=== PATIENT | female | born 1935 | race Caucasian/White ===

== ENCOUNTER 2016-09-25 13:18 | Emergency (ER) | payer MEDICARE, OTHER ==
--- NOTE | 2016-09-25 14:18 | RAD ---
TWO VIEWS OF THE LEFT HIP 09/25/2016 COMPARISON: 06/15/2016 HISTORY: Pain, injury. FINDINGS: Rounded rim-calcified densities overlie the soft tissues of the left buttock region suggesting injec tion granulomata. There is moderate superior joint space narrowing and lateral acetabular osteophyt e formation, evidence of degenerative change, stable. No acute fracture or dislocation seen. IMPRESSION: Stable degenerative joint disease. No displaced fracture or dislocation seen. POS: [facility]
[2016-09-25 14:57] LABS: #Basophils 0.1 thou/uL (0.0-0.2); #Eosinphils 0.3 thou/uL (0.0-0.7); #Monocytes 0.5 thou/uL (0.11-0.59); #Neutrophils 5.2 thou/uL (1.40-6.50); %Basophils 1.1 % (0.0-1.0); %Eosinophils 4.2 % (0.0-10.0); %Lymphocytes 13.7 % (21.0-51.0); %Monocytes 6.6 % (0.0-10.0); %Neutrophils 74.4 % (42.0-75.0); Hemoglobin 12.3 g/dL (12.0-16.0); Mean Corpuscular HGB CONC 32.2 g/dL (32.0-36.0); Mean Corpuscular Hemoglobin 29.4 pg (27.0-31.0); Mean Corpuscular Volume 91.4 fl (81.0-99.0); Mean Platelet Volume 9.2 fL (7.4-10.4); Platelet Count 130 thou/uL (130-400); RBC Distribution Width 14.2 % (11.5-14.5); Red Blood Cell (RBC) Count 4.17 mill/uL (4.20-5.40); White Blood Cell (WBC) Count 6.9 thou/uL (4.8-10.8)
[2016-09-25 15:13] LABS: ALT (SGPT) 9 U/L (0-55); AST (SGOT) 15 U/L (5-34); Albumin 4.1 g/dL (3.4-4.8); Alkaline Phosphatase 76 U/L (40-150); Anion Gap 17 mmol/L (10-20); BUN (Urea Nitrogen) 17 mg/dL (9.8-20.1); Bilirubin, Total 0.8 mg/dL (0.2-1.2); Calc. Creatinine Clearance 0 mL/min (70-130); Calcium 9.5 mg/dL (7.8-10.44); Carbon Dioxide 25 mmol/L (23-31); Chloride 104 mmol/L (98-107); Estimated GFR-MDRD 70; Globulin 2.6 g/dL (2.4-3.5); Glucose 230 mg/dL (83-110); Magnesium 1.7 mg/dL (1.6-2.6); Potassium 4.8 mmol/L (3.5-5.1); Protein, Total 6.7 g/dL (5.8-8.1); Sodium 141 mmol/L (136-145)
[2016-09-25 15:16] LABS: Bilirubin Negative (Negative); Blood, Urine Trace (Negative); Clarity Clear (Clear); Glucose, Urine (Dipstick) 100 mg/dL (Negative); Leukocyte Negative (Negative); Nitrite Negative (Negative); Protein, Urine (Dipstick) 30 mg/dL (Neg-Trace); Urobilinogen 0.2 mg/dL (0.2-1.0)
[2016-09-25 15:23] LABS: Specific Gravity, Urine 1.023 (1.002-1.036)
[2016-09-25 15:24] LABS: Bacteria/HPF Rare-Few HPF (None Seen); RBC/HPF 0-3 HPF (0-3); Squamous Epithelial 0-3 HPF (0-3); WBC/HPF 0-3 HPF (0-3)
--- NOTE | 2016-09-25 17:08 | RAD ---
PA AND LATERAL CHEST: Date: 09-25-16 History: Syncope. Comparison: 05-10-16 FINDINGS: Post-surgical changes related to median sternotomy and cardiac valve replacement are noted. There a re finding likely related to associated CABG. Fractured sternal wires are again seen. Cardiac silh ouette is at the upper limits of normal to mildly enlarged. Pulmonary vasculature is within normal limits. Mild chronic lung changes are seen. There is some slight blunting of the posterior costoph renic angle, some of which is related to overlying soft tissue density, but tiny bilateral pleural e ffusions are a possibility. There is osteopenia. No other interval change. IMPRESSION: 1. Mild cardiomegaly without overt CHF. 2. Questionable tiny bilateral pleural effusions. 3. Mild chronic lung changes. POS: [facility]
--- NOTE | 2016-09-25 20:44 | ERRECORD ---
[facility] EMERGENCY RECORD HPI SYNCOPE (18:50 ALMO) CHIEF COMPLAINT: Patient presents for evaluation of near syncope. HISTORIAN: History provided by patient. LOCATION: No localizing symptoms. QUALITY: Symptom quality described as dizziness. SEVERITY: Maximum severity of symptoms mild, Currently symptoms are moderate. TIME COURSE: Gradual onset of symptoms, 3, days ago. ASSOCIATED WITH: Associated with vomiting, Associated with weakness. EXACERBATED BY: Patient's condition exacerbated by nothing. RELIEVED BY: Patient's condition relieved by nothing. ROS (18:51 ALMO) CONSTITUTIONAL: Historian denies chills, denies fever. EYES: Negative eye review of systems. ENT: Negative ears, nose, throat review of systems. CARDIOVASCULAR: Historian denies chest pain, denies diaphoresis, reports palpitations. no carotid bruits. RESPIRATORY: Historian reports shortness of breath, denies wheezing. chronic but seems worse. NEUROLOGIC: Historian reports dizziness, denies focal weakness, denies gait changes. NOTES: All systems reviewed, negative except as described above. PAST MEDICAL HISTORY (SunSep 25, 2016 13:25 JPER) MEDICAL HISTORY: Notes: C/O LEFT HIP PAIN, Flu vaccine up to date, Pneumococcal vaccine up to date, Notes: VERIFIED 12-17-14, Flu vaccine up to date, Tetanus immunization up to date, Pneumococcal vaccine up to date, Flu vaccine up to date, Tetanus immunization up to date, Pneumococcal vaccine up to date, Past medical history includes cardiac history, Valvular disease, Past medical history includes pulmonary disease, pneumonia Notes: ANEMIA, CHF, Past medical history includes cardiac history, Past medical history includes history of diabetes, Past medical history includes endocrine disease, hypothyroidism, Past medical history includes hematological history, Past medical history includes history of hypertension, Past medical history includes cardiac history, congestive heart failure, myocardial infarction, NEED MITRAL VALVE REPLACEMENT, Past medical history includes history of diabetes, Type II, REVIEWED 01/15/2011. Past medical history includes cardiac history, coronary artery disease, cardiomyopathy, valvular heart disease mitral valve prolapse, Treated with angioplasty. vERIFIED. 08-27-14. FEMALE SURGICAL HISTORY: VERIFIED 09-25-16, VERIFIED 12-17-14, VALVE IMPLANT 29 MM, JANUARY 2002, LENS IMPLANTS BOTH EYES. SEPTUM REPAIR. ADENOIDS OUT, Surgical history of appendectomy, Surgical history of coronary artery bypass graft surgery, four vessels, Notes: X2 HEART SURGERIES, Surgical history of cholecystectomy, Surgical history of hysterectomy, Surgical history &a-1R&a+25V*p+0X*[id number]*c202B*c15G*c2P*p-0X&a-25V&a+1R Name: Vivian Willard : 1935 F81 MedRec: [id number] AcctNum: [id number] Prepared: SunSep 25, 2016 20:31 by Interface Page [address] [facility] EMERGENCY RECORD of oophorectomy, Surgical history of tonsillectomy. VERIFIED. 08-27-14. PSYCHIATRIC HISTORY: Notes: DENIES, Notes: VERIFIED 12-17-14, No previous psychiatric history, no previous inpatient psychiatric admissions, no previous emergency department psychiatric evaluations. REVIEWED 01/15/2011. No previous psychiatric history. VERIFIED. 08-27-14. SOCIAL HISTORY: Social History includes VERIFIED 09-25-16, Patient is a former tobacco user, smoked cigarettes, Patient quit smoking more than 10 years ago, Social History includes VERIFIED 12-17-14, Patient denies alcohol use, Patient denies drug use, Patient has no smoking history, Patient is a former tobacco user, smoked cigarettes, Patient quit smoking more than 10 years ago, Patient denies alcohol use, Patient denies drug use. VERIFIED.08-27-14. FAMILY HISTORY: SISTER OF MULTIPLE SCLEROSIS, Family history includes coronary artery disease, mother, father. (08/01/14). KNOWN ALLERGIES MYCINS (Unconfirmed) nitrofurantoin penicillin V (Unconfirmed): Reaction: Rash Penicillins pentazocine (Unconfirmed) pentazocine lactate (Unconfirmed) predniSONE Talwin CURRENT MEDICATIONS No recorded medications VITAL SIGNS VITAL SIGNS: BP: 136/49, Pulse: 76, Resp: 32, O2 sat: 92 on 2L Oxygen, Time: 09/25/2016 13:19. (13:19 JPER) BP: 159/75, Pulse: 60, Resp: 18, Temp: 98.4, O2 sat: 96 on RA, Time: 09/25/2016 17:57. (17:57 JPER) BP: 125/80, Pulse: 62, Resp: 18, Temp: 98.4 (Tympanic), O2 sat: 94 on Room Air, Time: 09/25/2016 14:00. (14:00 JPER) BP: 123/83, Pulse: 57, Resp: 18, O2 sat: 96 on Room Air, Time: 09/25/2016 14:30. (14:30 JPER) BP: 149/50, Pulse: 66, Resp: 20, Temp: 98.4 (Tympanic), O2 sat: 96 on Room Air, Time: 09/25/2016 15:00. (15:00 JPER) BP: 149/49, Pulse: 67, Resp: 18, O2 sat: 94 on 2L Oxygen, Time: 09/25/2016 15:30. (15:30 JPER) BP: 145/50, Pulse: 57, Resp: 20, O2 sat: 94 on 2L Oxygen, Time: 09/25/2016 16:00. (16:00 JPER) BP: 172/55, Pulse: 56, Resp: 20, O2 sat: 96 on 2L Oxygen, Time: 09/25/2016 16:30. (16:30 JPER) BP: 145/85, Pulse: 66, Resp: 20, O2 sat: 96 on 2L Oxygen, Time: 09/25/2016 &a-1R&a+25V*p+0X*[id number]*c202B*c15G*c2P*p-0X&a-25V&a+1R Name: Vivian Willard : 1935 F81 MedRec: [id number] AcctNum: [id number] Prepared: SunSep 25, 2016 20:31 by Interface Page [address] [facility] EMERGENCY RECORD 17:00. (17:00 JPER) BP: 142/84, Pulse: 64, Resp: 22, Temp: 98.5 (Tympanic), O2 sat: 96 on 2L Oxygen, Time: 09/25/2016 17:30. (17:30 JPER) BP: 159/75, Pulse: 56, Resp: 20, Temp: 98.4 (Tympanic), O2 sat: 96 on 2L Oxygen, Time: 09/25/2016 18:00. (18:00 JPER) PHYSICAL EXAM (18:53 ALMO) CONSTITUTIONAL: Vital Signs Reviewed. HEAD: Head exam included findings of head atraumatic, normocephalic. EYES: Pupils equally round and reactive to light. ENT: Pharynx exam normal. NECK: Neck exam included findings of normal range of motion, Trachea midline, Thyroid normal. RESPIRATORY CHEST: Respiratory exam included findings of, mild respiratory distress, Breath sounds diminished, to bilateral lower lobes. CARDIOVASCULAR: Cardiovascular exam included findings of heart rate regular rate and rhythm, Heart sounds normal, no murmurs. ABDOMEN FEMALE: Abdominal exam included findings of abdomen nontender, Bowel sounds normal, Liver normal, Spleen normal. BACK: Back exam included findings of normal inspection. SKIN: Skin exam normal. PSYCHIATRIC: Psychiatric exam included findings of patient oriented to person place and time, Normal affect, Judgment normal, Insight normal. PROBLEM LIST No recorded problems DIAGNOSIS (20:23 AGAN) FINAL: PRIMARY: Syncope. PRESCRIPTION No recorded prescriptions DISPOSITION PATIENT: Disposition Type: Transfer, Disposition: Transfer to [facility]. (19:15 AGAN) Disposition Transport: Ambulance, Condition: Good, Patient left the department. (20:23 AGAN) Azevedo: JASWINDER=ТАТЬЯНА Sarah, Dg VEGA=MD Babak, Juan ARREGUIN=ТАТЬЯНА Liang, Sapna &a-1R&a+25V*p+0X*[id number]*c202B*c15G*c2P*p-0X&a-25V&a+1R Name: Geraldo Willardmehran Murray : 1935 F81 MedRec: [id number] AcctNum: [id number] Prepared: SunSep 25, 2016 20:31 by Interface Page 3 of 3 pMD MTDD
--- NOTE | 2016-09-25 20:50 | PICIS ---
[facility] EMERGENCY RECORD TRIAGE (SunSep 25, 2016 13:25 JPER) PATIENT: NAME: Vivian Willard, AGE: 81, GENDER: female, : Sun1935, TIME OF GREET: SunSep 25, 2016 13:18, PREFERRED LANGUAGE: Albanian, RACE: WHITE, ETHNICITY: Not or , FALL RISK: YES, ECODE BILLING MAP: [facility], SSN: [id number], Zip Code: [address], PHONE: , , , PERSON ID: [id number], PCP: MD Waddell Grover. (SunSep 25, 2016 13:25 JPER) KG WEIGHT: 83.9 (est.). (19:15 AGAN) COMPLAINT: FALL. (SunSep 25, 2016 13:25 JPER) ADMISSION: URGENCY: 4 Non Urgent, ADMISSION SOURCE: Home, TRANSPORT: Walk-in, BED: ED -04. (SunSep 25, 2016 13:25 JPER) ASSESSMENT: Assessment: LEFT HIP PAIN X 1 HOUR. (SunSep 25, 2016 13:25 JPER) PAIN: Location LEFT HIP. (SunSep 25, 2016 13:25 JPER) IMMUNIZATIONS: Flu vaccine up to date, Tetanus immunization up to date, Pneumococcal vaccine up to date. (SunSep 25, 2016 13:25 JPER) SIRS SCORING: Heart Rate 55-109 (0), Temp range 96.8-101.1 (0), respiratory rate 12-24 (0), Mental Status altered: no (0). (SunSep 25, 2016 13:25 JPER) TRIAGE SCREENING: Patient denies suicidal ideation, Patient denies presence of domestic violence. (SunSep 25, 2016 13:25 JPER) PROVIDERS: TRIAGE NURSE: Sapna Liang RN. (SunSep 25, 2016 13:25 JPER) VITAL SIGNS: BP 136/49, Pulse 76, Resp 32, O2 Sat 92, on 2L Oxygen, Time 09/25/2016 13:19. (13:19 JPER) PREVIOUS VISIT ALLERGIES: nitrofurantoin, Penicillins, predniSONE, Talwin. (SunSep 25, 2016 13:25 JPER) KNOWN ALLERGIES MYCINS (Unconfirmed) nitrofurantoin penicillin V (Unconfirmed): Reaction: Rash Penicillins pentazocine (Unconfirmed) pentazocine lactate (Unconfirmed) predniSONE Talwin CURRENT MEDICATIONS No recorded medications VITAL SIGNS VITAL SIGNS: BP: 136/49, Pulse: 76, Resp: 32, O2 sat: 92 on 2L Oxygen, Time: 09/25/2016 13:19. (13:19 JPER) BP: 159/75, Pulse: 60, Resp: 18, Temp: 98.4, O2 sat: 96 on RA, Time: 09/25/2016 17:57. (17:57 JPER) BP: 125/80, Pulse: 62, Resp: 18, Temp: 98.4 (Tympanic), O2 sat: 94 on Room Air, Time: 09/25/2016 14:00. (14:00 JPER) BP: 123/83, Pulse: 57, Resp: 18, O2 sat: 96 on Room Air, Time: 09/25/2016 &a-1R&a+25V*p+0X*f7387M*c202B*c15G*c2P*p-0X&a-25V&a+1R Name: Vivian Willard : 1935 F81 MedRec: [id number] AcctNum: [id number] Prepared: SunSep 25, 2016 20:39 by Interface Page 1 of 8 pMD [facility] EMERGENCY RECORD 14:30. (14:30 JPER) BP: 149/50, Pulse: 66, Resp: 20, Temp: 98.4 (Tympanic), O2 sat: 96 on Room Air, Time: 09/25/2016 15:00. (15:00 JPER) BP: 149/49, Pulse: 67, Resp: 18, O2 sat: 94 on 2L Oxygen, Time: 09/25/2016 15:30. (15:30 JPER) BP: 145/50, Pulse: 57, Resp: 20, O2 sat: 94 on 2L Oxygen, Time: 09/25/2016 16:00. (16:00 JPER) BP: 172/55, Pulse: 56, Resp: 20, O2 sat: 96 on 2L Oxygen, Time: 09/25/2016 16:30. (16:30 JPER) BP: 145/85, Pulse: 66, Resp: 20, O2 sat: 96 on 2L Oxygen, Time: 09/25/2016 17:00. (17:00 JPER) BP: 142/84, Pulse: 64, Resp: 22, Temp: 98.5 (Tympanic), O2 sat: 96 on 2L Oxygen, Time: 09/25/2016 17:30. (17:30 JPER) BP: 159/75, Pulse: 56, Resp: 20, Temp: 98.4 (Tympanic), O2 sat: 96 on 2L Oxygen, Time: 09/25/2016 18:00. (18:00 JPER) NURSING ASSESSMENT: EXTREMITY LOWER (13:28 JPER) CONSTITUTIONAL: Patient arrives ambulatory, Gait steady, History obtained from patient, Patient appears comfortable, Patient cooperative, Patient alert, Oriented to person, place and time, Skin warm, Skin dry, Skin normal in color, Mucous membranes pink, Mucous membranes moist, Patient is well-groomed, Patient complains of LEFT HIP PAIN S/P FALL. PAIN: aching pain, to the left hip, on a scale 0-10 patient rates pain as 8, Pain exacerbated by nothing, Nothing has been tried to alleviate the pain. LEFT LOWER EXTREMITY: Left lower extremity assessment findings include capillary refill less than 2 seconds, Skin color normal, Skin temperature warm, Distal sensation intact, Muscle tone normal. RIGHT LOWER EXTREMITY: Right lower extremity assessment findings include capillary refill less than 2 seconds, Skin color normal, Skin temperature warm, Distal sensation intact, Muscle tone normal. NURSING PROCEDURE: BEDSIDE TESTING (18:12 AGAN) PATIENT IDENTIFIER: Patient actively involved in identification process, Patient's identity verified by patient stating name, Patient's identity verified by hospital ID [email or web address]. GLUCOSE: Glucose testing indicated for diabetic patient, Capillary blood sample, Result (mg/dl) 147, Machine number [id number]. FOLLOW-UP: Notes: PROVIDED APPLE JUICE, CRACKERS\CHEESE PACK AND ANIMALCRACKERS. SAFETY: Cart/Stretcher in lowest position, Hospital ID band on. NURSING PROCEDURE: COMMUNICATIONS (20:06 AWAT) COMMUNICATIONS: Notes: CARE OF PATIENT ASSUMED BY RUPERTO MOCTEZUMA-P WITH [facility]. NURSING PROCEDURE: IV (17:38 JPER) PATIENT IDENITIFIER: Patient's identity verified by patient &a-1R&a+25V*p+0X*z9595B*c202B*c15G*c2P*p-0X&a-25V&a+1R Name: Vivian Willard : 1935 F81 MedRec: [id number] AcctNum: [id number] Prepared: SunSep 25, 2016 20:39 by Interface Page 2 of 8 pMD [facility] EMERGENCY RECORD stating name, Patient's identity verified by hospital ID bracelet. IV SITE 1: IV therapy indicated for hydration, IV therapy indicated for medication administration, IV established, to the right antecubital, using a 20 gauge catheter, in two attempts, IV site prepped with CHLOROPREP, Saline lock established. FOLLOW-UP SITE 1: After procedure, sterile transparent dressing applied. NURSING PROCEDURE: NURSE NOTES NURSES NOTES: Notes: WAITING TRANSFER; PT IS AWAKE ET ALERT; DENIES CP; PLEASANT ET COOPERATIVE. (17:57 JPER) Notes: PT CONT COOPERATIVE; NAD. (15:00 JPER) Shift change report given, to DELMAR RN, Provided opportunity to answer questions, Line reconciliation completed. (18:04 JPER) VITAL SIGNS: BP: 159, / 75, Pulse: 60, Resp: 18, Temp: 98.4, O2 sat: 96, on: RA. (17:57 JPER) ORDER DETAILS Order Name: B type Natriuretic Peptide, Status: Active, Time: 14:16 09/25/2016, User: SILVIA, - Ordered for: MD Hilliard Alberto, - Entered by: MD Hilliard Alberto - SunSep 25, 2016 14:16, - Quantity: 1, Order Name: CBC with Differential, Status: Active, Time: 14:16 09/25/2016, User: SILVIA, - Ordered for: MD Hilliard Alberto, - Entered by: MD Hilliard Alberto - SunSep 25, 2016 14:16, - Quantity: 1, Order Name: Comprehensive Metabolic Panel, Status: Active, Time: 14:16 09/25/2016, User: SILVIA, - Ordered for: MD Hilliard Alberto, - Entered by: MD Hilliard Alberto - SunSep 25, 2016 14:16, - Quantity: 1, Order Name: D-Dimer (Quantitative), Status: Active, Time: 14:16 09/25/2016, User: SILVIA, - Ordered for: MD Hilliard Alberto, - Entered by: MD Hilliard Alberto - SunSep 25, 2016 14:16, - Quantity: 1, Order Name: EKG 12 Lead in Emergency Room, Status: Active, Time: 16:44 09/25/2016, User: RODRÍGUEZ, - Ordered for: MD Hilliard Alberto, - Entered by: ТАТЬЯНА Liang, Sapna - SunSep 25, 2016 16:44, - Quantity: 1, Order Name: Magnesium, Status: Active, Time: 14:16 09/25/2016, User: SILVIA, - Ordered for: MD Hilliard Alberto, - Entered by: MD Hilliard Alberto - SunSep 25, 2016 14:16, - Quantity: 1, Order Name: Troponin - I, Status: Active, Time: 14:16 09/25/2016, &a-1R&a+25V*p+0X*z7141S*c202B*c15G*c2P*p-0X&a-25V&a+1R Name: Geraldo Willardmehran Murray : 1935 F81 MedRec: [id number] AcctNum: [id number] Prepared: SunSep 25, 2016 20:39 by Interface Page 3 of 8 D [facility] EMERGENCY RECORD User: SILVIA, - Ordered for: MD Hilliard Alberto, - Entered by: MD Hilliard Alberto - SunSep 25, 2016 14:16, - Quantity: 1, Order Name: Urinalysis w/ Rflx Microscopic, Status: Active, Time: 14:16 09/25/2016, User: SILVIA, - Ordered for: MD Hilliard Alberto, - Entered by: MD Hilliard Alberto - SunSep 25, 2016 14:16, - Quantity: 1, Order Name: XR Chest Pa & Lat STANDARD, Status: Active, Time: 14:16 09/25/2016, User: SILVIA, - Ordered for: MD Hilliard Alberto, - Entered by: MD Hilliard Alberto - SunSep 25, 2016 14:16, - Quantity: 1, Order Name: XR Hip Lt 2-3 View STANDARD, Status: Active, Time: 13:30 09/25/2016, User: RODRÍGUEZ, - Ordered for: MD Hilliard Alberto, - Entered by: ТАТЬЯНА Liang Sapna - SunSep 25, 2016 13:30, - Quantity: 1. HPI SYNCOPE (18:50 ALMO) CHIEF COMPLAINT: Patient presents for evaluation of near syncope. HISTORIAN: History provided by patient. LOCATION: No localizing symptoms. QUALITY: Symptom quality described as dizziness. SEVERITY: Maximum severity of symptoms mild, Currently symptoms are moderate. TIME COURSE: Gradual onset of symptoms, 3, days ago. ASSOCIATED WITH: Associated with vomiting, Associated with weakness. EXACERBATED BY: Patient's condition exacerbated by nothing. RELIEVED BY: Patient's condition relieved by nothing. ROS (18:51 ALMO) CONSTITUTIONAL: Historian denies chills, denies fever. EYES: Negative eye review of systems. ENT: Negative ears, nose, throat review of systems. CARDIOVASCULAR: Historian denies chest pain, denies diaphoresis, reports palpitations. no carotid bruits. RESPIRATORY: Historian reports shortness of breath, denies wheezing. chronic but seems worse. NEUROLOGIC: Historian reports dizziness, denies focal weakness, denies gait changes. NOTES: All systems reviewed, negative except as described above. PAST MEDICAL HISTORY (SunSep 25, 2016 13:25 RODRÍGUEZ) MEDICAL HISTORY: Notes: C/O LEFT HIP PAIN, Flu vaccine up to date, Pneumococcal vaccine up to date, Notes: VERIFIED 12-17-14, Flu vaccine up to date, Tetanus immunization up to date, Pneumococcal vaccine up to date, Flu vaccine up to date, Tetanus &a-1R&a+25V*p+0X*c8038O*c202B*c15G*c2P*p-0X&a-25V&a+1R Name: Vivian Willard : 1935 F81 MedRec: [id number] AcctNum: [id number] Prepared: SunSep 25, 2016 20:39 by Interface Page 4 of 8 pMD [facility] EMERGENCY RECORD immunization up to date, Pneumococcal vaccine up to date, Past medical history includes cardiac history, Valvular disease, Past medical history includes pulmonary disease, pneumonia Notes: ANEMIA, CHF, Past medical history includes cardiac history, Past medical history includes history of diabetes, Past medical history includes endocrine disease, hypothyroidism, Past medical history includes hematological history, Past medical history includes history of hypertension, Past medical history includes cardiac history, congestive heart failure, myocardial infarction, NEED MITRAL VALVE REPLACEMENT, Past medical history includes history of diabetes, Type II, REVIEWED 01/15/2011. Past medical history includes cardiac history, coronary artery disease, cardiomyopathy, valvular heart disease mitral valve prolapse, Treated with angioplasty. vERIFIED. 08-27-14. FEMALE SURGICAL HISTORY: VERIFIED 09-25-16, VERIFIED 12-17-14, VALVE IMPLANT 29 MM, JANUARY 2002, LENS IMPLANTS BOTH EYES. SEPTUM REPAIR. ADENOIDS OUT, Surgical history of appendectomy, Surgical history of coronary artery bypass graft surgery, four vessels, Notes: X2 HEART SURGERIES, Surgical history of cholecystectomy, Surgical history of hysterectomy, Surgical history of oophorectomy, Surgical history of tonsillectomy. VERIFIED. 08-27-14. PSYCHIATRIC HISTORY: Notes: DENIES, Notes: VERIFIED 12-17-14, No previous psychiatric history, no previous inpatient psychiatric admissions, no previous emergency department psychiatric evaluations. REVIEWED 01/15/2011. No previous psychiatric history. VERIFIED. 08-27-14. SOCIAL HISTORY: Social History includes VERIFIED 09-25-16, Patient is a former tobacco user, smoked cigarettes, Patient quit smoking more than 10 years ago, Social History includes VERIFIED 12-17-14, Patient denies alcohol use, Patient denies drug use, Patient has no smoking history, Patient is a former tobacco user, smoked cigarettes, Patient quit smoking more than 10 years ago, Patient denies alcohol use, Patient denies drug use. VERIFIED.08-27-14. FAMILY HISTORY: SISTER OF MULTIPLE SCLEROSIS, Family history includes coronary artery disease, mother, father. (08/01/14). PHYSICAL EXAM (18:53 ALMO) CONSTITUTIONAL: Vital Signs Reviewed. HEAD: Head exam included findings of head atraumatic, normocephalic. EYES: Pupils equally round and reactive to light. ENT: Pharynx exam normal. NECK: Neck exam included findings of normal range of motion, Trachea midline, Thyroid normal. RESPIRATORY CHEST: Respiratory exam included findings of, mild respiratory distress, Breath sounds diminished, to bilateral lower lobes. &a-1R&a+25V*p+0X*m1454B*c202B*c15G*c2P*p-0X&a-25V&a+1R Name: Vivian Willard : 1935 F81 MedRec: [id number] AcctNum: [id number] Prepared: SunSep 25, 2016 20:39 by Interface Page 5 of 8 pMD [facility] EMERGENCY RECORD CARDIOVASCULAR: Cardiovascular exam included findings of heart rate regular rate and rhythm, Heart sounds normal, no murmurs. ABDOMEN FEMALE: Abdominal exam included findings of abdomen nontender, Bowel sounds normal, Liver normal, Spleen normal. BACK: Back exam included findings of normal inspection. SKIN: Skin exam normal. PSYCHIATRIC: Psychiatric exam included findings of patient oriented to person place and time, Normal affect, Judgment normal, Insight normal. EVENTS TRANSFER: Triage to Emergency Main ED -04. (SunSep 25, 2016 13:25 JPER) Removed from Emergency Main ED -04. (20:23 AGAN) PROBLEM LIST No recorded problems DIAGNOSIS (20:23 AGAN) FINAL: PRIMARY: Syncope. DISPOSITION PATIENT: Disposition Type: Transfer, Disposition: Transfer to [facility]. (19:15 AGAN) Disposition Transport: Ambulance, Condition: Good, Patient left the department. (20:23 AGAN) PRESCRIPTION No recorded prescriptions IMAGING *EKG: Image captured from scanner. (17:38 AGAN) *MEMORANDUM OF TRANSFER: Image captured from scanner. (18:13 MDEB) CONSENT FOR TRANSFER: Image captured from scanner. (18:14 MDEB) EMS TRANSPORT ORDERS: Image captured from scanner. (18:14 MDEB) SBARU: Image captured from scanner. (20:08 AGAN) RESULTS (19:29 AGAN) LABORATORY: Accuchek Collection DT: SunSep 25, 2016 18:19, *Accuchek 147 - H mg/dL, Range (70-110). Urine Microscopic Collection DT: SunSep 25, 2016 15:11, RBC/HPF 0-3 HPF, Range (0-3), WBC/HPF 0-3 HPF, Range (0-3), Squamous Epithelial 0-3 HPF, Range (0-3), Bacteria/HPF Rare-Few HPF, Range (None Seen). Urinalysis w/ Rflx Microscopic Collection DT: SunSep 25, 2016 15:11, Color Yellow , Range (Yellow), Clarity Clear , Range (Clear), Specific [place], Urine 1.023 , Range (1.002-1.036), &a-1R&a+25V*p+0X*h7646B*c202B*c15G*c2P*p-0X&a-25V&a+1R Name: Vivian Willard : 1935 F81 MedRec: [id number] AcctNum: [id number] Prepared: SunSep 25, 2016 20:39 by Interface Page 6 of 8 pMD [facility] EMERGENCY RECORD pH, Urine 5.0 , Range (5.0-9.0), Leukocyte Negative , Range (Negative), Nitrite Negative , Range (Negative), *Protein, Urine (Dipstick) 30 - H mg/dL, Range (Neg-Trace), *Glucose, Urine (Dipstick) 100 - H mg/dL, Range (Negative), Ketone, Urine Negative mg/dL, Range (Negative), Urobilinogen 0.2 mg/dL, Range (0.2-1.0), Bilirubin Negative , Range (Negative), *Blood, Urine Trace - H , Range (Negative). B type Natriuretic Peptide Collection DT: SunSep 25, 2016 14:48, *B type Natriuretic Peptide 310.1 - H pg/mL, Range (0-100). Troponin - I Collection DT: SunSep 25, 2016 14:48, Troponin I Less than 0.010 ng/mL, Range (< 0.028), Reference Range , 0.00 - 0.028 ng/mL Negative 0.029 - 0.29 ng/mL , Indeterminate Greater or Equal to 0.3 ng/mL Strongly suggests NM , . Magnesium Collection DT: SunSep 25, 2016 14:48, Magnesium 1.7 mg/dL, Range (1.6-2.6), NOTE: Higher values can be expected in females during menses . Comprehensive Metabolic Panel Collection DT: SunSep 25, 2016 14:48, Sodium 141 mmol/L, Range (136-145), Potassium 4.8 mmol/L, Range (3.5-5.1), Chloride 104 mmol/L, Range (98-107), Carbon Dioxide 25 mmol/L, Range (23-31), Anion Gap 17 mmol/L, Range (10-20), BUN (Urea Nitrogen) 17 mg/dL, Range (9.8-20.1), Creatinine 0.79 mg/dL, Range (0.6-1.1), Estimated GFR-MDRD 70 , Reference Range for Estimated GFR: Greater than 90, mL/min/1.73 m2 NOTE: The MDRD equation has not been validated for use, with the elderly (over 70 years of age), women, patients with, serious comorbid condition or persons with extremes of body size, muscle, mass, or nutritional status. , *Glucose 230 - H mg/dL, Range (83-110), Calcium 9.5 mg/dL, Range (7.8-10.44), Bilirubin, Total 0.8 mg/dL, Range (0.2-1.2), Protein, Total 6.7 g/dL, Range (5.8-8.1), NOTE: Plasma values are generally 0.3 to 0.5 g/dL higher than serum values, due to the presence of fibrinogen. , Albumin 4.1 g/dL, Range (3.4-4.8), Globulin 2.6 g/dL, Range (2.4-3.5), Alb/Glob Ratio 1.6 g/dL, Range (1.2-2.2), Alkaline Phosphatase 76 U/L, Range (40-150), AST (SGOT) 15 U/L, Range (5-34), &a-1R&a+25V*p+0X*i1163I*c202B*c15G*c2P*p-0X&a-25V&a+1R Name: Vivian Willard : 1935 F81 MedRec: [id number] AcctNum: [id number] Prepared: SunSep 25, 2016 20:39 by Interface Page 7 of 8 pMD [facility] EMERGENCY RECORD ALT (SGPT) 9 U/L, Range (0-55). D-Dimer (Quantitative) Collection DT: SunSep 25, 2016 14:48, D-Dimer Test 0.31 *mcg/mL, Range (0.27-0.43), * Reference Range Units: mcg/mL of fibrinogen equivalent, units(FEU) Based upon a retrospective study of [facility] patients in December 2005, a result of Less than 0.44 mcg/mL FEU is, predictive of the absence of a DVT or PE. . CBC with Differential Collection DT: SunSep 25, 2016 14:48, White Blood Cell (WBC) Count 6.9 thou/uL, Range (4.8-10.8), *Red Blood Cell (RBC) Count 4.17 - L mill/uL, Range (4.20-5.40), Hemoglobin 12.3 g/dL, Range (12.0-16.0), Hematocrit 38.1 %, Range (36.0-47.0), Mean Corpuscular Volume 91.4 fl, Range (81.0-99.0), Mean Corpuscular Hemoglobin 29.4 pg, Range (27.0-31.0), Mean Corpuscular HGB CONC 32.2 g/dL, Range (32.0-36.0), RBC Distribution Width 14.2 %, Range (11.5-14.5), Platelet Count 130 thou/uL, Range (130-400), Mean Platelet Volume 9.2 fL, Range (7.4-10.4), %Neutrophils 74.4 %, Range (42.0-75.0), *%Lymphocytes 13.7 - L %, Range (21.0-51.0), %Monocytes 6.6 %, Range (0.0-10.0), %Eosinophils 4.2 %, Range (0.0-10.0), *%Basophils 1.1 - H %, Range (0.0-1.0), #Neutrophils 5.2 thou/uL, Range (1.40-6.50), *#Lymphocytes 1.0 - L thou/uL, Range (1.20-3.40), #Monocytes 0.5 thou/uL, Range (0.11-0.59), #Eosinphils 0.3 thou/uL, Range (0.0-0.7), #Basophils 0.1 thou/uL, Range (0.0-0.2). [place]evedo: JASWINDER=ТАТЬЯНА Sarah, Dg VEGA=MD Babak, Juan COTTER=ТАТЬЯНА Gates, Amado ARREGUIN=ТАТЬЯНА Liang, Sapna TRACEY=ТАТЬЯНА Campbell, Yuni &a-1R&a+25V*p+0X*w6826X*c202B*c15G*c2P*p-0X&a-25V&a+1R Name: Geraldo Willardn Terri : 1935 F81 MedRec: [id number] AcctNum: [id number] Prepared: SunSep 25, 2016 20:39 by Interface Page 8 of 8 pMD MTDD
== END 2016-09-25 20:06 | disposition short-term general hospital (02) ==
LOC: MADERS 13:18
DX: R55 Syncope and collapse (principal); I11.0 Hypertensive heart disease with heart failure; I50.9 Heart failure, unspecified; D64.9 Anemia, unspecified; E03.9 Hypothyroidism, unspecified; I25.2 Old myocardial infarction; E11.9 Type 2 diabetes mellitus without complications; I25.10 Atherosclerotic heart disease of native coronary artery without angina pectoris; I42.9 Cardiomyopathy, unspecified; Z87.891 Personal history of nicotine dependence; Z98.62 Peripheral vascular angioplasty status; Z95.2 Presence of prosthetic heart valve; Z87.01 Personal history of pneumonia (recurrent)
CPT/HCPCS: 36415; 36416; 71020; 80053; 81003; 81015; 83735; 83880; 84484; 85025; 85379; 93005

== ENCOUNTER 2016-10-16 09:32 | Outpatient (CLI) | payer MEDICARE, OTHER ==
[2016-10-16 10:06] LABS: #Basophils 0.1 thou/uL (0.0-0.2); #Eosinphils 0.4 thou/uL (0.0-0.7); #Lymphocytes 1.1 thou/uL (1.20-3.40); #Monocytes 0.4 thou/uL (0.11-0.59); #Neutrophils 4.5 thou/uL (1.40-6.50); %Basophils 1.1 % (0.0-1.0); %Eosinophils 6.4 % (0.0-10.0); %Lymphocytes 16.2 % (21.0-51.0); %Monocytes 6.8 % (0.0-10.0); %Neutrophils 69.5 % (42.0-75.0); Mean Corpuscular HGB CONC 34.3 g/dL (32.0-36.0); Mean Corpuscular Volume 90.4 fl (81.0-99.0); Mean Platelet Volume 8.3 fL (7.4-10.4); Platelet Count 155 thou/uL (130-400); RBC Distribution Width 14.5 % (11.5-14.5); Red Blood Cell (RBC) Count 3.54 mill/uL (4.20-5.40); White Blood Cell (WBC) Count 6.4 thou/uL (4.8-10.8)
[2016-10-16 10:12] LABS: Hemoglobin A1c 6.8 % (4.0-6.0)
[2016-10-16 10:33] LABS: ALT (SGPT) 7 U/L (0-55); AST (SGOT) 17 U/L (5-34); Albumin 4.3 g/dL (3.4-4.8); Alkaline Phosphatase 70 U/L (40-150); Anion Gap 16 mmol/L (10-20); BUN (Urea Nitrogen) 16 mg/dL (9.8-20.1); Bilirubin, Direct 0.2 mg/dL (0.1-0.3); Bilirubin, Total 0.5 mg/dL (0.2-1.2); Calc. Creatinine Clearance 0 mL/min (70-130); Calcium 9.5 mg/dL (7.8-10.44); Carbon Dioxide 25 mmol/L (23-31); Cardiac Risk 3.1 (Less than 4.5); Chloride 104 mmol/L (98-107); Cholesterol 156 mg/dL (< 200 Desired); Estimated GFR-MDRD 74; Glucose 182 mg/dL (83-110); HDL Cholesterol 51 mg/dL (>60 Neg Risk); LDL Cholesterol, Calculated 62 mg/dL; Potassium 3.9 mmol/L (3.5-5.1); Protein, Total 6.7 g/dL (5.8-8.1); Sodium 141 mmol/L (136-145); Triglycerides 214 mg/dL (Less than 150)
== END 2016-10-16 09:33 ==
LOC: MADLABBHPM 09:32
PROVIDERS: ATTEND Family Medicine
DX: E11.9 Type 2 diabetes mellitus without complications (principal); D63.8 Anemia in other chronic diseases classified elsewhere; E78.5 Hyperlipidemia, unspecified; E03.9 Hypothyroidism, unspecified
CPT/HCPCS: 36415; 80048; 80061; 80076; 83036; 84443; 85025

== ENCOUNTER 2016-10-30 16:39 | Emergency (ER) | payer MEDICARE, OTHER ==
[2016-10-30 18:20] LABS: #Eosinphils 0.5 thou/uL (0.0-0.7); #Lymphocytes 1.3 thou/uL (1.20-3.40); #Monocytes 0.5 thou/uL (0.11-0.59); #Neutrophils 4.4 thou/uL (1.40-6.50); %Basophils 0.7 % (0.0-1.0); %Eosinophils 6.8 % (0.0-10.0); %Lymphocytes 18.8 % (21.0-51.0); %Monocytes 7.2 % (0.0-10.0); %Neutrophils 66.5 % (42.0-75.0); Hemoglobin 8.8 g/dL (12.0-16.0); Mean Corpuscular HGB CONC 32.3 g/dL (32.0-36.0); Mean Corpuscular Hemoglobin 29.9 pg (27.0-31.0); Mean Corpuscular Volume 92.5 fl (81.0-99.0); Mean Platelet Volume 8.1 fL (7.4-10.4); Platelet Count 159 thou/uL (130-400); RBC Distribution Width 14.4 % (11.5-14.5); Red Blood Cell (RBC) Count 2.94 mill/uL (4.20-5.40); White Blood Cell (WBC) Count 6.7 thou/uL (4.8-10.8)
--- NOTE | 2016-10-30 18:20 | CT ---
NONCONTRAST HEAD CT: Date: 10/30/16 HISTORY: Altered mental status. COMPARISON: 10/19/08. TECHNIQUE: A noncontrast head CT is performed from the skull base to the skull vertex. FINDINGS: No parenchymal hemorrhage or extra-axial hematoma. No midline shift. Basilar cisterns are patent. Ag e-appropriate atrophy. Cortical ramirez-white matter differentiation is preserved. Ventricles and sulci are patent and symmetric. Chronic small vessel ischemic changes of white matter noted. Calvarium is intact. Right sphenoid sinus disease. Minimal mucosal thickening of the ethmoid air cells. Mastoid air cells are adequately aerated. Cavernous carotid atherosclerosis. IMPRESSION: 1. No acute intracranial process. 2. Age-appropriate atrophy. 3. Chronic small vessel ischemic changes of white matter. POS: [facility]
[2016-10-30 18:34] LABS: ALT (SGPT) 9 U/L (0-55); AST (SGOT) 15 U/L (5-34); Albumin 4.1 g/dL (3.4-4.8); Alkaline Phosphatase 70 U/L (40-150); Anion Gap 16 mmol/L (10-20); BUN (Urea Nitrogen) 24 mg/dL (9.8-20.1); Bilirubin, Total 0.4 mg/dL (0.2-1.2); Calc. Creatinine Clearance 0 mL/min (70-130); Calcium 9.2 mg/dL (7.8-10.44); Carbon Dioxide 27 mmol/L (23-31); Chloride 101 mmol/L (98-107); Estimated GFR-MDRD 62; Globulin 2.4 g/dL (2.4-3.5); Glucose 179 mg/dL (83-110); Potassium 4.2 mmol/L (3.5-5.1); Protein, Total 6.5 g/dL (5.8-8.1); Sodium 140 mmol/L (136-145)
== END 2016-10-30 19:22 | disposition short-term general hospital (02) ==
LOC: MADERS 16:39
DX: R41.82 Altered mental status, unspecified (principal); I11.0 Hypertensive heart disease with heart failure; I50.9 Heart failure, unspecified; E11.9 Type 2 diabetes mellitus without complications; E03.9 Hypothyroidism, unspecified; D64.9 Anemia, unspecified; I25.10 Atherosclerotic heart disease of native coronary artery without angina pectoris; I42.9 Cardiomyopathy, unspecified; Z87.891 Personal history of nicotine dependence; Z79.82 Long term (current) use of aspirin; Z79.899 Other long term (current) drug therapy; Z79.84 Long term (current) use of oral hypoglycemic drugs
CPT/HCPCS: 36415; 70450; 80053; 84484; 85025

== ENCOUNTER 2016-11-16 14:36 | Outpatient (CLI) | payer MEDICARE, OTHER ==
[2016-11-16 15:01] LABS: #Basophils 0.1 thou/uL (0.0-0.2); #Eosinphils 0.5 thou/uL (0.0-0.7); #Lymphocytes 1.2 thou/uL (1.20-3.40); #Monocytes 0.5 thou/uL (0.11-0.59); #Neutrophils 4.3 thou/uL (1.40-6.50); %Basophils 0.9 % (0.0-1.0); %Monocytes 7.4 % (0.0-10.0); %Neutrophils 65.7 % (42.0-75.0); Hemoglobin 9.8 g/dL (12.0-16.0); Mean Corpuscular HGB CONC 32.3 g/dL (32.0-36.0); Mean Corpuscular Hemoglobin 28.2 pg (27.0-31.0); Mean Corpuscular Volume 87.4 fl (81.0-99.0); Mean Platelet Volume 7.6 fL (7.4-10.4); Platelet Count 172 thou/uL (130-400); RBC Distribution Width 14.8 % (11.5-14.5); Red Blood Cell (RBC) Count 3.46 mill/uL (4.20-5.40); White Blood Cell (WBC) Count 6.6 thou/uL (4.8-10.8)
[2016-11-16 15:12] LABS: Anion Gap 15 mmol/L (10-20); BUN (Urea Nitrogen) 17 mg/dL (9.8-20.1); Calc. Creatinine Clearance 0 mL/min (70-130); Calcium 9.3 mg/dL (7.8-10.44); Carbon Dioxide 26 mmol/L (23-31); Chloride 104 mmol/L (98-107); Estimated GFR-MDRD 78; Glucose 133 mg/dL (83-110); Sodium 141 mmol/L (136-145)
== END 2016-11-16 14:37 | disposition home or self-care (01) ==
LOC: MADLABBHPM 14:36
PROVIDERS: ATTEND Family Medicine
DX: E11.9 Type 2 diabetes mellitus without complications (principal); I48.92 Unspecified atrial flutter
CPT/HCPCS: 36415; 80048; 85025

== ENCOUNTER 2016-12-19 08:22 | Outpatient (CLI) | payer MEDICARE, OTHER ==
[2016-12-19 08:52] LABS: #Basophils 0.1 thou/uL (0.0-0.2); #Eosinphils 0.5 thou/uL (0.0-0.7); #Lymphocytes 1.1 thou/uL (1.20-3.40); #Monocytes 0.4 thou/uL (0.11-0.59); #Neutrophils 3.3 thou/uL (1.40-6.50); %Basophils 1.5 % (0.0-1.0); %Eosinophils 9.5 % (0.0-10.0); %Lymphocytes 19.9 % (21.0-51.0); %Monocytes 7.8 % (0.0-10.0); %Neutrophils 61.3 % (42.0-75.0); Hemoglobin 9.6 g/dL (12.0-16.0); Mean Corpuscular HGB CONC 30.8 g/dL (32.0-36.0); Mean Corpuscular Hemoglobin 25.7 pg (27.0-31.0); Mean Corpuscular Volume 83.7 fl (81.0-99.0); Mean Platelet Volume 7.7 fL (7.4-10.4); Platelet Count 200 thou/uL (130-400); RBC Distribution Width 16.7 % (11.5-14.5); Red Blood Cell (RBC) Count 3.72 mill/uL (4.20-5.40); White Blood Cell (WBC) Count 5.4 thou/uL (4.8-10.8)
[2016-12-19 08:54] LABS: Anion Gap 15 mmol/L (10-20); BUN (Urea Nitrogen) 12 mg/dL (9.8-20.1); Calc. Creatinine Clearance 0 mL/min (70-130); Calcium 9.4 mg/dL (7.8-10.44); Carbon Dioxide 27 mmol/L (23-31); Chloride 102 mmol/L (98-107); Estimated GFR-MDRD 74; Glucose 167 mg/dL (83-110); Potassium 4.1 mmol/L (3.5-5.1); Sodium 140 mmol/L (136-145)
== END 2016-12-19 08:23 ==
LOC: MADLAB 08:22
PROVIDERS: ATTEND Internal Medicine Cardiovascular Disease
DX: D50.0 Iron deficiency anemia secondary to blood loss (chronic) (principal)
CPT/HCPCS: 36415; 80048; 85025

== ENCOUNTER 2017-03-20 08:46 | Outpatient (CLI) | payer MEDICARE, OTHER ==
[2017-03-20 09:14] LABS: Hemoglobin A1c 7.3 % (4.0-6.0)
[2017-03-20 09:21] LABS: #Basophils 0.1 thou/uL (0.0-0.2); #Eosinphils 0.5 thou/uL (0.0-0.7); #Lymphocytes 1.2 thou/uL (1.20-3.40); #Monocytes 0.5 thou/uL (0.11-0.59); #Neutrophils 4.5 thou/uL (1.40-6.50); %Basophils 0.8 % (0.0-1.0); %Eosinophils 7.4 % (0.0-10.0); %Lymphocytes 17.4 % (21.0-51.0); %Monocytes 7.7 % (0.0-10.0); %Neutrophils 66.7 % (42.0-75.0); Hemoglobin 11.9 g/dL (12.0-16.0); Mean Corpuscular HGB CONC 32.1 g/dL (32.0-36.0); Mean Corpuscular Hemoglobin 27.9 pg (27.0-31.0); Mean Corpuscular Volume 86.9 fl (81.0-99.0); Mean Platelet Volume 8.4 fL (7.4-10.4); Platelet Count 147 thou/uL (130-400); RBC Distribution Width 15.5 % (11.5-14.5); Red Blood Cell (RBC) Count 4.26 mill/uL (4.20-5.40); White Blood Cell (WBC) Count 6.8 thou/uL (4.8-10.8)
[2017-03-20 09:59] LABS: ALT (SGPT) 11 U/L (8-55); AST (SGOT) 17 U/L (5-34); Albumin 3.9 g/dL (3.4-4.8); Alkaline Phosphatase 98 U/L (40-150); Anion Gap 15 mmol/L (10-20); BUN (Urea Nitrogen) 20 mg/dL (9.8-20.1); Bilirubin, Direct 0.2 mg/dL (0.1-0.3); Bilirubin, Total 0.5 mg/dL (0.2-1.2); Calc. Creatinine Clearance 0 mL/min (70-130); Calcium 9.4 mg/dL (7.8-10.44); Carbon Dioxide 27 mmol/L (23-31); Chloride 102 mmol/L (98-107); Cholesterol 225 mg/dl (< 200 Desired); Estimated GFR-MDRD 67; Glucose 175 mg/dL (83-110); HDL Cholesterol 45 mg/dL (>60 Neg Risk); LDL Cholesterol, Calculated 129 mg/dL; Protein, Total 7.1 g/dL (6.0-8.3); Sodium 140 mmol/L (136-145); Triglycerides 253 mg/dL (Less than 150)
== END 2017-03-20 08:47 | disposition home or self-care (01) ==
LOC: MADLABBHPM 08:46
PROVIDERS: ATTEND Family Medicine
DX: E78.5 Hyperlipidemia, unspecified (principal); E11.9 Type 2 diabetes mellitus without complications; D63.8 Anemia in other chronic diseases classified elsewhere; E03.9 Hypothyroidism, unspecified
CPT/HCPCS: 36415; 80048; 80061; 80076; 83036; 84443; 85025

== ENCOUNTER 2017-04-12 22:35 | Emergency (ER) | payer MEDICARE, OTHER | END 2017-04-12 23:59 | disposition home or self-care (01) | LOC: MADERS 22:35 | DX: T46.5X1A Poisoning by other antihypertensive drugs, accidental (unintentional), initial encounter (principal); I11.0 Hypertensive heart disease with heart failure; I50.9 Heart failure, unspecified; I48.91 Unspecified atrial fibrillation; Z79.84 Long term (current) use of oral hypoglycemic drugs; Z79.82 Long term (current) use of aspirin; Z79.899 Other long term (current) drug therapy; Z87.891 Personal history of nicotine dependence | CPT/HCPCS: 36416; 99284 ==

== ENCOUNTER 2017-11-28 15:32 | Outpatient (CLI) | payer MEDICARE, OTHER | END 2017-11-28 15:33 | disposition home or self-care (01) | LOC: MADEKG 15:32 | PROVIDERS: ATTEND Family Medicine | DX: R07.9 Chest pain, unspecified (principal) | CPT/HCPCS: 93005; 93010 ==

== ENCOUNTER 2018-04-02 13:29 | Emergency (ER) | payer MEDICARE, OTHER ==
[2018-04-02 14:28] LABS: #Basophils 0.1 thou/uL (0.0-0.2); #Eosinphils 0.8 thou/uL (0.0-0.7); #Lymphocytes 1.2 thou/uL (1.20-3.40); #Monocytes 0.5 thou/uL (0.11-0.59); #Neutrophils 6.4 thou/uL (1.40-6.50); %Basophils 0.8 % (0.0-1.0); %Lymphocytes 15.5 % (21.0-51.0); %Monocytes 6.3 % (0.0-10.0); %Neutrophils 67.4 % (42.0-75.0); Mean Corpuscular HGB CONC 30.9 g/dL (32.0-36.0); Mean Corpuscular Hemoglobin 25.8 pg (27.0-31.0); Mean Corpuscular Volume 83.6 fL (78.0-98.0); Mean Platelet Volume 7.5 fL (7.4-10.4); Platelet Count 193 thou/uL (130-400); Red Blood Cell (RBC) Count 3.47 mill/uL (4.20-5.40)
[2018-04-02 14:35] LABS: INR-International Normal Ratio 1.6; Prothrombin Time 18.5 SEC (12.0-14.7)
[2018-04-02 14:42] LABS: ALT (SGPT) 7 U/L (8-55); AST (SGOT) 12 U/L (5-34); Albumin 4.2 g/dL (3.4-4.8); Alkaline Phosphatase 83 U/L (40-150); Anion Gap 16 mmol/L (10-20); BUN (Urea Nitrogen) 23 mg/dL (9.8-20.1); Bilirubin, Total 0.6 mg/dL (0.2-1.2); Calc. Creatinine Clearance 0 mL/min (70-130); Calcium 9.6 mg/dL (7.8-10.44); Carbon Dioxide 25 mmol/L (23-31); Chloride 103 mmol/L (98-107); Estimated GFR-MDRD 63; Globulin 2.9 g/dL (2.4-3.5); Potassium 4.3 mmol/L (3.5-5.1); Protein, Total 7.1 g/dL (6.0-8.3); Sodium 140 mmol/L (136-145)
[2018-04-02 14:48] LABS: Glucose 169 mg/dL (83-110)
--- NOTE | 2018-04-02 14:59 | RAD ---
CHEST ONE VIEW: History: Chest pain. Comparison: 11-30-16 FINDINGS: Cardiac silhouette is magnified by projection. Pulmonary vasculature is upper limits of normal. Media stinum is midline. There are post-operative changes and aortic calcification. No lobar consolidation or evidence of pneumothorax. IMPRESSION: 1. Borderline pulmonary vascular congestion. 2. Atherosclerosis. POS: [facility]
== END 2018-04-02 16:27 | disposition short-term general hospital (02) ==
LOC: MADERS 13:29
DX: R07.2 Precordial pain (principal); D64.9 Anemia, unspecified; E03.9 Hypothyroidism, unspecified; E11.9 Type 2 diabetes mellitus without complications; I25.2 Old myocardial infarction; I25.10 Atherosclerotic heart disease of native coronary artery without angina pectoris; I48.91 Unspecified atrial fibrillation; I11.0 Hypertensive heart disease with heart failure; I50.9 Heart failure, unspecified; Z87.891 Personal history of nicotine dependence; Z79.84 Long term (current) use of oral hypoglycemic drugs; Z79.899 Other long term (current) drug therapy; Z79.82 Long term (current) use of aspirin; Z79.01 Long term (current) use of anticoagulants
CPT/HCPCS: 36415; 71045; 80053; 83880; 84484; 85025; 85610; 93005

== ENCOUNTER 2018-05-08 11:44 | Emergency (ER) | payer MEDICARE, OTHER ==
[2018-05-08 12:16] LABS: #Basophils 0.1 thou/uL (0.0-0.2); #Eosinphils 0.8 thou/uL (0.0-0.7); #Monocytes 0.8 thou/uL (0.11-0.59); #Neutrophils 5.9 thou/uL (1.40-6.50); %Basophils 1.3 % (0.0-1.0); %Eosinophils 9.7 % (0.0-10.0); %Lymphocytes 11.5 % (21.0-51.0); %Monocytes 9.1 % (0.0-10.0); %Neutrophils 68.4 % (42.0-75.0); Mean Corpuscular HGB CONC 30.8 g/dL (32.0-36.0); Mean Corpuscular Volume 84.5 fL (78.0-98.0); Mean Platelet Volume 8.1 fL (7.4-10.4); Platelet Count 199 thou/uL (130-400); RBC Distribution Width 15.6 % (11.5-14.5); Red Blood Cell (RBC) Count 3.87 mill/uL (4.20-5.40); White Blood Cell (WBC) Count 8.6 thou/uL (4.8-10.8)
[2018-05-08 12:21] LABS: INR-International Normal Ratio 1.2; PTT 28.9 SEC (22.9-36.1); Prothrombin Time 15.1 SEC (12.0-14.7)
[2018-05-08] MEDS ORDERED: Nitroglycerin 2% Ointment 1 INCH/1 GM Packet ONE (12:21)
[2018-05-08 12:22] LABS: D-Dimer Test 0.3 *mcg/mL (0.27-0.43)
--- NOTE | 2018-05-08 12:26 | RAD ---
PORTABLE AP CHEST RADIOGRAPH: Date: 05-08-18 History: Chest pain Comparison: 04-02-18 FINDINGS: Post-surgical changes related to median sternotomy are again noted. Cardiac silhouette is magnified b y projection but does appear mildly enlarged. Pulmonary vasculature is mildly increased. No pleural e ffusion or pneumothorax is seen. Lungs are otherwise clear. Vascular calcification seen in the thorac ic aorta. There is osteopenia. IMPRESSION: Cardiomegaly with mild pulmonary vascular congestion. Correlation for mild CHF is suggested. POS: [facility]
[2018-05-08 12:29] LABS: ALT (SGPT) 9 U/L (8-55); AST (SGOT) 12 U/L (5-34); Alkaline Phosphatase 112 U/L (40-150); Anion Gap 14 mmol/L (10-20); BUN (Urea Nitrogen) 25 mg/dL (9.8-20.1); Bilirubin, Total 0.6 mg/dL (0.2-1.2); CK (CPK) 19 U/L (29-168); Calc. Creatinine Clearance 0 mL/min (70-130); Calcium 9.5 mg/dL (7.8-10.44); Carbon Dioxide 29 mmol/L (23-31); Chloride 102 mmol/L (98-107); Estimated GFR-MDRD 47; Globulin 2.7 g/dL (2.4-3.5); Glucose 199 mg/dL (83-110); Lipase 23 U/L (8-78); Potassium 4.4 mmol/L (3.5-5.1); Protein, Total 6.7 g/dL (6.0-8.3); Sodium 141 mmol/L (136-145)
[2018-05-08 12:32] LABS: CKMB 0.7 ng/mL (0-6.6); Troponin I Less than 0.010 ng/mL (< 0.028)
== END 2018-05-08 14:30 | disposition short-term general hospital (02) ==
LOC: MADERS 11:44
DX: R07.9 Chest pain, unspecified (principal); D64.9 Anemia, unspecified; E11.9 Type 2 diabetes mellitus without complications; E03.9 Hypothyroidism, unspecified; I11.0 Hypertensive heart disease with heart failure; I50.9 Heart failure, unspecified; I25.10 Atherosclerotic heart disease of native coronary artery without angina pectoris; I25.2 Old myocardial infarction; Z86.711 Personal history of pulmonary embolism; Z87.891 Personal history of nicotine dependence
CPT/HCPCS: 36415; 71045; 80053; 82553; 83690; 83880; 84484; 85025; 85379; 85610; 85730; 93005; 94760

== ENCOUNTER 2018-07-09 11:50 | Emergency (ER) | payer MEDICARE, OTHER ==
--- NOTE | 2018-07-09 13:04 | RAD ---
LEFT KNEE THREE VIEWS: History: Fall. Left knee pain. FINDINGS/IMPRESSION: Bones are osteopenic. No acute fracture or dislocation is identified. POS: [facility]
--- NOTE | 2018-07-09 13:16 | RAD ---
LEFT TIBIA AND FIBULA TWO VIEWS: HISTORY: Fall earlier this morning with left leg pain. COMPARISON: None. FINDINGS: Two views of the left tibia/fibula show no evidence of acute fracture or dislocation. Mild diffuse s oft tissue swelling is seen. Surgical clips are seen medial to the knee. IMPRESSION: No evidence of acute osseous abnormality. POS: [facility]
--- NOTE | 2018-07-09 13:18 | RAD ---
LEFT ANKLE THREE VIEWS: INDICATIONS: Fall with pain. FINDINGS: The mortise is intact. There is soft tissue prominence, greatest laterally. There are heterotopic d ensities adjacent to the medial and lateral malleolus. Vascular calcification is present. IMPRESSION: Soft tissue swelling of the left ankle. There are heterotopic densities adjacent to the medial and l ateral malleolus. The possibility of a recent avulsion injury, in light of soft tissue swelling, is not excluded. Correlate clinically. As necessary, imaging followup may be obtained. If there is hi clinical suspicion, consider CT examination. POS: [facility]
[2018-07-09] MEDS ORDERED: Ketorolac Tromethamine 60 MG/2 ML VIAL ONE (14:00)
== END 2018-07-09 14:26 | disposition home or self-care (01) ==
LOC: MADERS 11:50
DX: S93.402A Sprain of unspecified ligament of left ankle, initial encounter (principal); E11.9 Type 2 diabetes mellitus without complications; D64.9 Anemia, unspecified; E03.9 Hypothyroidism, unspecified; I11.0 Hypertensive heart disease with heart failure; I50.9 Heart failure, unspecified; I25.2 Old myocardial infarction; I25.10 Atherosclerotic heart disease of native coronary artery without angina pectoris; I48.91 Unspecified atrial fibrillation; Z87.891 Personal history of nicotine dependence; Z79.84 Long term (current) use of oral hypoglycemic drugs; Z79.899 Other long term (current) drug therapy; Z79.82 Long term (current) use of aspirin; W19.XXXA Unspecified fall, initial encounter; Y93.02 Activity, running
CPT/HCPCS: 96372; J1885

== ENCOUNTER 2018-08-30 15:50 | Emergency (ER) | payer MEDICARE, OTHER ==
[2018-08-30 16:40] LABS: ALT (SGPT) 12 U/L (8-55); AST (SGOT) 19 U/L (5-34); Albumin 4.2 g/dL (3.4-4.8); Alkaline Phosphatase 123 U/L (40-150); Anion Gap 21 mmol/L (10-20); BUN (Urea Nitrogen) 31 mg/dL (9.8-20.1); Bilirubin, Total 0.5 mg/dL (0.2-1.2); Calc. Creatinine Clearance 0 mL/min (70-130); Calcium 9.3 mg/dL (7.8-10.44); Carbon Dioxide 20 mmol/L (23-31); Chloride 107 mmol/L (98-107); Estimated GFR-MDRD 35; Globulin 3.1 g/dL (2.4-3.5); Glucose 162 mg/dL (83-110); Potassium 4.6 mmol/L (3.5-5.1); Protein, Total 7.3 g/dL (6.0-8.3); Sodium 143 mmol/L (136-145)
[2018-08-30 16:43] LABS: #Basophils 0.1 thou/uL (0.0-0.2); #Eosinphils 0.6 thou/uL (0.0-0.7); #Monocytes 0.6 thou/uL (0.11-0.59); #Neutrophils 6.2 thou/uL (1.40-6.50); %Basophils 1.1 % (0.0-1.0); %Eosinophils 7.4 % (0.0-10.0); %Lymphocytes 11.7 % (21.0-51.0); %Monocytes 6.7 % (0.0-10.0); %Neutrophils 73.1 % (42.0-75.0); Anisocytosis SLIGHT = 6-15 cells (100X) (0-5/hpf); Hemoglobin 9.9 g/dL (12.0-16.0); MDiff Complete? YES; Mean Corpuscular HGB CONC 30.7 g/dL (32.0-36.0); Mean Corpuscular Hemoglobin 24.7 pg (27.0-31.0); Mean Corpuscular Volume 80.2 fL (78.0-98.0); Platelet Count 202 thou/uL (130-400); Polychromasia SLIGHT = 2-3 cells (100X) (0-2/hpf); RBC Distribution Width 16.2 % (11.5-14.5); Red Blood Cell (RBC) Count 4.03 mill/uL (4.20-5.40); White Blood Cell (WBC) Count 8.4 thou/uL (4.8-10.8)
--- NOTE | 2018-08-30 17:00 | RAD ---
CHEST ONE VIEW 08/30/18 HISTORY: Dyspnea. COMPARISON: Radiograph 05/08/18. FINDINGS: Heart size is enlarged. Mild edema. Likely small effusions. No pneumothorax. Multiple midline sternotomy wires. IMPRESSION: Cardiomegaly and mild pulmonary venous congestion. POS: [facility]
== END 2018-08-30 16:02 | disposition short-term general hospital (02) ==
LOC: MADERS 15:50
DX: R09.02 Hypoxemia (principal); N17.9 Acute kidney failure, unspecified; R79.89 Other specified abnormal findings of blood chemistry; D64.9 Anemia, unspecified; E11.9 Type 2 diabetes mellitus without complications; E03.9 Hypothyroidism, unspecified; I25.2 Old myocardial infarction; I25.10 Atherosclerotic heart disease of native coronary artery without angina pectoris; I48.91 Unspecified atrial fibrillation; I11.0 Hypertensive heart disease with heart failure; I50.9 Heart failure, unspecified; Z87.891 Personal history of nicotine dependence; Z86.711 Personal history of pulmonary embolism; Z79.82 Long term (current) use of aspirin; Z79.899 Other long term (current) drug therapy; Z79.84 Long term (current) use of oral hypoglycemic drugs
CPT/HCPCS: 36416; 71045; 80053; 83880; 84484; 85025; 85379; 93005; 94640; J7620

== ENCOUNTER 2018-10-25 17:33 | Emergency (ER) | payer MEDICARE, OTHER ==
[~2018-10-25 17:33] MED LIST: Iopamidol 370 76% 75 ML VIAL FS ONE
[2018-10-25] MEDS ORDERED: Ondansetron ODT 4 MG TAB ONE ×2 (17:40→20:34)
[2018-10-25 18:47] LABS: ALT (SGPT) 12 U/L (8-55); AST (SGOT) 28 U/L (5-34); Albumin 4.3 g/dL (3.4-4.8); Alkaline Phosphatase 117 U/L (40-150); Anion Gap 20 mmol/L (10-20); BUN (Urea Nitrogen) 21 mg/dL (9.8-20.1); Bilirubin, Total 0.6 mg/dL (0.2-1.2); Calc. Creatinine Clearance 0 mL/min (70-130); Calcium 9.7 mg/dL (7.8-10.44); Carbon Dioxide 23 mmol/L (23-31); Chloride 102 mmol/L (98-107); Estimated GFR-MDRD 47; Globulin 3.2 g/dL (2.4-3.5); Glucose 177 mg/dL (83-110); Potassium 4.1 mmol/L (3.5-5.1); Protein, Total 7.5 g/dL (6.0-8.3); Sodium 141 mmol/L (136-145)
[2018-10-25 18:50] LABS: #Basophils 0.1 thou/uL (0.0-0.2); #Lymphocytes 1.3 thou/uL (1.20-3.40); #Monocytes 0.9 thou/uL (0.11-0.59); #Neutrophils 9.4 thou/uL (1.40-6.50); %Basophils 0.9 % (0.0-1.0); %Lymphocytes 10.2 % (21.0-51.0); %Neutrophils 73.9 % (42.0-75.0); Hemoglobin 10.1 g/dL (12.0-16.0); Mean Corpuscular HGB CONC 29.4 g/dL (32.0-36.0); Mean Corpuscular Hemoglobin 23.6 pg (27.0-31.0); Mean Corpuscular Volume 80.2 fL (78.0-98.0); Mean Platelet Volume 7.7 fL (7.4-10.4); Platelet Count 209 thou/uL (130-400); Polychromasia SLIGHT = 2-3 cells (100X) (0-2/hpf); RBC Distribution Width 15.9 % (11.5-14.5); White Blood Cell (WBC) Count 12.7 thou/uL (4.8-10.8)
[2018-10-25] MEDS ORDERED: Sodium Chloride 0.9% 500 ML ONE (19:08)
--- NOTE | 2018-10-25 19:15 | RAD ---
TWO VIEWS ABDOMEN AND ONE VIEW CHEST: 10/25/18 HISTORY: Constipation. AP view chest as well as supine and upright views of the abdomen obtained. Sternotomy wires seen. Int racardiac pacing device is seen. The lungs are well aerated. No evidence of acute intrathoracic abnormality seen. Supine and upright v iews of the abdomen demonstrate air fluid levels seen in the small bowel as well as in the colon. Sma ll bowel loops are not significantly dilated. The colon is also not significantly dilated. Findings m ay represent bowel obstruction or ileus. I do not see a significant large amount of stool in the colo n. No evidence of free intraperitoneal air seen. IMPRESSION: Numerous air fluid levels throughout the small bowel and colon. Findings may represent a bowel obstru ction or ileus. POS: [facility]
--- NOTE | 2018-10-25 20:44 | CT ---
CONTRAST ENHANCED CT IMAGES ABDOMEN AND PELVIS 10/25/18 HISTORY: Patient with air fluid levels seen on abdominal radiographs. Evaluate for bowel obstruction or ileus. Contrast enhanced CT images of the abdomen and pelvis demonstrate the lung bases to be unremarkable. Intracardiac pacing leads seen. No evidence of free intraperitoneal air or fluid seen. The liver and spleen are unremarkable. The gallbladder is not visualized and may have been surgically removed. Correlate with surgical history. The pancreas is unremarkable. Adrenal glands unremarkable. Some focal areas of cortical thinning seen in the kidneys possibly repre senting small areas of cortical infarction. No evidence of definite masses or hydronephrosis seen. In cidentally noted exophytic lower pole cyst density lesion seen in the lower pole of the left kidney. Diameter measuring approximately 2.2 cm. Abdominal aorta is extensively calcified as are portions of the celiac artery and splenic artery. Ath erosclerotic calcifications seen in the origin of the renal arteries. No dilated loops of small bowel seen. Some fluid is seen in the small bowel without evidence of signi ficant distention. The colon contains numerous air fluid levels in the ascending colon, transverse colon, and some in th e sigmoid colon. Fecal debris seen in the rectum. There does appear to be some colonic wall enhanceme nt especially in the transverse colon. This may represent some changes of colitis. Numerous injection granulomas seen bilaterally. IMPRESSION: 1. Fluid seen in the much of the colon compatible with liquid stool. 2. Transverse colonic wall enhancement compatible with colitis. POS: [facility]
== END 2018-10-25 20:56 | disposition home or self-care (01) ==
LOC: MADERS 17:33
DX: K59.00 Constipation, unspecified (principal); D64.9 Anemia, unspecified; E11.9 Type 2 diabetes mellitus without complications; E03.9 Hypothyroidism, unspecified; I11.0 Hypertensive heart disease with heart failure; I50.9 Heart failure, unspecified; I25.2 Old myocardial infarction; I25.10 Atherosclerotic heart disease of native coronary artery without angina pectoris; I48.91 Unspecified atrial fibrillation; Z86.711 Personal history of pulmonary embolism; Z87.891 Personal history of nicotine dependence; Z79.84 Long term (current) use of oral hypoglycemic drugs; Z79.82 Long term (current) use of aspirin; Z79.899 Other long term (current) drug therapy; Z79.51 Long term (current) use of inhaled steroids
CPT/HCPCS: 74022; 74177; 80053; 85025; 96360; J7050; Q0162

== ENCOUNTER 2019-02-03 18:51 | Emergency (ER) | payer MEDICARE, OTHER ==
[~2019-02-03 18:51] MED LIST changes: +Iopamidol 370 76% 100 ML VIAL ONE; -Iopamidol 370 76% 75 ML VIAL FS ONE; +Sodium Chloride 0.9% 100 ML BAG ONE
[2019-02-03] MEDS ORDERED: Nitroglycerin 2% Ointment 1 INCH/1 GM Packet ONE (19:31)
[2019-02-03] MEDS ORDERED: Aspirin Chewable 81 MG TAB ONE (19:31)
[2019-02-03 19:41] LABS: #Basophils 0.1 thou/uL (0.0-0.2); #Eosinphils 0.5 thou/uL (0.0-0.7); #Lymphocytes 0.6 thou/uL (1.20-3.40); #Monocytes 0.4 thou/uL (0.11-0.59); #Neutrophils 3.5 thou/uL (1.40-6.50); %Basophils 1.3 % (0.0-1.0); %Eosinophils 9.9 % (0.0-10.0); %Lymphocytes 11.9 % (21.0-51.0); %Monocytes 7.9 % (0.0-10.0); %Neutrophils 69.1 % (42.0-75.0); Elliptocytes SLIGHT = 2-5 cells (100X) (0-1/hpf); Hemoglobin 8.2 g/dL (12.0-16.0); Hypochromia MODERATE=16-30 cells (100X) (0-5/hpf); MDiff Complete? YES; Mean Corpuscular Hemoglobin 22.9 pg (27.0-31.0); Mean Corpuscular Volume 79.1 fL (78.0-98.0); Mean Platelet Volume 8.7 fL (7.4-10.4); Microcytosis MODERATE=15-30 cells (100X) (0-5/hpf); Platelet Count 124 thou/uL (130-400); Platelet Morphology Comment Appears Adequate; RBC Distribution Width 17.4 % (11.5-14.5); RBC Morphology Abnormal; Red Blood Cell (RBC) Count 3.58 mill/uL (4.20-5.40); White Blood Cell (WBC) Count 5.1 thou/uL (4.8-10.8)
--- NOTE | 2019-02-03 19:48 | RAD ---
EXAM: Single view of the chest HISTORY: Dyspnea COMPARISON: 09/09/2018 FINDINGS: Single view of the chest shows an enlarged but stable cardiomediastinal silhouette. The pa tient is status post sternotomy. The pacemaker is unchanged in position. There is no evidence of consolidation, mass, or pleural effusion. The bones are unremarkable. IMPRESSION: Cardiomegaly without evidence of acute cardiopulmonary disease
[2019-02-03 19:51] LABS: ALT (SGPT) 11 U/L (8-55); AST (SGOT) 17 U/L (5-34); Albumin 3.9 g/dL (3.4-4.8); Alkaline Phosphatase 102 U/L (40-150); Anion Gap 16 mmol/L (10-20); BUN (Urea Nitrogen) 29 mg/dL (9.8-20.1); Bilirubin, Total 0.6 mg/dL (0.2-1.2); CK (CPK) 29 U/L (29-168); Calc. Creatinine Clearance 0 mL/min (70-130); Calcium 8.8 mg/dL (7.8-10.44); Carbon Dioxide 30 mmol/L (23-31); Chloride 101 mmol/L (98-107); Estimated GFR-MDRD 33; Globulin 2.9 g/dL (2.4-3.5); Glucose 187 mg/dL (83-110); Potassium 4.1 mmol/L (3.5-5.1); Protein, Total 6.8 g/dL (6.0-8.3); Sodium 143 mmol/L (136-145)
[2019-02-03] MEDS ORDERED: Furosemide 40 MG/4 ML VIAL ONE (20:45)
--- NOTE | 2019-02-03 20:49 | CT ---
EXAM: CTA of the chest HISTORY: Dyspnea COMPARISON: 08/30/2018 TECHNIQUE: Multiple contiguous axial images were obtained a CTA of the chest with contrast per pulmon ronald embolism protocol. 3-D oblique MIP reformats and direct coronal reformats were performed. FINDINGS: HEART: Enlarged. A pacemaker is seen with its leads in the right atrium and ventricle. Calcifications are seen in the coronary arteries and aorta. PULMONARY ARTERIES: Normal in caliber without filling defects to suggest pulmonary emboli. MEDIASTINUM: No hilar or mediastinal lymphadenopathy. LUNGS: No focal infiltrates or masses. PLEURAL SPACE: Trace right pleural effusion with adjacent atelectasis CHEST WALL SOFT TISSUES: Unremarkable VISUALIZED OSSEOUS STRUCTURES: Status post sternotomy. Degenerative changes in the spine. VISUALIZED SUBDIAPHRAGMATIC STRUCTURES: Unremarkable IMPRESSION: 1. No evidence of pulmonary thromboembolism 2. Small right pleural effusion with adjacent atelectasis
[2019-02-03 22:02] LABS: Bilirubin Negative (Negative); Blood, Urine Negative (Negative); Clarity Hazy (Clear); Glucose, Urine (Dipstick) Negative (Negative); Leukocyte Trace (Negative); Nitrite Positive (Negative); Protein, Urine (Dipstick) Trace mg/dL (Neg-Trace); Specific Gravity, Urine 1.015 (1.005-1.030); Urobilinogen 0.2 mg/dL (0.2-1.0)
[2019-02-03 22:07] LABS: Bacteria/HPF 4+ HPF (None Seen); RBC/HPF 0-3 HPF (0-3); Squamous Epithelial 0-3 HPF (0-3); WBC/HPF 21-50 HPF (0-3)
[2019-02-03] MEDS ORDERED: cefTRIAXone\\ROCEPHIN 1 GM VIAL ONE (22:14)
[2019-02-04] MEDS ORDERED: Acetaminophen 325 MG TAB PO PRN (00:56)
[2019-02-04] MEDS ORDERED: Ondansetron ODT 4 MG TAB SL PRN (00:56)
[2019-02-04] MEDS ORDERED: Ondansetron PF 4 MG/2 ML Vial IVP PRN (00:56)
[2019-02-04] MEDS ORDERED: Nitroglycerin 2% Ointment 1 INCH/1 GM Packet TOP SCH (04:00)
[2019-02-04] MEDS ORDERED: Furosemide 40 MG/4 ML VIAL SLOW IVP SCH (06:00)
[2019-02-04] MEDS ORDERED: Aspirin 325 MG TAB PO SCH (08:00)
== END 2019-02-03 23:37 | disposition short-term general hospital (02) ==
LOC: MADERS 18:51
DX: I11.0 Hypertensive heart disease with heart failure (principal); I50.9 Heart failure, unspecified; N39.0 Urinary tract infection, site not specified; D64.9 Anemia, unspecified; E03.9 Hypothyroidism, unspecified; I25.2 Old myocardial infarction; I25.10 Atherosclerotic heart disease of native coronary artery without angina pectoris; I48.91 Unspecified atrial fibrillation; Z79.82 Long term (current) use of aspirin; Z79.899 Other long term (current) drug therapy; Z79.84 Long term (current) use of oral hypoglycemic drugs; Z87.891 Personal history of nicotine dependence
CPT/HCPCS: 71045; 71275; 80053; 81003; 81015; 82550; 83605; 84484; 85025; 87077; 87086; 87186; 93005; 96365; 96375; J0696; J1940; J3490; Q9967

== ENCOUNTER 2019-02-21 12:46 | Outpatient (CLI) | payer MEDICARE, OTHER ==
[2019-02-21 13:09] LABS: Anion Gap 16 mmol/L (10-20); BUN (Urea Nitrogen) 26 mg/dL (9.8-20.1); Calc. Creatinine Clearance 0 mL/min (70-130); Calcium 9.1 mg/dL (7.8-10.44); Carbon Dioxide 28 mmol/L (23-31); Chloride 102 mmol/L (98-107); Estimated GFR-MDRD 35; Glucose 115 mg/dL (83-110); Sodium 142 mmol/L (136-145)
== END 2019-02-21 12:47 | disposition home or self-care (01) ==
LOC: MADLAB 12:46
PROVIDERS: ATTEND Internal Medicine Cardiovascular Disease
DX: I25.10 Atherosclerotic heart disease of native coronary artery without angina pectoris (principal)
CPT/HCPCS: 80048

== ENCOUNTER 2019-08-10 12:01 | Emergency (ER) | payer MEDICARE, OTHER ==
[2019-08-10] MEDS ORDERED: HYDROcodone/Acetaminophen 5/325 mg Tablet ONE (12:17)
--- NOTE | 2019-08-10 13:47 | RAD ---
RIGHT FOOT 3 VIEWS: Date: 08/10/19 COMPARISON: None. HISTORY: Injury. FINDINGS: There is dorsal soft tissue swelling involving the midfoot and forefoot. There appears to be a nondis placed, obliquely oriented fracture involving the mid shaft of the first proximal phalanx. No disloca tion. No additional fracture is evident. There is degenerative change of the first metatarsophalangea l joint. IMPRESSION: Findings suggesting a nondisplaced, obliquely oriented acute fracture of the mid shaft first proximal phalanx. Prominent dorsal soft tissue swelling. POS: [facility]
== END 2019-08-10 13:00 | disposition home or self-care (01) ==
LOC: MADERS 12:01
DX: S92.314A Nondisplaced fracture of first metatarsal bone, right foot, initial encounter for closed fracture (principal); E03.9 Hypothyroidism, unspecified; I25.10 Atherosclerotic heart disease of native coronary artery without angina pectoris; I25.2 Old myocardial infarction; I48.91 Unspecified atrial fibrillation; D64.9 Anemia, unspecified; I11.0 Hypertensive heart disease with heart failure; I50.9 Heart failure, unspecified; Z87.891 Personal history of nicotine dependence; Z86.711 Personal history of pulmonary embolism; Z79.899 Other long term (current) drug therapy; Z79.82 Long term (current) use of aspirin; W18.30XA Fall on same level, unspecified, initial encounter
CPT/HCPCS: 28470

== ENCOUNTER 2019-08-13 11:38 | Emergency (ER) | payer MEDICARE, OTHER ==
[2019-08-13] MEDS ORDERED: Acetaminophen/Codeine 30-300mg Tablet ONE (12:08)
--- NOTE | 2019-08-13 14:09 | RAD ---
RIGHT KNEE 4 VIEWS: HISTORY: Fall, right knee pain. FINDINGS/IMPRESSION: Bones are osteopenic. Chondrocalcinosis is present. No acute fracture or dislocation is identified. Degenerative changes are present. POS: [facility]
== END 2019-08-13 13:10 | disposition home or self-care (01) ==
LOC: MADERS 11:38
DX: S80.01XA Contusion of right knee, initial encounter (principal); S92.311D Displaced fracture of first metatarsal bone, right foot, subsequent encounter for fracture with routine healing; D64.9 Anemia, unspecified; I11.0 Hypertensive heart disease with heart failure; I50.9 Heart failure, unspecified; E11.9 Type 2 diabetes mellitus without complications; E03.9 Hypothyroidism, unspecified; I25.2 Old myocardial infarction; I25.10 Atherosclerotic heart disease of native coronary artery without angina pectoris; I48.91 Unspecified atrial fibrillation; Z87.891 Personal history of nicotine dependence; Z79.899 Other long term (current) drug therapy; Z79.82 Long term (current) use of aspirin; W18.30XA Fall on same level, unspecified, initial encounter

== ENCOUNTER 2019-09-16 12:31 | Emergency (ER) | payer MEDICARE, OTHER | END 2019-09-16 13:07 | disposition home or self-care (01) | LOC: MADERS 12:31 | DX: K52.1 Toxic gastroenteritis and colitis (principal); T50.4X5A Adverse effect of drugs affecting uric acid metabolism, initial encounter; E86.0 Dehydration; I11.0 Hypertensive heart disease with heart failure; I50.9 Heart failure, unspecified; D64.9 Anemia, unspecified; E11.9 Type 2 diabetes mellitus without complications; E03.9 Hypothyroidism, unspecified; I25.2 Old myocardial infarction; I25.10 Atherosclerotic heart disease of native coronary artery without angina pectoris; I42.9 Cardiomyopathy, unspecified; I48.91 Unspecified atrial fibrillation; Z86.711 Personal history of pulmonary embolism; Z87.891 Personal history of nicotine dependence; Z79.82 Long term (current) use of aspirin; Z79.899 Other long term (current) drug therapy | CPT/HCPCS: 99283 ==

== ENCOUNTER 2019-10-21 12:51 | Emergency (ER) | payer MEDICARE, OTHER ==
[2019-10-21] MEDS ORDERED: Indomethacin 25 mg Capsule ONE (13:31)
== END 2019-10-21 13:50 | disposition home or self-care (01) ==
LOC: MADERS 12:51
DX: M10.9 Gout, unspecified (principal); I11.0 Hypertensive heart disease with heart failure; I50.9 Heart failure, unspecified; D64.9 Anemia, unspecified; E11.9 Type 2 diabetes mellitus without complications; E03.9 Hypothyroidism, unspecified; I25.2 Old myocardial infarction; I25.10 Atherosclerotic heart disease of native coronary artery without angina pectoris; I42.9 Cardiomyopathy, unspecified; I48.91 Unspecified atrial fibrillation; Z86.711 Personal history of pulmonary embolism; Z87.891 Personal history of nicotine dependence; Z79.899 Other long term (current) drug therapy; Z79.82 Long term (current) use of aspirin
CPT/HCPCS: 99283

== ENCOUNTER 2019-10-24 13:17 | Emergency (ER) | payer MEDICARE, OTHER ==
[2019-10-24 13:35] LABS: #Basophils 0.1 thou/uL (0.0-0.2); #Eosinphils 0.5 thou/uL (0.0-0.7); #Lymphocytes 0.7 thou/uL (1.20-3.40); #Monocytes 0.4 thou/uL (0.11-0.59); #Neutrophils 4.2 thou/uL (1.40-6.50); %Basophils 1.3 % (0.0-1.0); %Eosinophils 8.6 % (0.0-10.0); %Lymphocytes 11.9 % (21.0-51.0); %Neutrophils 71.2 % (42.0-75.0); Hemoglobin 11.5 g/dL (12.0-16.0); Mean Corpuscular Hemoglobin 29.3 pg (27.0-31.0); Mean Corpuscular Volume 94.6 fL (78.0-98.0); Mean Platelet Volume 9.8 fL (7.4-10.4); Platelet Count 110 thou/uL (130-400); RBC Distribution Width 12.4 % (11.5-14.5); Red Blood Cell (RBC) Count 3.92 mill/uL (4.20-5.40); White Blood Cell (WBC) Count 5.9 thou/uL (4.8-10.8)
[2019-10-24 13:48] LABS: Anisocytosis SLIGHT = 6-15 cells (100X) (0-5/hpf); Platelet Morphology Comment Appears Adequate
[2019-10-24 14:01] LABS: ALT (SGPT) 10 U/L (8-55); AST (SGOT) 14 U/L (5-34); Alkaline Phosphatase 133 U/L (40-110); Anion Gap 15 mmol/L (10-20); BUN (Urea Nitrogen) 51 mg/dL (9.8-20.1); Bilirubin, Total 0.9 mg/dL (0.2-1.2); Calc. Creatinine Clearance 0 mL/min (70-130); Calcium 8.8 mg/dL (7.8-10.44); Carbon Dioxide 25 mmol/L (23-31); Chloride 103 mmol/L (98-107); Estimated GFR-MDRD 21; Globulin 2.7 g/dL (2.4-3.5); Glucose 195 mg/dL (83-110); Potassium 4.2 mmol/L (3.5-5.1); Protein, Total 6.7 g/dL (6.0-8.3); Sodium 139 mmol/L (136-145)
[2019-10-24] MEDS ORDERED: methylPREDNISolone Sod Succ/PF 125 MG/2 ML VIAL ONE (14:07)
--- NOTE | 2019-10-24 14:18 | RAD ---
PORTABLE CHEST: HISTORY: Dyspnea. COMPARISON: 02/03/2019 study. FINDINGS: Heart size is enlarged. Pulmonary vessels are engorged. Postop sternotomy change and pacemaker are noted. IMPRESSION: Cardiomegaly with mild vascular engorgement. POS: [facility]
[2019-10-24] MEDS ORDERED: Furosemide 40 MG/4 ML VIAL ONE (14:40)
== END 2019-10-24 17:14 | disposition short-term general hospital (02) ==
LOC: MADERS 13:17
DX: J44.1 Chronic obstructive pulmonary disease with (acute) exacerbation (principal); I13.0 Hypertensive heart and chronic kidney disease with heart failure and stage 1 through stage 4 chronic kidney disease, or unspecified chronic kidney disease; E11.22 Type 2 diabetes mellitus with diabetic chronic kidney disease; N18.9 Chronic kidney disease, unspecified; I50.9 Heart failure, unspecified; D64.9 Anemia, unspecified; E03.9 Hypothyroidism, unspecified; I25.2 Old myocardial infarction; I25.10 Atherosclerotic heart disease of native coronary artery without angina pectoris; I48.91 Unspecified atrial fibrillation; I42.9 Cardiomyopathy, unspecified; Z86.711 Personal history of pulmonary embolism; Z87.891 Personal history of nicotine dependence; Z79.82 Long term (current) use of aspirin; Z79.899 Other long term (current) drug therapy
CPT/HCPCS: 71045; 80053; 83880; 84484; 85025; 85379; 93005; 94760; 96374; 96375; J1940; J2930; J7620

== ENCOUNTER 2019-10-30 13:26 | Inpatient (IN) | payer MEDICARE, OTHER ==
[2019-10-30] MEDS ORDERED: Dronedarone HCl 400 MG TAB PO SCH (17:30)
[2019-10-30] MEDS: Acetaminophen 325 MG TAB PO PRN ×2 (17:37→21:41)
[2019-10-30] MEDS: Allopurinol 100 MG TAB PO SCH (20:20)
[2019-10-30] MEDS: Metoprolol Tartrate 25 MG TAB PO SCH (20:21)
[2019-10-30] MEDS: Furosemide 40 MG TAB PO SCH (20:21)
[2019-10-30] MEDS: Polyethylene Glycol 3350 17 GM Packet PO SCH (20:22)
[2019-10-30] MEDS: traMADol HCl 50 MG TAB PO PRN (21:42)
[2019-10-30] MEDS: ALPRAZolam 0.5 MG TAB PO PRN (23:42)
[2019-10-31] MEDS: Levothyroxine Sodium 75 MCG TAB PO SCH (05:58)
[2019-10-31] MEDS: Metoprolol Tartrate 25 MG TAB PO SCH ×2 (08:23→21:01)
[2019-10-31] MEDS: Ubidecarenone 50 MG CAP PO SCH (08:23)
[2019-10-31] MEDS: Allopurinol 100 MG TAB PO SCH ×2 (08:24→21:01)
[2019-10-31] MEDS: Losartan 25 MG TAB PO SCH (08:24)
[2019-10-31] MEDS: Multivit, Therapeutic 1 TAB PO SCH (08:24)
[2019-10-31] MEDS: Aspirin Chewable 81 MG TAB PO SCH (08:24)
[2019-10-31] MEDS: Acetaminophen 325 MG TAB PO PRN (08:24)
[2019-10-31] MEDS: Cyanocobalamin (Vitamin B-12) 1,000 MCG TAB PO SCH (08:25)
[2019-10-31] MEDS: Furosemide 40 MG TAB PO SCH ×2 (08:25→21:01)
[2019-10-31] MEDS: Dronedarone HCl 400 MG TAB PO SCH ×3 (08:25→17:16)
[2019-10-31 16:33] LABS: ALT (SGPT) 14 U/L (8-55); AST (SGOT) 16 U/L (5-34); Albumin 3.7 g/dL (3.4-4.8); Alkaline Phosphatase 125 U/L (40-110); Anion Gap 15 mmol/L (10-20); BUN (Urea Nitrogen) 48 mg/dL (9.8-20.1); Bilirubin, Total 0.3 mg/dL (0.2-1.2); Calc. Creatinine Clearance 30 mL/min (70-130); Calcium 8.7 mg/dL (7.8-10.44); Carbon Dioxide 31 mmol/L (23-31); Chloride 99 mmol/L (98-107); Estimated GFR-MDRD 31; Globulin 2.7 g/dL (2.4-3.5); Glucose 195 mg/dL (83-110); Potassium 3.7 mmol/L (3.5-5.1); Protein, Total 6.4 g/dL (6.0-8.3); Sodium 141 mmol/L (136-145)
[2019-10-31] MEDS: traMADol HCl 50 MG TAB PO PRN (19:15)
[2019-10-31] MEDS: Polyethylene Glycol 3350 17 GM Packet PO SCH (21:02)
[2019-10-31] MEDS: ALPRAZolam 0.5 MG TAB PO PRN (22:47)
[2019-11-01] MEDS: Levothyroxine Sodium 75 MCG TAB PO SCH (06:17)
[2019-11-01 06:49] LABS: #Lymphocytes 1.2 thou/uL (1.20-3.40); #Monocytes 0.5 thou/uL (0.11-0.59); #Neutrophils 3.4 thou/uL (1.40-6.50); %Basophils 0.7 % (0.0-1.0); %Eosinophils 16.4 % (0.0-10.0); %Lymphocytes 19.6 % (21.0-51.0); %Monocytes 7.7 % (0.0-10.0); %Neutrophils 55.6 % (42.0-75.0); Hemoglobin 10.4 g/dL (12.0-16.0); Hypochromia SLIGHT = 6-15 cells (100X) (0-5/hpf); MDiff Complete? YES; Mean Corpuscular HGB CONC 31.8 g/dL (32.0-36.0); Mean Corpuscular Hemoglobin 29.4 pg (27.0-31.0); Mean Corpuscular Volume 92.5 fL (78.0-98.0); Platelet Count 100 thou/uL (130-400); Platelet Morphology Comment Appears Decreased; RBC Distribution Width 12.4 % (11.5-14.5); Red Blood Cell (RBC) Count 3.54 mill/uL (4.20-5.40); Stomatocytes SLIGHT = 2-5 cells (100X) (0-1/hpf); White Blood Cell (WBC) Count 6.1 thou/uL (4.8-10.8)
--- NOTE | 2019-11-01 07:58 | HP ---
CHIEF COMPLAINT: Weakness. HISTORY OF PRESENT ILLNESS: The patient is an 84-year-old white female, who had been hospitalized at [facility] from 10/25/2019 until 10/30/2019, for acute on chronic congestive heart failure, acute on chronic hypoxic respiratory failure, severe restrictive lung disease. During her hospitalization, she underwent a diuresis, losing 12 pounds with marked improvement in her presenting symptoms of shortness of breath. The patient was left extremely weak and still required her continuous supplemental O2. She had been transferred to [facility] for purpose of physical therapy and occupational therapy in an effort to try to increase her functional capability. The patient was seen early on the morning of 10/31/2019, and her daughter in-law , Yandy was with her. She was able to review with me her recent hospitalization. While there, she had the opportunity to see her renewable energy broker, Dr. Clinton. The patient's Multaq was increased from 400 mg twice a day to three times a day and she was given Zaroxolyn in addition to her Lasix. She uses this at home on a p.r.n. basis. The patient says she is feeling better. She is breathing a lot better. Her weight is 12 pounds down, but she is just weak. PAST HISTORY: The patient has chronic hypoxic respiratory failure from severe restrictive lung disease, probably from her kyphoscoliosis. She requires continuous supplemental O2. She has coronary artery disease, had a coronary artery bypass in 2000 that was complicated by pulmonary embolism. She had a stent placed in the right coronary artery in october 2001. She required a redo coronary artery bypass x1 to the right coronary artery in October of 2001 and placement of a bioprosthetic mitral valve in December of 2010. She underwent a redo mitral valve replacement for severe mitral bioprosthetic valve stenosis. She has had problems with atrial arrhythmias and in August 2018, underwent electric cardioversion and loading with amiodarone. She also then had a pacemaker placed. She has had the paroxysmal atrial tachycardias. She was not considered a candidate for anticoagulation due to a history of iron-deficiency anemia requiring multiple iron transfusions in the past due to her p.o. intolerance. The patient has a history of GERD. GI workup has been negative. She has hypothyroidism, chronic kidney disease, anxiety disorder. She has had pacemaker placement, bilateral cataract surgery, abdominal hysterectomy, cholecystectomy, tonsillectomy, bladder suspension, nasal septal repair, gout, and closed nondisplaced fracture of the proximal phalanx of the right great toe that has healed, fracture occurred on 08/10/2019. PRESENT MEDICINES: The patient was discharged to [facility] on, 1. Acetaminophen 650 mg every 4 hours as needed. 2. Allopurinol 100 mg twice a day. 3. Alprazolam 0.5 mg at bedtime as needed. 4. Aspirin 81 mg daily. 5. Coenzyme Q10 of 200 mg daily. 6. B12 of 1000 mcg p.o. daily. 7. Multaq 200 mg t.i.d. 8. Furosemide 40 mg b.i.d. 9. Levothyroxine 75 mcg daily. 10. Loratadine 10 mg daily as needed. 11. Losartan 50 mg daily. 12. Metolazone 2.5 mg daily as needed for swelling. 13. Metoprolol tartrate 25 mg b.i.d. 14. Theragran vitamins 1 daily. 15. Pantoprazole 40 mg daily. 16. MiraLAX 17 g in a glass of water daily. 17. Tramadol 50 mg every 6 hours as needed. ALLERGIES: LISINOPRIL CAUSES COUGH; PENICILLIN G; MACRODANTIN CAUSES NAUSEA; Enablex, TALWIN; VICODIN; DARVOCET; NEURONTIN; PREDNISONE CAUSES MARKED SWELLING ; LEVAQUIN, NAUSEA; CRESTOR, MYALGIAS. REVIEW OF SYSTEMS: Overall, the patient is feeling better. She has had no fever. Her weight is down 12 pounds since her admission at [facility] on 10/25/2019. HABITS: Years ago, the patient smoked, but none since. Alcohol, none. SOCIAL HISTORY: The patient lives at home. Her [id number] assists with her care. She has a lady that comes in and assist her some ADLs. The patient is ambulatory with the use of a walker for very short distance. She is able to dress herself and bathe herself. She is usually continent of urine and stools. The patient does not drive. PHYSICAL EXAMINATION: GENERAL: Shows a very pleasant 84-year-old white female, who is sitting on the side of her bed, visiting with her [id number]. She is wearing her O2 and appears comfortable and in no distress. VITAL SIGNS: Show a temperature of 97.1, pulse 78, respirations 18, O2 saturation 97% on 2 L, blood pressure 135/63, and her weight is 159. HEENT: Head, normocephalic and atraumatic. Eyes, pupils are equal, round, and reactive. Ears, left TM clear. Right TM blocked by cerumen. Nose, normal. Mouth and throat, normal. NECK: Carotids are equal and strong. LUNGS: Clear. HEART: Regular rate. No murmurs. ABDOMEN: Soft with no organomegaly. No areas of tenderness. CHEST: The patient has pacemaker in the left upper anterior chest. BACK: The patient has no tenderness along the spine. She has kyphosis. EXTREMITIES: No edema. NEUROLOGIC: The patient is alert and oriented x3. She has generalized weakness that is nonfocal. IMPRESSION: 1. Generalized weakness and deconditioning. a. Secondary to recent hospitalization for acute on chronic congestive heart failure. 2. Hospitalized at [facility] from to 10/30/2019, for acute on chronic hypoxic respiratory failure, acute on chronic diastolic heart failure, restricted lung disease with chronic hypoxemia. 3. Restricted lung disease. a. Complicated by chronic hypoxic respiratory failure. 4. Chronic right heart failure. a. Echocardiogram on 02/06/2019, showed EF 55% to 60%, moderate enlargement of the right ventricle, normal functioning of bowel, prosthetic mitral valve, severe tricuspid regurgitation, and moderate pyloric regurgitation. The etiology probably from her severe restrictive lung disease and history of obstructive sleep apnea. 5. Chronic diastolic heart failure. 6. Coronary artery disease. a. Status post CAB x3 in 2000, stent placed in right coronary artery that later required redo CAB x1 in October 2001. 7. Valvular heart disease. a. Status post bioprosthetic mitral valve replacement in January 2002. b. Status post redo mitral valve replacement for severe mitral bioprosthetic valve stenosis in December 2010. 8. Gout. a. Presently asymptomatic. 9. Diabetes type 2. a. Recent hemoglobin A1c 6.2. b. Diet controlled. 10. History of atrial fibrillation. 11. Status post pacemaker placement. 12. Gastroesophageal reflux disease. 13. Hypothyroidism. 14. Anxiety disorder. PLAN: The patient has been admitted to the hospital for physical therapy and occupational therapy. We will continue her routine medications. We will weigh daily, continue her supplemental O2. CODE STATUS: Full code. Job ID: [id number] [facility]
[2019-11-01] MEDS: Dronedarone HCl 400 MG TAB PO SCH ×3 (08:26→17:27)
[2019-11-01] MEDS: Allopurinol 100 MG TAB PO SCH ×2 (08:27→21:17)
[2019-11-01] MEDS: Aspirin Chewable 81 MG TAB PO SCH (08:28)
[2019-11-01] MEDS: Cyanocobalamin (Vitamin B-12) 1,000 MCG TAB PO SCH (08:28)
[2019-11-01] MEDS: Metoprolol Tartrate 25 MG TAB PO SCH ×2 (08:28→21:17)
[2019-11-01] MEDS: Losartan 25 MG TAB PO SCH (08:28)
[2019-11-01] MEDS: Multivit, Therapeutic 1 TAB PO SCH (08:28)
[2019-11-01] MEDS: Ubidecarenone 50 MG CAP PO SCH (08:28)
[2019-11-01] MEDS: Furosemide 40 MG TAB PO SCH ×2 (08:28→21:17)
[2019-11-01] MEDS: Acetaminophen 325 MG TAB PO PRN (14:16)
--- NOTE | 2019-11-01 18:00 | PRG ---
DATE OF SERVICE: 11/01/2019 SUBJECTIVE: The patient says she rested pretty well last night. She thinks she is doing better. Her breathing is doing better. She does get a little winded with activity, but not like she had been. OBJECTIVE: GENERAL: The patient is sitting up in bed, visiting with the family. She is alert, talkative, and appears in no distress. VITAL SIGNS: Her temperature is 96.1, pulse 63, respirations 18, O2 saturation 96% on 2 L, blood pressure 102/54. Weight down from admission weight of 159 to 154. Urinary output 850. LUNGS: Clear. HEART: Regular rate. EXTREMITIES: Trace edema in the right foot. LABORATORY DATA: CBC shows hemoglobin and hematocrit of 10.4 and 32.8, white cell count 6100, with 56% segs, 20% lymphocytes, and platelet count of 100, potassium 3.7, BUN 48, creatinine 1.6. ASSESSMENT: 1. Generalized weakness and deconditioning: a. Secondary to recent hospitalization for acute on chronic congestive heart failure and acute on chronic hypoxic respiratory failure. b. Improved as of 10/31. 2. Hospitalized at [facility] from 10/25/2019 to 10/30/2019, for acute on chronic hypoxic respiratory failure, acute on chronic diastolic heart failure, and restricted lung disease with chronic hypoxemia. 3. Restrictive lung disease: a. Complicated by chronic hypoxic respiratory failure. b. Requires continuous supplemental O2. 4. Chronic right heart failure: a. Echocardiogram on 02/06/2019 showed EF of 55 to 60, moderate enlargement of the right ventricle, normal functioning bioprosthetic mitral valve, severe tricuspid regurgitation, and moderate pulmonic regurgitation. Etiology probably from her severe restrictive lung disease and obstructive sleep apnea. 5. Chronic diastolic heart failure. 6. Coronary heart disease: a. Status post coronary artery bypass x3 in 2000, stent placed in the right coronary artery, that soon after required a redo coronary artery bypass x1 in October 2001. 7. Valvular heart disease: a. Status post bioprosthetic mitral valve replacement in January 2002. b. 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 8. Gout: a. Presently asymptomatic. 9. Diabetes mellitus, type 2: a. Recent hemoglobin A1c 6.2. b. Diet controlled. 10. History of atrial fibrillation. 11. Status post pacemaker placement. 12. Gastroesophageal reflux disease. 13. Hypothyroidism. 14. Anxiety disorder, controlled. PLAN: Continue present care. Continue supplemental O2. Continue PT. Job ID: [id number] [facility]
[2019-11-01] MEDS: Polyethylene Glycol 3350 17 GM Packet PO SCH (21:18)
[2019-11-01] MEDS: traMADol HCl 50 MG TAB PO PRN (21:18)
[2019-11-01] MEDS: ALPRAZolam 0.5 MG TAB PO PRN (21:19)
[2019-11-02] MEDS: Levothyroxine Sodium 75 MCG TAB PO SCH (05:21)
[2019-11-02] MEDS: Dronedarone HCl 400 MG TAB PO SCH ×3 (08:24→17:19)
[2019-11-02] MEDS: Ubidecarenone 50 MG CAP PO SCH (08:24)
[2019-11-02] MEDS: Metoprolol Tartrate 25 MG TAB PO SCH ×2 (08:25→20:16)
[2019-11-02] MEDS: Losartan 25 MG TAB PO SCH (08:25)
[2019-11-02] MEDS: Allopurinol 100 MG TAB PO SCH ×2 (08:25→20:16)
[2019-11-02] MEDS: Cyanocobalamin (Vitamin B-12) 1,000 MCG TAB PO SCH (08:25)
[2019-11-02] MEDS: Multivit, Therapeutic 1 TAB PO SCH (08:25)
[2019-11-02] MEDS: Metolazone 5 MG TAB PO PRN (08:25)
[2019-11-02] MEDS: Furosemide 40 MG TAB PO SCH ×2 (08:25→20:16)
[2019-11-02] MEDS: Aspirin Chewable 81 MG TAB PO SCH (08:25)
[2019-11-02] MEDS: Acetaminophen 325 MG TAB PO PRN (08:28)
[2019-11-02] MEDS: Polyethylene Glycol 3350 17 GM Packet PO SCH (20:16)
[2019-11-03] MEDS: Levothyroxine Sodium 75 MCG TAB PO SCH (05:32)
[2019-11-03] MEDS: Metoprolol Tartrate 25 MG TAB PO SCH ×2 (07:44→20:13)
[2019-11-03] MEDS: Allopurinol 100 MG TAB PO SCH ×2 (07:45→20:12)
[2019-11-03] MEDS: Losartan 25 MG TAB PO SCH (07:45)
[2019-11-03] MEDS: Furosemide 40 MG TAB PO SCH ×2 (07:45→20:15)
[2019-11-03] MEDS: Aspirin Chewable 81 MG TAB PO SCH (07:46)
[2019-11-03] MEDS: Multivit, Therapeutic 1 TAB PO SCH (07:46)
[2019-11-03] MEDS: Cyanocobalamin (Vitamin B-12) 1,000 MCG TAB PO SCH (07:46)
[2019-11-03] MEDS: Ubidecarenone 50 MG CAP PO SCH (07:47)
[2019-11-03] MEDS: Metolazone 5 MG TAB PO PRN (07:47)
[2019-11-03] MEDS: Dronedarone HCl 400 MG TAB PO SCH ×3 (07:49→17:08)
[2019-11-03] MEDS: Acetaminophen 325 MG TAB PO PRN ×2 (11:10→19:20)
--- NOTE | 2019-11-03 12:16 | PRG ---
DATE OF SERVICE: 11/03/2019 SUBJECTIVE: The patient says she is doing well. Yesterday, her weight had gone up to 163. She was given the Zaroxolyn, this will be continued until her weight is back down to her baseline. The patient said her breathing has been good, but she gets a little winded when she lays supine. OBJECTIVE: GENERAL: The patient is alert, talkative, appears in no distress. She has asked for bathroom privileges. VITAL SIGNS: Her temperature is 97.8, pulse 64, respirations 18, O2 saturation 94% on 2 L, blood pressure 104/51. LUNGS: Clear. HEART: Regular rate. EXTREMITIES: There is trace edema in the right ankle and foot. ASSESSMENT: 1. Generalized weakness and deconditioning. a. Secondary to recent hospitalization for acute on chronic congestive heart failure and acute on chronic hypoxic respiratory failure. b. Improved as of 11/02. 2. Hospitalized at [facility] from 10/25/2019 to 10/30/2019 for acute on chronic hypoxic respiratory failure, acute on chronic diastolic heart failure, and restrictive lung disease with chronic hypoxemia. 3. Restrictive lung disease. a. Complicated by chronic hypoxic respiratory failure. b. Requires continuous supplemental O2. 4. Chronic right heart failure. a. Echocardiogram on 02/06/2019 showed ejection fraction 55% to 60%, moderate enlargement of the right ventricle, normal functioning bioprosthetic mitral valve, severe tricuspid regurgitation, and moderate pulmonic regurgitation. b. Recent increase in weight, for which she is receiving Zaroxolyn as of . 5. Chronic diastolic heart failure. 6. Coronary heart disease. a. Status post coronary artery bypass x3 in 2000, stents placed in the right coronary artery and soon after, required a redo coronary artery bypass x1 in October 2001. 7. Valvular heart disease. a. Status post bioprosthetic mitral valve replacement, January 2002. b. Status post redo mitral valve replacement for severe bioprosthetic mitral valve stenosis, December 2010. 8. Gout. a. Presently asymptomatic. 9. Diabetes mellitus, type 2. a. Recent hemoglobin A1c 6.2. b. Diet controlled. 10. History of atrial fibrillation. 11. Status post pacemaker placement. 12. Gastroesophageal reflux disease. 13. Hypothyroidism. 14. Anxiety disorder. PLAN: Continue the Zaroxolyn until weight back down to her baseline, bathroom privileges, recheck electrolytes in the morning. Job ID: [id number] [facility]
[2019-11-03] MEDS: traMADol HCl 50 MG TAB PO PRN ×2 (13:49→20:16)
[2019-11-03] MEDS: Polyethylene Glycol 3350 17 GM Packet PO SCH (20:27)
[2019-11-04 05:48] LABS: Anion Gap 15 mmol/L (10-20); BUN (Urea Nitrogen) 60 mg/dL (9.8-20.1); Calc. Creatinine Clearance 23 mL/min (70-130); Calcium 9.3 mg/dL (7.8-10.44); Carbon Dioxide 30 mmol/L (23-31); Chloride 98 mmol/L (98-107); Estimated GFR-MDRD 22; Glucose 155 mg/dL (83-110); Potassium 3.9 mmol/L (3.5-5.1); Sodium 139 mmol/L (136-145)
[2019-11-04] MEDS: Levothyroxine Sodium 75 MCG TAB PO SCH (05:52)
[2019-11-04] MEDS: Dronedarone HCl 400 MG TAB PO SCH ×3 (08:12→17:05)
[2019-11-04] MEDS: Allopurinol 100 MG TAB PO SCH ×2 (08:13→20:30)
[2019-11-04] MEDS: Furosemide 40 MG TAB PO SCH ×2 (08:14→20:31)
[2019-11-04] MEDS: Losartan 25 MG TAB PO SCH (08:14)
[2019-11-04] MEDS: Aspirin Chewable 81 MG TAB PO SCH (08:14)
[2019-11-04] MEDS: Ubidecarenone 50 MG CAP PO SCH (08:14)
[2019-11-04] MEDS: Metoprolol Tartrate 25 MG TAB PO SCH ×2 (08:14→20:30)
[2019-11-04] MEDS: Cyanocobalamin (Vitamin B-12) 1,000 MCG TAB PO SCH (08:14)
[2019-11-04] MEDS: Multivit, Therapeutic 1 TAB PO SCH (08:14)
[2019-11-04] MEDS ORDERED: Metolazone 5 MG TAB PO SCH (08:30)
--- NOTE | 2019-11-04 09:40 | PRG ---
DATE OF SERVICE: 11/04/2019 SUBJECTIVE: Patient says she is doing pretty good today. She still has a little trouble trying to lie flat, but does fine on her side and sitting up. She has been given bathroom privileges and this has worked out fine for her. She thinks the swelling in the right foot is a little better today. OBJECTIVE: GENERAL: The patient is sitting up on the side of the bed. She is talkative and said she is enjoying her physical therapy. She appears in no distress. VITAL SIGNS: Temp 97.8, pulse 62, respirations 16, O2 saturation 95% on 2 L, blood pressure 114/56. LUNGS: Clear. HEART: Regular rate. EXTREMITIES: Have trace edema of the right foot, a little less than yesterday. LABORATORY DATA: Her sodium 139, potassium 3.9, BUN up to 60, creatinine 2.1, glucose 159. ASSESSMENT: 1. Generalized weakness and deconditioning. a. Secondary to recent hospitalization for acute on chronic congestive heart failure and acute on chronic hypoxic respiratory failure. b. Improved as of 11/03. 2. Hospitalized at [facility] from to 10/30/19 for acute on chronic hypoxic respiratory failure, acute on chronic diastolic heart failure, and restrictive lung disease with chronic hypoxemia. 3. Restrictive lung disease. a. Complicated by chronic hypoxic respiratory failure. b. Requires continuous supplemental O2. 4. Chronic right heart failure. a. Echocardiogram on 02/06/2019 showed EF of 55% to 60%, moderate enlargement of the right ventricle, normal functioning bioprosthetic mitral valve, severe tricuspid regurgitation and moderate pulmonic regurgitation. b. Weight is stable as of 11/03. 5. Chronic diastolic heart failure. a. No signs of acute congestive heart failure. 6. Coronary heart disease. a. Status post coronary artery bypass x3 in 2000, stents placed in the right coronary artery ensued after required a redo coronary artery bypass x1 in october 2001. 7. Valvular heart disease. a. Status post bioprosthetic mitral valve replacement in January 2002. b. 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 8. Gout, presently asymptomatic. 9. Diabetes type 2. a. Recent hemoglobin A1c 6.2. b. Diet controlled. 10. History of atrial fibrillation. 11. Status post pacemaker placement. 12. Gastroesophageal reflux disease, controlled. 13. Hypothyroidism. 14. Anxiety disorder, controlled. 15. Chronic kidney disease. a. Decline in GFR to 22 secondary to recent increased diuresis. PLAN: We will stop the Zaroxolyn. Continue PT and OT. Job ID: [id number] [facility]
[2019-11-04] MEDS: Polyethylene Glycol 3350 17 GM Packet PO SCH (20:31)
[2019-11-05] MEDS: Levothyroxine Sodium 75 MCG TAB PO SCH (05:36)
[2019-11-05 06:06] LABS: Anion Gap 15 mmol/L (10-20); BUN (Urea Nitrogen) 62 mg/dL (9.8-20.1); Calc. Creatinine Clearance 24 mL/min (70-130); Calcium 9.1 mg/dL (7.8-10.44); Carbon Dioxide 30 mmol/L (23-31); Chloride 98 mmol/L (98-107); Estimated GFR-MDRD 23; Glucose 152 mg/dL (83-110); Sodium 139 mmol/L (136-145)
[2019-11-05] MEDS: Dronedarone HCl 400 MG TAB PO SCH ×3 (08:27→17:00)
[2019-11-05] MEDS: Ubidecarenone 50 MG CAP PO SCH (08:28)
[2019-11-05] MEDS: Losartan 25 MG TAB PO SCH (08:28)
[2019-11-05] MEDS: Furosemide 40 MG TAB PO SCH ×2 (08:28→20:31)
[2019-11-05] MEDS: Multivit, Therapeutic 1 TAB PO SCH (08:29)
[2019-11-05] MEDS: Metoprolol Tartrate 25 MG TAB PO SCH ×2 (08:29→20:31)
[2019-11-05] MEDS: Cyanocobalamin (Vitamin B-12) 1,000 MCG TAB PO SCH (08:29)
[2019-11-05] MEDS: Aspirin Chewable 81 MG TAB PO SCH (08:29)
[2019-11-05] MEDS: Allopurinol 100 MG TAB PO SCH ×2 (08:29→20:31)
--- NOTE | 2019-11-05 09:44 | PRG ---
DATE OF SERVICE: 11/05/2019 SUBJECTIVE: The patient said she feels better. She had trouble sleeping. She said she did lose 2 pounds today. The Zaroxolyn was stopped due to decline in her renal function. OBJECTIVE: GENERAL: The patient looks in no distress. She is alert and talkative. VITAL SIGNS: Show a temperature 97.7, pulse 61, respirations 16, O2 saturation 94% on 2 L, blood pressure 127/58. Her weight is down to 160. LUNGS: Clear. HEART: Regular rate. EXTREMITIES: No edema. ASSESSMENT: 1. Generalized weakness and deconditioning. a. Secondary to recent hospitalization for acute on chronic congestive heart failure and acute on chronic hypoxic respiratory failure. b. Improved as of 11/04. 2. Hospitalized at [facility] from 10/25/2019 to 10/30/2019 for acute on chronic hypoxic respiratory failure, acute on chronic diastolic heart failure, and restrictive lung disease with chronic hypoxemia. 3. Restrictive lung disease. a. Complicated by chronic hypoxic respiratory failure. b. Requires continuous supplemental O2. 4. Chronic right heart failure. a. A. Weight is dropped from 162 to 160 as of 11/04. 5. Chronic diastolic heart failure. a. No signs of acute CHF. 6. Coronary heart disease. 7. Valvular heart disease. 8. Diabetes type 2, diet controlled. 9. Chronic kidney disease. a. GFR declined to 22 secondary to recent diuresis. PLAN: Continue present care. Continue PT/OT. The patient has alprazolam that she can use at nighttime, if needed to assist with her sleep. Job ID: [id number] [facility] [place] [facility]
[2019-11-05] MEDS: guaiFENesin ER 600 MG TAB PO PRN (15:07)
[2019-11-05] MEDS ORDERED: ALIROCUMAB 150 MG/ML SC SCH ×2 (17:45→18:00)
[2019-11-05] MEDS: Polyethylene Glycol 3350 17 GM Packet PO SCH (20:30)
[2019-11-06 05:47] LABS: Anion Gap 16 mmol/L (10-20); BUN (Urea Nitrogen) 68 mg/dL (9.8-20.1); Calc. Creatinine Clearance 23 mL/min (70-130); Calcium 9.3 mg/dL (7.8-10.44); Carbon Dioxide 31 mmol/L (23-31); Chloride 96 mmol/L (98-107); Estimated GFR-MDRD 23; Glucose 151 mg/dL (83-110); Potassium 4.1 mmol/L (3.5-5.1); Sodium 139 mmol/L (136-145)
[2019-11-06 05:52] LABS: #Basophils 0.1 thou/uL (0.0-0.2); #Eosinphils 1.6 thou/uL (0.0-0.7); #Lymphocytes 1.6 thou/uL (1.20-3.40); #Monocytes 0.6 thou/uL (0.11-0.59); #Neutrophils 5.1 thou/uL (1.40-6.50); %Basophils 0.9 % (0.0-1.0); %Eosinophils 17.8 % (0.0-10.0); %Lymphocytes 17.4 % (21.0-51.0); %Neutrophils 56.8 % (42.0-75.0); Elliptocytes SLIGHT = 2-5 cells (100X) (0-1/hpf); Hemoglobin 10.8 g/dL (12.0-16.0); MDiff Complete? YES; Mean Corpuscular HGB CONC 33.6 g/dL (32.0-36.0); Mean Corpuscular Hemoglobin 30.2 pg (27.0-31.0); Mean Corpuscular Volume 89.8 fL (78.0-98.0); Mean Platelet Volume 9.2 fL (7.4-10.4); Platelet Count 117 thou/uL (130-400); Platelet Morphology Comment Appears Decreased; Red Blood Cell (RBC) Count 3.58 mill/uL (4.20-5.40); Stomatocytes SLIGHT = 2-5 cells (100X) (0-1/hpf)
[2019-11-06] MEDS: Levothyroxine Sodium 75 MCG TAB PO SCH (06:11)
[2019-11-06] MEDS: Dronedarone HCl 400 MG TAB PO SCH ×3 (08:13→17:00)
[2019-11-06] MEDS: Aspirin Chewable 81 MG TAB PO SCH (08:14)
[2019-11-06] MEDS: Ubidecarenone 50 MG CAP PO SCH (08:14)
[2019-11-06] MEDS: Losartan 25 MG TAB PO SCH (08:14)
[2019-11-06] MEDS: Multivit, Therapeutic 1 TAB PO SCH (08:15)
[2019-11-06] MEDS: Allopurinol 100 MG TAB PO SCH ×2 (08:15→20:37)
[2019-11-06] MEDS: Metoprolol Tartrate 25 MG TAB PO SCH ×2 (08:15→20:36)
[2019-11-06] MEDS: Furosemide 40 MG TAB PO SCH ×2 (08:15→20:36)
[2019-11-06] MEDS: guaiFENesin ER 600 MG TAB PO PRN (08:15)
[2019-11-06] MEDS: Cyanocobalamin (Vitamin B-12) 1,000 MCG TAB PO SCH (08:15)
[2019-11-06] MEDS: Polyethylene Glycol 3350 17 GM Packet PO SCH (20:34)
[2019-11-07] MEDS: Levothyroxine Sodium 75 MCG TAB PO SCH (05:34)
[2019-11-07] MEDS: Dronedarone HCl 400 MG TAB PO SCH ×3 (08:09→17:11)
[2019-11-07] MEDS: Multivit, Therapeutic 1 TAB PO SCH (08:10)
[2019-11-07] MEDS: Metoprolol Tartrate 25 MG TAB PO SCH ×2 (08:10→20:58)
[2019-11-07] MEDS: Ubidecarenone 50 MG CAP PO SCH (08:10)
[2019-11-07] MEDS: Allopurinol 100 MG TAB PO SCH ×2 (08:10→20:58)
[2019-11-07] MEDS: Losartan 25 MG TAB PO SCH (08:10)
[2019-11-07] MEDS: Aspirin Chewable 81 MG TAB PO SCH (08:10)
[2019-11-07] MEDS: Cyanocobalamin (Vitamin B-12) 1,000 MCG TAB PO SCH (08:10)
[2019-11-07] MEDS: Furosemide 40 MG TAB PO SCH ×2 (08:10→20:58)
[2019-11-07] MEDS: Acetaminophen 325 MG TAB PO PRN (12:12)
--- NOTE | 2019-11-07 13:23 | PRG ---
DATE OF SERVICE: 11/07/2019 SUBJECTIVE: The patient says she is doing all right. She slept a few hours last night, but always has trouble at night. She does have the Xanax that she can use if needed. She did not take it last night. The patient said that her breathing is doing okay, sometimes she gets a little winded. She said she did lose another pound. OBJECTIVE: GENERAL: The patient is sitting up in her wheelchair with her O2 on. She is talkative, appears comfortable, in no distress. VITAL SIGNS: Her temp is 97.3, pulse 63, respirations 16, her O2 sat is 100% on 2 L, and blood pressure 108/53. Her weight is 158, down from a high of 162. She had a 2650 mL of urinary output over the last 24 hours. LUNGS: Clear. HEART: Regular rate. EXTREMITIES: Trace edema in the right foot. LABORATORY DATA: Her lab from 11/05 showed a sodium of 139, potassium of 4.1, BUN of 68, creatinine of 2.09, GFR of 23, FBS of 151, H and H of 10.8 and 32.1, white cell count of 9000, and platelet count of 117. ASSESSMENT: 1. Generalized weakness and deconditioning. a. Secondary to recent hospitalization for acute on chronic congestive heart failure and acute on chronic hypoxic respiratory failure. b. Improved as of 11/06. 2. Hospitalized at [facility] from 10/25/2019 to 10/30/2019 for acute on chronic hypoxic respiratory failure, acute on chronic diastolic heart failure, and restrictive lung disease with chronic hypoxemia. 3. Restrictive lung disease. a. Complicated by chronic hypoxic respiratory failure. b. Requires continuous supplemental O2. 4. Chronic right heart failure. a. Improved. Weight has dropped from a high of 162 to 158 as of 11/06. 5. Chronic diastolic heart failure. a. No signs of acute congestive heart failure. 6. Coronary heart disease. 7. Valvular heart disease. a. Status post bowel prosthetic mitral valve replacement on January 26. b. Status post redo mitral valve replacement for severe bowel prosthetic mitral valve stenosis in December 2010. 8. Gout. a. Presently asymptomatic. 9. Diabetes, type 2. a. Recent hemoglobin A1c 6.2. b. Diet controlled. 10. History of atrial fibrillation. 11. Status post pacemaker placement. 12. Hypothyroidism. 13. Anxiety disorder. 14. Chronic kidney disease. a. GFR stable at 23. PLAN: Continue present care. Continue PT. Job [facility]: [id number] [facility]
[2019-11-07] MEDS: Polyethylene Glycol 3350 17 GM Packet PO SCH (20:58)
[2019-11-07] MEDS: guaiFENesin ER 600 MG TAB PO PRN (23:10)
[2019-11-08] MEDS: Levothyroxine Sodium 75 MCG TAB PO SCH (06:12)
[2019-11-08] MEDS: Ubidecarenone 50 MG CAP PO SCH (08:27)
[2019-11-08] MEDS: Multivit, Therapeutic 1 TAB PO SCH (08:28)
[2019-11-08] MEDS: Aspirin Chewable 81 MG TAB PO SCH (08:28)
[2019-11-08] MEDS: Cyanocobalamin (Vitamin B-12) 1,000 MCG TAB PO SCH (08:28)
[2019-11-08] MEDS: Furosemide 40 MG TAB PO SCH ×2 (08:28→21:10)
[2019-11-08] MEDS: Losartan 25 MG TAB PO SCH (08:28)
[2019-11-08] MEDS: Metoprolol Tartrate 25 MG TAB PO SCH ×2 (08:28→21:10)
[2019-11-08] MEDS: Allopurinol 100 MG TAB PO SCH ×2 (08:28→21:10)
[2019-11-08] MEDS: Dronedarone HCl 400 MG TAB PO SCH ×3 (08:28→17:08)
[2019-11-08] MEDS: guaiFENesin ER 600 MG TAB PO PRN ×2 (08:33→21:10)
--- NOTE | 2019-11-08 17:21 | PRG ---
DATE OF SERVICE: 11/08/2019 SUBJECTIVE: The patient said she is doing good today. She has had no shortness breath or chest pain. OBJECTIVE: GENERAL: The patient is sitting on the edge of her bed. She is alert, talkative, and appears in no distress. VITAL SIGNS: Show a temperature of 97.9, pulse 69, respirations 16, O2 saturations 97% on 2 L, blood pressure 106/61. Weight 160. LUNGS: Clear. HEART: Regular rate. EXTREMITIES: No edema. ASSESSMENT: 1. Generalized weakness and deconditioning. a. Secondary to recent hospitalization. b. Improved as of 11/07. 2. Hospitalized at [facility] from 10/25/2019 to 10/30/2019 for acute on chronic hypoxic respiratory failure, acute on chronic diastolic heart failure, and restrictive lung disease with chronic hypoxemia. 3. Restrictive lung disease. a. Complicated by chronic hypoxic respiratory failure. b. Requires continuous supplemental O2. 4. Chronic right heart failure. a. Stable with weight up from 158 to 160 as of 11/07. 5. Chronic diastolic heart failure. a. No evidence of acute congestive heart failure. 6. Coronary heart disease. 7. Valvular heart disease. a. Status post bioprosthetic mitral valve replacement in January 2002. b. 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 8. Diabetes type 2. a. Recent hemoglobin A1c 6.2. b. Diet controlled. 9. History of atrial fibrillation. 10. Coronary artery disease. a. Status post coronary artery bypass x3 in 2000, stents placed in the right coronary followed soon by redo coronary artery bypass in October 2001. 11. Status post pacemaker replacement. 12. Hypothyroidism. 13. Chronic kidney disease. 14. Anxiety disorder. PLAN: The patient is making a little progress with therapy. We will continue present care. Continue PT and OT. Job ID: [id number] [facility]
[2019-11-08] MEDS: Polyethylene Glycol 3350 17 GM Packet PO SCH (21:08)
[2019-11-09] MEDS: Levothyroxine Sodium 75 MCG TAB PO SCH (05:25)
[2019-11-09] MEDS: Loratadine 10 MG TAB PO PRN (05:25)
[2019-11-09] MEDS: Dronedarone HCl 400 MG TAB PO SCH ×3 (08:05→17:00)
[2019-11-09] MEDS: Aspirin Chewable 81 MG TAB PO SCH (08:06)
[2019-11-09] MEDS: Ubidecarenone 50 MG CAP PO SCH (08:06)
[2019-11-09] MEDS: Multivit, Therapeutic 1 TAB PO SCH (08:06)
[2019-11-09] MEDS: Metoprolol Tartrate 25 MG TAB PO SCH ×2 (08:06→21:32)
[2019-11-09] MEDS: Losartan 25 MG TAB PO SCH (08:06)
[2019-11-09] MEDS: Furosemide 40 MG TAB PO SCH ×2 (08:06→21:32)
[2019-11-09] MEDS: Allopurinol 100 MG TAB PO SCH ×2 (08:06→21:32)
[2019-11-09] MEDS: Cyanocobalamin (Vitamin B-12) 1,000 MCG TAB PO SCH (08:06)
[2019-11-09] MEDS: Polyethylene Glycol 3350 17 GM Packet PO SCH (21:29)
[2019-11-09] MEDS: guaiFENesin ER 600 MG TAB PO PRN (21:29)
[2019-11-10] MEDS: Levothyroxine Sodium 75 MCG TAB PO SCH (04:42)
[2019-11-10] MEDS: Guaifenesin DM 100-10/5 ML UDCUP PO PRN (04:42)
[2019-11-10 05:47] LABS: Anion Gap 17 mmol/L (10-20); BUN (Urea Nitrogen) 71 mg/dL (9.8-20.1); Calc. Creatinine Clearance 21 mL/min (70-130); Calcium 9.4 mg/dL (7.8-10.44); Carbon Dioxide 30 mmol/L (23-31); Chloride 96 mmol/L (98-107); Estimated GFR-MDRD 21; Glucose 164 mg/dL (83-110); Potassium 4.1 mmol/L (3.5-5.1); Sodium 139 mmol/L (136-145)
[2019-11-10] MEDS: Ubidecarenone 50 MG CAP PO SCH (08:34)
[2019-11-10] MEDS: Dronedarone HCl 400 MG TAB PO SCH ×3 (08:34→16:59)
[2019-11-10] MEDS: Metoprolol Tartrate 25 MG TAB PO SCH ×2 (08:35→21:22)
[2019-11-10] MEDS: Losartan 25 MG TAB PO SCH (08:35)
[2019-11-10] MEDS: Multivit, Therapeutic 1 TAB PO SCH (08:35)
[2019-11-10] MEDS: Furosemide 40 MG TAB PO SCH ×2 (08:35→14:16)
[2019-11-10] MEDS: Aspirin Chewable 81 MG TAB PO SCH (08:35)
[2019-11-10] MEDS: Allopurinol 100 MG TAB PO SCH ×2 (08:35→21:22)
[2019-11-10] MEDS: Cyanocobalamin (Vitamin B-12) 1,000 MCG TAB PO SCH (08:35)
--- NOTE | 2019-11-10 12:42 | PRG ---
DATE OF SERVICE: 11/10/2019 SUBJECTIVE: The patient said she is feeling good today. She had no complaint. She had a good night. OBJECTIVE: GENERAL: The patient is sitting on the side of her bed. She is alert, appears in no distress. VITAL SIGNS: Her weight is 158. LUNGS: Clear. HEART: Regular rate. EXTREMITIES: No edema. LABORATORY DATA: Her lab shows sodium 139, potassium 4.1, BUN 71, creatinine 2.24. GFR 21. FBS 164. ASSESSMENT: 1. Generalized weakness. a. Secondary to recent hospitalization. b. Improved as of 11/09. 2. Hospitalized at [facility] from 10/25/2019 to 10/30/2019 for acute on chronic hypoxic respiratory failure, acute on chronic diastolic heart failure and restrictive lung disease with chronic hypoxemia. 3. Restrictive lung disease. a. Complicated by chronic hypoxic respiratory failure. b. Requires continuous supplemental oxygen. 4. Chronic right heart failure. a. Stable with weight of 158 as of 11/09. 5. Chronic diastolic heart failure. a. No evidence of acute CHF. 6. Coronary artery disease. 7. Valvular heart disease. a. Status post bioprosthetic mitral valve replacement in January 2002. b. Status post redo mitral valve replacement for severe bowel prostatic mitral valve stenosis, December 2010. 8. Diabetes type 2. a. Recent hemoglobin A1c 6.2. b. Diet control. 9. History of atrial fibrillation. 10. Coronary artery disease. a. Status post coronary artery bypass x3, 2000, stents placed in the right coronary, followed soon after by redo coronary artery bypass, October 2001. 11. Status post pacemaker replacement. 12. Hypothyroidism. 13. Chronic kidney disease. a. GFR is 21 as of 11/09. 14. Anxiety disorder, controlled. PLAN: Continue present care. We will recheck renal function in the morning. If GFR continues to drop, we will drop back on the furosemide. [facility] [id number] [facility]
[2019-11-10] MEDS: Polyethylene Glycol 3350 17 GM Packet PO SCH (21:22)
[2019-11-10] MEDS: Acetaminophen 325 MG TAB PO PRN (21:25)
[2019-11-11] MEDS: Levothyroxine Sodium 75 MCG TAB PO SCH (05:22)
[2019-11-11 05:41] LABS: Anion Gap 17 mmol/L (10-20); BUN (Urea Nitrogen) 76 mg/dL (9.8-20.1); Calc. Creatinine Clearance 21 mL/min (70-130); Calcium 9.2 mg/dL (7.8-10.44); Carbon Dioxide 29 mmol/L (23-31); Chloride 96 mmol/L (98-107); Estimated GFR-MDRD 20; Glucose 145 mg/dL (83-110); Potassium 4.3 mmol/L (3.5-5.1); Sodium 138 mmol/L (136-145)
[2019-11-11] MEDS: Dronedarone HCl 400 MG TAB PO SCH ×3 (08:23→17:03)
[2019-11-11] MEDS: Ubidecarenone 50 MG CAP PO SCH (08:23)
[2019-11-11] MEDS: Allopurinol 100 MG TAB PO SCH ×2 (08:25→20:59)
[2019-11-11] MEDS: Cyanocobalamin (Vitamin B-12) 1,000 MCG TAB PO SCH (08:25)
[2019-11-11] MEDS: Furosemide 40 MG TAB PO SCH ×2 (08:25→17:02)
[2019-11-11] MEDS: Losartan 25 MG TAB PO SCH (08:26)
[2019-11-11] MEDS: Multivit, Therapeutic 1 TAB PO SCH (08:27)
[2019-11-11] MEDS: Metoprolol Tartrate 25 MG TAB PO SCH ×2 (08:27→20:59)
[2019-11-11] MEDS: Aspirin Chewable 81 MG TAB PO SCH (08:27)
--- NOTE | 2019-11-11 09:47 | PRG ---
DATE OF SERVICE: 11/11/2019 SUBJECTIVE: The patient says she is doing all right. She said she did not rest very well last night, which is frequent for her. She is not short of breath. She is working with Physical Therapy, wears her oxygen all the time including physical therapy sessions. She is walking up to 100 feet yesterday with a rolling walker and standby assistance. She is transferring with just standby assistance. OBJECTIVE: GENERAL: The patient is alert, appears comfortable, in no distress. She is wearing her O2. VITAL SIGNS: Her temp is 97.6, pulse 61, respirations 20, O2 saturation 99% on 2 L, blood pressure 109/58. Her weight is stable at 158. Urinary output 1275. LUNGS: Clear. HEART: Regular rate. EXTREMITIES: Trace edema in the right foot. ASSESSMENT: 1. Generalized weakness. a. Secondary to recent hospitalization. b. Improved. Walking up to 100 feet with standby assistance and the use of a walker. Transferring with standby assistance as of 11/10. 2. Hospitalized at [facility] from 10/25/19 to 10/30/19 for acute on chronic hypoxic respiratory failure, acute on chronic diastolic heart failure, and restrictive lung disease with chronic hypoxemia. 3. Restrictive lung disease. a. Complicated by chronic hypoxic respiratory failure. b. Requires continuous supplemental O2. 4. Chronic right heart failure. a. Weight stable at 158 as of 11/10. 5. Chronic diastolic heart failure. a. No evidence of acute congestive heart failure. 6. Coronary artery disease. a. Status post coronary artery bypass x3 in 2000. b. Stents placed in right coronary followed soon after by redo coronary artery bypass x1 in october 2001. 7. Valvular heart disease. a. Status post bioprosthetic mitral valve replacement in January 2002. b. 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 8. Diabetes type 2. a. Recent hemoglobin A1c 6.2. b. Diet control. 9. History of atrial fibrillation. 10. Status post pacemaker placement. 11. Hypothyroidism. 12. Chronic kidney disease, GFR of 21 on 11/09. 13. Anxiety disorder, controlled. PLAN: Continue present care. Continue PT and OT. Job ID: [id number] [facility]
[2019-11-11] MEDS: Polyethylene Glycol 3350 17 GM Packet PO SCH (21:05)
[2019-11-12] MEDS: Guaifenesin DM 100-10/5 ML UDCUP PO PRN (03:42)
[2019-11-12] MEDS: Levothyroxine Sodium 75 MCG TAB PO SCH (04:54)
[2019-11-12] MEDS: Ubidecarenone 50 MG CAP PO SCH (08:05)
[2019-11-12] MEDS: Dronedarone HCl 400 MG TAB PO SCH ×3 (08:06→17:08)
[2019-11-12] MEDS: Allopurinol 100 MG TAB PO SCH ×2 (08:06→20:43)
[2019-11-12] MEDS: Furosemide 40 MG TAB PO SCH ×2 (08:06→13:40)
[2019-11-12] MEDS: Multivit, Therapeutic 1 TAB PO SCH (08:06)
[2019-11-12] MEDS: Cyanocobalamin (Vitamin B-12) 1,000 MCG TAB PO SCH (08:06)
[2019-11-12] MEDS: Aspirin Chewable 81 MG TAB PO SCH (08:06)
[2019-11-12] MEDS: Metoprolol Tartrate 25 MG TAB PO SCH ×2 (08:06→20:43)
[2019-11-12] MEDS: Losartan 25 MG TAB PO SCH (08:06)
--- NOTE | 2019-11-12 10:24 | PRG ---
DATE OF SERVICE: 11/12/2019 SUBJECTIVE: The patient says she is doing good. She has had no chest pain. No shortness of breath. She wears her O2 continuous. She is having some trouble with some condensation in the tubing and the tubing has to be blown out at least a couple of times a day. Some of this may be increased condensation from the warm room temperature. OBJECTIVE: GENERAL: The patient is alert, appears in no distress. She is wearing her O2. VITAL SIGNS: Her temp is 97.8, pulse 64, respirations 16, O2 saturation 94% on 2 L, blood pressure 101/48. Her weight is 159. LUNGS: Clear. HEART: Regular rate. EXTREMITIES: No edema. LABORATORY DATA: Her FBS this morning 165. ASSESSMENT: 1. Generalized weakness. a. Secondary to recent hospitalization. b. Improved. Walking up to 100 feet with standby assistance with the use of a walker. Transferring was standby assistance as of 11/11. 2. Hospitalized at [facility] from to 10/30/2019 for acute on chronic hypoxic respiratory failure, acute on chronic diastolic heart failure, and restrictive lung disease with chronic hypoxemia. 3. Restrictive lung disease. 4. Chronic right heart failure. a. Weight 159, 1 pound up as of 11/11. 5. Chronic diastolic heart failure. a. No evidence of acute congestive heart failure. 6. Coronary artery disease. 7. Valvular heart disease. a. Status post bioprosthetic mitral valve replacement, January 2002. b. Status post redo mitral valve replacement for severe bioprosthetic mitral valve stenosis, December 2010. 8. Diabetes type 2. a. Recent hemoglobin A1c 6.2. b. Diet controlled. 9. History of atrial fibrillation. 10. Status post pacemaker placement. 11. Hypothyroidism. 12. Chronic kidney disease, GFR 21. 13. Anxiety disorder, controlled. PLAN: Continue present care. Continue PT and OT. [facility] [id number] [facility]
[2019-11-12] MEDS: Polyethylene Glycol 3350 17 GM Packet PO SCH (20:42)
[2019-11-13] MEDS: Levothyroxine Sodium 75 MCG TAB PO SCH (05:37)
[2019-11-13 06:04] LABS: Anion Gap 17 mmol/L (10-20); BUN (Urea Nitrogen) 76 mg/dL (9.8-20.1); Calc. Creatinine Clearance 22 mL/min (70-130); Carbon Dioxide 27 mmol/L (23-31); Chloride 100 mmol/L (98-107); Estimated GFR-MDRD 21; Glucose 152 mg/dL (83-110); Potassium 4.6 mmol/L (3.5-5.1); Sodium 139 mmol/L (136-145)
[2019-11-13 06:20] LABS: #Basophils 0.1 thou/uL (0.0-0.2); #Eosinphils 1.8 thou/uL (0.0-0.7); #Monocytes 0.6 thou/uL (0.11-0.59); #Neutrophils 4.3 thou/uL (1.40-6.50); %Basophils 1.2 % (0.0-1.0); %Eosinophils 21.9 % (0.0-10.0); %Lymphocytes 18.9 % (21.0-51.0); %Monocytes 7.2 % (0.0-10.0); %Neutrophils 50.9 % (42.0-75.0); Large Platelets SLIGHT; MDiff Complete? YES; Mean Corpuscular HGB CONC 32.2 g/dL (32.0-36.0); Mean Corpuscular Hemoglobin 30.9 pg (27.0-31.0); Mean Corpuscular Volume 96.1 fL (78.0-98.0); Mean Platelet Volume 9.6 fL (7.4-10.4); Platelet Count 101 thou/uL (130-400); Platelet Morphology Comment PLATELETS DECREASED ON SLIDE; RBC Distribution Width 14.1 % (11.5-14.5); Red Blood Cell (RBC) Count 3.24 mill/uL (4.20-5.40); White Blood Cell (WBC) Count 8.4 thou/uL (4.8-10.8)
[2019-11-13] MEDS: Metoprolol Tartrate 25 MG TAB PO SCH ×2 (08:16→21:17)
[2019-11-13] MEDS: Multivit, Therapeutic 1 TAB PO SCH (08:16)
[2019-11-13] MEDS: Ubidecarenone 50 MG CAP PO SCH (08:16)
[2019-11-13] MEDS: Aspirin Chewable 81 MG TAB PO SCH (08:17)
[2019-11-13] MEDS: Dronedarone HCl 400 MG TAB PO SCH ×3 (08:17→17:00)
[2019-11-13] MEDS: Allopurinol 100 MG TAB PO SCH ×2 (08:17→20:10)
[2019-11-13] MEDS: Cyanocobalamin (Vitamin B-12) 1,000 MCG TAB PO SCH (08:17)
[2019-11-13] MEDS: Losartan 25 MG TAB PO SCH (08:17)
[2019-11-13] MEDS: Furosemide 40 MG TAB PO SCH ×2 (08:17→14:25)
--- NOTE | 2019-11-13 09:42 | PRG ---
DATE OF SERVICE: 11/13/2019 SUBJECTIVE: The patient says she is doing good this morning. She said she is making progress with her physical therapy, but her strength and capability still are not such she could manage at home. Her breathing is doing good. OBJECTIVE: GENERAL: The patient is sitting up on the edge of the bed. She is alert and talkative. Appears in no distress. VITAL SIGNS: Her temperature 97.5, pulse 62, respirations 16, O2 saturation 100 % on 2 L, and blood pressure 109/49. Her weight 159, stable. LUNGS: Clear. HEART: Regular rate. EXTREMITIES: Trace edema in the right foot. LABORATORY DATA: Her lab shows H and H of 10 and 31, white cell count 8400 with 51% segs, 19% lymphocytes, and platelet count of a 101,000. Sodium 139, potassium 4.6, BUN 76, creatinine 2.19. GFR 21, stable. Glucose 152. ASSESSMENT: 1. Generalized weakness. a. Secondary to recent hospitalization. b. Improved. Walking up to 100 feet with standby assistance with use of a walker. Transferring with standby assistance as of 11/12. 2. Hospitalized at [facility] from to 10/29 for acute on chronic hypoxic respiratory failure, acute on chronic diastolic heart failure, and restrictive lung disease with chronic hypoxemia. 3. Restrictive lung disease. 4. Chronic right heart failure. a. Weight is stable at 159 as of 11/12. 5. Chronic diastolic heart failure. a. No evidence of acute congestive heart failure. 6. Coronary heart disease. 7. Valvular heart disease. a. Status post bioprosthetic mitral valve replacement, January 2002. b. Status post redo mitral valve replacement for severe bioprosthetic mitral valve stenosis, December 2010. 8. Diabetes type 2. a. Recent hemoglobin A1c 6.2. b. Diet controlled. 9. History of atrial fibrillation. 10. Status post pacemaker placement. 11. Hypothyroidism. 12. Chronic kidney disease. GFR stable at 21. 13. Anxiety disorder. Controlled. PLAN: Continue present care. Continue PT and OT. Job ID: [id number] [facility]
[2019-11-13] MEDS: Polyethylene Glycol 3350 17 GM Packet PO SCH (20:11)
[2019-11-14] MEDS: Levothyroxine Sodium 75 MCG TAB PO SCH (05:43)
[2019-11-14] MEDS: Dronedarone HCl 400 MG TAB PO SCH ×3 (09:15→17:00)
[2019-11-14] MEDS: Losartan 25 MG TAB PO SCH (09:16)
[2019-11-14] MEDS: Ubidecarenone 50 MG CAP PO SCH (09:16)
[2019-11-14] MEDS: Aspirin Chewable 81 MG TAB PO SCH (09:16)
[2019-11-14] MEDS: Multivit, Therapeutic 1 TAB PO SCH (09:16)
[2019-11-14] MEDS: Allopurinol 100 MG TAB PO SCH ×2 (09:16→21:48)
[2019-11-14] MEDS: Cyanocobalamin (Vitamin B-12) 1,000 MCG TAB PO SCH (09:16)
[2019-11-14] MEDS: Metoprolol Tartrate 25 MG TAB PO SCH ×2 (09:17→21:49)
[2019-11-14] MEDS: Furosemide 40 MG TAB PO SCH ×3 (09:17→17:00)
[2019-11-14] MEDS: Loratadine 10 MG TAB PO PRN (12:02)
--- NOTE | 2019-11-14 14:38 | PRG ---
DATE OF SERVICE: 11/14/2019 SUBJECTIVE: The patient said she did not sleep last night. She just feels bad today. Yesterday, she had a very good day of therapy, but today her legs just seem tired and a little jumpy. OBJECTIVE: GENERAL: The patient looks tired this morning, but not in any acute distress. VITAL SIGNS: Her temp 96.3, pulse 79, respirations 19, O2 saturation 95% on 2 L , blood pressure 129/58. Her weight is 161. LUNGS: Clear. HEART: Regular rate. FPS 148. ASSESSMENT: 1. Generalized weakness. a. Secondary to recent hospitalization. b. Gradually improving. Walking a little further with standby assistance or the use of a walker. Transferring with standby assistance as of 11/13. Today, she thinks her legs are a little bit more tired from the therapy. 2. Hospitalized at [facility] from to 10/29 for acute on chronic hypoxic respiratory failure, acute on chronic diastolic heart failure, and restrictive lung disease with chronic hypoxemia. 3. Restrictive lung disease. 4. Chronic right heart failure. a. Weight 161 as of 11/13. 5. Chronic diastolic heart failure. a. No evidence of acute congestive heart failure. 6. Coronary artery disease. 7. Valvular heart disease. a. Status post valve prosthetic mitral valve replacement in January 2002. b. 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 8. Diabetes, type 2. a. Controlled. Recent hemoglobin A1c 6.2. 9. History of atrial fibrillation. 10. Status post pacemaker placement. 11. Hypothyroidism. 12. Chronic kidney disease. 13. Anxiety disorder, controlled. 14. Insomnia. PLAN: Continue present care. The patient is more tired from the lack of sleep and she thinks she may have pushed a little bit too far with therapy yesterday. She will try taking her Xanax at bedtime and see if this will help her rest better. Job ID: [id number] [facility]
[2019-11-14] MEDS: ALPRAZolam 0.5 MG TAB PO PRN (21:48)
[2019-11-14] MEDS: Polyethylene Glycol 3350 17 GM Packet PO SCH (21:49)
[2019-11-15] MEDS: Levothyroxine Sodium 75 MCG TAB PO SCH (06:03)
[2019-11-15] MEDS: Dronedarone HCl 400 MG TAB PO SCH ×3 (08:07→17:08)
[2019-11-15] MEDS: Multivit, Therapeutic 1 TAB PO SCH (08:08)
[2019-11-15] MEDS: Metoprolol Tartrate 25 MG TAB PO SCH ×2 (08:08→20:35)
[2019-11-15] MEDS: Aspirin Chewable 81 MG TAB PO SCH (08:08)
[2019-11-15] MEDS: Loratadine 10 MG TAB PO PRN (08:08)
[2019-11-15] MEDS: Furosemide 40 MG TAB PO SCH ×3 (08:08→17:08)
[2019-11-15] MEDS: Allopurinol 100 MG TAB PO SCH ×2 (08:08→20:34)
[2019-11-15] MEDS: Cyanocobalamin (Vitamin B-12) 1,000 MCG TAB PO SCH (08:09)
[2019-11-15] MEDS: Losartan 25 MG TAB PO SCH (08:09)
[2019-11-15] MEDS: Ubidecarenone 50 MG CAP PO SCH (08:09)
[2019-11-15] MEDS: Polyethylene Glycol 3350 17 GM Packet PO SCH (20:35)
[2019-11-16] MEDS: Levothyroxine Sodium 75 MCG TAB PO SCH (06:21)
[2019-11-16] MEDS: Losartan 25 MG TAB PO SCH (08:20)
[2019-11-16] MEDS: Allopurinol 100 MG TAB PO SCH ×2 (08:20→21:49)
[2019-11-16] MEDS: Furosemide 40 MG TAB PO SCH ×2 (08:21→14:30)
[2019-11-16] MEDS: Dronedarone HCl 400 MG TAB PO SCH ×3 (08:21→17:05)
[2019-11-16] MEDS: Aspirin Chewable 81 MG TAB PO SCH (08:21)
[2019-11-16] MEDS: Loratadine 10 MG TAB PO PRN (08:22)
[2019-11-16] MEDS: Multivit, Therapeutic 1 TAB PO SCH (08:22)
[2019-11-16] MEDS: Metoprolol Tartrate 25 MG TAB PO SCH ×2 (08:22→21:50)
[2019-11-16] MEDS: Cyanocobalamin (Vitamin B-12) 1,000 MCG TAB PO SCH (08:22)
[2019-11-16] MEDS: Ubidecarenone 50 MG CAP PO SCH (08:22)
[2019-11-16] MEDS: Polyethylene Glycol 3350 17 GM Packet PO SCH (21:50)
[2019-11-17] MEDS: Levothyroxine Sodium 75 MCG TAB PO SCH (05:15)
[2019-11-17 05:40] LABS: Anion Gap 16 mmol/L (10-20); BUN (Urea Nitrogen) 85 mg/dL (9.8-20.1); Calc. Creatinine Clearance 21 mL/min (70-130); Calcium 9.1 mg/dL (7.8-10.44); Carbon Dioxide 26 mmol/L (23-31); Chloride 104 mmol/L (98-107); Estimated GFR-MDRD 20; Glucose 159 mg/dL (83-110); Potassium 4.6 mmol/L (3.5-5.1); Sodium 141 mmol/L (136-145)
[2019-11-17] MEDS ORDERED: Artificial Tear Sol 15 ML BOT EA EYE PRN (07:55)
[2019-11-17] MEDS: Losartan 25 MG TAB PO SCH (08:10)
[2019-11-17] MEDS: Multivit, Therapeutic 1 TAB PO SCH (08:10)
[2019-11-17] MEDS: Aspirin Chewable 81 MG TAB PO SCH (08:10)
[2019-11-17] MEDS: Metoprolol Tartrate 25 MG TAB PO SCH ×2 (08:10→20:37)
[2019-11-17] MEDS: Cyanocobalamin (Vitamin B-12) 1,000 MCG TAB PO SCH (08:10)
[2019-11-17] MEDS: Dronedarone HCl 400 MG TAB PO SCH ×3 (08:10→17:04)
[2019-11-17] MEDS: Furosemide 40 MG TAB PO SCH ×2 (08:10→14:05)
[2019-11-17] MEDS: Ubidecarenone 50 MG CAP PO SCH (08:10)
[2019-11-17] MEDS: Allopurinol 100 MG TAB PO SCH ×2 (10:23→20:36)
--- NOTE | 2019-11-17 13:03 | PRG ---
DATE OF SERVICE: 11/17/2019 SUBJECTIVE: The patient says she is doing good today. Last night, she slept, woke up for a little while, then was able to go back to sleep. She did not use any of the Xanax. She is feeling good this morning. She had no complaint other than her eyes are a little dry. She keeps her room very warm with hardly any humidity in the room creating a dryness of her eyes. OBJECTIVE: GENERAL: The patient is sitting on the side of the bed, looks rested and very comfortable, in no distress. VITAL SIGNS: Her temperature 97.6, pulse 65, respirations 18, O2 saturation 95% on 2 L, blood pressure 102/50. LUNGS: Clear. HEART: Regular rate. EXTREMITIES: Trace edema. LABORATORY DATA: Her sodium 141, potassium 4.6, BUN 85, creatinine 2.3, GFR 20, glucose 157, weight is stable at 163. ASSESSMENT: 1. Generalized weakness. a. Secondary to recent hospitalization. b. Gradually improving. Walking further with standby assistance using her walker, transferring with just standby assistance as of 11/16. 2. Hospitalized at [facility] from to 10/29 for [id number] hypoxic respiratory failure, [id number] diastolic heart failure and restrictive lung disease with chronic hypoxemia. 3. Restrictive lung disease. 4. Chronic right heart failure. a. Weight 163 as of 11/16. 5. Chronic diastolic heart failure. a. No evidence of acute congestive heart failure. 6. Coronary artery disease. 7. Valvular heart disease. a. Status post bioprosthetic mitral valve replacement in January 2002. 8. Status post redo mitral valve replacement for severe bioprosthetic mitral valve stenosis December 2010. 9. Diabetes type 2. a. Controlled. Recent hemoglobin A1c 6.2. 10. History of atrial fibrillation. 11. Status post pacemaker placement. 12. Hypothyroidism. 13. Chronic kidney disease. 14. Anxiety disorder, controlled. 15. Insomnia improved. PLAN: Continue present care. Continue PT and OT. [facility] [id number] [facility]
[2019-11-17] MEDS: Polyethylene Glycol 3350 17 GM Packet PO SCH (20:36)
[2019-11-17] MEDS: ALPRAZolam 0.5 MG TAB PO PRN (23:55)
[2019-11-18] MEDS: Guaifenesin DM 100-10/5 ML UDCUP PO PRN (00:02)
[2019-11-18] MEDS: Levothyroxine Sodium 75 MCG TAB PO SCH (06:06)
[2019-11-18] MEDS: Multivit, Therapeutic 1 TAB PO SCH (07:52)
[2019-11-18] MEDS: Cyanocobalamin (Vitamin B-12) 1,000 MCG TAB PO SCH (07:52)
[2019-11-18] MEDS: Furosemide 40 MG TAB PO SCH ×2 (07:52→13:44)
[2019-11-18] MEDS: Allopurinol 100 MG TAB PO SCH ×2 (07:53→21:18)
[2019-11-18] MEDS: Dronedarone HCl 400 MG TAB PO SCH ×3 (07:53→17:12)
[2019-11-18] MEDS: Ubidecarenone 50 MG CAP PO SCH (07:53)
[2019-11-18] MEDS: Aspirin Chewable 81 MG TAB PO SCH (07:53)
[2019-11-18] MEDS: Losartan 25 MG TAB PO SCH (07:53)
[2019-11-18] MEDS: Metoprolol Tartrate 25 MG TAB PO SCH ×2 (07:53→21:18)
[2019-11-18] MEDS ORDERED: Metolazone 5 MG TAB PO SCH (08:30)
--- NOTE | 2019-11-18 10:04 | PRG ---
DATE OF SERVICE: 11/18/2019 SUBJECTIVE: The patient said she slept good last night. About midnight, she took a Xanax and slept the rest of the night. She says she feels a little bit woozy this morning from the medicine. Suggested that she take this earlier in the evening to avoid this carry-over. She says her breathing is good. Her nose has been dry and stuffed up. She is using the nasal saline. OBJECTIVE: GENERAL: The patient is sitting up on the side of her bed, alert, talkative, appears in no distress. VITAL SIGNS: Her temperature is 97.4, pulse 61, respirations 16, O2 saturation 95% on 2 L, and blood pressure 105/55. Her weight is 164. LUNGS: Clear. HEART: Regular rate. EXTREMITIES: There is trace edema in the feet. ASSESSMENT: 1. Generalized weakness. a. Secondary to recent hospitalization. b. Gradually improving. Walking further with her walker and standby assistance and transferring independently as of 11/17. 2. Hospitalized at [facility] from to 10/29 for acute on chronic hypoxic respiratory failure, acute on chronic diastolic heart failure, and restrictive lung disease with chronic hypoxemia. 3. Restrictive lung disease. 4. Chronic right heart failure. a. Weight up to 165 as of 11/16. Admission weight 161. 5. Chronic diastolic heart failure. a. No evidence of acute congestive heart failure, but the patient's weight has been easing up to 165 and she is developing some peripheral edema as of . 6. Coronary artery disease. 7. Valvular heart disease. a. Status post bioprosthetic mitral valve replacement in January of 2002. b. Status post redo mitral valve replacement for severe bioprosthetic mitral valve stenosis, December 2010. 8. Diabetes, type 2. a. Controlled. Recent hemoglobin A1c 6.2. 9. History of atrial fibrillation. 10. Status post pacemaker placement. 11. Hypothyroidism. 12. Chronic kidney disease. 13. Anxiety disorder, controlled. 14. Insomnia, improved. PLAN: Continue PT/OT. We will give the patient metolazone 2.5 mg a day. Recheck renal function tomorrow. Job ID: [id number] [facility]
[2019-11-18] MEDS: ALPRAZolam 0.5 MG TAB PO PRN (21:15)
[2019-11-18] MEDS: Polyethylene Glycol 3350 17 GM Packet PO SCH (21:17)
[2019-11-19] MEDS: Levothyroxine Sodium 75 MCG TAB PO SCH (05:31)
[2019-11-19 05:53] LABS: Anion Gap 14 mmol/L (10-20); BUN (Urea Nitrogen) 89 mg/dL (9.8-20.1); Calc. Creatinine Clearance 21 mL/min (70-130); Calcium 8.8 mg/dL (7.8-10.44); Carbon Dioxide 27 mmol/L (23-31); Chloride 102 mmol/L (98-107); Estimated GFR-MDRD 20; Glucose 152 mg/dL (83-110); Potassium 4.3 mmol/L (3.5-5.1); Sodium 139 mmol/L (136-145)
[2019-11-19] MEDS ORDERED: ALPRAZolam 0.5 MG TAB PO PRN (08:15)
[2019-11-19] MEDS: Losartan 25 MG TAB PO SCH (08:22)
[2019-11-19] MEDS: Dronedarone HCl 400 MG TAB PO SCH ×3 (08:22→17:12)
[2019-11-19] MEDS: Ubidecarenone 50 MG CAP PO SCH (08:22)
[2019-11-19] MEDS: Multivit, Therapeutic 1 TAB PO SCH (08:23)
[2019-11-19] MEDS: Metoprolol Tartrate 25 MG TAB PO SCH ×2 (08:23→20:27)
[2019-11-19] MEDS: Cyanocobalamin (Vitamin B-12) 1,000 MCG TAB PO SCH (08:23)
[2019-11-19] MEDS: Aspirin Chewable 81 MG TAB PO SCH (08:23)
[2019-11-19] MEDS: Allopurinol 100 MG TAB PO SCH ×2 (08:23→20:27)
[2019-11-19] MEDS: Furosemide 40 MG TAB PO SCH ×2 (08:23→14:14)
--- NOTE | 2019-11-19 09:45 | PRG ---
DATE OF SERVICE: 11/19/2019 SUBJECTIVE: The patient says she is feeling good this morning. She is not having any trouble with her breathing. The patient said she slept very good last night. She did take Xanax last evening around 8:30 and slept all night. She said this morning she feels just a little groggy. Visited with her about reducing the dose and she would like to try cutting it back to 0.25, which we will do. She said she urinated a lot after the Zaroxolyn yesterday. OBJECTIVE: GENERAL: The patient is just walking from the bathroom to her bed. She is alert, appears comfortable, in no distress. VITAL SIGNS: Her temp is 97, pulse 60, respirations 18, O2 saturation 98% on 2 L, blood pressure 108/55. Her weight is 164 yesterday and today 165. LUNGS: Clear. HEART: Regular rate. EXTREMITIES: Both feet are little puffy with mild edema. LABORATORY DATA: Her lab shows a BUN of 89, creatinine of 2.3, glucose 152, GFR stable at 20, bicarb 27. ASSESSMENT: 1. Generalized weakness. a. Secondary to recent hospitalization with deconditioning. b. Continued improvement. Walking further with her walker. Transferring independently as of 11/18. 2. Hospitalized at [facility] from to 10/29 for acute on chronic hypoxic respiratory failure, acute on chronic diastolic heart failure and restrictive lung disease with chronic hypoxemia. 3. Restrictive lung disease. 4. Chronic right heart failure. a. Weight 165 as of 11/18. Admission weight 161. 5. Chronic diastolic heart failure. a. No evidence of acute CHF. 6. Coronary artery disease. 7. Valvular heart disease. a. Status post bioprosthetic mitral valve replacement, January 2002. b. Status post redo mitral valve replacement for severe bioprosthetic mitral valve stenosis, December 2010. 8. Diabetes type 2. a. Controlled. b. Recent hemoglobin A1c 6.2. 9. History of atrial fibrillation. 10. Status post pacemaker placement. 11. Hypertension. 12. Chronic kidney disease. a. BUN and creatinine elevated. GFR stable at 20 as of 11/18. 13. Anxiety disorder, controlled. 14. Insomnia, controlled. PLAN: Did not see much change after the dose of the Zaroxolyn. Weight is only a pound elevated and her lungs remained clear. Her renal function, though has seen a gradual increase in BUN and creatinine, probably as a result of the diuresis. We will encourage the patient to elevate her feet more to see if this will help with the swelling. Continue the fluid restrictions. We will not give more Zaroxolyn. BUN and creatinine continue to climb. We will reduce her furosemide. Continue PT and OT. We will reduce her Zaroxolyn to 0.25 mg at bedtime as needed. Job ID: [id number] [facility]
--- NOTE | 2019-11-19 16:28 | RAD ---
TWO VIEWS CHEST: 11/19/19 HISTORY: Shortness of breath. COMPARISON: 10/24/2019. FINDINGS: A dual lead left subclavian cardiac pacemaking device remains in place. Postsurgical changes related to CABG are again noted with sternal wires again present. The cardiac silhouette is magnified by proj ection but stable in size. Pulmonary vasculature is mildly increased. Blunting of the right lateral c ostophrenic angle is present suggesting small right pleural effusion. No consolidation is seen. Osteo penia is noted. IMPRESSION: 1. Findings suggesting mild CHF. 2. Small right pleural effusion. POS: WINTER
[2019-11-19] MEDS ORDERED: Metolazone 5 MG TAB PO SCH (17:00)
[2019-11-19] MEDS: Polyethylene Glycol 3350 17 GM Packet PO SCH (20:27)
[2019-11-20] MEDS: Guaifenesin DM 100-10/5 ML UDCUP PO PRN ×2 (04:01→15:34)
[2019-11-20] MEDS: Levothyroxine Sodium 75 MCG TAB PO SCH (05:16)
[2019-11-20 06:13] LABS: Anion Gap 16 mmol/L (10-20); BUN (Urea Nitrogen) 92 mg/dL (9.8-20.1); Calc. Creatinine Clearance 19 mL/min (70-130); Calcium 8.9 mg/dL (7.8-10.44); Carbon Dioxide 27 mmol/L (23-31); Chloride 100 mmol/L (98-107); Estimated GFR-MDRD 18; Glucose 174 mg/dL (83-110); Potassium 4.4 mmol/L (3.5-5.1); Sodium 139 mmol/L (136-145)
[2019-11-20] MEDS: Ubidecarenone 50 MG CAP PO SCH (07:56)
[2019-11-20] MEDS: Metolazone 5 MG TAB PO SCH (07:56)
[2019-11-20] MEDS: Dronedarone HCl 400 MG TAB PO SCH ×3 (07:57→17:01)
[2019-11-20] MEDS: Metoprolol Tartrate 25 MG TAB PO SCH ×2 (07:57→21:44)
[2019-11-20] MEDS: Furosemide 40 MG TAB PO SCH ×2 (07:57→13:07)
[2019-11-20] MEDS: Allopurinol 100 MG TAB PO SCH ×2 (07:58→21:44)
[2019-11-20] MEDS: Aspirin Chewable 81 MG TAB PO SCH (07:58)
[2019-11-20] MEDS: Multivit, Therapeutic 1 TAB PO SCH (07:58)
[2019-11-20] MEDS: Cyanocobalamin (Vitamin B-12) 1,000 MCG TAB PO SCH (07:58)
[2019-11-20] MEDS: Losartan 25 MG TAB PO SCH (07:58)
--- NOTE | 2019-11-20 10:53 | PRG ---
DATE OF SERVICE: 11/20/2019 SUBJECTIVE: The patient says she feels a little better. She did just nap on and off through the night, was up frequently urinating. She is breathing better. She feels better today. Yesterday, she had increased shortness of breath and increased swelling. Her weight had been up to 165. A chest x-ray showed finding suggestive of mild CHF with increase in size of the right pleural effusion and mild increase in the pulmonary vasculature. Her Zaroxolyn was restarted yesterday afternoon and she says she is feeling better today. OBJECTIVE: GENERAL: The patient looks better. VITAL SIGNS: Temperature of 97.0, pulse 61, respirations 16, O2 saturation 96% on 2 L, blood pressure last evening was 93/46, this morning blood pressure 107/52. Her weight is down from 165 and 4 ounces to 164 and 9 ounces. Her urine output was 1750. LUNGS: Decreased breath sounds, particularly at the right posterior base. Otherwise, chest clear. EXTREMITIES: There is trace edema in the feet. The feet look a little better. LABORATORY DATA: Shows that the continual diuresis had been necessary for the CHF, has gradually increased, today was 92, creatinine 2.56, GFR 18, glucose 174. ASSESSMENT: 1. Generalized weakness. a. Secondary to recent hospitalization leaving her deconditioned. b. Has improved. Able to walk a little further with her walker and able to transfer independently as of 11/19. Her ability to extend much past this is very limited due to her underlying pulmonary fibrosis and cardiovascular disease. 2. Hospitalized at [facility] from to 10/29 for acute on chronic hypoxic respiratory failure, acute on chronic diastolic heart failure, and restrictive lung disease with chronic hypoxemia. 3. Restrictive lung disease. 4. Chronic right heart failure. a. Weight down to 164 as of 11/19, admission weight 161. 5. Chronic diastolic heart failure. a. Acute on chronic congestive heart failure as of the afternoon of 11/18. Improved as of 11/20/19. 6. Coronary artery disease. 7. Valvular heart disease. a. Status post bioprosthetic mitral valve replacement in January 2002. b. 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 8. Diabetes type 2. a. Controlled. b. Recent hemoglobin A1c 6.2. 9. History of atrial fibrillation. 10. Status post pacemaker placement. 11. Hypertension. 12. Chronic kidney disease. a. With the added diuresis, her GFR has dropped to 18, and the BUN and creatinine are elevated as of 11/19. 13. Anxiety disorder. Controlled. 14. Insomnia, stable. PLAN: The patient's failure seems to be a little better with Zaroxolyn. As a result of managing the CHF, she is having decline in her renal function. We will recheck the renal function tomorrow and re-evaluate the patient. Anticipate probably be able to reduce her diuretics and hopefully allow some recovery of the renal function. Job ID: [id number] [facility]
[2019-11-20] MEDS: Polyethylene Glycol 3350 17 GM Packet PO SCH (21:43)
[2019-11-20] MEDS: Melatonin 3 MG TAB PO PRN (21:44)
[2019-11-20] MEDS: guaiFENesin ER 600 MG TAB PO PRN (21:54)
[2019-11-21 05:47] LABS: Anion Gap 16 mmol/L (10-20); BUN (Urea Nitrogen) 97 mg/dL (9.8-20.1); Calc. Creatinine Clearance 20 mL/min (70-130); Carbon Dioxide 27 mmol/L (23-31); Chloride 100 mmol/L (98-107); Estimated GFR-MDRD 19; Glucose 146 mg/dL (83-110); Potassium 4.1 mmol/L (3.5-5.1); Sodium 139 mmol/L (136-145); Uric Acid 7.4 mg/dL (2.6-6.0)
[2019-11-21] MEDS: Levothyroxine Sodium 75 MCG TAB PO SCH (06:31)
[2019-11-21] MEDS: Dronedarone HCl 400 MG TAB PO SCH ×3 (08:25→17:10)
[2019-11-21] MEDS: Multivit, Therapeutic 1 TAB PO SCH (08:26)
[2019-11-21] MEDS: Cyanocobalamin (Vitamin B-12) 1,000 MCG TAB PO SCH (08:26)
[2019-11-21] MEDS: Metoprolol Tartrate 25 MG TAB PO SCH ×2 (08:26→20:01)
[2019-11-21] MEDS: Ubidecarenone 50 MG CAP PO SCH (08:26)
[2019-11-21] MEDS: Allopurinol 100 MG TAB PO SCH ×2 (08:26→20:01)
[2019-11-21] MEDS: Loratadine 10 MG TAB PO PRN (08:26)
[2019-11-21] MEDS: Metolazone 5 MG TAB PO SCH (08:26)
[2019-11-21] MEDS: Losartan 25 MG TAB PO SCH (08:26)
[2019-11-21] MEDS: Furosemide 40 MG TAB PO SCH ×2 (08:27→14:23)
[2019-11-21] MEDS: Aspirin Chewable 81 MG TAB PO SCH (08:27)
--- NOTE | 2019-11-21 10:54 | PRG ---
DATE OF SERVICE: 11/21/2019 SUBJECTIVE: The patient said she is breathing better today. She feels a little better, just weak. Her capabilities with physical therapy are limited. The patient said her swelling is better. She rested, just lying around in bed a lot more yesterday. OBJECTIVE: GENERAL: The patient looks tired, but is talkative and appears in no distress. She does not appear short of breath. VITAL SIGNS: Show a temperature of 97, pulse 60, respirations 18, O2 saturation 98% on 2 L, blood pressure 118/72. LUNGS: Breath sounds at the posterior bases are much better. She does have some early rales at the bases that diminish on deeper inspiration. The upper lung garber are clear. HEART: Regular rate. EXTREMITIES: Trace edema. Her weight is down to 163. She has had 2200 mL fluid loss over the last 24 hours. LABORATORY DATA: Her lab shows a sodium 139, potassium 4.1, BUN 97, creatinine 2.4, glucose 146, uric acid 7.4. B-type natriuretic peptide 504. ASSESSMENT: 1. Generalized weakness. a. Secondary to recent hospitalization leaving her very deconditioned. b. Stable. Able to walk short distances with her walker. Able to transfer independently as of 11/20. Her ability to do much beyond this is limited due to her underlying cardiovascular disease and pulmonary fibrosis. 2. Hospitalized at [facility] from to 10/29, for [id number] hypoxic respiratory failure, yikgz-[id number] diastolic heart failure, and restrictive lung disease with chronic hypoxemia. 3. Restrictive lung disease. 4. Chronic right heart failure. a. Weight down to 163 as of 11/19. Admission weight 161. 5. Chronic diastolic heart failure. a. [id number] congestive heart failure as of the afternoon of 2019. Continues to improve with weight down to 163 as of 11/20. 6. Coronary artery disease. 7. Valvular heart disease. a. Status post mitral valve replacement with bioprosthetic valve, January 2002. b. Status post redo mitral valve replacement for severe bioprosthetic mitral valve stenosis, December 2010. 8. Diabetes, type 2. a. Controlled. b. Recent hemoglobin A1c 6.2. 9. History of atrial fibrillation. 10. Status post pacemaker placement. 11. Hypertension. 12. Chronic kidney disease. a. With the added diuresis, GFR dropped to 18 as of 11/19. b. GFR 19 as of 11/20. 13. Anxiety disorder. Controlled. 14. Insomnia. Controlled. PLAN: The patient looks better. Breath sounds are much better, and weight is down. The patient is doing a little better, but is putting quite a stress on her kidneys. We will repeat the Zaroxolyn today. Repeat her lab studies in the morning. The patient may require IV infusion of fluids at a very low rate and continuation of diuresis to control the congestive heart failure and help with the rising BUN and creatinine. We will increase her fluid allowance from 1500 per 24 hours to 2000 mL per 24 hours. Job ID: [id number] MTDD
[2019-11-21] MEDS ORDERED: PRALUENT SC SCH (15:15)
[2019-11-21] MEDS: Polyethylene Glycol 3350 17 GM Packet PO SCH (20:01)
[2019-11-21] MEDS: Guaifenesin DM 100-10/5 ML UDCUP PO PRN (22:55)
[2019-11-21] MEDS: guaiFENesin ER 600 MG TAB PO PRN (22:55)
[2019-11-22] MEDS: Levothyroxine Sodium 75 MCG TAB PO SCH (05:16)
[2019-11-22 05:32] LABS: #Basophils 0.1 thou/uL (0.0-0.2); #Eosinphils 1.4 thou/uL (0.0-0.7); #Lymphocytes 1.1 thou/uL (1.20-3.40); #Monocytes 0.5 thou/uL (0.11-0.59); #Neutrophils 3.6 thou/uL (1.40-6.50); %Eosinophils 21.3 % (0.0-10.0); %Lymphocytes 15.8 % (21.0-51.0); %Monocytes 7.6 % (0.0-10.0); %Neutrophils 54.3 % (42.0-75.0); Hemoglobin 9.9 g/dL (12.0-16.0); Mean Corpuscular HGB CONC 32.2 g/dL (32.0-36.0); Mean Corpuscular Volume 96.2 fL (78.0-98.0); Mean Platelet Volume 9.8 fL (7.4-10.4); Platelet Count 105 thou/uL (130-400); RBC Distribution Width 14.9 % (11.5-14.5); White Blood Cell (WBC) Count 6.7 thou/uL (4.8-10.8)
[2019-11-22 05:54] LABS: Carbon Dioxide 26 mmol/L (23-31); Chloride 98 mmol/L (98-107); Potassium 4.1 mmol/L (3.5-5.1); Sodium 137 mmol/L (136-145)
[2019-11-22 05:55] LABS: Calc. Creatinine Clearance 22 mL/min (70-130); Calcium 9.1 mg/dL (7.8-10.44); Estimated GFR-MDRD 21; Glucose 142 mg/dL (83-110)
[2019-11-22 05:57] LABS: Anion Gap 17 mmol/L (10-20)
[2019-11-22 05:58] LABS: BUN (Urea Nitrogen) 96 mg/dL (9.8-20.1)
[2019-11-22 06:01] LABS: Anisocytosis SLIGHT = 6-15 cells (100X) (0-5/hpf); Platelet Morphology Comment Appears Decreased
[2019-11-22] MEDS: Metolazone 5 MG TAB PO SCH (08:09)
[2019-11-22] MEDS: Losartan 25 MG TAB PO SCH (08:09)
[2019-11-22] MEDS: Allopurinol 100 MG TAB PO SCH ×2 (08:10→20:41)
[2019-11-22] MEDS: Cyanocobalamin (Vitamin B-12) 1,000 MCG TAB PO SCH (08:10)
[2019-11-22] MEDS: Multivit, Therapeutic 1 TAB PO SCH (08:10)
[2019-11-22] MEDS: Furosemide 40 MG TAB PO SCH ×2 (08:10→14:26)
[2019-11-22] MEDS: Dronedarone HCl 400 MG TAB PO SCH ×3 (08:10→17:01)
[2019-11-22] MEDS: Metoprolol Tartrate 25 MG TAB PO SCH ×2 (08:10→20:41)
[2019-11-22] MEDS: Ubidecarenone 50 MG CAP PO SCH (08:10)
[2019-11-22] MEDS: Aspirin Chewable 81 MG TAB PO SCH (08:10)
[2019-11-22] MEDS: Polyethylene Glycol 3350 17 GM Packet PO SCH (20:40)
[2019-11-23] MEDS: Levothyroxine Sodium 75 MCG TAB PO SCH (05:42)
[2019-11-23 05:52] LABS: Anion Gap 17 mmol/L (10-20); BUN (Urea Nitrogen) 95 mg/dL (9.8-20.1); Calc. Creatinine Clearance 20 mL/min (70-130); Calcium 9.1 mg/dL (7.8-10.44); Carbon Dioxide 29 mmol/L (23-31); Chloride 97 mmol/L (98-107); Estimated GFR-MDRD 19; Glucose 156 mg/dL (83-110); Sodium 139 mmol/L (136-145)
--- NOTE | 2019-11-23 07:09 | PRG ---
DATE OF SERVICE: 11/22/2019 SUBJECTIVE: The patient said she is feeling better today. She slept pretty good last night. She said she just always stays a little cold, has to keep her room warm. She has been walking around a little in the room today. Her breathing is doing better. OBJECTIVE: GENERAL: The patient is lying in bed, but looks very comfortable. She sat up and was very talkative and appears in no distress. VITAL SIGNS: Her vital signs show a temperature of 97.4, pulse 65, respirations 18, O2 saturation 97% on 2 L, and blood pressure 118/58. Her weight is 163 and 1 ounce. Her output over the last 24 hours has been up to 2710. LUNGS: Clear with good breath sounds. There are no rales at the posterior bases. HEART: Regular rate. EXTREMITIES: Just trace edema in the right foot. LABORATORY DATA: Shows BUN 96, yesterday 97; creatinine is down to 2.24 down from 2.56 two days ago; GFR up from 18 to 21; and glucose 142. ASSESSMENT: 1. Generalized weakness. a. Secondary to recent hospitalization leaving her very deconditioned. b. Stable. Able to walk just a little more today with her breathing doing better as of 11/21. 2. Hospitalized at [facility] from to 10/29 for acute on chronic hypoxic respiratory failure, acute on chronic diastolic heart failure, and restrictive lung disease with chronic hypoxemia. 3. Restrictive lung disease. 4. Chronic right heart failure. a. Weight down a few more ounces at 163 as of 11/21. Admission weight 161. Urinary output last 24 hours 2700. 5. Chronic diastolic heart failure. a. Acute on chronic congestive heart failure as of 11/19/2019. Continues to improve. The weight is stable at 163, but down a few ounces as of . 6. Coronary artery disease. 7. Valvular heart disease. a. Status post mitral valve replacement with bioprosthetic valve in January 2002. b. Status post redo mitral valve replacement for severe bioprosthetic mitral valve stenosis, December 2010. 8. Diabetes, type 2. a. Controlled. b. Recent hemoglobin A1c 6.2. 9. History of atrial fibrillation. 10. Status post pacemaker placement. 11. Hypertension. 12. Chronic kidney disease. a. With the added diuresis, GFR dropped to 18 as of 11/19. b. GFR up to 21 and creatinine a little improved as of 11/21. 13. Anxiety disorder. Controlled. 14. Insomnia, controlled. PLAN: To continue present care. I feel like the patient has just been fluid overloaded causing the diastolic acute on chronic congestive heart failure. With the diuresis, now improving a little bit and renal function has improved a little too. We will continue present care. Recheck electrolytes in the morning. Job ID: [id number] [facility]
[2019-11-23] MEDS: Allopurinol 100 MG TAB PO SCH ×2 (08:12→20:43)
[2019-11-23] MEDS: Metolazone 5 MG TAB PO SCH (08:12)
[2019-11-23] MEDS: Cyanocobalamin (Vitamin B-12) 1,000 MCG TAB PO SCH (08:12)
[2019-11-23] MEDS: Furosemide 40 MG TAB PO SCH ×2 (08:12→14:56)
[2019-11-23] MEDS: Ubidecarenone 50 MG CAP PO SCH (08:12)
[2019-11-23] MEDS: Losartan 25 MG TAB PO SCH (08:12)
[2019-11-23] MEDS: Aspirin Chewable 81 MG TAB PO SCH (08:12)
[2019-11-23] MEDS: Metoprolol Tartrate 25 MG TAB PO SCH ×2 (08:13→20:43)
[2019-11-23] MEDS: Multivit, Therapeutic 1 TAB PO SCH (08:13)
[2019-11-23] MEDS: Dronedarone HCl 400 MG TAB PO SCH ×3 (08:13→16:56)
--- NOTE | 2019-11-23 17:20 | PRG ---
DATE OF SERVICE: 11/23/2019 SUBJECTIVE: The patient said she is breathing good this morning. Said she did not sleep much last night, just catnap. She naps a lot during the day. She did urinate a lot during the night. She said she cannot do a whole lot physically. She just fatigues and gets a little winded, but this is pretty stable, it is no worse. OBJECTIVE: GENERAL: The patient is alert, talkative, appears comfortable, and in no distress. VITAL SIGNS: Her temperature is 98.1, pulse 67, respirations 16, O2 saturation 95% on 3 L, and blood pressure 104/57. Her weight is 160. LUNGS: Clear. HEART: Regular rate. EXTREMITIES: Just trace edema in the right foot. LABORATORY DATA: Sodium of 139, potassium of 4, BUN 95, creatinine 2.4, GFR 19 , FBS 156. ASSESSMENT: 1. Generalized weakness. a. Secondary to recent hospitalization, leaving her very deconditioned. b. Stable. Activities are limited some by her chronic congestive failure, but stable as of 11/22. 2. Hospitalized at [facility] from to 10/29 for acute on chronic hypoxic respiratory failure, acute on chronic diastolic heart failure, and restrictive lung disease with chronic hypoxemia. 3. Restrictive lung disease. 4. Chronic right heart failure. a. Weight down to 160 as of 11/22, admission weight 161. 5. Chronic diastolic heart failure. a. Acute on chronic congestive heart failure as of 11/19/2019. Continues to improve. Weight down to 160 and lungs are clear as of 11/22. 6. Coronary artery disease. 7. Valvular heart disease. a. Status post mitral valve replacement with bioprosthetic valve in January of 2002. b. Status post redo mitral valve replacement for severe bioprosthetic mitral valve stenosis, December 2010. 8. Diabetes type 2. a. Controlled. b. Recent hemoglobin A1c 6.2. 9. History of atrial fibrillation. 10. Status post pacemaker placement. 11. Hypertension. 12. Chronic kidney disease. a. With added diuresis, GFR dropped to 19 as of 11/19. b. GFR 19 as of 11/22. 13. Anxiety disorder, controlled. 14. Insomnia. PLAN: The patient is doing better. Encouraged her to continue resting. Continue PT within her capability. The patient received the Zaroxolyn this morning, but we will stop this and continue the 2 L per 24-hour fluid restriction. We will see if the discontinuation of this will allow some improvement in her renal function. We will recheck renal function in a couple of days. Job ID: [id number] [facility]TDD
[2019-11-23] MEDS: ALPRAZolam 0.25 MG TAB PO PRN (20:44)
[2019-11-23] MEDS: Polyethylene Glycol 3350 17 GM Packet PO SCH (20:45)
[2019-11-24] MEDS: Levothyroxine Sodium 75 MCG TAB PO SCH (05:41)
[2019-11-24] MEDS: Dronedarone HCl 400 MG TAB PO SCH ×3 (08:11→17:00)
[2019-11-24] MEDS: Ubidecarenone 50 MG CAP PO SCH (08:11)
[2019-11-24] MEDS: Cyanocobalamin (Vitamin B-12) 1,000 MCG TAB PO SCH (08:12)
[2019-11-24] MEDS: Loratadine 10 MG TAB PO PRN (08:12)
[2019-11-24] MEDS: Multivit, Therapeutic 1 TAB PO SCH (08:12)
[2019-11-24] MEDS: Aspirin Chewable 81 MG TAB PO SCH (08:12)
[2019-11-24] MEDS: Metoprolol Tartrate 25 MG TAB PO SCH ×2 (08:12→22:03)
[2019-11-24] MEDS: Furosemide 40 MG TAB PO SCH ×2 (08:12→14:04)
[2019-11-24] MEDS: Losartan 25 MG TAB PO SCH (08:12)
[2019-11-24] MEDS: Allopurinol 100 MG TAB PO SCH ×2 (08:12→22:02)
--- NOTE | 2019-11-24 09:00 | PRG ---
DATE OF SERVICE: 11/24/2019 SUBJECTIVE: The patient says she is doing good this morning. She slept better last night. She took half of alprazolam 0.25 mg at bedtime and slept well. Her breathing is better. OBJECTIVE: GENERAL: The patient is alert, talkative, appears comfortable, and in no distress. VITAL SIGNS: Her temp is 97.1, pulse 65, respirations 18, O2 saturation 97% on 2 L, blood pressure 100/52. Her weight is down to 159. Her output over the last 24 hours has been approximately 2200. LUNGS: Clear. HEART: Regular rate. EXTREMITIES: Trace edema in the right foot. ASSESSMENT: 1. Generalized weakness. a. Secondary to recent hospitalization, leaving her very deconditioned. b. Stable. Activities are limited some by her chronic congestive heart failure and chronic hypoxemia, but stable as of 11/23. 2. Hospitalized at [facility] from to 10/29 for acute on chronic hypoxic respiratory failure, acute on chronic diastolic heart failure and restrictive lung disease with chronic hypoxemia. 3. Restrictive lung disease. 4. Chronic right heart failure. a. Weight down to 159 as of 11/23. Admission weight 161. 5. Chronic diastolic heart failure. a. Acute on chronic congestive heart failure as of 11/19/19. Continues improvement with weight down to 159 and lungs clear as of 11/23. 6. Coronary artery disease. 7. Valvular heart disease. a. Status post mitral valve replacement with bioprosthetic valve in January 2002. b. Status post redo mitral valve replacement for severe bioprosthetic mitral valve stenosis, December 2010. 8. Diabetes type 2. a. Controlled. b. Recent hemoglobin A1c 6.2. 9. History of atrial fibrillation. 10. Status post pacemaker placement. 11. Hypertension, controlled. 12. Chronic kidney disease. a. With added diuresis, GFR dropped to 19 as of 11/19. b. GFR 19 as of 11/22. 13. Anxiety disorder, controlled. 14. Insomnia, controlled. PLAN: The patient appears better. We will continue present care. Continue PT and OT within her capabilities. Recheck basic metabolic panel in the morning. Job ID: [id number] MTDD
[2019-11-24] MEDS: ALPRAZolam 0.25 MG TAB PO PRN (22:02)
[2019-11-24] MEDS: Polyethylene Glycol 3350 17 GM Packet PO SCH (22:03)
[2019-11-25] MEDS: Levothyroxine Sodium 75 MCG TAB PO SCH (05:32)
[2019-11-25 05:58] LABS: Anion Gap 16 mmol/L (10-20); BUN (Urea Nitrogen) 99 mg/dL (9.8-20.1); Calc. Creatinine Clearance 20 mL/min (70-130); Carbon Dioxide 31 mmol/L (23-31); Chloride 96 mmol/L (98-107); Estimated GFR-MDRD 19; Potassium 3.8 mmol/L (3.5-5.1); Sodium 139 mmol/L (136-145)
[2019-11-25 05:59] LABS: Calcium 9.3 mg/dL (7.8-10.44); Glucose 161 mg/dL (83-110)
[2019-11-25] MEDS: Ubidecarenone 50 MG CAP PO SCH (08:29)
[2019-11-25] MEDS: Multivit, Therapeutic 1 TAB PO SCH (08:30)
[2019-11-25] MEDS: Allopurinol 100 MG TAB PO SCH ×2 (08:30→21:33)
[2019-11-25] MEDS: Aspirin Chewable 81 MG TAB PO SCH (08:30)
[2019-11-25] MEDS: Dronedarone HCl 400 MG TAB PO SCH ×3 (08:30→17:08)
[2019-11-25] MEDS: Cyanocobalamin (Vitamin B-12) 1,000 MCG TAB PO SCH (08:30)
[2019-11-25] MEDS: Metoprolol Tartrate 25 MG TAB PO SCH ×2 (08:30→21:33)
[2019-11-25] MEDS: Furosemide 40 MG TAB PO SCH ×2 (08:31→14:22)
[2019-11-25] MEDS: Losartan 25 MG TAB PO SCH (08:31)
--- NOTE | 2019-11-25 12:02 | PRG ---
DATE OF SERVICE: 11/25/2019 SUBJECTIVE: The patient says she slept very good last night. She had taken a half of the Xanax and it really helped her sleep. She is not short of breath at rest. She does get a little winded with her physical therapy and cannot go as far as they would like for her to. OBJECTIVE: GENERAL: The patient is sitting up on the edge of bed, is alert, talkative, looks in good spirits, and in no distress. VITAL SIGNS: Her temperature is 98, pulse 60, respirations 15, O2 saturation 96 % on 2 L, and blood pressure 133/58. Her weight is 160. Output was 2300. LUNGS: Clear. HEART: Regular rate. EXTREMITIES: Just very trace edema on the right foot, stable. LABORATORY DATA: Sodium 139, potassium 3.8, BUN 99, creatinine 2.47, GFR 19 and stable, and glucose 161. ASSESSMENT: 1. Generalized weakness. a. Secondary to recent hospitalization, leaving her very deconditioned. b. Stable. Activities limited by her chronic congestive heart failure and chronic hypoxemia. Still able to work with PT. Condition is stable as of . 2. Hospitalized at [facility] from until 10/29 for acute on chronic hypoxic respiratory failure, acute on chronic diastolic heart failure, and restrictive lung disease with chronic hypoxemia. 3. Restrictive lung disease. 4. Chronic right heart failure. a. Weight stable at 160 as of 11/24. 5. Chronic diastolic heart failure. a. Acute on chronic congestive heart failure as of 11/19/2019. Improved with weight stable at 160 as of 11/24. 6. Coronary artery disease. 7. Valvular heart disease. a. Status post mitral valve replacement with bioprosthetic valve, January 2002. b. Status post redo mitral valve replacement for severe bioprosthetic mitral valve stenosis, December 2010. 8. Diabetes type 2. a. Controlled. b. Recent hemoglobin A1c 6.2. 9. History of atrial fibrillation. 10. Status post pacemaker placement. 11. Hypertension, controlled. 12. Chronic kidney disease. a. The patient had a rise in her BUN and creatinine from the added diuresis. b. GFR stable at 19 as of 11/24. 13. Anxiety disorder, controlled. 14. Insomnia, controlled. PLAN: The patient is off the Zaroxolyn. We will leave her on just the Lasix and only a 2l/per 24 hour fluid restriction. We will recheck her BUN and creatinine in a couple of days. Continue the PT and OT within her tolerance. Job ID: [id number] MTDD
[2019-11-25] MEDS: ALPRAZolam 0.25 MG TAB PO PRN (21:33)
[2019-11-25] MEDS: Polyethylene Glycol 3350 17 GM Packet PO SCH (21:33)
[2019-11-26] MEDS: Levothyroxine Sodium 75 MCG TAB PO SCH (05:51)
[2019-11-26] MEDS: Dronedarone HCl 400 MG TAB PO SCH ×3 (08:27→17:01)
[2019-11-26] MEDS: Metoprolol Tartrate 25 MG TAB PO SCH ×2 (08:28→21:14)
[2019-11-26] MEDS: Ubidecarenone 50 MG CAP PO SCH (08:28)
[2019-11-26] MEDS: Furosemide 40 MG TAB PO SCH ×2 (08:28→14:11)
[2019-11-26] MEDS: Allopurinol 100 MG TAB PO SCH ×2 (08:28→21:14)
[2019-11-26] MEDS: Multivit, Therapeutic 1 TAB PO SCH (08:28)
[2019-11-26] MEDS: Aspirin Chewable 81 MG TAB PO SCH (08:28)
[2019-11-26] MEDS: Losartan 25 MG TAB PO SCH (08:28)
[2019-11-26] MEDS: Cyanocobalamin (Vitamin B-12) 1,000 MCG TAB PO SCH (08:29)
[2019-11-26] MEDS ORDERED: PRALUENT SC SCH (09:00)
--- NOTE | 2019-11-26 10:54 | PRG ---
DATE OF SERVICE: 11/26/2019 SUBJECTIVE: The patient said she slept very good last night. She had taken an alprazolam and this always helps her. She said she is breathing good this morning. She has had no chest pain. OBJECTIVE: GENERAL: The patient is sitting up on the side of the bed, alert, talkative, appears comfortable, in no distress. VITAL SIGNS: Her temp is 97.2, her pulse is 66, respirations 16, O2 saturation 96% on 2 L, and blood pressure 109/62. Her weight is 162. Output 1325. LUNGS: Clear. HEART: Regular rate. EXTREMITIES: Just trace edema on the right foot. ASSESSMENT: 1. Generalized weakness and deconditioning. a. Following recent hospitalization, leaving her very deconditioned. b. Stable. Activities limited by her chronic congestive heart failure and chronic hypoxemia. Still working with PT. Condition stable as of 11/26/2019. 2. Hospitalized at [facility] from until 10/29 for acute on chronic hypoxic respiratory failure, acute on chronic diastolic heart failure, and restrictive lung disease with chronic hypoxemia. 3. Restrictive lung disease. 4. Chronic right heart failure. a. Weight up to 163 as of 11/25. 5. Chronic diastolic heart failure. a. Acute on chronic congestive heart failure as of 11/19/2019. Improved. Weight up to 163 as of 11/26/2019. 6. Coronary artery disease. 7. Valvular heart disease. 8. Diabetes, type 2, controlled. a. Recent hemoglobin A1c 6.2. 9. History of atrial fibrillation. 10. Status post pacemaker placement. 11. Hypertension, controlled. 12. Chronic kidney disease. a. GFR 19 on 11/24. 13. Anxiety disorder, controlled. 14. Insomnia, controlled. PLAN: Continue present care. Continue PT and OT. We will recheck renal function in the morning. Job ID: [id number] [facility]
[2019-11-26] MEDS: Guaifenesin DM 100-10/5 ML UDCUP PO PRN (14:11)
[2019-11-26] MEDS: ALPRAZolam 0.25 MG TAB PO PRN (21:13)
[2019-11-26] MEDS: Polyethylene Glycol 3350 17 GM Packet PO SCH (21:13)
[2019-11-27] MEDS: Levothyroxine Sodium 75 MCG TAB PO SCH (05:43)
[2019-11-27 05:53] LABS: Anion Gap 17 mmol/L (10-20); BUN (Urea Nitrogen) 111 mg/dL (9.8-20.1); Calc. Creatinine Clearance 17 mL/min (70-130); Calcium 9.2 mg/dL (7.8-10.44); Carbon Dioxide 30 mmol/L (23-31); Chloride 97 mmol/L (98-107); Estimated GFR-MDRD 16; Glucose 158 mg/dL (83-110); Potassium 4.6 mmol/L (3.5-5.1); Sodium 139 mmol/L (136-145)
[2019-11-27] MEDS: Ubidecarenone 50 MG CAP PO SCH (08:07)
[2019-11-27] MEDS: Cyanocobalamin (Vitamin B-12) 1,000 MCG TAB PO SCH (08:07)
[2019-11-27] MEDS: Metoprolol Tartrate 25 MG TAB PO SCH ×2 (08:08→20:53)
[2019-11-27] MEDS: Dronedarone HCl 400 MG TAB PO SCH ×3 (08:08→17:05)
[2019-11-27] MEDS: Allopurinol 100 MG TAB PO SCH ×2 (08:08→20:53)
[2019-11-27] MEDS: Losartan 25 MG TAB PO SCH (08:08)
[2019-11-27] MEDS: Furosemide 40 MG TAB PO SCH ×2 (08:08→10:52)
[2019-11-27] MEDS: Aspirin Chewable 81 MG TAB PO SCH (08:08)
[2019-11-27] MEDS: Multivit, Therapeutic 1 TAB PO SCH (08:09)
[2019-11-27] MEDS: Sodium Chloride 0.9% 1,000 ML IV SCH (08:30)
--- NOTE | 2019-11-27 09:29 | PRG ---
DATE OF SERVICE: 11/27/2019 SUBJECTIVE: The patient had a good night, she slept well after taking the alprazolam. She says her breathing is fine at rest. She did participate with physical therapy, but when she gets too winded, stops. She has just a little puffiness in the right foot, but no more than usual. OBJECTIVE: GENERAL: The patient is sitting on the edge of her bed, is alert, appears comfortable, and in no distress. VITAL SIGNS: Her temperature is 97.1, pulse 63, respirations 16, O2 saturation 98% on 2 L by nasal cannula, blood pressure 110/56. Her weight is 163, output 1500. LUNGS: Clear, except for some early rales at the right posterior base and clear with deeper inspiration. HEART: Regular rate. EXTREMITIES: Trace edema in the right ankle. No more than usual. LABORATORY DATA: Her lab shows that the sodium is 139, potassium 4.6, CO2 of 30 , anion gap 17. Her BUN is up to 111. Her creatinine is 2.84. GFR has dropped to 16. FBS 158. ASSESSMENT: 1. Generalized weakness and deconditioning. a. Following recent hospitalization, leaving her very deconditioned. b. Stable. Activities limited by her chronic congestive heart failure and chronic hypoxemia. Still working with PT. Condition is stable as of 11/26. 2. Hospitalized at [facility] from until 10/29 for acute on chronic hypoxic respiratory failure, acute on chronic diastolic heart failure and restrictive lung disease with chronic hypoxemia. 3. Restrictive lung disease. 4. Chronic right heart failure. a. Weight stable at 163, as of 11/26. 5. Chronic diastolic heart failure. a. Acute on chronic congestive heart failure as of 11/19/2019. Improved and stable with weight at 163 as of 11/26/2019. 6. Coronary artery disease. 7. Valvular heart disease. 8. Diabetes type 2. a. Recent hemoglobin A1c 6.2. b. FBS elevated this morning to 240 as of 11/26. 9. History of atrial fibrillation. 10. Status post pacemaker placement. 11. Hypertension, controlled. 12. Chronic kidney disease. a. GFR has dropped to 16 and BUN up to 116 secondary to recent diuresis for the CHF as of 11/26. 13. Anxiety disorder, controlled. 14. Insomnia, controlled. PLAN: The patient's renal function has really declined as result of the diuresis from the acute on chronic congestive heart failure treatment. I have stopped the Zaroxolyn, but we still see a decline in the renal function. The patient is not short of breath at rest, and I think her acute failure has improved. We will try some fluids IV at a low rate to see if she can tolerate this, and reduce her furosemide to one a day. We will repeat x-ray in the morning. The patient is in a very precarious situation, where she has to have the diuresis to control the increased fluids and the CHF, but in so doing it creates further decline in her renal function. Job ID: [id number] MTDD
[2019-11-27] MEDS: Polyethylene Glycol 3350 17 GM Packet PO SCH (20:53)
[2019-11-27] MEDS: ALPRAZolam 0.25 MG TAB PO PRN (20:54)
[2019-11-28] MEDS: Levothyroxine Sodium 75 MCG TAB PO SCH (05:23)
[2019-11-28] MEDS: Sodium Chloride 0.9% 1,000 ML IV SCH (05:23)
[2019-11-28 05:54] LABS: Anion Gap 14 mmol/L (10-20); BUN (Urea Nitrogen) 102 mg/dL (9.8-20.1); Calc. Creatinine Clearance 21 mL/min (70-130); Calcium 9.1 mg/dL (7.8-10.44); Carbon Dioxide 30 mmol/L (23-31); Chloride 101 mmol/L (98-107); Estimated GFR-MDRD 20; Glucose 160 mg/dL (83-110); Potassium 4.2 mmol/L (3.5-5.1); Sodium 141 mmol/L (136-145); Uric Acid 7.2 mg/dL (2.6-6.0)
--- NOTE | 2019-11-28 07:39 | RAD ---
EXAM: XR Chest 1 View Portable PROVIDED CLINICAL HISTORY: Congestive heart failure COMPARISON: 11/19/2019 FINDINGS: Cardiac silhouette remains enlarged. Left subclavian cardiac pacing device is again seen in similar p osition. Median sternotomy changes and CABG changes are again seen. Prominence of the pulmonary vasculature and pulmonary interstitium redemonstrated. Blunting of right costophrenic angle is simila r to prior. No focal consolidation or pneumothorax apparent. IMPRESSION: Radiographically stable findings of congestive failure.
[2019-11-28] MEDS: Dronedarone HCl 400 MG TAB PO SCH ×3 (08:05→16:58)
[2019-11-28] MEDS: Ubidecarenone 50 MG CAP PO SCH (08:06)
[2019-11-28] MEDS: Cyanocobalamin (Vitamin B-12) 1,000 MCG TAB PO SCH (08:07)
[2019-11-28] MEDS: Loratadine 10 MG TAB PO PRN (08:07)
[2019-11-28] MEDS: Allopurinol 100 MG TAB PO SCH ×2 (08:07→20:55)
[2019-11-28] MEDS: Losartan 25 MG TAB PO SCH (08:07)
[2019-11-28] MEDS: Aspirin Chewable 81 MG TAB PO SCH (08:07)
[2019-11-28] MEDS: Furosemide 40 MG TAB PO SCH (08:08)
[2019-11-28] MEDS: Metoprolol Tartrate 25 MG TAB PO SCH ×2 (08:08→20:55)
[2019-11-28] MEDS: Multivit, Therapeutic 1 TAB PO SCH (08:08)
--- NOTE | 2019-11-28 11:44 | PRG ---
DATE OF SERVICE: 11/28/2019 SUBJECTIVE: The patient says she had a good night, she slept well. This morning, she feels good. She does feel just a little bit winded with activities, maybe a little bit more than usual. OBJECTIVE: GENERAL: The patient is alert, talkative, appears in no acute distress. VITAL SIGNS: Show a temperature of 97.3, pulse 62, respirations 20, O2 saturation 98% on 2 L, blood pressure 132/61. Her weight is stable at 163. Her output was 1400 mL in the last 24 hours. LUNGS: There are some rales at the right posterior base that are unchanged from yesterday. The remainder of the chest is clear. HEART: Regular rate. EXTREMITIES: Trace edema of the right foot. LABORATORY DATA: Shows that the B type natriuretic peptide went up from 504 on 11/20 to 729 today. Her BUN dropped from 111 to 102. The creatinine dropped from 2.84 to 2.37. The GFR increased from 16 to 20. On her admission to [facility] during the recent hospitalization, her BUN was 57, creatinine 2.3, and GFR was 20. On 10/29 when she entered here, the BUN was 45, creatinine 1.56, and GFR 32. These have all showed decline in renal function secondary to the diuresis that has been necessary for the chronic congestive heart failure. Her chest x-ray today was stable, still shows cardiomegaly with a small right pleural effusion and pulmonary vascular congestion. ASSESSMENT: 1. Generalized weakness and deconditioning. a. Following recent hospitalization, leaving her very deconditioned. b. Stable. Activities limited by her chronic congestive heart failure and chronic hypoxemia. Still working with Physical Therapy but tires and gets winded easily as of 11/27. 2. Hospitalized at [facility] from until 10/29 for acute on chronic hypoxic respiratory failure, acute on chronic diastolic heart failure, and restrictive lung disease with chronic hypoxemia. 3. Restrictive lung disease. 4. Chronic right heart failure. a. Weight is stable at 163 as of 11/27. 5. Chronic diastolic heart failure. a. Acute on chronic congestive heart failure on 11/19/2019. b. The acute episode has resolved but she remains with a chronic congestive failure as of 11/28/2019 with mild increase in her BNP from 500 to 700. 6. Coronary artery disease. 7. Valvular heart disease. 8. Diabetes type 2. a. Recent hemoglobin A1c 6.2. b. Recent elevation FBS, for which she has been placed on a sliding scale. 9. History of atrial fibrillation. 10. Status post pacemaker placement. 11. Hypertension, controlled. 12. Chronic kidney disease. a. GFR has increased from 16 to 20 with 1 L of IV fluids as of 11/28/2019. 13. Anxiety disorder. 14. Insomnia, controlled. PLAN: The patient's renal function is a little better and her GFR is really not too far off her baseline. The BUN is quite elevated, but sure this is from the prerenal azotemia from the diuresis. The patient tolerated the 1 L fluid, but she has chronic congestive failure and is having just a little slight increased dyspnea on exertion. I do not think she will tolerate more IV fluids. This has been stopped. We will continue though just one Lasix a day and at some point, this will have to be increased. This may give her an opportunity to improve her renal function a bit more. The patient is in a very precarious position with chronic congestive heart failure and the severe chronic renal disease. Job ID: [id number] [facility]
[2019-11-28] MEDS: Polyethylene Glycol 3350 17 GM Packet PO SCH (20:55)
[2019-11-28] MEDS: ALPRAZolam 0.25 MG TAB PO PRN (20:59)
[2019-11-29 05:47] LABS: Anion Gap 15 mmol/L (10-20); BUN (Urea Nitrogen) 102 mg/dL (9.8-20.1); Calc. Creatinine Clearance 20 mL/min (70-130); Calcium 9.1 mg/dL (7.8-10.44); Carbon Dioxide 29 mmol/L (23-31); Chloride 101 mmol/L (98-107); Estimated GFR-MDRD 18; Glucose 198 mg/dL (83-110); Potassium 4.2 mmol/L (3.5-5.1); Sodium 141 mmol/L (136-145)
[2019-11-29] MEDS: Levothyroxine Sodium 75 MCG TAB PO SCH (05:54)
[2019-11-29] MEDS: Dronedarone HCl 400 MG TAB PO SCH ×3 (08:04→17:03)
[2019-11-29] MEDS: Aspirin Chewable 81 MG TAB PO SCH (08:05)
[2019-11-29] MEDS: Allopurinol 100 MG TAB PO SCH ×2 (08:05→20:36)
[2019-11-29] MEDS: Cyanocobalamin (Vitamin B-12) 1,000 MCG TAB PO SCH (08:06)
[2019-11-29] MEDS: Metoprolol Tartrate 25 MG TAB PO SCH ×2 (08:08→20:36)
[2019-11-29] MEDS: Furosemide 40 MG TAB PO SCH ×2 (08:08→14:37)
[2019-11-29] MEDS: Ubidecarenone 50 MG CAP PO SCH (08:08)
[2019-11-29] MEDS: Multivit, Therapeutic 1 TAB PO SCH (08:08)
[2019-11-29] MEDS: Losartan 25 MG TAB PO SCH (08:08)
[2019-11-29] MEDS: ALPRAZolam 0.25 MG TAB PO PRN (20:36)
[2019-11-29] MEDS: Polyethylene Glycol 3350 17 GM Packet PO SCH (20:36)
[2019-11-29] MEDS: Guaifenesin DM 100-10/5 ML UDCUP PO PRN (20:37)
[2019-11-30] MEDS: Levothyroxine Sodium 75 MCG TAB PO SCH (05:57)
--- NOTE | 2019-11-30 07:05 | PRG ---
DATE OF SERVICE: 11/29/2019 SUBJECTIVE: The patient says she slept good last night, but does not feel good this morning. Said she does have a little cough; occasionally, will spit up a little dry phlegm. She said she is having problems with her breathing. She seems a little more short-winded today, and she is having orthopnea more than what she has. She thinks her legs are a little more puffy, and she has gained 3 pounds. OBJECTIVE: GENERAL: The patient is sitting on the side of the bed, is alert and talkative, but seems a little down. She appears in no acute distress. VITAL SIGNS: Her weight is up to 166, 3-pound gain. Her temperature is 96.9 pulse 76, respirations 18, O2 saturation 95% on 2 L, and blood pressure 109/51. LUNGS: Clear except for some coarse rales at the right posterior base. HEART: Regular rate. EXTREMITIES: There is just some mild puffiness in the ankles, a little more on the right than the left. LABORATORY DATA: Lab shows a sodium 141, BUN 4.2, CO2 of 29, BUN stable at 102, creatinine 2.51, glucose 198. B-type natriuretic peptide 642. ASSESSMENT: 1. Generalized weakness and deconditioning: a. Following recent hospitalization, leaving her very deconditioned. b. Stable. Activities limited by her chronic congestive heart failure and chronic hypoxemia. Still working with Physical Therapy, but the chronic congestive heart failure limits her capabilities as of 11/28. 2. Hospitalized at [facility] from until 10/29 for acute on chronic hypoxic respiratory failure, acute on chronic diastolic heart failure, and restrictive lung disease with chronic hypoxemia. 3. Restrictive lung disease. 4. Chronic right heart failure: a. Weight is up 3 pounds to 166 as of 11/28. 5. Chronic diastolic heart failure: a. Acute on chronic congestive heart failure on 11/19/2019. b. Acute episode had improved, but now since the furosemide has been reduced and the metolazone stopped, she is having increased symptoms of the congestive heart failure as of 11/29/2019. Weight up to 166, 3-pound gain. 6. Coronary artery disease. 7. Valvular heart disease. 8. Diabetes, type 2: a. Recent hemoglobin A1c 6.2. b. Recent elevations of FBS for which she is on sliding scale. 9. History of atrial fibrillation, status post pacemaker. 10. Hypertension, controlled. 11. Chronic kidney disease;. a. GFR had increased from 16 to 20 and now has dropped to 18 as 11/28. 12. Anxiety disorder, controlled. 13. Insomnia. PLAN: We will increase the patient's furosemide to 40 mg b.i.d., restrict her fluids to 1500. We will recheck renal function in a couple of days. Job ID: [id number] [facility]
[2019-11-30] MEDS: Dronedarone HCl 400 MG TAB PO SCH ×3 (08:17→17:14)
[2019-11-30] MEDS: Aspirin Chewable 81 MG TAB PO SCH (08:42)
[2019-11-30] MEDS: Allopurinol 100 MG TAB PO SCH ×2 (08:42→21:57)
[2019-11-30] MEDS: Losartan 25 MG TAB PO SCH (08:43)
[2019-11-30] MEDS: Metoprolol Tartrate 25 MG TAB PO SCH ×2 (08:43→21:57)
[2019-11-30] MEDS: Multivit, Therapeutic 1 TAB PO SCH (08:43)
[2019-11-30] MEDS: Ubidecarenone 50 MG CAP PO SCH (08:43)
[2019-11-30] MEDS: Furosemide 40 MG TAB PO SCH ×2 (08:43→14:29)
[2019-11-30] MEDS: Cyanocobalamin (Vitamin B-12) 1,000 MCG TAB PO SCH (08:43)
[2019-11-30] MEDS: Polyethylene Glycol 3350 17 GM Packet PO SCH (21:57)
[2019-11-30] MEDS: ALPRAZolam 0.25 MG TAB PO PRN (21:57)
[2019-12-01] MEDS: Levothyroxine Sodium 75 MCG TAB PO SCH (05:26)
[2019-12-01 05:50] LABS: Anion Gap 15 mmol/L (10-20); BUN (Urea Nitrogen) 101 mg/dL (9.8-20.1); Calc. Creatinine Clearance 21 mL/min (70-130); Calcium 9.2 mg/dL (7.8-10.44); Carbon Dioxide 30 mmol/L (23-31); Chloride 100 mmol/L (98-107); Estimated GFR-MDRD 20; Glucose 169 mg/dL (83-110); Potassium 4.3 mmol/L (3.5-5.1); Sodium 141 mmol/L (136-145)
--- NOTE | 2019-12-01 05:53 | PRG ---
DATE OF SERVICE: 11/30/2019 SUBJECTIVE: The patient says she feels better today. She is breathing better. Her weight though she said stayed the same. OBJECTIVE: GENERAL: The patient is lying in bed, but is awake and she immediately sat up. She looks better today and in no acute distress. VITAL SIGNS: Show a temperature of 96.8, pulse 71, respirations 16, O2 saturation 96% on 2 L, blood pressure 116/56. Her weight is stable at 166. There is a 7- ounce difference, output was 1525. Glucose this morning 163. ASSESSMENT: 1. Generalized weakness and deconditioning. a. Following recent hospitalization, leaving her very deconditioned. b. Stable, activities limited by her chronic congestive heart failure, chronic hypoxemia. Continues to work with PT as of 11/30/2019. 2. Hospitalized at [facility] from to 10/29 for [id number] hypoxic respiratory failure, [id number] diastolic heart failure, and restrictive lung disease with chronic hypoxemia. 3. Restrictive lung disease. 4. Chronic right heart failure. a. Weight stable at 166 as of 11/29. 5. Chronic diastolic heart failure. a. [id number] congestive heart failure on 11/19/2019. b. Acute episode has improved with a stable weight of 166. Breathing is better as of 11/29. 6. Coronary artery disease. 7. Valvular heart disease. 8. Diabetes type 2. 9. History of atrial fib, status post pacemaker. 10. Hypertension. 11. Chronic kidney disease. a. Severe with GFR of 18 on 11/28. 12. Anxiety disorder, controlled. 13. Insomnia, controlled. PLAN: Continue present care. Job ID: [id number] MTDD
[2019-12-01] MEDS: Dronedarone HCl 400 MG TAB PO SCH ×3 (08:15→17:00)
[2019-12-01] MEDS: Losartan 25 MG TAB PO SCH (08:16)
[2019-12-01] MEDS: Aspirin Chewable 81 MG TAB PO SCH (08:16)
[2019-12-01] MEDS: Allopurinol 100 MG TAB PO SCH ×2 (08:16→20:36)
[2019-12-01] MEDS: Ubidecarenone 50 MG CAP PO SCH (08:16)
[2019-12-01] MEDS: Multivit, Therapeutic 1 TAB PO SCH (08:16)
[2019-12-01] MEDS: Furosemide 40 MG TAB PO SCH ×2 (08:17→14:03)
[2019-12-01] MEDS: Guaifenesin DM 100-10/5 ML UDCUP PO PRN (08:17)
[2019-12-01] MEDS: Cyanocobalamin (Vitamin B-12) 1,000 MCG TAB PO SCH (08:17)
[2019-12-01] MEDS: Metoprolol Tartrate 25 MG TAB PO SCH ×2 (08:17→20:36)
--- NOTE | 2019-12-01 09:26 | PRG ---
DATE OF SERVICE: 12/01/2019 SUBJECTIVE: The patient said she had a good night. She feels better today. Her breathing is better. OBJECTIVE: GENERAL: The patient is alert, talkative, appears comfortable, in no distress. VITAL SIGNS: Her temperature is 97.4, pulse 86, respirations 16, O2 saturation 95% on 2 L, and blood pressure 84/74. Her weight is 166, stable. LUNGS: Clear except for rales at the right posterior base. HEART: Regular rate. EXTREMITIES: Trace edema. LABORATORY DATA: Shows a sodium 141, potassium 4.3, BUN 101, creatinine 2.3, GFR 20, and glucose 169. ASSESSMENT: 1. Generalized weakness and deconditioning. a. Following recent hospitalization, leaving her very deconditioned. b. Stable. Activities limited by her chronic congestive heart failure and chronic hypoxemia. Continues to work with PT within her limits as of 11/30. 2. Hospitalized at [facility] from to 10/29 for acute on chronic hypoxic respiratory failure, acute on chronic diastolic heart failure, and restrictive lung disease with chronic hypoxemia. 3. Restrictive lung disease. 4. Chronic heart failure. a. Weight is stable at 166 as of 11/30. 5. Chronic diastolic heart failure. a. Acute on chronic congestive heart failure on 11/19/2019. b. Acute episode has improved. Weight is stable at 166. Breathing better as of 11/30. 6. Coronary artery disease. 7. Valvular heart disease. 8. Diabetes type 2. 9. History of atrial fibrillation, status post pacemaker placement. 10. Hypertension. 11. Chronic kidney disease. a. Severe with GFR of 18 on 11/28. b. GFR up to 20. Creatinine down to 2.35. 12. Anxiety disorder, controlled. 13. Insomnia, controlled. PLAN: We will continue present care. We will recheck electrolytes in a few days. [facility] ID[facility] [id number] [facility]
[2019-12-01] MEDS: Polyethylene Glycol 3350 17 GM Packet PO SCH (20:36)
[2019-12-01] MEDS: ALPRAZolam 0.25 MG TAB PO PRN (20:41)
[2019-12-01] MEDS ORDERED: HumaLOG 300 UNITS/3 ML VIAL SC PRN (20:51)
[2019-12-02] MEDS: Levothyroxine Sodium 75 MCG TAB PO SCH (06:18)
[2019-12-02] MEDS: Ubidecarenone 50 MG CAP PO SCH (08:02)
[2019-12-02] MEDS: Metoprolol Tartrate 25 MG TAB PO SCH ×2 (08:03→21:04)
[2019-12-02] MEDS: Allopurinol 100 MG TAB PO SCH ×2 (08:03→21:04)
[2019-12-02] MEDS: Aspirin Chewable 81 MG TAB PO SCH (08:03)
[2019-12-02] MEDS: Dronedarone HCl 400 MG TAB PO SCH ×3 (08:03→17:05)
[2019-12-02] MEDS: Losartan Potassium 50 MG TAB PO SCH (08:03)
[2019-12-02] MEDS: Multivit, Therapeutic 1 TAB PO SCH (08:03)
[2019-12-02] MEDS: Furosemide 40 MG TAB PO SCH ×2 (08:03→14:37)
[2019-12-02] MEDS: Cyanocobalamin (Vitamin B-12) 1,000 MCG TAB PO SCH (08:03)
[2019-12-02] MEDS: HumaLOG 300 UNITS/3 ML VIAL SC PRN ×2 (08:04→12:06)
--- NOTE | 2019-12-02 11:35 | PRG ---
DATE OF SERVICE: 12/02/2019 SUBJECTIVE: The patient says she feels better today. Her breathing is doing better. She thinks she slept well. Her blood sugar was high last evening up to 303. She was started on a sliding scale at bedtime at a reduced amount, receiving 2 units of glucose over 250 and 3 units of it over 300. The patient said that she feels a lot better. Her blood sugar this morning was 170. We will continue the sliding scale, but suspect we will need to start her on a long-acting basal insulin. OBJECTIVE: GENERAL: The patient looks better. She is very talkative, appears comfortable, in no distress. VITAL SIGNS: Her temperature 97.6, pulse 68, respirations 16, O2 saturation 94 % on 2 L, blood pressure 113/53. LUNGS: Clear except for some rales at the right posterior base that are chronic and unchanged. HEART: Regular rate. EXTREMITIES: Trace edema in the right foot that looks a little better than yesterday. ASSESSMENT: 1. Generalized weakness and deconditioning. a. Following recent hospitalization, leaving her very deconditioned. b. Stable. Activities limited by her chronic congestive heart failure and chronic hypoxemia. Today, she looks a little better and continues to work with PT and OT within her limits as of 12/01. 2. Hospitalized at [facility] from to 10/29 for acute on chronic hypoxic respiratory failure, acute on chronic diastolic heart failure, and restrictive lung disease. 3. Restrictive lung disease. 4. Chronic right heart failure. a. Stable. Weight stable at 166. 5. Chronic diastolic heart failure. a. Acute on chronic congestive heart failure on 11/19/2019. b. Acute episode has improved and stable with weight at 166, breathing is better as of 12/01. 6. Coronary artery disease. 7. Valvular heart disease. 8. Diabetes type 2. a. Recent increase in blood sugars. 9. History of atrial fibrillation. 10. Status post pacemaker placement. 11. Hypertension. 12. Chronic kidney disease. a. Severe with GFR of 18 on 11/28. b. GFR up to 20 and creatinine down to 2.35 as of 11/30. PLAN: We will continue present care. Continue PT and OT. We will continue the present sliding scale and bedtime sliding scale. We will watch this little longer, suspect that she will need to be placed on a basal insulin. Job ID: [id number] MTDD
[2019-12-02] MEDS: ALPRAZolam 0.25 MG TAB PO PRN (21:03)
[2019-12-02] MEDS: Polyethylene Glycol 3350 17 GM Packet PO SCH (21:04)
[2019-12-02] MEDS: Melatonin 3 MG TAB PO PRN (21:04)
[2019-12-03] MEDS: Levothyroxine Sodium 75 MCG TAB PO SCH (05:17)
[2019-12-03] MEDS: Dronedarone HCl 400 MG TAB PO SCH ×3 (07:57→17:05)
[2019-12-03] MEDS: Ubidecarenone 50 MG CAP PO SCH (07:58)
[2019-12-03] MEDS: Allopurinol 100 MG TAB PO SCH ×2 (07:58→20:08)
[2019-12-03] MEDS: Multivit, Therapeutic 1 TAB PO SCH (07:58)
[2019-12-03] MEDS: Furosemide 40 MG TAB PO SCH ×2 (07:58→14:12)
[2019-12-03] MEDS: Aspirin Chewable 81 MG TAB PO SCH (07:58)
[2019-12-03] MEDS: Cyanocobalamin (Vitamin B-12) 1,000 MCG TAB PO SCH (07:58)
[2019-12-03] MEDS: Losartan Potassium 50 MG TAB PO SCH (07:58)
[2019-12-03] MEDS: Metoprolol Tartrate 25 MG TAB PO SCH ×2 (07:58→20:08)
[2019-12-03] MEDS: HumaLOG 300 UNITS/3 ML VIAL SC PRN ×2 (07:59→17:05)
--- NOTE | 2019-12-03 08:55 | PRG ---
DATE OF SERVICE: 12/03/2019 SUBJECTIVE: The patient said she had a good night. She is feeling good this morning. She is not having any trouble breathing at rest. OBJECTIVE: GENERAL: The patient is alert, appears very comfortable, in no distress. VITAL SIGNS: Her temperature is 97.9, pulse 64, respirations 16, O2 saturation 94% on 2 L, blood pressure 103/45. Her weight is 166. LUNGS: Clear except for the chronic rales at the right posterior base. HEART: Regular rate. EXTREMITIES: Trace edema of the right ankle and foot. LABORATORY DATA: FBS yesterday morning 177, this morning pending, last night 241. ASSESSMENT: 1. Generalized weakness and deconditioning. a. Following hospitalization, leaving her very deconditioned. b. Stable. Activities limited by her chronic congestive heart failure and chronic hypoxemia. Improved. 2. Hospitalized at [facility] from to 10/29 for acute on chronic hypoxic respiratory failure, acute on chronic diastolic heart failure, and restrictive lung disease. 3. Restrictive lung disease. 4. Chronic right heart failure. a. Stable. Weight 166. 5. Chronic diastolic heart failure. a. Acute on chronic congestive heart failure on 11/19/2019, acute episode resolved. Presently in chronic state with weight stable at 166 as of 12/02. 6. Coronary artery disease. 7. Valvular heart disease. 8. Diabetes type 2. a. Recent increase in blood sugars and requiring a sliding scale as of . 9. History of atrial fibrillation. 10. Status post pacemaker placement. 11. Hypertension. 12. Chronic kidney disease. a. Severe with GFR of 18 on 11/28. b. GFR 20 on 11/30. PLAN: Continue PT. Continue present care. We will start on Lantus 10 units subcu daily. Job ID: [id number] MTDD
[2019-12-03] MEDS: Lantus 1000 UNITS/10 ML VIAL SC SCH (20:08)
[2019-12-03] MEDS: Polyethylene Glycol 3350 17 GM Packet PO SCH (20:09)
[2019-12-03] MEDS: ALPRAZolam 0.25 MG TAB PO PRN (20:14)
[2019-12-03] MEDS ORDERED: Insulin Glargine 10 UNITS in Pre-Filled Syringe 1 EACH SC SCH (21:00)
[2019-12-04] MEDS: Levothyroxine Sodium 75 MCG TAB PO SCH (05:05)
[2019-12-04 05:46] LABS: Anion Gap 17 mmol/L (10-20); BUN (Urea Nitrogen) 90 mg/dL (9.8-20.1); Calc. Creatinine Clearance 22 mL/min (70-130); Calcium 9.4 mg/dL (7.8-10.44); Carbon Dioxide 29 mmol/L (23-31); Chloride 101 mmol/L (98-107); Estimated GFR-MDRD 21; Glucose 176 mg/dL (83-110); Potassium 4.4 mmol/L (3.5-5.1); Sodium 143 mmol/L (136-145)
[2019-12-04] MEDS: Dronedarone HCl 400 MG TAB PO SCH ×3 (08:34→17:03)
[2019-12-04] MEDS: Ubidecarenone 50 MG CAP PO SCH (08:35)
[2019-12-04] MEDS: Metoprolol Tartrate 25 MG TAB PO SCH ×2 (08:36→22:09)
[2019-12-04] MEDS: Aspirin Chewable 81 MG TAB PO SCH (08:36)
[2019-12-04] MEDS: Multivit, Therapeutic 1 TAB PO SCH (08:36)
[2019-12-04] MEDS: Cyanocobalamin (Vitamin B-12) 1,000 MCG TAB PO SCH (08:36)
[2019-12-04] MEDS: Furosemide 40 MG TAB PO SCH ×2 (08:36→14:31)
[2019-12-04] MEDS: Losartan Potassium 50 MG TAB PO SCH (08:36)
[2019-12-04] MEDS: Allopurinol 100 MG TAB PO SCH ×2 (08:36→22:08)
[2019-12-04] MEDS: HumaLOG 300 UNITS/3 ML VIAL SC PRN ×3 (08:37→17:03)
--- NOTE | 2019-12-04 12:28 | PRG ---
DATE OF SERVICE: 12/04/2019 SUBJECTIVE: The patient says she feels good, yesterday was very good day for her. She was able to walk the hallways with physical therapy without the shortness of breath. She had trouble sleeping last night, but this morning feels good with no shortness of breath. OBJECTIVE: GENERAL: The patient is sitting up on the side of her bed, alert, talkative, appears in no distress. VITAL SIGNS: Her temp is 96.9, pulse 68, respirations 20, O2 saturation 98% on 2 L, blood pressure 120/58. Weight 167. LUNGS: Clear except for some very minimal rales at the right posterior base. This base sounds better. HEART: regular rate. EXTREMITIES: Just trace edema in the right foot. LABORATORY DATA: Shows sodium of 143, potassium 4.4, her BUN is down to 90, creatinine down to 2.23, GFR up to 21. FBS 176. ASSESSMENT: 1. Generalized weakness and deconditioning. a. Following hospitalization leaving her very decondition. b. Improved. The patient was able to walk the hallways without the shortness of breath as of 12/03. 2. Hospitalized at [facility] from to 10/29 for acute on chronic hypoxic respiratory failure, acute on chronic diastolic heart failure, and restrictive lung disease. 3. Restrictive lung disease. 4. Chronic right heart failure. a. Stable. No evidence of acute failure. Weight stable at 167. 5. Chronic diastolic heart failure. a. Acute on chronic congestive heart failure on 11/18. b. Acute process has resolved. Weight stable at 167 as of 12/03. 6. Coronary artery disease. 7. Valvular heart disease. 8. Diabetes type 2. 9. History of atrial fib. 10. Status post pacemaker placement. 11. Hypertension. 12. Chronic kidney disease. a. Severe with GFR of 18 on 11/28. b. GFR has improved to 21 and creatinine down to 2.23 and BUN down to 90 as of 12/03. PLAN: Continue present care. Continue PT and OT. Job ID: [id number] MTDD
[2019-12-04] MEDS: Guaifenesin DM 100-10/5 ML UDCUP PO PRN (14:38)
[2019-12-04] MEDS ORDERED: Emollient 15 oz bottle 450 ML, Triamcinolone Acetonide 200 MG TOP PRN (16:36)
[2019-12-04] MEDS ORDERED: Emollient 15 oz bottle 450 ML, Triamcinolone Acetonide 200 MG TOP SCH (16:45)
[2019-12-04] MEDS: Polyethylene Glycol 3350 17 GM Packet PO SCH (22:07)
[2019-12-04] MEDS: Lantus 1000 UNITS/10 ML VIAL SC SCH (22:08)
[2019-12-04] MEDS: Emollient 15 oz bottle 450 ML, Triamcinolone Acetonide 200 MG TOP SCH (22:10)
[2019-12-04] MEDS: ALPRAZolam 0.25 MG TAB PO PRN (22:15)
[2019-12-05] MEDS: Levothyroxine Sodium 75 MCG TAB PO SCH (05:53)
[2019-12-05] MEDS: Ubidecarenone 50 MG CAP PO SCH (08:03)
[2019-12-05] MEDS: Losartan Potassium 50 MG TAB PO SCH (08:03)
[2019-12-05] MEDS: Metoprolol Tartrate 25 MG TAB PO SCH ×2 (08:04→21:32)
[2019-12-05] MEDS: Cyanocobalamin (Vitamin B-12) 1,000 MCG TAB PO SCH (08:04)
[2019-12-05] MEDS: Aspirin Chewable 81 MG TAB PO SCH (08:04)
[2019-12-05] MEDS: Multivit, Therapeutic 1 TAB PO SCH (08:04)
[2019-12-05] MEDS: Furosemide 40 MG TAB PO SCH ×2 (08:04→14:35)
[2019-12-05] MEDS: Dronedarone HCl 400 MG TAB PO SCH ×3 (08:04→16:55)
[2019-12-05] MEDS: Allopurinol 100 MG TAB PO SCH ×2 (08:04→21:32)
[2019-12-05] MEDS: Emollient 15 oz bottle 450 ML, Triamcinolone Acetonide 200 MG TOP SCH ×3 (08:05→21:33)
[2019-12-05] MEDS: HumaLOG 300 UNITS/3 ML VIAL SC PRN ×2 (11:51→16:56)
--- NOTE | 2019-12-05 12:59 | PRG ---
DATE OF SERVICE: 12/05/2019 SUBJECTIVE: The patient says she is doing pretty good this morning. She had developed a little rash that was itching on her low back and on her lower legs. She was started on Kiara/Kenalog and this seems to be helping. The patient said her breathing is doing good. OBJECTIVE: GENERAL: The patient is alert, appears in no distress. VITAL SIGNS: Her temperature is 96.4, pulse 65, respirations 18, O2 saturation 95% on 2 L, blood pressure 135/60, her weight is stable at 167, FBS this morning 136. LUNGS: Clear except for some mild rales at the right posterior base that are stable. EXTREMITIES: Trace edema in the right ankle and foot. LABORATORY DATA: Hemoglobin A1c done on 12/03 was 7. ASSESSMENT: 1. Generalized weakness and deconditioning. a. Following hospitalization leaving her very deconditioned. b. Improved. The patient is walking in the hallways without the shortness of breath as of 12/04. 2. Hospitalized at [facility] from 10/25/2019 to 10/30/2019 for acute on chronic hypoxic respiratory failure, acute on chronic diastolic heart failure, and restrictive lung disease. 3. Restrictive lung disease. 4. Chronic right heart failure. a. Stable. No evidence of acute failure. Weight is stable at 167. 5. Chronic diastolic heart failure. a. Acute on chronic congestive heart failure on 11/18. b. Acute process has resolved. Weight is stable at 167 as of 12/04. 6. Coronary artery disease. 7. Valvular heart disease. 8. Diabetes type 2. a. Hemoglobin A1c 7.0 on 12/03. 9. History of atrial fibrillation. 10. Status post pacemaker placement. 11. Hypertension, controlled. 12. Chronic kidney disease. a. Severe with GFR of 18 on 11/28. b. GFR improved to 21 and creatinine down to 2.23, and BUN down to 90 as of 12/03. PLAN: The patient developed a little dry skin dermatitis with just a little mild redness and excoriation across the low back and some of the lower leg. Skin is dry. We do not apply any alcohol to this area, use the Kiara lotion with Kenalog 15 ounces/200 mg three times a day as needed. Continue PT and OT. Job ID: [id number] [facility]
[2019-12-05] MEDS: Polyethylene Glycol 3350 17 GM Packet PO SCH (21:31)
[2019-12-05] MEDS: Lantus 1000 UNITS/10 ML VIAL SC SCH (21:32)
[2019-12-05] MEDS: ALPRAZolam 0.25 MG TAB PO PRN (21:33)
[2019-12-06] MEDS: Guaifenesin DM 100-10/5 ML UDCUP PO PRN (06:16)
[2019-12-06] MEDS: Levothyroxine Sodium 75 MCG TAB PO SCH (06:16)
[2019-12-06] MEDS: Furosemide 40 MG TAB PO SCH ×2 (08:07→14:12)
[2019-12-06] MEDS: Multivit, Therapeutic 1 TAB PO SCH (08:07)
[2019-12-06] MEDS: Metoprolol Tartrate 25 MG TAB PO SCH ×2 (08:07→21:26)
[2019-12-06] MEDS: Cyanocobalamin (Vitamin B-12) 1,000 MCG TAB PO SCH (08:07)
[2019-12-06] MEDS: Losartan Potassium 50 MG TAB PO SCH (08:07)
[2019-12-06] MEDS: Allopurinol 100 MG TAB PO SCH ×2 (08:07→21:26)
[2019-12-06] MEDS: Ubidecarenone 50 MG CAP PO SCH (08:07)
[2019-12-06] MEDS: Aspirin Chewable 81 MG TAB PO SCH (08:07)
[2019-12-06] MEDS: Dronedarone HCl 400 MG TAB PO SCH ×3 (08:07→16:58)
[2019-12-06] MEDS: Emollient 15 oz bottle 450 ML, Triamcinolone Acetonide 200 MG TOP SCH ×3 (08:13→22:05)
--- NOTE | 2019-12-06 10:55 | RAD ---
FRONTAL RADIOGRAPH CHEST: 12/06/2019 HISTORY: Congestive heart failure. COMPARISON: 11/28/2019 FINDINGS: There is prominence of the cardiac silhouette, midline sternotomy wires and a dual-lead transvenous p acing device, all stable findings. There is stable pulmonary vascular congestion and perihilar inters titial prominence with stable elevation of the right hemidiaphragm and small right pleural effusion. IMPRESSION: Stable appearance of the chest, as described above. POS: [facility]
[2019-12-06 11:10] LABS: Anion Gap 16 mmol/L (10-20); BUN (Urea Nitrogen) 79 mg/dL (9.8-20.1); Calc. Creatinine Clearance 24 mL/min (70-130); Calcium 9.3 mg/dL (7.8-10.44); Carbon Dioxide 29 mmol/L (23-31); Chloride 102 mmol/L (98-107); Estimated GFR-MDRD 22; Glucose 193 mg/dL (83-110); Potassium 4.9 mmol/L (3.5-5.1); Sodium 142 mmol/L (136-145)
[2019-12-06] MEDS: HumaLOG 300 UNITS/3 ML VIAL SC PRN (11:59)
[2019-12-06] MEDS ORDERED: Sodium Chloride 0.9% 1,000 ML BAG ONE (12:54)
[2019-12-06] MEDS: Triamcinolone 0.1% Cream 15 GM TUBE TOP SCH (21:25)
[2019-12-06] MEDS: Polyethylene Glycol 3350 17 GM Packet PO SCH (21:25)
[2019-12-06] MEDS: Lantus 1000 UNITS/10 ML VIAL SC SCH (21:26)
[2019-12-06] MEDS: ALPRAZolam 0.25 MG TAB PO PRN (21:28)
[2019-12-07] MEDS: Guaifenesin DM 100-10/5 ML UDCUP PO PRN (00:25)
[2019-12-07] MEDS: Levothyroxine Sodium 75 MCG TAB PO SCH (05:16)
--- NOTE | 2019-12-07 05:16 | PRG ---
DATE OF SERVICE: 12/06/2019 SUBJECTIVE: The patient said that she is still itching in her low back and in calves of her legs. The patient is complaining about the food. She said she just is getting too many carbohydrates. She is on a consistent carbohydrate diet for her diabetes. The patient said the swelling is about the same in her right leg. OBJECTIVE: GENERAL: The patient is alert, appears in no acute distress. VITAL SIGNS: Show a temperature of 97.3, pulse 69, respirations 18, O2 saturation 98% on 2 L, blood pressure 115/58. Her weight is 169. LUNGS: Have bibasilar rales posteriorly. There is some over the upper left anterior chest. HEART: Regular rate. EXTREMITIES: The patient has chronic edema of the right foot and ankle that looks unchanged. She has a little mild papular rash that is excoriated across her low back and on the calves of her legs. LABORATORY DATA: Her lab this morning showed a fasting blood sugar of 145. ASSESSMENT: 1. Generalized weakness and deconditioning. a. Following hospitalization leaving her very deconditioned. b. Improved. The patient is walking the hallways, better as of 12/04. 2. Hospitalized at [facility] from 10/25/2019 to 10/30/2019 for acute on chronic hypoxic respiratory failure, acute on chronic diastolic heart failure, and restrictive lung disease. 3. Restrictive lung disease. 4. Chronic right heart failure. a. Stable but weight up to 169. 5. Chronic diastolic heart failure. a. Acute on chronic congestive heart failure on 11/18. b. The acute process has resolved, but her weight is increasing and she has bibasilar rales and weight of 169 but CXR unchanged as of 12/05. 6. Coronary artery disease. 7. Valvular heart disease. 8. Diabetes type 2. a. Hemoglobin A1c 7 on 12/03. b. FBS this morning 145. 9. History of atrial fibrillation. 10. Status post pacemaker placement. 11. Hypertension. 12. Chronic kidney disease. a. Severe with GFR of 18 on 11/28. The GFR improved to 21 and creatinine down to 2.23 as of 12/03. PLAN: The patient does not appear any more short of breath but her weight is increasing and she has the bibasilar rales. We will check a BMP, BNP, and chest x-ray. We will use triamcinolone cream regularly to the back and calves twice a day and then use Christiana Craig p.r.n. Continue the fluid restriction. Job ID: [id number] [facility]
[2019-12-07] MEDS: Allopurinol 100 MG TAB PO SCH ×2 (08:04→20:58)
[2019-12-07] MEDS: Cyanocobalamin (Vitamin B-12) 1,000 MCG TAB PO SCH (08:04)
[2019-12-07] MEDS: Aspirin Chewable 81 MG TAB PO SCH (08:04)
[2019-12-07] MEDS: Furosemide 40 MG TAB PO SCH ×2 (08:04→13:55)
[2019-12-07] MEDS: Ubidecarenone 50 MG CAP PO SCH (08:04)
[2019-12-07] MEDS: Metoprolol Tartrate 25 MG TAB PO SCH ×2 (08:05→20:58)
[2019-12-07] MEDS: Losartan Potassium 50 MG TAB PO SCH (08:05)
[2019-12-07] MEDS: Dronedarone HCl 400 MG TAB PO SCH ×3 (08:05→17:02)
[2019-12-07] MEDS: Multivit, Therapeutic 1 TAB PO SCH (08:05)
[2019-12-07] MEDS: Triamcinolone 0.1% Cream 15 GM TUBE TOP SCH ×2 (08:06→20:55)
[2019-12-07] MEDS: Emollient 15 oz bottle 450 ML, Triamcinolone Acetonide 200 MG TOP SCH ×3 (08:07→20:59)
[2019-12-07] MEDS: HumaLOG 300 UNITS/3 ML VIAL SC PRN (12:01)
[2019-12-07] MEDS: ALPRAZolam 0.25 MG TAB PO PRN (20:55)
[2019-12-07] MEDS: Lantus 1000 UNITS/10 ML VIAL SC SCH (20:55)
[2019-12-07] MEDS: Polyethylene Glycol 3350 17 GM Packet PO SCH (20:56)
[2019-12-08] MEDS: Guaifenesin DM 100-10/5 ML UDCUP PO PRN (01:44)
[2019-12-08] MEDS: Levothyroxine Sodium 75 MCG TAB PO SCH (05:44)
--- NOTE | 2019-12-08 06:37 | PRG ---
DATE OF SERVICE: 12/07/2019 SUBJECTIVE: The patient is feeling a lot better than yesterday. I reviewed her chest x-ray yesterday, which was stable and showed the chronic cardiomegaly, stable pulmonary vascular congestion, and stable elevation of the right hemidiaphragm, and very small right pleural effusion. Her lab work showed that her BNP was 577 down from 642 and high of 729 during this admission. Her sodium was 142 and potassium 4.9. Her BUN had come down to 79 and her creatinine to 2.11 and GFR 22. FBS was 146. No change in medications was made. The patient is rested. She says she is breathing, feeling better today. Her itching is better. Her weight is down a pound. OBJECTIVE: GENERAL: The patient is alert, looks very comfortable, in no distress. VITAL SIGNS: Her vital signs shows a temperature 98.2, pulse 60, respirations are 16, O2 saturation 96% on 2 L, and blood pressure 104/51. Weight down to 168 pounds. LUNGS: Clear except for some chronic rales at the right posterior base. HEART: Regular rate. EXTREMITIES: Left leg has no edema. The right has the chronic unchanged edema in the right ankle and foot. The rash is better. ASSESSMENT: 1. Generalized weakness and deconditioning. a. Following hospitalization from 10/25/2019 through 10/30/2019, leaving her very deconditioned. b. Improving as of 12/07/2019. 2. Hospitalized at [facility] from 10/25/2019 through 10/30/2019 for acute on chronic hypoxic respiratory failure, acute on chronic diastolic heart failure, and restrictive lung disease. 3. Restrictive lung disease. 4. Chronic right heart failure. a. Stable. No signs of acute failure. Weight down to 168 pounds. 5. Chronic diastolic heart failure. a. Acute on chronic congestive heart failure on 11/18. b. The acute process has resolved and she is back to her stable chronic congestive heart failure with a weight down to 168 and chest x-ray unchanged as of 12/06. 6. Coronary artery disease. 7. Valvular heart disease. 8. Diabetes type 2. Hemoglobin A1c on 12/03 was 7. 9. History of atrial fibrillation. 10. Status post biventricular pacemaker. 11. Hypertension. 12. Chronic kidney disease. a. Severe with GFR of 18 on 11/28. b. GFR has improved to 22, BUN down to 79, creatinine down to 2.11 as of . PLAN: Continue present care. Continue PT and OT. Job ID: [id number] MTDD
[2019-12-08] MEDS: Dronedarone HCl 400 MG TAB PO SCH ×3 (08:15→17:03)
[2019-12-08] MEDS: Cyanocobalamin (Vitamin B-12) 1,000 MCG TAB PO SCH (08:16)
[2019-12-08] MEDS: Furosemide 40 MG TAB PO SCH ×2 (08:16→13:50)
[2019-12-08] MEDS: Losartan Potassium 50 MG TAB PO SCH (08:16)
[2019-12-08] MEDS: Aspirin Chewable 81 MG TAB PO SCH (08:16)
[2019-12-08] MEDS: Metoprolol Tartrate 25 MG TAB PO SCH ×2 (08:16→21:16)
[2019-12-08] MEDS: Ubidecarenone 50 MG CAP PO SCH (08:16)
[2019-12-08] MEDS: Allopurinol 100 MG TAB PO SCH ×2 (08:17→21:16)
[2019-12-08] MEDS: Triamcinolone 0.1% Cream 15 GM TUBE TOP SCH ×2 (08:17→21:22)
[2019-12-08] MEDS: Multivit, Therapeutic 1 TAB PO SCH (08:17)
--- NOTE | 2019-12-08 10:54 | PRG ---
DATE OF SERVICE: 12/08/2019 SUBJECTIVE: The patient says she is doing better. Her breathing is good. The patient said her itching is much improved. OBJECTIVE: GENERAL: The patient is sitting up on the side of the bed eating her breakfast. She is alert, talkative, appears very comfortable and in no distress. VITAL SIGNS: Temperature 97.5, pulse 63, respirations 20, O2 saturation 92% on 2 L, blood pressure 120/56. LUNGS: Clear except for some chronic rales at the right posterior base. HEART: Regular rate. EXTREMITIES: Trace edema of the right foot. LABORATORY DATA: FBS this morning 135. ASSESSMENT: 1. Generalized weakness and deconditioning. a. Following hospitalization from through 10/30/2019 leaving her very deconditioned. b. Improving as of 12/07. 2. Hospitalized at [facility] from 10/25/2019 to 10/30/2019 for acute on chronic hypoxic respiratory failure, acute on chronic diastolic heart failure and restrictive lung disease. 3. Restrictive lung disease. 4. Chronic right heart failure. a. Stable. No signs of acute failure. Weight is stable at 169. 5. Chronic diastolic heart failure. a. Acute on chronic congestive heart failure on 11/18. b. The acute process has resolved and she has remained under stable chronic congestive heart failure state. Weight is stable at 169 as of 12/07. 6. Coronary artery disease. 7. Valvular heart disease. 8. Diabetes, type 2. 9. History of atrial fibrillation. 10. Status post biventricular pacemaker. 11. Hypertension. 12. Chronic kidney disease. a. Severe chronic kidney disease with GFR of 18 on 11/28. b. GFR has improved to 22, BUN down to 79, creatinine down to 2.11 as of . PLAN: Continue present care. Continue PT and OT. Job ID: [id number] MTDD
[2019-12-08] MEDS: HumaLOG 300 UNITS/3 ML VIAL SC PRN (12:01)
[2019-12-08] MEDS: Polyethylene Glycol 3350 17 GM Packet PO SCH (21:14)
[2019-12-08] MEDS: Lantus 1000 UNITS/10 ML VIAL SC SCH (21:16)
[2019-12-08] MEDS: ALPRAZolam 0.25 MG TAB PO PRN (21:18)
[2019-12-08] MEDS: Emollient 15 oz bottle 450 ML, Triamcinolone Acetonide 200 MG TOP PRN (21:19)
[2019-12-09] MEDS: Guaifenesin DM 100-10/5 ML UDCUP PO PRN (00:49)
[2019-12-09] MEDS: Levothyroxine Sodium 75 MCG TAB PO SCH (05:17)
[2019-12-09] MEDS: Dronedarone HCl 400 MG TAB PO SCH ×3 (08:03→16:58)
[2019-12-09] MEDS: Furosemide 40 MG TAB PO SCH ×2 (08:23→14:10)
[2019-12-09] MEDS: Allopurinol 100 MG TAB PO SCH ×2 (08:23→21:22)
[2019-12-09] MEDS: Ubidecarenone 50 MG CAP PO SCH (08:23)
[2019-12-09] MEDS: Cyanocobalamin (Vitamin B-12) 1,000 MCG TAB PO SCH (08:23)
[2019-12-09] MEDS: Multivit, Therapeutic 1 TAB PO SCH (08:23)
[2019-12-09] MEDS: Metoprolol Tartrate 25 MG TAB PO SCH ×2 (08:23→21:22)
[2019-12-09] MEDS: Losartan Potassium 50 MG TAB PO SCH (08:24)
[2019-12-09] MEDS: Aspirin Chewable 81 MG TAB PO SCH (08:25)
[2019-12-09] MEDS: Triamcinolone 0.1% Cream 15 GM TUBE TOP SCH ×2 (08:25→21:23)
[2019-12-09] MEDS: Emollient 15 oz bottle 450 ML, Triamcinolone Acetonide 200 MG TOP PRN ×2 (08:25→21:25)
--- NOTE | 2019-12-09 10:47 | PRG ---
DATE OF SERVICE: 12/09/2019 SUBJECTIVE: The patient says she is doing all right today. Her breathing is doing okay. She has a little bit more swelling in her feet. OBJECTIVE: GENERAL: The patient is sitting on the side of the bed, is alert, appears comfortable, in no distress. VITAL SIGNS: Her temperature is 97.7, pulse 67, respirations 20, O2 saturation 98% on 2 L, blood pressure 120/55. Weight is 170. LUNGS: Clear, except for the chronic rales at the right posterior base. HEART: Regular rate. EXTREMITIES: The patient has 1+ edema in the right ankle and foot. LABORATORY DATA: FBS this morning 125. ASSESSMENT: 1. Generalized weakness and deconditioning. a. Following hospitalization from through 10/29, leaving her very deconditioned. b. Improved as of 12/08. 2. Hospitalized at [facility] from to 10/30/2019 for acute on chronic hypoxic respiratory failure, acute on chronic diastolic heart failure, and restrictive lung disease. 3. Restrictive lung disease. 4. Chronic right heart failure. a. Stable. No signs of acute failure. Weight up to 170. 5. Chronic diastolic heart failure. a. Acute on chronic congestive heart failure on 11/18. b. The acute process has resolved, but she remains with a stable chronic congestive failure. Her weight is gradually increasing to 170 as of 12/08. 6. Coronary artery disease. 7. Valvular heart disease. 8. Diabetes type 2, controlled. 9. History of atrial fibrillation. 10. Status post biventricular pacemaker. 11. Hypertension. 12. Chronic kidney disease. a. Severe chronic kidney disease with GFR of 18 on 11/28. b. GFR improved to 22, BUN down to 79, and creatinine down to 2.1 as of . PLAN: Continue present care. If the patient's weight continues to increase, we will probably have to give an additional dose of furosemide, but for now since she is having no more symptoms, we will just continue her present management. Job ID: [id number] MTDD
[2019-12-09] MEDS: HumaLOG 300 UNITS/3 ML VIAL SC PRN ×2 (12:08→17:01)
[2019-12-09] MEDS: Loratadine 10 MG TAB PO PRN (14:15)
[2019-12-09] MEDS: guaiFENesin ER 600 MG TAB PO PRN (14:15)
[2019-12-09] MEDS: Polyethylene Glycol 3350 17 GM Packet PO SCH (21:20)
[2019-12-09] MEDS: Lantus 1000 UNITS/10 ML VIAL SC SCH (21:22)
[2019-12-09] MEDS: ALPRAZolam 0.25 MG TAB PO PRN (21:25)
[2019-12-10] MEDS: Levothyroxine Sodium 75 MCG TAB PO SCH (05:35)
[2019-12-10] MEDS: Ubidecarenone 50 MG CAP PO SCH (08:04)
[2019-12-10] MEDS: Dronedarone HCl 400 MG TAB PO SCH ×3 (08:04→16:58)
[2019-12-10] MEDS: Multivit, Therapeutic 1 TAB PO SCH (08:05)
[2019-12-10] MEDS: Cyanocobalamin (Vitamin B-12) 1,000 MCG TAB PO SCH (08:05)
[2019-12-10] MEDS: Losartan Potassium 50 MG TAB PO SCH (08:05)
[2019-12-10] MEDS: Furosemide 40 MG TAB PO SCH ×2 (08:05→14:22)
[2019-12-10] MEDS: Allopurinol 100 MG TAB PO SCH ×2 (08:05→20:26)
[2019-12-10] MEDS: Aspirin Chewable 81 MG TAB PO SCH (08:05)
[2019-12-10] MEDS: Triamcinolone 0.1% Cream 15 GM TUBE TOP SCH ×2 (08:06→20:29)
[2019-12-10] MEDS: Metoprolol Tartrate 25 MG TAB PO SCH ×2 (08:06→20:26)
[2019-12-10] MEDS ORDERED: Furosemide 40 MG TAB PO SCH (08:15)
[2019-12-10] MEDS ORDERED: PRALUENT SC SCH (09:00)
--- NOTE | 2019-12-10 11:36 | PRG ---
DATE OF SERVICE: 12/10/2019 SUBJECTIVE: Patient says she slept pretty well last night. Overall, she thinks she is doing better. She is not having the itching like she was. The patient said she notices that she is a little bit more short of breath with exertion and feels like she is more full through the abdomen. OBJECTIVE: GENERAL: The patient is sitting up in her bed. She appears comfortable, in no acute distress. VITAL SIGNS: Her weight is 170. Her blood pressure is 124/56, temp 97.1, pulse 67, respirations 18, O2 saturation 99% on 2 L. LUNGS: The patient has rales over the right posterior base. HEART: Regular rate. EXTREMITIES: 1+ edema in the right ankle and foot. LABORATORY DATA: FBS this morning 144. ASSESSMENT: 1. Generalized weakness and deconditioning. a. Following hospitalization from through 10/29, leaving her very deconditioned. b. Improved as of 12/09. 2. Hospitalized at [facility] from 10/25/19 through 10/30/19 for acute on chronic hypoxic respiratory failure, acute on chronic diastolic heart failure, and restrictive lung disease. 3. Restrictive lung disease. 4. Chronic right heart failure. a. The patient is developing some fluid overload with increasing edema in her feet and mid abdomen. Weight though stable at 170 as of 12/09. 5. Chronic diastolic heart failure. a. Acute on chronic acute congestive failure on 11/18. b. The acute process had resolved but she is starting to have some more fluid retention and overload as of 12/09. 6. Coronary artery disease. 7. Valvular heart disease. 8. Diabetes type 2, controlled. 9. History of atrial fibrillation. 10. Status post biventricular pacemaker. 11. Hypertension. 12. Chronic kidney disease. a. Severe chronic kidney disease with GFR of 18 on 11/28. b. GFR improved to 22, BUN down to 79, creatinine down to 2.1 as of 12/05. PLAN: We will give patient an additional Lasix 40 mg for a total of 80 mg this morning and continue the 40 after lunch. Continue the fluid restriction. Continue PT and OT. We will repeat a basic metabolic panel in the morning. Job ID: [id number] [facility]
[2019-12-10] MEDS: HumaLOG 300 UNITS/3 ML VIAL SC PRN ×2 (12:03→16:58)
[2019-12-10] MEDS: Polyethylene Glycol 3350 17 GM Packet PO SCH (20:27)
[2019-12-10] MEDS: Lantus 1000 UNITS/10 ML VIAL SC SCH (20:39)
[2019-12-10] MEDS: ALPRAZolam 0.25 MG TAB PO PRN (21:30)
[2019-12-11] MEDS: Levothyroxine Sodium 75 MCG TAB PO SCH (05:22)
[2019-12-11 05:47] LABS: Anion Gap 13 mmol/L (10-20); BUN (Urea Nitrogen) 75 mg/dL (9.8-20.1); Calc. Creatinine Clearance 25 mL/min (70-130); Calcium 8.7 mg/dL (7.8-10.44); Carbon Dioxide 29 mmol/L (23-31); Chloride 105 mmol/L (98-107); Estimated GFR-MDRD 23; Glucose 121 mg/dL (83-110); Sodium 143 mmol/L (136-145)
[2019-12-11] MEDS: Allopurinol 100 MG TAB PO SCH ×2 (08:13→20:01)
[2019-12-11] MEDS: Furosemide 40 MG TAB PO SCH ×2 (08:13→14:32)
[2019-12-11] MEDS: Ubidecarenone 50 MG CAP PO SCH (08:13)
[2019-12-11] MEDS: Losartan Potassium 50 MG TAB PO SCH (08:14)
[2019-12-11] MEDS: Cyanocobalamin (Vitamin B-12) 1,000 MCG TAB PO SCH (08:14)
[2019-12-11] MEDS: Aspirin Chewable 81 MG TAB PO SCH (08:14)
[2019-12-11] MEDS: Multivit, Therapeutic 1 TAB PO SCH (08:14)
[2019-12-11] MEDS: Metoprolol Tartrate 25 MG TAB PO SCH ×2 (08:14→20:01)
[2019-12-11] MEDS: Dronedarone HCl 400 MG TAB PO SCH ×3 (08:14→16:58)
[2019-12-11] MEDS: Triamcinolone 0.1% Cream 15 GM TUBE TOP SCH ×2 (08:18→20:02)
[2019-12-11] MEDS ORDERED: Furosemide 20 MG TAB PO SCH (09:00)
--- NOTE | 2019-12-11 10:53 | PRG ---
DATE OF SERVICE: 12/11/2019 SUBJECTIVE: The patient said she is discouraged this morning because her weight was up a little bit. Her breathing is no worse. She still has a little swelling in her feet. She is not acutely short of breath, but does get a little out of breath with exertion. OBJECTIVE: GENERAL: The patient is sitting up on the side of the bed, is alert and talkative, and appears comfortable, and in no distress. VITAL SIGNS: Her weight is 171. Her temperature is 96.8, pulse 66, respirations 18, O2 saturation 98% on 2 L, blood pressure 133/63. LUNGS: Sound better. The breath sounds are better. There are just minimal rales at the right posterior base. HEART: Regular rate. EXTREMITIES: 1+ edema of the right foot and ankle. LABORATORY DATA: Sodium 143, potassium 4, BUN down to 75, creatinine is down to 2.02. Her GFR is up to 23. FBS 121. ASSESSMENT: 1. Generalized weakness and deconditioning. a. Following hospitalization from through 10/29 leaving her very deconditioned. b. Mild improvement as of 12/10. 2. Hospitalized at [facility] from through 10/30/2019 for acute on chronic hypoxic respiratory failure, acute on chronic diastolic heart failure, and restrictive lung disease. 3. Restrictive lung disease. 4. Chronic right heart failure. a. The patient still has some evidence of some fluid overload with weight up and some peripheral edema, and weight of 171 as of 12/10. 5. Chronic diastolic heart failure. a. Acute on chronic congestive heart failure on 11/18. b. The acute process has resolved, but she had developed some fluid overload as of 12/09, that is still present as of 12/10. 6. Coronary artery disease. 7. Valvular heart disease. 8. Diabetes type 2. 9. History of atrial fibrillation. 10. Status post biventricular pacemaker. 11. Hypertension. 12. Chronic kidney disease. a. Severe chronic kidney disease with a GFR of 18 on 11/28. b. GFR improved to 22, BUN down to 79 and creatinine down to 2.1 as of . c. GFR up to 23, BUN down to 75 and creatinine down to 2.02 as of 12/10. PLAN: We will give an additional 40 mg for total of 80 mg this morning. Continue the fluid restriction and continue PT and OT. Job ID: [id number] MTDD
[2019-12-11] MEDS: HumaLOG 300 UNITS/3 ML VIAL SC PRN (12:00)
[2019-12-11] MEDS: Polyethylene Glycol 3350 17 GM Packet PO SCH (20:01)
[2019-12-11] MEDS: Lantus 1000 UNITS/10 ML VIAL SC SCH (20:52)
[2019-12-11] MEDS: ALPRAZolam 0.25 MG TAB PO PRN (23:47)
[2019-12-12] MEDS: Levothyroxine Sodium 75 MCG TAB PO SCH (05:22)
[2019-12-12] MEDS: Ubidecarenone 50 MG CAP PO SCH (08:14)
[2019-12-12] MEDS: Multivit, Therapeutic 1 TAB PO SCH (08:14)
[2019-12-12] MEDS: Furosemide 40 MG TAB PO SCH ×3 (08:14→17:04)
[2019-12-12] MEDS: Aspirin Chewable 81 MG TAB PO SCH (08:14)
[2019-12-12] MEDS: Dronedarone HCl 400 MG TAB PO SCH ×3 (08:14→17:04)
[2019-12-12] MEDS: Metoprolol Tartrate 25 MG TAB PO SCH ×2 (08:14→20:24)
[2019-12-12] MEDS: Losartan Potassium 50 MG TAB PO SCH (08:14)
[2019-12-12] MEDS: Cyanocobalamin (Vitamin B-12) 1,000 MCG TAB PO SCH (08:14)
[2019-12-12] MEDS: Triamcinolone 0.1% Cream 15 GM TUBE TOP SCH ×2 (08:15→21:35)
[2019-12-12] MEDS: Allopurinol 100 MG TAB PO SCH ×2 (08:25→20:25)
[2019-12-12] MEDS ORDERED: Furosemide 40 MG TAB PO SCH (10:00)
--- NOTE | 2019-12-12 11:46 | PRG ---
DATE OF SERVICE: 12/12/2019 SUBJECTIVE: The patient says she is feeling all right this morning, but gained another pound. Her breathing is about the same, it is no worse. OBJECTIVE: GENERAL: The patient is sitting in a wheelchair, alert, appears in no acute distress. VITAL SIGNS: Weight 172, temp 96.8, pulse 62, respirations 20, O2 sat 97% on 2 L, and blood pressure 142/63. LUNGS: Clear except for some rales at the right posterior base. HEART: Regular rate. EXTREMITIES: 1+ edema in the right foot. ASSESSMENT: 1. Generalized weakness and deconditioning. a. Following hospitalization from to 10/29 leaving her very weak. b. Continued gradual improvement as of 12/11. 2. Hospitalized at [facility] from to 10/29 for acute on chronic hypoxic respiratory failure, acute on chronic diastolic heart failure, and restrictive lung disease. 3. Restrictive lung disease. 4. Chronic right heart failure. a. The patient still has some evidence of some fluid overload, weight up to 172 as of 12/11. 5. Chronic diastolic heart failure. a. Acute on chronic congestive heart failure on 11/18. b. The acute process resolved, but she has developed some gradual fluid retention with her weight up to 172 as of 12/11. 6. Coronary artery disease. 7. Valvular heart disease. 8. Diabetes, type 2. 9. History of atrial fibrillation. 10. Status post biventricular pacemaker placement. 11. Hypertension. 12. Chronic kidney disease. a. Severe chronic kidney disease with GFR of 18 on 11/28. b. GFR improved to 22, BUN down to 79, creatinine down to 2.1 as of 12/05. c. GFR up to 23, BUN down to 75, creatinine down to 2.02 as of 12/10. PLAN: Continue present care. We will give the patient an additional Lasix this morning. Job ID: [id number] MTDD
[2019-12-12] MEDS: HumaLOG 300 UNITS/3 ML VIAL SC PRN (12:12)
[2019-12-12] MEDS: Polyethylene Glycol 3350 17 GM Packet PO SCH (20:24)
[2019-12-12] MEDS: Lantus 1000 UNITS/10 ML VIAL SC SCH (20:25)
[2019-12-12] MEDS: ALPRAZolam 0.25 MG TAB PO PRN (21:34)
[2019-12-12] MEDS: Emollient 15 oz bottle 450 ML, Triamcinolone Acetonide 200 MG TOP PRN (21:36)
[2019-12-13] MEDS: Levothyroxine Sodium 75 MCG TAB PO SCH (05:27)
[2019-12-13] MEDS: Dronedarone HCl 400 MG TAB PO SCH ×3 (08:06→17:02)
[2019-12-13] MEDS: Losartan Potassium 50 MG TAB PO SCH (08:08)
[2019-12-13] MEDS: Allopurinol 100 MG TAB PO SCH ×2 (08:08→21:22)
[2019-12-13] MEDS: Ubidecarenone 50 MG CAP PO SCH (08:08)
[2019-12-13] MEDS: Aspirin Chewable 81 MG TAB PO SCH (08:08)
[2019-12-13] MEDS: Triamcinolone 0.1% Cream 15 GM TUBE TOP SCH ×2 (08:08→21:24)
[2019-12-13] MEDS: Furosemide 40 MG TAB PO SCH ×2 (08:08→14:50)
[2019-12-13] MEDS: Multivit, Therapeutic 1 TAB PO SCH (08:08)
[2019-12-13] MEDS: Cyanocobalamin (Vitamin B-12) 1,000 MCG TAB PO SCH (08:08)
[2019-12-13] MEDS: Metoprolol Tartrate 25 MG TAB PO SCH ×2 (08:08→21:22)
[2019-12-13] MEDS: Lantus 1000 UNITS/10 ML VIAL SC SCH (21:22)
[2019-12-13] MEDS: ALPRAZolam 0.25 MG TAB PO PRN (21:23)
[2019-12-13] MEDS: Polyethylene Glycol 3350 17 GM Packet PO SCH (21:23)
[2019-12-14] MEDS: Levothyroxine Sodium 75 MCG TAB PO SCH (05:19)
[2019-12-14] MEDS: Dronedarone HCl 400 MG TAB PO SCH ×3 (08:05→17:03)
[2019-12-14] MEDS: Multivit, Therapeutic 1 TAB PO SCH (08:06)
[2019-12-14] MEDS: Cyanocobalamin (Vitamin B-12) 1,000 MCG TAB PO SCH (08:06)
[2019-12-14] MEDS: Allopurinol 100 MG TAB PO SCH ×2 (08:06→21:11)
[2019-12-14] MEDS: Furosemide 40 MG TAB PO SCH ×2 (08:06→14:02)
[2019-12-14] MEDS: Metoprolol Tartrate 25 MG TAB PO SCH ×2 (08:06→21:11)
[2019-12-14] MEDS: Aspirin Chewable 81 MG TAB PO SCH (08:06)
[2019-12-14] MEDS: Losartan Potassium 50 MG TAB PO SCH (08:06)
[2019-12-14] MEDS: Ubidecarenone 50 MG CAP PO SCH (08:07)
[2019-12-14] MEDS: Triamcinolone 0.1% Cream 15 GM TUBE TOP SCH ×2 (08:07→21:22)
[2019-12-14] MEDS: HumaLOG 300 UNITS/3 ML VIAL SC PRN (17:09)
[2019-12-14] MEDS: Polyethylene Glycol 3350 17 GM Packet PO SCH (21:11)
[2019-12-14] MEDS: Lantus 1000 UNITS/10 ML VIAL SC SCH (21:11)
[2019-12-14] MEDS: Emollient 15 oz bottle 450 ML, Triamcinolone Acetonide 200 MG TOP PRN (21:12)
[2019-12-14] MEDS: ALPRAZolam 0.25 MG TAB PO PRN (21:13)
[2019-12-15] MEDS: Levothyroxine Sodium 75 MCG TAB PO SCH (05:30)
[2019-12-15] MEDS: Ubidecarenone 50 MG CAP PO SCH (08:01)
[2019-12-15] MEDS: Dronedarone HCl 400 MG TAB PO SCH ×3 (08:01→16:59)
[2019-12-15] MEDS: Furosemide 40 MG TAB PO SCH ×2 (08:02→14:41)
[2019-12-15] MEDS: Cyanocobalamin (Vitamin B-12) 1,000 MCG TAB PO SCH (08:02)
[2019-12-15] MEDS: Aspirin Chewable 81 MG TAB PO SCH (08:02)
[2019-12-15] MEDS: Losartan Potassium 50 MG TAB PO SCH (08:02)
[2019-12-15] MEDS: Allopurinol 100 MG TAB PO SCH ×2 (08:03→20:54)
[2019-12-15] MEDS: Triamcinolone 0.1% Cream 15 GM TUBE TOP SCH ×2 (08:03→20:55)
[2019-12-15] MEDS: Multivit, Therapeutic 1 TAB PO SCH (08:03)
[2019-12-15] MEDS: Metoprolol Tartrate 25 MG TAB PO SCH ×2 (08:03→20:54)
[2019-12-15] MEDS ORDERED: Furosemide 40 MG TAB PO SCH (08:45)
--- NOTE | 2019-12-15 10:39 | PRG ---
DATE OF SERVICE: 12/15/2019 SUBJECTIVE: The patient says she is doing all right. She said her weight has gone up a pound. She had lost one yesterday, but has regained it. Her breathing is about the same. She still has swelling in her legs, mainly on the right. The patient says that when she takes the Humalog that was given by sliding scale, her legs just feel . She also feels just heavy through the chest and she would like to stop this. She says the Lantus does not bother her. At home, she was not on any medications for her diabetes. OBJECTIVE: GENERAL: The patient is alert, appears in no distress. VITAL SIGNS: Her temperature 97.6, pulse 64, respirations 16, O2 saturation 96 % on 2 L, blood pressure 107/49. Her weight is 171. LUNGS: Clear except for rales at the right posterior base and some rales that were early over the left upper anterior chest. HEART: Regular rate. EXTREMITIES: 1+ edema in the right ankle and foot and trace on the left. LABORATORY DATA: Her FBS this morning was 128. ASSESSMENT: 1. Generalized weakness and deconditioning. a. Following hospitalization from through 10/29 leaving her very weak. b. Continued improvement as of 12/14. 2. Hospitalized at [facility] from through 10/29 for acute-on- chronic hypoxic respiratory failure, [id number] diastolic heart failure and restrictive lung disease. 3. Restrictive lung disease. 4. Chronic right heart failure. The patient still has some evidence of fluid overload. Weight is 171 as of 12/14. 5. Chronic diastolic heart failure. a. Fnvhu-cp-eswthsd congestive heart failure on 11/18. b. Acute process resolved, but she has intermittent episodes of increased fluid retention with her weight of 171 as of 12/14. 6. Coronary artery disease. 7. Valvular heart disease. 8. Diabetes type 2. 9. History of atrial fibrillation. 10. Status post biventricular pacemaker. 11. Hypertension. 12. Chronic kidney disease. a. Severe chronic kidney disease with GFR of 18 on 11/28. b. GFR improved to 22, BUN down to 79, creatinine down to 2.1 as of 12/05. c. GFR up to 23, BUN down to 75, creatinine down to 2.02 as of 12/10. PLAN: Continue present care. We will give the patient additional Lasix this morning. Recheck her renal function in the morning. Visited with patient, she is looking to make arrangements, possibly go home at the end of this week. She stays by herself. Does have a caregiver that comes in and assists in the mornings 3 days a week, has a daughter in-law that assists and also has home health. Job ID: [id number] MTDD
[2019-12-15] MEDS ORDERED: REPATHA 140 MG/ML SC SCH (13:15)
[2019-12-15] MEDS: Lantus 1000 UNITS/10 ML VIAL SC SCH (20:54)
[2019-12-15] MEDS: Polyethylene Glycol 3350 17 GM Packet PO SCH (20:54)
[2019-12-15] MEDS: ALPRAZolam 0.25 MG TAB PO PRN (20:55)
[2019-12-15] MEDS: Emollient 15 oz bottle 450 ML, Triamcinolone Acetonide 200 MG TOP PRN (20:55)
[2019-12-16] MEDS: Levothyroxine Sodium 75 MCG TAB PO SCH (05:26)
[2019-12-16 05:36] LABS: Calcium 8.8 mg/dL (7.8-10.44); Chloride 104 mmol/L (98-107); Potassium 4.2 mmol/L (3.5-5.1); Sodium 143 mmol/L (136-145)
[2019-12-16 05:43] LABS: #Basophils 0.1 thou/uL (0.0-0.2); #Eosinphils 1.2 thou/uL (0.0-0.7); #Lymphocytes 0.9 thou/uL (1.20-3.40); #Monocytes 0.5 thou/uL (0.11-0.59); #Neutrophils 2.9 thou/uL (1.40-6.50); %Basophils 1.5 % (0.0-1.0); %Eosinophils 21.7 % (0.0-10.0); %Lymphocytes 15.6 % (21.0-51.0); %Monocytes 8.5 % (0.0-10.0); %Neutrophils 52.6 % (42.0-75.0); Hemoglobin 9.7 g/dL (12.0-16.0); Hypochromia SLIGHT = 6-15 cells (100X) (0-5/hpf); MDiff Complete? YES; Mean Corpuscular Hemoglobin 31.4 pg (27.0-31.0); Mean Corpuscular Volume 101.3 fL (78.0-98.0); Mean Platelet Volume 8.3 fL (7.4-10.4); Platelet Count 95 thou/uL (130-400); Platelet Morphology Comment Appears Decreased; RBC Distribution Width 16.1 % (11.5-14.5); Red Blood Cell (RBC) Count 3.08 mill/uL (4.20-5.40); Schistocytes SLIGHT = 2-5 cells (100X) (0-1/hpf); Tear Drops SLIGHT = 2-5 cells (100X) (0-1/hpf); White Blood Cell (WBC) Count 5.5 thou/uL (4.8-10.8)
[2019-12-16 05:49] LABS: Carbon Dioxide 29 mmol/L (23-31); Glucose 132 mg/dL (83-110)
[2019-12-16 06:26] LABS: BUN (Urea Nitrogen) 78 mg/dL (9.8-20.1); Calc. Creatinine Clearance 25 mL/min (70-130); Estimated GFR-MDRD 23
[2019-12-16 06:48] LABS: Anion Gap 14 mmol/L (10-20)
[2019-12-16] MEDS: Multivit, Therapeutic 1 TAB PO SCH (07:57)
[2019-12-16] MEDS: Metoprolol Tartrate 25 MG TAB PO SCH ×2 (07:57→20:51)
[2019-12-16] MEDS: Furosemide 40 MG TAB PO SCH ×2 (07:57→13:36)
[2019-12-16] MEDS: Aspirin Chewable 81 MG TAB PO SCH (07:57)
[2019-12-16] MEDS: Allopurinol 100 MG TAB PO SCH ×2 (07:57→20:51)
[2019-12-16] MEDS: Losartan Potassium 50 MG TAB PO SCH (07:58)
[2019-12-16] MEDS: Ubidecarenone 50 MG CAP PO SCH (07:59)
[2019-12-16] MEDS: Dronedarone HCl 400 MG TAB PO SCH ×3 (07:59→16:58)
[2019-12-16] MEDS: Cyanocobalamin (Vitamin B-12) 1,000 MCG TAB PO SCH (07:59)
[2019-12-16] MEDS: Triamcinolone 0.1% Cream 15 GM TUBE TOP SCH ×2 (08:03→20:54)
--- NOTE | 2019-12-16 10:33 | PRG ---
DATE OF SERVICE: 12/16/2019 SUBJECTIVE: The patient said that she is doing better. She had a good night. Her breathing is doing good. Her legs feel a lot better since the Humalog was stopped. She said she walked with no trouble yesterday. OBJECTIVE: GENERAL: The patient is sitting up on the side of the bed. She is alert, appears very comfortable, in no distress. VITAL SIGNS: Her temperature is 96.9, pulse 63, respirations 18, O2 saturation 100% on 2 L, blood pressure 134/60. Her weight is 172, output 1900. LUNGS: Clear except for some chronic rales at right posterior base. HEART: Regular rate. EXTREMITIES: Edema on the right foot looks better. LABORATORY DATA: H and H 9.7 and 31.2, white cell count 5500 with 53% segs, 16% lymphocytes, and a platelet count of 95,000. Her sodium 143, potassium 4.2, BUN 78, creatinine 2.06, GFR 23. FBS 132. ASSESSMENT: 1. Generalized weakness and deconditioning. a. Secondary to hospitalization from to 10/29 leaving her very weak. b. Continued improvement as of 12/15. 2. Hospitalized at [facility] from through 10/30/2019, for acute on chronic hypoxic respiratory failure, acute on chronic diastolic heart failure, and restrictive lung disease. 3. Restrictive lung disease. 4. Chronic right heart failure. a. Stable with weight of 172 as of 12/15. 5. Chronic diastolic heart failure. a. Acute on chronic congestive heart failure on 11/18. b. Acute process is resolved. Fluid overload is improved. Weight is stable at 172 as of 12/15. 6. Coronary artery disease. 7. Valvular heart disease. 8. Diabetes type 2, controlled. 9. History of atrial fibrillation. 10. Status post biventricular pacemaker. 11. Hypertension. 12. Chronic kidney disease. a. Severe chronic kidney disease with a GFR of 18 on 11/28. b. GFR stable at 23 as of 12/15. PLAN: Continue present care. Continue PT and OT. The patient is considering going home this Sunday on 12/18. She is making sure she has adequate help and we will see how the rest of this week goes. We will continue PT and OT. Job ID: [id number] [facility]
[2019-12-16] MEDS: Lantus 1000 UNITS/10 ML VIAL SC SCH (20:51)
[2019-12-16] MEDS: Polyethylene Glycol 3350 17 GM Packet PO SCH (20:51)
[2019-12-16] MEDS: ALPRAZolam 0.25 MG TAB PO PRN (20:53)
[2019-12-16] MEDS: Guaifenesin DM 100-10/5 ML UDCUP PO PRN (23:38)
[2019-12-17] MEDS: Levothyroxine Sodium 75 MCG TAB PO SCH (06:03)
[2019-12-17] MEDS: Ubidecarenone 50 MG CAP PO SCH (07:45)
[2019-12-17] MEDS: Cyanocobalamin (Vitamin B-12) 1,000 MCG TAB PO SCH (07:45)
[2019-12-17] MEDS: Furosemide 40 MG TAB PO SCH ×2 (07:45→14:12)
[2019-12-17] MEDS: Losartan Potassium 50 MG TAB PO SCH (07:45)
[2019-12-17] MEDS: Allopurinol 100 MG TAB PO SCH ×2 (07:45→20:26)
[2019-12-17] MEDS: Triamcinolone 0.1% Cream 15 GM TUBE TOP SCH ×2 (07:45→20:27)
[2019-12-17] MEDS: Aspirin Chewable 81 MG TAB PO SCH (07:45)
[2019-12-17] MEDS: Multivit, Therapeutic 1 TAB PO SCH (07:45)
[2019-12-17] MEDS: Metoprolol Tartrate 25 MG TAB PO SCH ×2 (07:45→20:26)
[2019-12-17] MEDS: Dronedarone HCl 400 MG TAB PO SCH ×3 (07:46→16:57)
[2019-12-17] MEDS ORDERED: Furosemide 40 MG TAB PO SCH (08:45)
--- NOTE | 2019-12-17 09:54 | PRG ---
DATE OF SERVICE: 12/17/2019 SUBJECTIVE: The patient says she is having a little more retention of fluid in her legs. There is some pitting where her legs laid against each other along the calves. Her feet are puffy. She says her breathing is about the same. OBJECTIVE: GENERAL: The patient is sitting up on side of the bed. She is talkative, appears comfortable, in no distress. VITAL SIGNS: Her weight is 172. Her blood pressure is 134/56, temp 96.6, pulse 63, respirations 18, O2 saturation 97% on 2 L. LUNGS: Have chronic rales of the right posterior base, otherwise clear. HEART: Regular rate. EXTREMITIES: 1+ edema that extends up into the right calf, trace on the left. LABORATORY DATA: Her FBS this morning 129, yesterday was 116. ASSESSMENT: 1. Generalized weakness and deconditioning. a. Secondary to recent hospitalization from through 10/29 leaving her very weak. b. Continued improvement as of 12/16. 2. Hospitalized at [facility] from through 10/30/19 for acute on chronic hypoxic respiratory failure, acute on chronic diastolic heart failure and restrictive lung disease. 3. Restrictive lung disease. 4. Chronic right heart failure. a. Weight stable at 172 as of 12/16. 5. Chronic diastolic heart failure. a. Acute on chronic congestive heart failure on 11/18. b. Acute process is resolved, but she is developing increasing fluid in her periphery with the weight though stable at 172 as of 12/16. 6. Coronary artery disease. 7. Valvular heart disease. 8. Diabetes type 2, controlled. 9. History of atrial fibrillation. 10. Status post biventricular pacemaker. 11. Hypertension. 12. Chronic kidney disease. a. Severe with GFR of 18 on 11/28. b. GFR has gradually improved to 23 as of 12/15. PLAN: We will give patient an additional 40 mg of Lasix this morning for a total of 80 mg. Continue PT and OT. Continue other medications. The patient tentatively planning on going home on Sunday, 12/18. Job ID: [id number] MTDD
[2019-12-17] MEDS: Lantus 1000 UNITS/10 ML VIAL SC SCH (20:25)
[2019-12-17] MEDS: Polyethylene Glycol 3350 17 GM Packet PO SCH (20:26)
[2019-12-17] MEDS: ALPRAZolam 0.25 MG TAB PO PRN (20:26)
[2019-12-17] MEDS: Guaifenesin DM 100-10/5 ML UDCUP PO PRN (23:47)
[2019-12-18] MEDS: Levothyroxine Sodium 75 MCG TAB PO SCH (05:18)
[2019-12-18] MEDS: Dronedarone HCl 400 MG TAB PO SCH ×3 (08:08→17:03)
[2019-12-18] MEDS: Aspirin Chewable 81 MG TAB PO SCH (08:09)
[2019-12-18] MEDS: Allopurinol 100 MG TAB PO SCH ×2 (08:09→21:13)
[2019-12-18] MEDS: Multivit, Therapeutic 1 TAB PO SCH (08:10)
[2019-12-18] MEDS: Furosemide 40 MG TAB PO SCH ×2 (08:10→15:07)
[2019-12-18] MEDS: Cyanocobalamin (Vitamin B-12) 1,000 MCG TAB PO SCH (08:10)
[2019-12-18] MEDS: Losartan Potassium 50 MG TAB PO SCH (08:10)
[2019-12-18] MEDS: Ubidecarenone 50 MG CAP PO SCH (08:10)
[2019-12-18] MEDS: Metoprolol Tartrate 25 MG TAB PO SCH ×2 (08:10→21:13)
[2019-12-18] MEDS: Triamcinolone 0.1% Cream 15 GM TUBE TOP SCH ×2 (08:11→21:15)
[2019-12-18] MEDS ORDERED: Furosemide 40 MG TAB PO SCH (08:15)
--- NOTE | 2019-12-18 12:21 | PRG ---
DATE OF SERVICE: 12/18/2019 SUBJECTIVE: The patient says she is feeling better. She said she lost 2 pounds. Still has quite a bit of swelling in her legs though. The patient said she is making arrangements to go home in the morning. The patient is doing very well with her therapy. OBJECTIVE: GENERAL: The patient is sitting up on the edge of the bed. She is alert and talkative, appears in no distress. VITAL SIGNS: Her weight is 170, temperature 97.9, pulse 64, respirations 18, O2 saturation 99% on 2 L, blood pressure 120/59. LUNGS: Clear except for some minimal rales at the right posterior base that are chronic. HEART: Regular rate. EXTREMITIES: The edema in the right lower leg is better, but there is still significant amount present, left leg just has trace. LABORATORY DATA: Her FBS this morning was 135. ASSESSMENT: 1. Generalized weakness and deconditioning: a. Secondary to recent hospitalization from through 10/29, leaving her very weak. b. Continued improvement as of 12/17. 2. Hospitalized at [facility] from 10/25/2019 through 10/30/2019 for acute on chronic hypoxic respiratory failure, acute on chronic diastolic heart failure, and restrictive lung disease. 3. Restrictive lung disease. 4. Chronic right heart failure: a. Stable with weight down to 170 as of 12/17. 5. Chronic diastolic heart failure: a. Acute on chronic congestive heart failure on 11/18. b. The acute process has resolved. The fluid overload is resolving with weight down to 170 as of 12/17. 6. Coronary artery disease. 7. Valvular heart disease. 8. Diabetes type 2, controlled. 9. History of atrial fibrillation. 10. Status post biventricular pacemaker. 11. Hypertension. 12. Chronic kidney disease. a. Severe with GFR of 18 on 11/28. b. GFR has improved to 23 as of 12/15. PLAN: We will give the patient additional Lasix this morning for total of 80 mg this a.m., continue the afternoon dose of 40 mg. Continue PT and OT. Anticipate her discharge in the morning. Job ID: [id number] MTDD
[2019-12-18 14:16] VITALS: BMI 28.3
[2019-12-18] MEDS: Polyethylene Glycol 3350 17 GM Packet PO SCH (21:12)
[2019-12-18] MEDS: Lantus 1000 UNITS/10 ML VIAL SC SCH (21:15)
[2019-12-18] MEDS: ALPRAZolam 0.25 MG TAB PO PRN (21:16)
[2019-12-19] MEDS: Levothyroxine Sodium 75 MCG TAB PO SCH (05:50)
[2019-12-19] MEDS: Dronedarone HCl 400 MG TAB PO SCH ×2 (08:10→11:57)
[2019-12-19] MEDS: Ubidecarenone 50 MG CAP PO SCH (08:11)
[2019-12-19] MEDS: Allopurinol 100 MG TAB PO SCH (08:12)
[2019-12-19] MEDS: Losartan Potassium 50 MG TAB PO SCH (08:12)
[2019-12-19] MEDS: Cyanocobalamin (Vitamin B-12) 1,000 MCG TAB PO SCH (08:12)
[2019-12-19] MEDS: Metoprolol Tartrate 25 MG TAB PO SCH (08:12)
[2019-12-19] MEDS: Multivit, Therapeutic 1 TAB PO SCH (08:12)
[2019-12-19] MEDS: Aspirin Chewable 81 MG TAB PO SCH (08:12)
[2019-12-19] MEDS: Furosemide 40 MG TAB PO SCH (08:12)
[2019-12-19] MEDS: Triamcinolone 0.1% Cream 15 GM TUBE TOP SCH (08:13)
[2019-12-19 08:30] VITALS: BP 138/63; TEMP 97
--- NOTE | 2019-12-20 07:28 | DIS ---
DATE OF ADMISSION: 10/30/2019 DATE OF DISCHARGE: 12/19/2019 FINAL DIAGNOSES: 1. Generalized weakness and deconditioning. a. Secondary to recent hospitalization from through 10/29 leaving her very weak. b. Continued improvement as of 12/18. 2. Hospitalized at [facility] from 10/25/2019 through 10/30/2019 for acute on chronic hypoxic respiratory failure, acute on chronic diastolic heart failure and restrictive lung disease. 3. Restrictive lung disease. a. Complicated by chronic hypoxemia, requiring continuous supplemental O2. 4. Chronic right heart failure. a. Stable with a weight 172 as of 12/18. 5. Chronic diastolic heart failure. a. Acute on chronic congestive heart failure on 11/19/2019. b. The acute process is resolved. She still has peripheral edema and weight up to 172 as of 12/18. 6. Coronary artery disease. 7. Valvular heart disease. a. Status post mitral valve replacement with bioprosthetic valve, January 2002. b. Status post redo mitral valve replacement for severe bioprosthetic mitral valve stenosis, December 2010. 8. Diabetes type 2, controlled. 9. History of atrial fibrillation. 10. Status post biventricular pacemaker. 11. Hypertension. 12. Chronic kidney disease. a. Severe with GFR of 18 on 11/28. b. GFR has improved to 23 as of 12/15. SUMMARY: The patient is an 84-year-old white female, who has a history of restrictive lung disease with chronic hypoxic failure requiring continuous supplemental O2. She also has coronary artery disease, chronic diastolic heart failure, right heart failure. She has had valvular heart disease with a mitral valve replacement in 2001 with a bioprosthetic valve and then she required a redo of this mitral valve for severe stenosis in 2010. She has a history of atrial fibrillation and diabetes and has a pacemaker. She has had problems with chronic diastolic heart failure. The patient also has a history of chronic kidney disease. The patient was hospitalized at [facility] from 10/25/2019 to 2019 for acute on chronic hypoxic respiratory failure and acute on chronic diastolic heart failure and her restrictive lung disease. Her last echocardiogram was done in January 2019, showed an ejection fraction of 55% to 60%, moderately enlarged right ventricle, severe tricuspid regurgitation, and moderate pulmonary regurgitation. The patient was treated with diuresis, receiving Lasix 4 mg/hour, slow IV infusion for which she was able to diurese without further damage to her kidneys. She did improve and lost about 10 pounds of excess fluid weight and felt much better. She was left extremely deconditioned and as a result, was transferred on 10/30/2019 to [facility] for continued rehabilitation. At the hospital, she was continued on her same medication. She did begin gaining weight from increasing peripheral edema, from her chronic right heart failure. She was continued on her furosemide 40 mg b.i.d. and Zaroxolyn 5 mg was added. Her weight dropped, but her renal function gradually got worse necessitating stopping of the Zaroxolyn. She did well and Physical Therapy continued to work with her and then again, she developed increasing weight, increasing shortness of breath. Her repeat chest x-ray showed chronic right pleural effusions, pulmonary vascular congestion. Her BNP was elevated to around 500. She had developed acute on chronic diastolic congestive heart failure on 11/18. She was treated with additional furosemide and weight gradually dropped and she improved. As a result of this diuretic therapy, she had further decline in her GFR to a level of 18. She was dropped back on her furosemide to 40 mg twice a day. She was allowed a little more for fluids, but still restricting her to 2000 mL a day. She seemed to do well from a respiratory standpoint, this remained stable. She did have a gradual increase in her weight. Her admission weight had been 159. She had dropped to a low of 157 and then after the Zaroxolyn was stopped, and she was receiving only the furosemide 40 b.i.d., her weight gradually christianne to 172 with peripheral edema. She seemed though very tolerant of this, but felt like this is primarily the result of her severe right heart failure manifested with the peripheral fluid retention. Her renal function had improved. Her BUN on admission was 48 and christianne to a high of 111. With the discontinuation of the Zaroxolyn, this gradually dropped down to 78 as of 12/15. Her creatinine christianne from an admission of 1.6 to 2.8 and then with the cessation of the Zaroxolyn and allowing a little more oral fluids, it dropped to 2.06. Her GFR also improved from a low of 18 to 23 on 12/15, on admission on 11/03, this was 22. She has severe chronic renal disease and it has been very difficult managing her chronic diastolic heart failure and right heart failure without adversely affecting the renal function. In order to preserve some of the renal function, allowed her weight to rise some as long as she was not having any respiratory symptoms. Eventually, this was settled on furosemide 40 mg b.i.d. and when her weight went up, we gave her 80 mg in the morning. At the time of her discharge, her weight was 172, and she had evidence of 1+ edema of the lower extremities. She is ready to go home and she has done very well with physical therapy, walking up to 75 feet with no assistive devices and transferring independently. She does require her supplemental O2. On 2 L, her O2 saturation usually stays in the mid 90s. The patient's blood sugars were controlled, and had to add Lantus 10 units and this seemed to do a good job with her control. Her recent hemoglobin A1c was 7. The patient's condition was stable except for the peripheral edema. On the day of her discharge, she was not having any respiratory difficulty. Her weight was 172. At home, the patient will have a caregiver who will be assisting several days a week. Her [id number] will also be assisting in her care and Home Health will check on her. DISPOSITION: Diet: No added salt diet. Fluid restriction of 2 L per day. Activities: Within her tolerance, within her home. The patient should stay home particularly with this coronavirus pandemic. Home Health will see her and arrange in-home PT. In two weeks Home Health will draw CBC, basic metabolic panel, and serum ferritin level. The patient will check her glucometer readings, fasting each morning. Medications: 1. Lantus 10 units subcu daily at bedtime. 2. Acetaminophen 325 mg two every 4 hours as needed. 3. Allopurinol 100 mg b.i.d. 4. Alprazolam 0.25 mg b.i.d. as needed. 5. Artificial Tears as needed. 6. Aspirin 81 mg daily. 7. Coenzyme 200 mg daily. 8. B12 a 1000 mcg daily. 9. Multaq 200 mg t.i.d. 10. Furosemide 40 mg b.i.d. The patient should weigh daily and if her weight is up more than 1 or 2 pounds from her baseline, will take 80 mg in the morning and 40 in the afternoon. With her present little increased peripheral edema, will take the 80 mg in the morning and 40 mg in the afternoon for the next three days. 11. Robitussin DM 15 mL every 4 hours as needed. 12. Levothyroxine 75 mcg daily. 13. Claritin 10 mg daily as needed. 14. Losartan 50 mg daily. 15. Metoprolol 25 mg b.i.d. 16. Kiara lotion with Kenalog 15 ounces/200 mg apply to the skin as needed for itch three times a day. 17. Multivitamin daily. 18. Pantoprazole 40 mg b.i.d. 19. MiraLAX 17 g, 8 ounces water daily. 20. Repatha 140 mg/mL one mL twice a month. Followup: Home Health will see the patient and do in-home therapy. The patient should follow up with her ingredient handler, Dr. Clinton, probably by telemedicine visit. We will arrange also for nephrology consultation due to her severe chronic kidney disease, will probably done by telemedicine. Recheck the patient by telemedicine by myself in 2 weeks. CODE STATUS: Full code. Job ID: [id number] MTDD
[2019-12-26] MEDS ORDERED: REPATHA 140 MG/ML SC SCH ×2 (09:00)
[2020-01-09] MEDS ORDERED: REPATHA 140 MG/ML SC SCH (09:00)
== END 2019-12-19 12:30 | disposition home or self-care (01) | DRG 947 ==
LOC: MADMS 14:51
PROVIDERS: ADMIT Family Medicine; ATTEND Family Medicine
DX: R53.81 Other malaise (principal); I50.33 Acute on chronic diastolic (congestive) heart failure; J96.11 Chronic respiratory failure with hypoxia; I13.0 Hypertensive heart and chronic kidney disease with heart failure and stage 1 through stage 4 chronic kidney disease, or unspecified chronic kidney disease; R53.1 Weakness; J98.4 Other disorders of lung; I50.812 Chronic right heart failure; I25.10 Atherosclerotic heart disease of native coronary artery without angina pectoris; M10.9 Gout, unspecified; K21.9 Gastro-esophageal reflux disease without esophagitis; E03.9 Hypothyroidism, unspecified; F41.9 Anxiety disorder, unspecified; E11.22 Type 2 diabetes mellitus with diabetic chronic kidney disease; N18.9 Chronic kidney disease, unspecified; G47.00 Insomnia, unspecified; J84.10 Pulmonary fibrosis, unspecified; I07.1 Rheumatic tricuspid insufficiency; I37.1 Nonrheumatic pulmonary valve insufficiency; R63.5 Abnormal weight gain; L30.9 Dermatitis, unspecified; Z68.28 Body mass index [BMI] 28.0-28.9, adult; Z86.79 Personal history of other diseases of the circulatory system; Z95.1 Presence of aortocoronary bypass graft; Z95.2 Presence of prosthetic heart valve; Z95.0 Presence of cardiac pacemaker; Z86.711 Personal history of pulmonary embolism; Z95.5 Presence of coronary angioplasty implant and graft; Z90.710 Acquired absence of both cervix and uterus; Z90.49 Acquired absence of other specified parts of digestive tract; Z90.89 Acquired absence of other organs; Z79.82 Long term (current) use of aspirin; Z79.899 Other long term (current) drug therapy; Z88.0 Allergy status to penicillin; Z88.1 Allergy status to other antibiotic agents; Z88.8 Allergy status to other drugs, medicaments and biological substances
CPT/HCPCS: 36415; 36416; 71045; 71046; 80048; 80053; 83036; 83880; 84550; 85025; J1815; J3301; J7050

== ENCOUNTER 2019-12-29 16:23 | Emergency (ER) | payer MEDICARE, OTHER ==
[2019-12-29] MEDS ORDERED: Furosemide 40 MG TAB ONE (16:41)
[2019-12-29] MEDS ORDERED: Furosemide 20 MG/2 ML VIAL ONE ×2 (16:41→16:42)
[2019-12-29] MEDS ORDERED: Aspirin Chewable 81 MG TAB ONE (16:41)
[2019-12-29] MEDS ORDERED: Furosemide 40 MG/4 ML VIAL ONE (16:42)
[2019-12-29 17:01] LABS: #Basophils 0.1 thou/uL (0.0-0.2); #Eosinphils 0.8 thou/uL (0.0-0.7); #Lymphocytes 0.9 thou/uL (1.20-3.40); #Monocytes 0.5 thou/uL (0.11-0.59); #Neutrophils 4.4 thou/uL (1.40-6.50); %Basophils 1.5 % (0.0-1.0); %Eosinophils 12.4 % (0.0-10.0); %Lymphocytes 13.8 % (21.0-51.0); %Monocytes 6.8 % (0.0-10.0); %Neutrophils 65.5 % (42.0-75.0); Anisocytosis SLIGHT = 6-15 cells (100X) (0-5/hpf); Hemoglobin 11.1 g/dL (12.0-16.0); Hypochromia MODERATE=16-30 cells (100X) (0-5/hpf); MDiff Complete? YES; Macrocytosis SLIGHT = 6-15 cells (100X) (0-5/hpf); Mean Corpuscular HGB CONC 30.6 g/dL (32.0-36.0); Mean Corpuscular Hemoglobin 31.2 pg (27.0-31.0); Mean Platelet Volume 10.3 fL (7.4-10.4); Platelet Count 120 thou/uL (130-400); Platelet Morphology Comment Appears Decreased; RBC Distribution Width 16.3 % (11.5-14.5); Red Blood Cell (RBC) Count 3.57 mill/uL (4.20-5.40); Schistocytes SLIGHT = 2-5 cells (100X) (0-1/hpf); White Blood Cell (WBC) Count 6.7 thou/uL (4.8-10.8)
[2019-12-29 17:04] LABS: ALT (SGPT) 17 U/L (8-55); AST (SGOT) 24 U/L (5-34); Albumin 4.2 g/dL (3.4-4.8); Alkaline Phosphatase 173 U/L (40-110); Anion Gap 18 mmol/L (10-20); BUN (Urea Nitrogen) 37 mg/dL (9.8-20.1); Bilirubin, Total 0.7 mg/dL (0.2-1.2); Calc. Creatinine Clearance 0 mL/min (70-130); Carbon Dioxide 28 mmol/L (23-31); Chloride 102 mmol/L (98-107); Estimated GFR-MDRD 28; Globulin 2.4 g/dL (2.4-3.5); Glucose 138 mg/dL (83-110); Potassium 4.1 mmol/L (3.5-5.1); Protein, Total 6.6 g/dL (6.0-8.3); Sodium 144 mmol/L (136-145)
--- NOTE | 2019-12-29 17:53 | RAD ---
SINGLE VIEW OF THE CHEST: Comparison: 12-06-19 History: Shortness of breath FINDINGS: Single view of the chest shows an enlarged but stable cardiomediastinal silhouette. The pacemaker is unchanged in position. The patient is status post sternotomy. There is slight obscurity of the left h emidiaphragm which may be secondary to patient's large heart. A small left pleural effusion cannot be entirely excluded. No right infiltrate or pleural effusion is seen. IMPRESSION: Cardiomegaly. POS: EAA
== END 2019-12-29 18:15 | disposition short-term general hospital (02) ==
LOC: MADERS 16:23
DX: J81.0 Acute pulmonary edema (principal); R94.31 Abnormal electrocardiogram [ECG] [EKG]; D50.9 Iron deficiency anemia, unspecified; E11.9 Type 2 diabetes mellitus without complications; E03.9 Hypothyroidism, unspecified; I25.10 Atherosclerotic heart disease of native coronary artery without angina pectoris; J44.9 Chronic obstructive pulmonary disease, unspecified; I25.2 Old myocardial infarction; I48.91 Unspecified atrial fibrillation; I11.0 Hypertensive heart disease with heart failure; I50.9 Heart failure, unspecified; Z79.899 Other long term (current) drug therapy; Z79.82 Long term (current) use of aspirin; Z86.711 Personal history of pulmonary embolism; Z87.891 Personal history of nicotine dependence
CPT/HCPCS: 71045; 80053; 83880; 84484; 85025; 93005; 94760; 96374; J1940

== ENCOUNTER 2020-01-14 22:14 | Emergency (ER) | payer MEDICARE, OTHER ==
[~2020-01-14 22:14] MED LIST changes: +Atropine Sulfate 1 mg/10 ml Syringe ONE; +Calcium Chloride 1 GM/10 ML Abboject SYRINGE ONE; -Iopamidol 370 76% 100 ML VIAL ONE; +Sodium Chloride 0.9% 1,000 ML BAG ONE; -Sodium Chloride 0.9% 100 ML BAG ONE
[2020-01-14 22:48] LABS: #Basophils 0.1 thou/uL (0.0-0.2); #Eosinphils 2.2 thou/uL (0.0-0.7); #Lymphocytes 1.5 thou/uL (1.20-3.40); #Monocytes 0.5 thou/uL (0.11-0.59); #Neutrophils 5.8 thou/uL (1.40-6.50); %Basophils 0.8 % (0.0-1.0); %Eosinophils 21.6 % (0.0-10.0); %Lymphocytes 15.3 % (21.0-51.0); %Neutrophils 57.3 % (42.0-75.0); Hemoglobin 12.1 g/dL (12.0-16.0); Mean Corpuscular Hemoglobin 30.3 pg (27.0-31.0); Mean Corpuscular Volume 100.9 fL (78.0-98.0); Mean Platelet Volume 8.6 fL (7.4-10.4); Platelet Count 150 thou/uL (130-400); RBC Distribution Width 15.5 % (11.5-14.5); Red Blood Cell (RBC) Count 3.98 mill/uL (4.20-5.40); White Blood Cell (WBC) Count 10.1 thou/uL (4.8-10.8)
[2020-01-14 22:55] LABS: INR-International Normal Ratio 1.1; Prothrombin Time 14.2 sec (12.0-14.7)
--- NOTE | 2020-01-14 22:56 | RAD ---
Exam: Chest one view HISTORY:Dizziness. Vertigo. Comparison: 12/29/2019 FINDINGS: Pacing device: Stable left-sided dual-lead transvenous pacemaker with lead positioned over the right atrium and right ventricle. Stable aortic prosthetic valve. Stable sternotomy wires. Cardiac silhouette:Upper normal cardiac silhouette. Aorta: Atherosclerosis and elongation of the aorta Pulmonary vessels: Mildly prominent Costophrenic angles: Clear LUNGS: Diffuse reticulonodular opacities. Pneumothorax: None Osseous abnormalities: None IMPRESSION: 1. Possible congestive heart failure. 2. Atherosclerosis.
[2020-01-14 23:04] LABS: ALT (SGPT) 14 U/L (8-55); AST (SGOT) 21 U/L (5-34); Albumin 4.3 g/dL (3.4-4.8); Alkaline Phosphatase 151 U/L (40-110); Anion Gap 20 mmol/L (10-20); BUN (Urea Nitrogen) 43 mg/dL (9.8-20.1); Calc. Creatinine Clearance 0 mL/min (70-130); Carbon Dioxide 28 mmol/L (23-31); Chloride 97 mmol/L (98-107); Estimated GFR-MDRD 22; Globulin 2.8 g/dL (2.4-3.5); Glucose 214 mg/dL (83-110); Potassium 3.5 mmol/L (3.5-5.1); Protein, Total 7.1 g/dL (6.0-8.3); Sodium 141 mmol/L (136-145)
[2020-01-14] MEDS ORDERED: Ketamine 50 MG/ML (10ML VIAL) ONE (23:12)
[2020-01-14] MEDS ORDERED: Ondansetron PF 4 MG/2 ML Vial ONE (23:13)
== END 2020-01-14 23:18 | disposition short-term general hospital (02) ==
LOC: MADERS 22:14
DX: I49.9 Cardiac arrhythmia, unspecified (principal); R55 Syncope and collapse; I50.9 Heart failure, unspecified; Z79.899 Other long term (current) drug therapy
CPT/HCPCS: 71045; 80053; 83735; 84443; 84484; 85025; 85610; 93005; 96361; 96374; 96375; J0461; J2405; J7050

== ENCOUNTER 2020-01-28 20:10 | Inpatient (IN) | payer MEDICARE, OTHER ==
[2020-01-28] MEDS ORDERED: Acetaminophen 500 MG TAB PO PRN (22:07)
[2020-01-28] MEDS ORDERED: Lidocaine 5% Patch TD PRN (22:11)
[2020-01-28] MEDS ORDERED: Allopurinol 100 MG TAB PO SCH (22:45)
[2020-01-28] MEDS ORDERED: Bisacodyl 10 MG SUPP PR SCH (22:45)
[2020-01-28] MEDS ORDERED: traMADol HCl 50 MG TAB PO PRN (22:53)
[2020-01-28] MEDS ORDERED: Sodium Chloride 0.65% Nasal 44 ML BOT EA NARE SCH (23:00)
[2020-01-28] MEDS ORDERED: Doxycycline 100 MG CAP PO SCH (23:00)
[2020-01-28] MEDS: ALPRAZolam 0.25 MG TAB PO PRN (23:05)
[2020-01-29 05:53] LABS: #Basophils 0.1 thou/uL (0.0-0.2); #Lymphocytes 1.5 thou/uL (1.20-3.40); #Monocytes 0.6 thou/uL (0.11-0.59); #Neutrophils 4.9 thou/uL (1.40-6.50); %Basophils 1.1 % (0.0-1.0); %Eosinophils 12.6 % (0.0-10.0); %Lymphocytes 18.9 % (21.0-51.0); %Monocytes 6.8 % (0.0-10.0); %Neutrophils 60.6 % (42.0-75.0); Hemoglobin 11.1 g/dL (12.0-16.0); Mean Corpuscular HGB CONC 30.1 g/dL (32.0-36.0); Mean Corpuscular Volume 99.5 fL (78.0-98.0); Mean Platelet Volume 7.8 fL (7.4-10.4); Platelet Count 152 thou/uL (130-400); RBC Distribution Width 14.6 % (11.5-14.5); Red Blood Cell (RBC) Count 3.71 mill/uL (4.20-5.40); White Blood Cell (WBC) Count 8.1 thou/uL (4.8-10.8)
[2020-01-29] MEDS: Levothyroxine Sodium 75 MCG TAB PO SCH (05:55)
[2020-01-29 06:07] LABS: ALT (SGPT) 10 U/L (8-55); AST (SGOT) 15 U/L (5-34); Albumin 3.4 g/dL (3.4-4.8); Alkaline Phosphatase 147 U/L (40-110); Anion Gap 15 mmol/L (10-20); BUN (Urea Nitrogen) 17 mg/dL (9.8-20.1); Bilirubin, Total 0.5 mg/dL (0.2-1.2); Calc. Creatinine Clearance 43 mL/min (70-130); Calcium 9.3 mg/dL (7.8-10.44); Carbon Dioxide 33 mmol/L (23-31); Chloride 98 mmol/L (98-107); Estimated GFR-MDRD 48; Globulin 2.4 g/dL (2.4-3.5); Glucose 121 mg/dL (83-110); Magnesium 1.6 mg/dL (1.6-2.6); Potassium 4.6 mmol/L (3.5-5.1); Protein, Total 5.8 g/dL (6.0-8.3); Sodium 141 mmol/L (136-145)
[2020-01-29] MEDS ORDERED: Potassium Chloride 20 MEQ TAB PO SCH ×2 (08:00→14:00)
[2020-01-29] MEDS: Doxycycline 100 MG CAP PO SCH ×2 (08:15→21:32)
[2020-01-29] MEDS: Magnesium Oxide 400 MG TAB PO SCH ×2 (08:15→21:32)
[2020-01-29] MEDS: Aspirin Chewable 81 MG TAB PO SCH (08:15)
[2020-01-29] MEDS: Allopurinol 100 MG TAB PO SCH ×2 (08:16→21:33)
[2020-01-29] MEDS: Cyanocobalamin (Vitamin B-12) 1,000 MCG TAB PO SCH (08:16)
[2020-01-29] MEDS: Furosemide 40 MG TAB PO SCH ×2 (08:16→14:03)
[2020-01-29] MEDS: Ubidecarenone 50 MG CAP PO SCH (08:16)
[2020-01-29] MEDS: Potassium Chloride 20 MEQ TAB PO SCH (08:17)
[2020-01-29] MEDS: Sodium Chloride 0.65% Nasal 44 ML BOT EA NARE SCH ×3 (08:33→20:35)
[2020-01-29] MEDS: Bisacodyl 10 MG SUPP PR SCH ×2 (11:20→21:33)
[2020-01-29] MEDS: Lidocaine Patch Removal 1 EACH TOP SCH ×2 (11:21→21:33)
--- NOTE | 2020-01-29 17:52 | HP ---
CHIEF COMPLAINT: Weakness. HISTORY OF PRESENT ILLNESS: The patient is an 84-year-old white female, who has a history of restrictive lung disease with chronic hypoxic respiratory failure requiring continuous supplemental O2, has coronary artery disease, chronic diastolic heart failure, and chronic right heart failure. She has valvular heart disease for which she has undergone mitral valve replacement in 2001 with a bioprosthetic valve. She required a redo of this mitral valve for severe stenosis in 2010. She has had problems with atrial arrhythmias and required pacemaker. She has chronic diastolic heart failure. The patient was hospitalized at [facility] from until 10/30/19 for acute on chronic congestive heart failure and acute on chronic diastolic heart failure and her restrictive lung disease. She was subsequently moved to [facility] for skilled care due to her weakness and there she remained until 12/18. The patient required readmission to [facility] from 01/07 to 01/12 for acute on chronic congestive heart failure and right heart failure. She was readmitted to [facility] on 01/14 for a torsade like arrhythmia, that one episode required external cardiac compression resulting in some rib fractures, particularly on the left side. She was evaluated by her international sourcing manager, Dr. Riggs, who felt like she has had the history of recurrent atrial arrhythmias, had been on amiodarone that he felt had probably precipitated the torsade due to the prolongation of QT interval. This was contributed to by low potassium and low magnesium. She required transient IV lidocaine. Gradually these arrhythmias were controlled. Her amiodarone was stopped. Her hypokalemia and hypomagnesemia were all controlled. She did undergo a repeat heart catheterization and did not find any significant change. She also had a dysfunction of her right atrial pacemaker lead and underwent a revision on 01/23/20. She required treatment with IV morphine for her severe chest wall pain and she developed a marked abdominal distention. She was seen by gastroenterologists, Dr. Swenson and Dr. 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 She has gradually advanced as of to a heart healthy diet. She was left extremely weak and only been able to walk just a very few steps. She was transferred to [facility] late on the evening of 01/28/2020 for physical therapy and she was admitted to the [facility]. The patient was seen early on the morning of 01/29/20 and was able to review with me what all had happened. She is feeling better. Her breathing is doing better. Her swelling has all been resolved in her legs and she is breathing better. Her stomach is going down. She is still sore on that left lower anterolateral chest from the chest compressions that she went through. She is just very weak and spent from all that she has been through her. PAST HISTORY: See above. The patient has chronic hypoxic respiratory failure from severe restrictive lung disease contributed to by her severe kyphoscoliosis. She requires continuous supplemental O2. The patient has coronary artery disease. She had a coronary artery bypass in 2000 and that was complicated by pulmonary embolism. She had a stent placed in the right coronary artery in October 2001. She had a redo coronary artery bypass x1 to the right coronary artery in October of 2001. She underwent a redo mitral valve replacement for severe mitral bioprosthetic valve stenosis in 2010. She has had multiple atrial arrhythmias in August 2018, underwent electrical cardioversion and loading with amiodarone. She then had a pacemaker placed. She since then had paroxysmal atrial tachycardias. She is not a candidate for anticoagulation due to history of iron deficiency anemia requiring multiple iron transfusions in the past and apparently has had some previous GI bleeds. She has a history of GERD. Previous GI workups have been negative. She has hypothyroidism, chronic kidney disease that has created difficulty managing her chronic congestive failure with the diuretics. She has an anxiety disorder. She has had bilateral cataract surgery, abdominal hysterectomy, cholecystectomy, tonsillectomy, bladder suspension, nasal septal repair. She had a nondisplaced fracture of the proximal phalanx of the right great toe that is healed as in July 2019. She had a recent heart catheterization that showed no change in December of 2019. She had a right atrial lead revision of her dual-chamber PPM on by Dr. Riggs. PRESENT MEDICINES: 1. Acetaminophen 500 mg two every 6 hours as needed. 2. Allopurinol 100 mg twice a day. 3. Alprazolam 0.25 mg twice a day as needed. 4. Aspirin 81 mg daily. 5. Dulcolax 10 mg per rectum twice a day. 6. Coenzyme Q10 200 mg daily. 7. Vitamin B12 a 1000 mg daily. 8. Doxycycline hyclate 100 mg twice a day that was started after pacemaker revision for 7 days, will finish on 01/30/20. 9. Furosemide 40 mg twice a day. 10. Lantus 10 units subcu at bedtime. 11. Levothyroxine 75 mcg daily. 12. Lidocaine patch 5% applied to her left lower and anterolateral chest wall daily as needed. 13. Magnesium oxide 400 mg twice a day. 14. Pantoprazole 40 mg twice a day. 15. Potassium chloride 40 mEq in the morning, 20 mEq in the evening. 16. Tramadol 50 mg every 4 hours as needed. 17. [place] nasal spray in each naris p.r.n. ALLERGIES: 1. NITROFURANTOIN. 2. PENICILLIN. 3. LISINOPRIL, CAUSES A COUGH. 4. ENABLEX. 5. TALWIN. 6. VICODIN. 7. DARVOCET. 8. NEURONTIN. 9. PREDNISONE, CAUSES MARKED SWELLING. 10. LEVAQUIN, NAUSEA. 11. CRESTOR, MYALGIAS. REVIEW OF SYSTEMS: GENERAL: The patient says she is just very weak, has only been able to walk 10 to 20 steps with help. Her weight, she said has been stable. HEAD AND NECK: No complaint other than this chronic nasal congestion for which she uses the nasal spray of saline. PULMONARY: No complaints. CARDIOVASCULAR: No chest pain. Chest wall has been very sore over the left lower anterolateral chest from the rib fractures from the external chest compressions. GI: The patient said she is passing a lot of gas, has been just advanced to a heart healthy diet. She had been on a clear liquid diet, advanced to full liquid and now to heart healthy. She said her bowels are moving and her stomach is gone way down. : No complaint. HABITS: Alcohol, none. Tobacco, none. SOCIAL HISTORY: The patient lives alone but her [id number] lives very close and assists her as needed with all her instrumental ADLs. CODE STATUS: DNR. PHYSICAL EXAMINATION: GENERAL: An 84-year-old white female, who is sitting up on side of the bed. She is alert, talkative, appears comfortable, but very weak. VITAL SIGNS: Her temp is 97.6, pulse 66, respirations 20, O2 saturation 98% on 2.5 L of oxygen, blood pressure 163/59. Her weight is 157. HEENT: Head normocephalic. Eyes, pupils are equal, round, and reactive. Sclerae are nonicteric. Ears, left TM clear. Right TM blocked by some cerumen. Nose, normal. Mouth, throat normal. NECK: Carotids are equal and strong. No bruits. LUNGS: Clear other than some early rales at the right posterior base that are chronic. HEART: Regular rate. Chest wall, patient is tender along the lower left anterolateral chest wall. There is no bruising in this area. ABDOMEN: Very mildly distended but very soft and has good bowel sounds and was nontender. EXTREMITIES: There is no edema. NEUROLOGIC: The patient is alert, oriented x3 and also oriented to her situation. She has generalized weakness that is non focal. IMPRESSION: 1. Generalized weakness and deconditioning. a. Secondary to multiple hospitalizations, most recent 01/14 to 01/27 leaving her with marked decline in her functional capabilities. 2. 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 3. Hospitalized at [facility] from until 10/30/19 for acute on chronic hypoxic respiratory failure, acute on chronic diastolic heart failure, and restrictive lung disease. 4. Restrictive lung disease. a. Complicated by chronic hypoxemia requiring continuous supplemental O2. 5. Chronic right heart failure. a. Presently no evidence of acute failure. 6. Chronic diastolic heart failure. a. Presently no evidence of acute heart failure as of 01/29/20. 7. Torsade like arrhythmia. a. Requiring resuscitation. b. Etiology secondary to amiodarone causing QT prolongation which was stopped and contributed to by hypokalemia and hypomagnesemia. c. No recurrence. 8. Coronary artery disease. a. Status post coronary artery bypass in 2000, status post redo coronary artery bypass x1 in October 2001, heart catheterization in December 2019 showed no change. 9. Valvular heart disease. a. Status post mitral valve replacement with bioprosthetic valve in January 2002. b. 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 10. Diabetes type 2. 11. History of recurrent atrial arrhythmias. a. Status post pacemaker placement that required right atrial lead revision of the dual-chamber PPM on 01/23/20. 12. Not a candidate for anticoagulants due to history of GI bleeds. 13. Sick sinus syndrome. 14. Hypertension. 15. Chronic kidney disease. 16. Code status, DNR. 17. [place] syndrome. a. Gradually resolving. PLAN: The patient has been admitted to [facility] for purpose of PT and OT in an effort to try to improve her severe weakness and deconditioning and functional decline. We will continue her present medicines. I have started her back on a heart healthy diet per recommendation of chess instructor, see orders. Job ID: [id number] MTDD
[2020-01-29] MEDS ORDERED: Insulin Glargine 10 UNITS in Pre-Filled Syringe 1 EACH SC SCH (21:00)
[2020-01-29] MEDS ORDERED: INSULIN SC SCH (21:00)
[2020-01-29] MEDS: Lantus 1000 UNITS/10 ML VIAL SC SCH (21:43)
[2020-01-29] MEDS: ALPRAZolam 0.25 MG TAB PO PRN (21:47)
[2020-01-30] MEDS: Levothyroxine Sodium 75 MCG TAB PO SCH (05:24)
[2020-01-30] MEDS: Ubidecarenone 50 MG CAP PO SCH (08:37)
[2020-01-30] MEDS: Furosemide 40 MG TAB PO SCH ×2 (08:38→13:57)
[2020-01-30] MEDS: Magnesium Oxide 400 MG TAB PO SCH ×2 (08:38→21:54)
[2020-01-30] MEDS: Aspirin Chewable 81 MG TAB PO SCH (08:38)
[2020-01-30] MEDS: Allopurinol 100 MG TAB PO SCH ×2 (08:38→21:52)
[2020-01-30] MEDS: Potassium Chloride 20 MEQ TAB PO SCH ×3 (08:38→21:59)
[2020-01-30] MEDS: Bisacodyl 10 MG SUPP PR SCH ×2 (08:39→21:52)
[2020-01-30] MEDS: Lidocaine Patch Removal 1 EACH TOP SCH ×2 (08:39→21:50)
[2020-01-30] MEDS: Cyanocobalamin (Vitamin B-12) 1,000 MCG TAB PO SCH (08:39)
[2020-01-30] MEDS: Sodium Chloride 0.65% Nasal 44 ML BOT EA NARE SCH ×3 (08:40→21:50)
[2020-01-30] MEDS: Doxycycline 100 MG CAP PO SCH ×2 (08:51→21:52)
--- NOTE | 2020-01-30 12:22 | PRG ---
DATE OF SERVICE: 01/30/2020 SUBJECTIVE: The patient says she feels better today. She said her breathing is better. She does have a little slight cough and intermittent nasal congestion that she has battled a long time. She is using the nasal saline spray for this. She did get up, move around her room more, walked a little bit more than she has been. Her bowels are moving and she is passing a lot of gas. She said that since she has been up more, she is getting just a little bit of swelling in her right ankle. OBJECTIVE: GENERAL: The patient is sitting on the side of the bed with her feet on the floor. She is alert, talkative, looks much better today. VITAL SIGNS: Show a temperature 97.4, pulse 69, respirations 20, O2 saturation 99% on 3 L, blood pressure 105/67. Her weight is 151. LUNGS: Clear except for some chronic rales at the right posterior base. HEART: Regular rate. EXTREMITIES: Trace edema of the right ankle. LABORATORY DATA: Her FBS was 139. ASSESSMENT: 1. Generalized weakness and deconditioning. a. Secondary to multiple hospitalization, most recent from 01/14 to 01/27 leaving her with marked decline in her functional capabilities. 2. 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 3. Hospitalized at [facility] from until 10/30/2019 for acute on chronic hypoxic respiratory failure, acute on chronic diastolic heart failure, and restrictive lung disease. 4. Restrictive lung disease. a. Complicated by chronic hypoxic respiratory failure requiring continuous supplemental O2. 5. Chronic right heart failure. a. Presently no evidence of acute failure. 6. Chronic diastolic heart failure. a. Presently no evidence of acute heart failure as of 01/29. 7. Torsade-like arrhythmia. a. Required resuscitation and temporary use of IV lidocaine. b. Etiology secondary to amiodarone-induced QT prolongation along with hypokalemia and hypomagnesemia. c. No recurrence. 8. Coronary artery disease. a. Status post coronary artery bypass in 2000, status post redo coronary artery bypass x1 in October 2001, heart catheterization in December 2019 showed no change. 9. Valvular heart disease. a. Status post mitral valve replacement with bioprosthetic valve in January of 2002. b. 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 10. Diabetes type 2. 11. History of recurrent atrial arrhythmia. a. Status post pacemaker placement that required right atrial lead revision of the dual-chamber PPM on 01/23/2020. b. Not a candidate for anticoagulants due to history of GI bleeds. 12. Sick sinus syndrome. 13. Hypertension. 14. Chronic kidney disease. 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 Gradually resolving. 16. Code status, DNR. PLAN: The patient is better. We will reduce her potassium to 20 mEq twice a day. Continue PT and OT. Job ID: [id number] MTDD
[2020-01-30] MEDS: ALPRAZolam 0.25 MG TAB PO PRN (13:57)
[2020-01-30] MEDS: Lantus 1000 UNITS/10 ML VIAL SC SCH (21:53)
[2020-01-31] MEDS: Levothyroxine Sodium 75 MCG TAB PO SCH (06:14)
--- NOTE | 2020-01-31 08:53 | PRG ---
DATE OF SERVICE: 01/31/2020 SUBJECTIVE: The patient said she is feeling a lot better. She did not sleep much last night. She said early this morning she had a very large bowel movement, passed lot of stools and gas, stomach feels better. She has had no shortness of breath. No chest pain. OBJECTIVE: GENERAL: The patient looks much better today. VITAL SIGNS: Show a temperature 97.6, pulse 70, respirations 18, O2 saturation 98% on 3 L, blood pressure 126/54. Her weight is 153. LUNGS: Clear except for some chronic rales on the right posterior base. HEART: Regular rate. EXTREMITIES: Trace edema of the right ankle. FBS yesterday morning 139, this morning is pending. ASSESSMENT: 1. Generalized weakness and deconditioning. a. Secondary to multiple hospitalizations, most recent from 12/15 to 01/27 leaving her with marked decline in her functional capability. 2. Hospitalized at [facility] from 01/14 until 01/28/2020 for torsades like arrhythmias secondary to QT prolongation from amiodarone and contributed to by the hypokalemia and hypomagnesemia. Also hospitalized with [place] syndrome that is resolving. While there, she required revision of her dual-chamber PPM, right atrial lead on 01/22. 3. Hospitalized at [facility] from until 10/30/2019 for [id number]-[id number] hypoxic respiratory failure and rkfql-xn-yvmerdl diastolic heart failure and restrictive lung disease. 4. Restrictive lung disease. a. Complicated by chronic hypoxic respiratory failure requiring continuous supplemental O2. 5. Chronic right heart failure. a. Presently, no evidence of acute failure. 6. Chronic diastolic heart failure. a. Presently no evidence of acute heart failure as of 01/30. 7. Torsades-like arrhythmia. a. Required resuscitation and temporary use of IV lidocaine. b. Etiology secondary to amiodarone-induced QT prolongation along with hypokalemia and hypomagnesemia. c. No recurrence. 8. Coronary artery disease. a. Status post coronary artery bypass, 2000, status post redo coronary artery bypass x1 October 2001, heart catheterization December 2019 showed no change. 9. Valvular heart disease. a. Status post mitral valve replacement with bioprosthetic valve January 2002. b. Status post redo mitral valve replacement by severe bioprosthetic mitral valve stenosis in December 2010. 10. Diabetes type 2. 11. History of recurrent atrial arrhythmia. a. Status post pacemaker placement that required right atrial lead revision of the dual-chamber PPM on 01/23/2020. b. Not a candidate for anticoagulants due to history of gastrointestinal bleed. 12. Sick sinus syndrome. 13. Hypothyroidism. 14. Chronic kidney disease. 15. [place] syndrome. a. Resolving. 16. Code status, DNR. PLAN: Continue present care. Continue PT and OT. Job ID: [id number] MTDD
[2020-01-31] MEDS: Cyanocobalamin (Vitamin B-12) 1,000 MCG TAB PO SCH (08:59)
[2020-01-31] MEDS: Furosemide 40 MG TAB PO SCH ×2 (08:59→14:08)
[2020-01-31] MEDS: Allopurinol 100 MG TAB PO SCH ×2 (08:59→21:59)
[2020-01-31] MEDS: Ubidecarenone 50 MG CAP PO SCH (08:59)
[2020-01-31] MEDS: Magnesium Oxide 400 MG TAB PO SCH ×2 (08:59→22:00)
[2020-01-31] MEDS: Aspirin Chewable 81 MG TAB PO SCH (08:59)
[2020-01-31] MEDS: Sodium Chloride 0.65% Nasal 44 ML BOT EA NARE SCH ×3 (09:00→21:50)
[2020-01-31] MEDS: Lidocaine Patch Removal 1 EACH TOP SCH (09:03)
[2020-01-31] MEDS: Bisacodyl 10 MG SUPP PR SCH ×2 (09:04→21:59)
[2020-01-31] MEDS: Potassium Chloride 10 MEQ TAB PO SCH ×2 (09:23→22:00)
[2020-01-31] MEDS ORDERED: Lidocaine Patch Removal 1 EACH TOP PRN (15:00)
[2020-01-31] MEDS: Lantus 1000 UNITS/10 ML VIAL SC SCH (21:59)
[2020-01-31] MEDS: ALPRAZolam 0.25 MG TAB PO PRN (22:04)
[2020-02-01] MEDS: Levothyroxine Sodium 75 MCG TAB PO SCH (05:33)
[2020-02-01] MEDS: Aspirin Chewable 81 MG TAB PO SCH (07:57)
[2020-02-01] MEDS: Bisacodyl 10 MG SUPP PR SCH (07:58)
[2020-02-01] MEDS: Furosemide 40 MG TAB PO SCH ×2 (08:00→14:32)
[2020-02-01] MEDS: Magnesium Oxide 400 MG TAB PO SCH ×2 (08:00→20:56)
[2020-02-01] MEDS: Potassium Chloride 10 MEQ TAB PO SCH ×2 (08:00→20:55)
[2020-02-01] MEDS: Allopurinol 100 MG TAB PO SCH ×2 (08:00→20:56)
[2020-02-01] MEDS: Cyanocobalamin (Vitamin B-12) 1,000 MCG TAB PO SCH (08:00)
[2020-02-01] MEDS: Ubidecarenone 50 MG CAP PO SCH (08:01)
[2020-02-01] MEDS: Sodium Chloride 0.65% Nasal 44 ML BOT EA NARE SCH ×3 (08:01→21:00)
[2020-02-01] MEDS ORDERED: Bisacodyl 10 MG SUPP PR PRN (09:07)
[2020-02-01] MEDS: Lantus 1000 UNITS/10 ML VIAL SC SCH (21:02)
[2020-02-01] MEDS: ALPRAZolam 0.25 MG TAB PO PRN (22:24)
[2020-02-02] MEDS: Levothyroxine Sodium 75 MCG TAB PO SCH (05:32)
[2020-02-02 05:48] LABS: #Basophils 0.1 thou/uL (0.0-0.2); #Eosinphils 0.8 thou/uL (0.0-0.7); #Lymphocytes 1.1 thou/uL (1.20-3.40); #Monocytes 0.5 thou/uL (0.11-0.59); #Neutrophils 4.2 thou/uL (1.40-6.50); %Basophils 1.2 % (0.0-1.0); %Eosinophils 12.4 % (0.0-10.0); %Lymphocytes 15.8 % (21.0-51.0); %Monocytes 7.7 % (0.0-10.0); %Neutrophils 62.9 % (42.0-75.0); Hemoglobin 11.1 g/dL (12.0-16.0); Mean Corpuscular HGB CONC 30.3 g/dL (32.0-36.0); Mean Corpuscular Hemoglobin 30.1 pg (27.0-31.0); Mean Corpuscular Volume 99.6 fL (78.0-98.0); Mean Platelet Volume 8.8 fL (7.4-10.4); Platelet Count 150 thou/uL (130-400); RBC Distribution Width 14.9 % (11.5-14.5); Red Blood Cell (RBC) Count 3.67 mill/uL (4.20-5.40); White Blood Cell (WBC) Count 6.7 thou/uL (4.8-10.8)
[2020-02-02 06:00] LABS: Anion Gap 16 mmol/L (10-20); BUN (Urea Nitrogen) 29 mg/dL (9.8-20.1); Calc. Creatinine Clearance 46 mL/min (70-130); Calcium 9.3 mg/dL (7.8-10.44); Carbon Dioxide 29 mmol/L (23-31); Chloride 99 mmol/L (98-107); Estimated GFR-MDRD 52; Glucose 103 mg/dL (83-110); Potassium 4.1 mmol/L (3.5-5.1); Sodium 140 mmol/L (136-145)
[2020-02-02] MEDS: Ubidecarenone 50 MG CAP PO SCH (08:20)
[2020-02-02] MEDS: Furosemide 40 MG TAB PO SCH ×2 (08:20→17:07)
[2020-02-02] MEDS: Aspirin Chewable 81 MG TAB PO SCH (08:20)
[2020-02-02] MEDS: Magnesium Oxide 400 MG TAB PO SCH ×2 (08:20→21:53)
[2020-02-02] MEDS: Allopurinol 100 MG TAB PO SCH ×2 (08:24→21:53)
[2020-02-02] MEDS: Cyanocobalamin (Vitamin B-12) 1,000 MCG TAB PO SCH (08:24)
[2020-02-02] MEDS: Potassium Chloride 10 MEQ TAB PO SCH ×2 (08:24→17:06)
[2020-02-02] MEDS: Sodium Chloride 0.65% Nasal 44 ML BOT EA NARE SCH ×3 (10:04→21:54)
--- NOTE | 2020-02-02 10:26 | PRG ---
DATE OF SERVICE: 02/02/2020 SUBJECTIVE: The patient says she had a little better night, she slept just a little better. The patient said her breathing is doing good. She still has just a little bit of swelling in that right leg. OBJECTIVE: GENERAL: The patient is alert, talkative, appears comfortable, in no distress. VITAL SIGNS: Her temperature is 98, pulse 69, respirations 18, O2 saturation 96 % on 2.5 L by nasal cannula, blood pressure 115/68, and weight 153. LUNGS: Clear. HEART: Regular rate. EXTREMITIES: Trace edema on the right ankle. LABORATORY DATA: H and H of 11.1 and 36.5, white cell count 6700 with 63% segs , 16% lymphocytes, platelet count of 150,000. Sodium 140, potassium 4.1, BUN 29, creatinine 1.0, GFR 52, glucose 103. ASSESSMENT: 1. Generalized weakness and deconditioning. a. Secondary to multiple recent hospitalizations. 2. Hospitalized at [facility] from 01/14 until 01/28/2020 for torsades like arrhythmias secondary to QT prolongation from amiodarone and contributed to by hypokalemia and hypomagnesemia. Also had hospitalization complicated by [place] syndrome that has resolved. She also required a revision of her dual- chamber PPM right atrial lead on 01/22. 3. Hospitalized at [facility] from until 10/30/2019 for acute on chronic hypoxic respiratory failure, acute on chronic diastolic heart failure, and restrictive lung disease. 4. Restrictive lung disease. a. Complicated by chronic hypoxic respiratory failure, requiring continuous supplemental O2. 5. Chronic right heart failure. a. Presently no evidence of acute failure. 6. Chronic diastolic heart failure. a. Presently no evidence of acute congestive heart failure as of 02/01. 7. Torsades like arrhythmias. a. Required resuscitation, temporary use of IV lidocaine. b. Etiology secondary to amiodarone-induced QT prolongation along with hypokalemia and hypomagnesemia. c. No recurrence as of 02/02/2020. 8. Coronary artery disease. 9. Valvular heart disease. 10. Diabetes type 2. 11. History of recurrent atrial arrhythmias. a. Status post pacemaker placement that required right atrial lead revision of the dual-chamber PPM on 01/23/2020. b. Not a candidate for anticoagulants due to her history of gastrointestinal bleeding. 12. Sick sinus syndrome. 13. Hypothyroidism. 14. Chronic kidney disease. a. Improved with GFR of 52. 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 Resolved. 16. Code status, DNR. PLAN: The patient is doing very well. We will continue present care. Continue PT and OT. Job ID: [id number] MTDD
[2020-02-02] MEDS: Lantus 1000 UNITS/10 ML VIAL SC SCH (21:54)
[2020-02-02] MEDS: ALPRAZolam 0.25 MG TAB PO PRN (23:17)
[2020-02-03] MEDS: Levothyroxine Sodium 75 MCG TAB PO SCH (05:43)
[2020-02-03] MEDS: Ubidecarenone 50 MG CAP PO SCH (08:08)
[2020-02-03] MEDS: Magnesium Oxide 400 MG TAB PO SCH ×2 (08:08→20:36)
[2020-02-03] MEDS: Allopurinol 100 MG TAB PO SCH ×2 (08:09→20:36)
[2020-02-03] MEDS: Furosemide 40 MG TAB PO SCH ×2 (08:09→14:20)
[2020-02-03] MEDS: Aspirin Chewable 81 MG TAB PO SCH (08:09)
[2020-02-03] MEDS: Cyanocobalamin (Vitamin B-12) 1,000 MCG TAB PO SCH (08:09)
[2020-02-03] MEDS: Potassium Chloride 10 MEQ TAB PO SCH ×2 (08:09→17:43)
[2020-02-03] MEDS: Sodium Chloride 0.65% Nasal 44 ML BOT EA NARE SCH ×3 (08:10→20:37)
--- NOTE | 2020-02-03 09:31 | PRG ---
DATE OF SERVICE: 02/03/2020 SUBJECTIVE: The patient says she thinks she is doing good today. She has had no shortness of breath. Occasionally, she has had a little mild vertigo symptom, but this has not been associated with any change in her pulse or blood pressure. OBJECTIVE: GENERAL: The patient is sitting up on the side of the bed, eating her breakfast. She is alert, talkative, appears very comfortable, in no distress. VITAL SIGNS: Temperature 97.4, pulse 69, respirations 18, O2 saturation 99% on 2.5 L of O2, blood pressure 119/72. Weight 152. LUNGS: Clear. HEART: Regular rate. EXTREMITIES: Trace edema in the right ankle. LABORATORY DATA: Her FBS this morning was 111. ASSESSMENT: 1. Generalized weakness and deconditioning. a. Secondary to multiple recent hospitalizations. 2. Hospitalized at [facility] from 01/14 until 01/28/2020 for torsades- like arrhythmias secondary to acute QT prolongation from amiodarone and contributed to by hypokalemia and hypomagnesemia. 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 She required revision of a dual-chamber PPM right atrial lead on 01/22. 3. Hospitalized at [facility] from until 10/30/2019 for acute on chronic hypoxic respiratory failure, acute on chronic diastolic heart failure, and restrictive lung disease. 4. Restrictive lung disease. a. Complicated by chronic hypoxic respiratory failure, requiring continuous supplemental O2. 5. Chronic right heart failure. a. Presently, no evidence of acute failure. 6. Chronic diastolic heart failure. a. Presently, no evidence of acute failure as of 02/02. 7. Torsades-like arrhythmia. a. Required resuscitation and temporary use of IV lidocaine. b. Etiology secondary to amiodarone-induced QT prolongation along with hypokalemia and hypomagnesemia. c. No recurrence as of 02/02. 8. Coronary artery disease. 9. Valvular heart disease. 10. Diabetes type 2, controlled. 11. History of recurrent atrial fibrillation. a. Status post pacemaker placement. Required right atrial lead revision of the dual-chamber PPM on 01/23/2020. b. Not a candidate for anticoagulation due to a history of gastrointestinal bleeding. 12. Sick sinus syndrome. 13. Hypokalemia. 14. Chronic kidney disease. a. Improved, GFR 52. 15. [place] syndrome, resolved. 16. Code status, DNR. PLAN: The patient is doing better. Continue PT and OT. Continue present medicines. Job ID: [id number] MTDD
[2020-02-03] MEDS: Lantus 1000 UNITS/10 ML VIAL SC SCH (20:36)
[2020-02-03] MEDS: ALPRAZolam 0.25 MG TAB PO PRN (23:12)
[2020-02-04] MEDS: Levothyroxine Sodium 75 MCG TAB PO SCH (05:21)
[2020-02-04] MEDS: Furosemide 40 MG TAB PO SCH ×2 (08:02→14:16)
[2020-02-04] MEDS: Cyanocobalamin (Vitamin B-12) 1,000 MCG TAB PO SCH (08:02)
[2020-02-04] MEDS: Aspirin Chewable 81 MG TAB PO SCH (08:02)
[2020-02-04] MEDS: Ubidecarenone 50 MG CAP PO SCH (08:02)
[2020-02-04] MEDS: Magnesium Oxide 400 MG TAB PO SCH ×2 (08:02→20:07)
[2020-02-04] MEDS: Potassium Chloride 10 MEQ TAB PO SCH ×2 (08:02→17:50)
[2020-02-04] MEDS: Allopurinol 100 MG TAB PO SCH ×2 (08:02→20:07)
[2020-02-04] MEDS: Sodium Chloride 0.65% Nasal 44 ML BOT EA NARE SCH ×3 (08:03→20:05)
--- NOTE | 2020-02-04 13:56 | PRG ---
DATE OF SERVICE: 02/04/2020 SUBJECTIVE: The patient says that she is feeling very good today. She slept pretty good last night, had gone to bed early and did wake up at 2:30. She has been walking much further several times a day. She is better. She has started to consider how to manage things when she goes home. She will be visiting with her family about this. OBJECTIVE: GENERAL: The patient is sitting up on the side of the bed, alert, talkative, smiling, looks very comfortable, in no distress. VITAL SIGNS: Her temperature is 97.7, pulse 66, respirations 16, O2 saturation 94% on 2.5 L of O2, and blood pressure 120/69. Her weight 153. LUNGS: Clear. HEART: Regular rate. EXTREMITIES: Trace edema in the right ankle. LABORATORY DATA: FBS this morning 111. ASSESSMENT: 1. Generalized weakness and deconditioning. a. Secondary to multiple recent hospitalizations. 2. Hospitalized at [facility] from 01/14 until 01/28/2020 for torsades- like arrhythmia secondary to acute QT prolongation from amiodarone and contributed to by hypokalemia and hypomagnesemia. Also, hospitalization complicated by [place] syndrome that has resolved. She also required a revision of a dual-chamber PPM right atrial lead on 01/23/2020. 3. Hospitalized at [facility] from until 10/30/2019 for acute on chronic hypoxic respiratory failure, acute on chronic diastolic heart failure, and restrictive lung disease. 4. Restrictive lung disease. a. Complicated by chronic hypoxic respiratory failure, requiring continuous supplemental O2. 5. Chronic right heart failure. a. Presently, no evidence of acute failure. 6. Chronic diastolic heart failure. a. Presently, no evidence of acute failure as of 02/02. 7. Torsades-like arrhythmia. a. Required resuscitation and temporary use of IV lidocaine. b. Etiology secondary to amiodarone-induced QT prolongation along with hypokalemia and hypomagnesemia. c. No recurrence as of 02/03. 8. Coronary artery disease. 9. Valvular heart disease. 10. Diabetes type 2, controlled. 11. History of recurrent atrial fibrillation. a. Status post pacemaker placement. Required right atrial lead revision of the dual-chamber PPM on 01/23/2020. b. Not a candidate for anticoagulation due to history of gastrointestinal bleeding. 12. Sick sinus syndrome. 13. Hypokalemia, controlled. 14. Chronic kidney disease. a. GFR 52. 15. [place] syndrome, resolved. 16. Code status, DNR. PLAN: The patient is making excellent progress. We will continue present care. Recheck electrolytes on the patient in the morning. Job ID: [id number] MTDD
[2020-02-04] MEDS: Lantus 1000 UNITS/10 ML VIAL SC SCH (20:13)
[2020-02-05] MEDS: Levothyroxine Sodium 75 MCG TAB PO SCH (05:39)
[2020-02-05 05:50] LABS: #Basophils 0.1 thou/uL (0.0-0.2); #Lymphocytes 1.1 thou/uL (1.20-3.40); #Monocytes 0.6 thou/uL (0.11-0.59); #Neutrophils 3.8 thou/uL (1.40-6.50); %Basophils 1.8 % (0.0-1.0); %Eosinophils 15.2 % (0.0-10.0); %Lymphocytes 16.2 % (21.0-51.0); %Monocytes 9.5 % (0.0-10.0); %Neutrophils 57.3 % (42.0-75.0); Hemoglobin 10.4 g/dL (12.0-16.0); Mean Corpuscular HGB CONC 30.2 g/dL (32.0-36.0); Mean Corpuscular Hemoglobin 30.4 pg (27.0-31.0); Mean Corpuscular Volume 100.7 fL (78.0-98.0); Mean Platelet Volume 8.7 fL (7.4-10.4); Platelet Count 137 thou/uL (130-400); RBC Distribution Width 15.6 % (11.5-14.5); Red Blood Cell (RBC) Count 3.43 mill/uL (4.20-5.40); White Blood Cell (WBC) Count 6.7 thou/uL (4.8-10.8)
[2020-02-05] MEDS: Aspirin Chewable 81 MG TAB PO SCH (08:42)
[2020-02-05] MEDS: Potassium Chloride 10 MEQ TAB PO SCH ×2 (08:44→17:08)
[2020-02-05] MEDS: Cyanocobalamin (Vitamin B-12) 1,000 MCG TAB PO SCH (08:45)
[2020-02-05] MEDS: Magnesium Oxide 400 MG TAB PO SCH ×2 (08:45→20:45)
[2020-02-05] MEDS: Sodium Chloride 0.65% Nasal 44 ML BOT EA NARE SCH ×3 (08:45→20:46)
[2020-02-05] MEDS: Allopurinol 100 MG TAB PO SCH ×2 (08:45→20:44)
[2020-02-05] MEDS: Ubidecarenone 50 MG CAP PO SCH (08:45)
[2020-02-05] MEDS: Furosemide 40 MG TAB PO SCH ×2 (08:45→14:08)
--- NOTE | 2020-02-05 11:41 | PRG ---
DATE OF SERVICE: 02/05/2020 SUBJECTIVE: The patient says she is doing good. She is not having any trouble with her breathing. She is working with Physical Therapy. She is walking at times up to 150 feet several times a day using her rolling walker and just supervision. She is transferring with just supervision. OBJECTIVE: GENERAL: The patient is alert, appears comfortable, in no distress. VITAL SIGNS: Her temperature is 97.7, pulse 69, respirations 16, O2 saturation 100% on 2.5 L, blood pressure 127/68, and her weight 151. LUNGS: Clear. HEART: Regular rate. EXTREMITIES: Trace edema of the right ankle. LABORATORY DATA: Lab shows H and H of 10.4 and 34.5, white cell count 6700 with 57% segs, 16% lymphocytes, and platelet count of 137,000. ASSESSMENT: 1. Generalized weakness and deconditioning. a. Secondary to multiple recent hospitalizations. b. Improved, where she is now walking up to 150 feet several times a day with a rolling walker and transferring with supervision only. 2. Hospitalized at [facility] from 01/14 until 01/28/2020 for torsades like arrhythmias secondary to acute QT prolongation from amiodarone and contributed to by hypokalemia and hypomagnesemia. 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 She required a revision of the dual-chamber PPM right atrial lead on 01/22. 3. Hospitalized at [facility] from until 10/30/2019 for acute on chronic hypoxic respiratory failure, acute on chronic diastolic heart failure, and restrictive lung disease. 4. Restrictive lung disease. a. Complicated by chronic hypoxemia, requiring continuous supplemental O2. 5. Chronic right heart failure. a. Presently no evidence of acute failure. 6. Chronic diastolic heart failure. a. Presently no evidence of acute failure as of 02/04. 7. Torsades like arrhythmia. a. Required resuscitation, temporary use of IV lidocaine. b. Etiology secondary to amiodarone-induced QT prolongation along with hypokalemia and hypomagnesemia. c. No recurrence as of 02/04. 8. Coronary artery disease. 9. Valvular heart disease. 10. Diabetes type 2, controlled. 11. History of recurrent atrial fibrillation. a. Status post pacemaker insertion. Required right atrial lead revision of the dual-chamber PPM on 01/22. b. Not a candidate for anticoagulation due to history of gastrointestinal bleeds. 12. Sick sinus syndrome. 13. Hypokalemia, controlled. 14. Chronic kidney disease. a. GFR 52. 15. [place] syndrome, resolved. 16. Code status, DNR. PLAN: Continue present care. Continue PT and OT. The patient visiting with her family to try to help make arrangements to go home soon. She would like to try to preserve some of her skilled days for the future. Right now, she does not have anyone that would stay with her in the evening. She and her family are working on this. Job ID: [id number] [facility]
[2020-02-05] MEDS: Lantus 1000 UNITS/10 ML VIAL SC SCH (20:45)
[2020-02-06] MEDS: Levothyroxine Sodium 75 MCG TAB PO SCH (05:05)
[2020-02-06] MEDS: Furosemide 40 MG TAB PO SCH ×2 (09:03→14:13)
[2020-02-06] MEDS: Potassium Chloride 10 MEQ TAB PO SCH ×2 (09:03→16:57)
[2020-02-06] MEDS: Cyanocobalamin (Vitamin B-12) 1,000 MCG TAB PO SCH (09:03)
[2020-02-06] MEDS: Aspirin Chewable 81 MG TAB PO SCH (09:03)
[2020-02-06] MEDS: Allopurinol 100 MG TAB PO SCH ×2 (09:03→20:12)
[2020-02-06] MEDS: Magnesium Oxide 400 MG TAB PO SCH ×2 (09:04→20:12)
[2020-02-06] MEDS: Ubidecarenone 50 MG CAP PO SCH (09:04)
[2020-02-06] MEDS: Sodium Chloride 0.65% Nasal 44 ML BOT EA NARE SCH ×3 (09:05→20:13)
--- NOTE | 2020-02-06 11:09 | PRG ---
DATE OF SERVICE: 02/06/2020 SUBJECTIVE: Patient says she is doing very well with her therapy. She is not short of breath. She has had no chest pain. She said her swelling is just very slight in the right ankle and no more than what it has been. She said her stomach is not hurting her. Does not feel distended and she is having good bowel movements. She wants to switch the p.r.n. Dulcolax suppository to a tablet if needed. She did drink some prune juice last night that worked very well for her. OBJECTIVE: GENERAL: The patient is sitting up on the side of bed, is alert, talkative, appears very comfortable and in no distress. VITAL SIGNS: Her temp 97.9, pulse 72, respirations 18, O2 saturation 96% on 2.5 L, blood pressure 131/63. LUNGS: Clear. HEART: Regular rate. EXTREMITIES: Have just trace edema over the right ankle. LABORATORY DATA: Shows an FBS this morning of 131. ASSESSMENT: 1. Generalized weakness and deconditioning. a. Secondary to multiple recent hospitalizations. b. Improving. Now walking up to 150 feet several times a day with a rolling walker and transferring with supervision as of 02/05. 2. Hospitalized at [facility] from 01/14 until 01/28/20 for torsades like arrhythmia secondary to acute QT prolongation from amiodarone and contributed to by hypokalemia and hypomagnesemia. Also hospitalization complicated by [place] syndrome that has resolved. She required revision of the dual chamber PPM right atrial lead on 01/23/20. 3. Hospitalized at [facility] from until 10/30/19 for acute on chronic hypoxic respiratory failure, acute on chronic diastolic heart failure, and restrictive lung disease. 4. Restrictive lung disease. a. Complicated by chronic hypoxemia requiring continuous supplemental O2. 5. Chronic right heart failure. a. Presently no evidence of acute failure. 6. Chronic diastolic heart failure. a. Presently no evidence of acute failure as of 02/05. 7. Torsades like arrhythmia. a. Required resuscitation and temporary use of IV lidocaine. b. Etiology secondary to an amiodarone induced QT prolongation along with hypokalemia and hypomagnesemia. c. No recurrence as of 02/05. 8. Coronary artery disease. 9. Valvular heart disease. 10. Diabetes type 2, controlled. 11. History of recurrent atrial fibrillation. a. Status post pacemaker insertion. Required right atrial lead revision of dual chamber PPM on 01/23/20. b. Not a candidate for anticoagulation due to history of GI bleeds. 12. Sick sinus syndrome. 13. Hypokalemia, controlled. 14. Chronic kidney disease. a. GFR 52. 15. Mary syndrome, resolved. 16. Code status DNR. PLAN: The patient is doing very well. She is making good advancement with her physical therapy. She has not had any signs of any right heart or left heart failure and her renal function has been stable. She is progressing. She has been visiting with her family and has no one who could stay with her to assist her. I feel like she will benefit by continued hospitalization in [facility] for purpose of continued physical therapy and occupational therapy. She will work with the family on arranging help in the home when she is discharged. We will switch her from the Dulcolax suppository to Dulcolax tablet to use p.r.n. Job ID: [id number] [facility]
[2020-02-06] MEDS: Lantus 1000 UNITS/10 ML VIAL SC SCH (20:11)
[2020-02-07] MEDS: ALPRAZolam 0.25 MG TAB PO PRN ×2 (00:13→21:46)
[2020-02-07] MEDS: Levothyroxine Sodium 75 MCG TAB PO SCH (05:15)
[2020-02-07] MEDS: Aspirin Chewable 81 MG TAB PO SCH (07:57)
[2020-02-07] MEDS: Potassium Chloride 10 MEQ TAB PO SCH ×2 (07:58→17:14)
[2020-02-07] MEDS: Allopurinol 100 MG TAB PO SCH ×2 (09:20→20:04)
[2020-02-07] MEDS: Cyanocobalamin (Vitamin B-12) 1,000 MCG TAB PO SCH (09:20)
[2020-02-07] MEDS: Furosemide 40 MG TAB PO SCH ×2 (09:20→14:28)
[2020-02-07] MEDS: Magnesium Oxide 400 MG TAB PO SCH ×2 (09:21→20:04)
[2020-02-07] MEDS: Ubidecarenone 50 MG CAP PO SCH (09:22)
[2020-02-07] MEDS: Sodium Chloride 0.65% Nasal 44 ML BOT EA NARE SCH ×3 (09:30→20:05)
[2020-02-07] MEDS: Lantus 1000 UNITS/10 ML VIAL SC SCH (20:06)
[2020-02-07] MEDS: Docusate 100 MG CAP PO PRN (21:46)
[2020-02-08] MEDS: Levothyroxine Sodium 75 MCG TAB PO SCH (05:26)
[2020-02-08] MEDS: Potassium Chloride 10 MEQ TAB PO SCH ×2 (08:50→17:03)
[2020-02-08] MEDS: Ubidecarenone 50 MG CAP PO SCH (08:50)
[2020-02-08] MEDS: Allopurinol 100 MG TAB PO SCH ×2 (08:51→20:26)
[2020-02-08] MEDS: Furosemide 40 MG TAB PO SCH ×3 (08:51→17:04)
[2020-02-08] MEDS: Cyanocobalamin (Vitamin B-12) 1,000 MCG TAB PO SCH (08:51)
[2020-02-08] MEDS: Aspirin Chewable 81 MG TAB PO SCH (08:51)
[2020-02-08] MEDS: Magnesium Oxide 400 MG TAB PO SCH ×2 (08:51→20:26)
[2020-02-08] MEDS: Sodium Chloride 0.65% Nasal 44 ML BOT EA NARE SCH ×4 (08:52→20:33)
--- NOTE | 2020-02-08 18:40 | PRG ---
DATE OF SERVICE: 02/07/2020 SUBJECTIVE: The patient says she is doing just fine. She slept good last night. She has not been short of breath. She has had no chest pain. She is doing very well with her physical therapy. OBJECTIVE: GENERAL: The patient is lying in her bed, awake, and immediately sat up to visit. She appears in no distress. VITAL SIGNS: Shows a temperature of 97.5, pulse rate 71, respirations are 20, O2 saturation 97% on 2.5 L of O2, and blood pressure 117/65. Her weight is 153, which is stable. LUNGS: Clear. HEART: Regular rate. EXTREMITIES: Trace edema of the right ankle. LABORATORY DATA: Her FBS this morning was 96. ASSESSMENT: 1. Generalized weakness and deconditioning: a. Secondary to multiple recent hospitalizations. b. Improving, now walking up to 150 feet several times a day with a rolling walker and transferring with supervision as of 02/07/2020. 2. Hospitalized at [facility] from 01/15/2020 until 01/28/2020 for torsades like arrhythmias secondary to acute QT prolongation from amiodarone and contributed by the hypokalemia and hypomagnesium. 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 She required revision of the dual-chamber PPM, right atrial lead on 01/23/2020. 3. Hospitalized at [facility] from until 10/30/2019 for acute on chronic hypoxic respiratory failure, acute on chronic diastolic heart failure, and restrictive lung disease. 4. Restrictive lung disease: a. Complicated by chronic hypoxic respiratory failure requiring continuous supplemental O2. 5. Chronic right heart failure: a. Presently, no evidence of acute failure. 6. Chronic diastolic heart failure: a. Presently, no evidence of acute failure as of 02/06/2020. 7. Torsades like arrhythmia: a. Required resuscitation and temporary use of IV lidocaine. b. Etiology secondary to amiodarone induced QT prolongation along with hypokalemia and hypomagnesemia. c. No recurrence as of 02/07/2020. 8. Coronary artery disease. 9. Valvular heart disease. 10. Diabetes type 2, controlled. 11. History of recurrent atrial fibrillation: a. Status post pacemaker insertion. Required right atrial lead revision of dual-chamber PPM on 01/23/2020. b. Not a candidate for anticoagulation due to history of GI bleeds. 12. Sick sinus syndrome. 13. Hypokalemia, controlled. 14. Chronic kidney disease. a. Recent GFR 52. 15. Mary syndrome, resolved. 16. Code status, DNR. PLAN: The patient is making excellent progress. We will continue PT and OT. Continue present medications. Job ID: [id number] [facility]
[2020-02-08] MEDS: Lantus 1000 UNITS/10 ML VIAL SC SCH (20:30)
[2020-02-08] MEDS: ALPRAZolam 0.25 MG TAB PO PRN (22:03)
[2020-02-09] MEDS: Levothyroxine Sodium 75 MCG TAB PO SCH (05:16)
[2020-02-09] MEDS: Potassium Chloride 10 MEQ TAB PO SCH ×2 (08:10→17:05)
[2020-02-09] MEDS: Aspirin Chewable 81 MG TAB PO SCH (08:10)
[2020-02-09] MEDS: Furosemide 40 MG TAB PO SCH ×2 (08:10→14:01)
[2020-02-09] MEDS: Magnesium Oxide 400 MG TAB PO SCH ×2 (08:11→21:38)
[2020-02-09] MEDS: Ubidecarenone 50 MG CAP PO SCH (08:11)
[2020-02-09] MEDS: Sodium Chloride 0.65% Nasal 44 ML BOT EA NARE SCH ×3 (08:15→21:43)
[2020-02-09] MEDS: Cyanocobalamin (Vitamin B-12) 1,000 MCG TAB PO SCH (08:17)
[2020-02-09] MEDS: Allopurinol 100 MG TAB PO SCH ×2 (08:17→21:38)
[2020-02-09 12:01] VITALS: BMI 25.4
[2020-02-09] MEDS ORDERED: Clotrimazole 1% Cream 15 GM TUBE TOP SCH (12:30)
--- NOTE | 2020-02-09 14:44 | PRG ---
DATE OF SERVICE: 02/09/2020 SUBJECTIVE: The patient says she is doing very well. She is not having any trouble with her breathing. There has been no more swelling than usual. She is having a little irritation in the vaginal area. I think she may have a little yeast infection. OBJECTIVE: GENERAL: The patient is alert, very cheerful, and appears in no distress. VITAL SIGNS: Show a temperature of 98.5, pulse 69, respirations 20, O2 saturation 98% on 2.5 L by nasal cannula, and blood pressure 129/70. Her weight 153. LUNGS: Clear except for some coarse rales at the right posterior base, probably from atelectasis. HEART: Regular rate. EXTREMITIES: Just trace edema in the left ankle unchanged. LABORATORY DATA: Her FBS is 111. ASSESSMENT: 1. Generalized weakness and deconditioning. a. Secondary to multiple recent hospitalizations. b. Improving, now walking up to 150 feet several times a day with a rolling walker and transferring with supervision as of 02/08. 2. Hospitalized at [facility] from 01/15/2020 until 01/28/2020 for torsades like arrhythmias secondary to acute QT prolongation from amiodarone and contributed to by hypokalemia and hypomagnesemia. Also hospitalization complicated by [place] syndrome that has resolved. She required revision of the dual-chamber PPM, right atrial lead on 01/23/2020. 3. Hospitalized at [facility] from 10/25/2019 until 10/30/2019 for acute on chronic hypoxic respiratory failure, acute on chronic diastolic heart failure, and restrictive lung disease. 4. Restrictive lung disease. a. Complicated by chronic hypoxic respiratory failure requiring continuous supplemental O2. 5. Chronic right heart failure. a. Presently no evidence of acute failure. 6. Chronic diastolic heart failure. a. Presently no evidence of acute failure as of 02/05. 7. Torsades like arrhythmia. a. Required resuscitation, temporary use of IV lidocaine. b. Etiology secondary to amiodarone-induced QT prolongation along with hypokalemia and hypomagnesemia. c. No recurrence as of 02/08. 8. Coronary artery disease. 9. Valvular heart disease. 10. Diabetes type 2, controlled. 11. History of recurrent atrial fibrillation. a. Status post pacemaker insertion. Required right atrial lead revision of the dual-chamber PPM on 01/23/2020. b. Not a candidate for anticoagulation due to history of GI bleeds. 12. Sick sinus syndrome. 13. Hypokalemia, controlled. 14. Chronic kidney disease. a. Recent GFR 52. 15. Mary syndrome, resolved. 16. Code status, DNR. PLAN: The patient is doing very well. Continue PT and OT. The patient has it sounds like a vulvovaginitis. We will treat her with clotrimazole cream to apply twice a day until resolved. The patient is still considering going home. She will visit more with her family. She says she is getting strong enough that she thinks she could manage even with help in the day and be by herself at night. She is considering this, but we will discuss it further with her family. Job ID: [id number] [facility]
[2020-02-09] MEDS: Lantus 1000 UNITS/10 ML VIAL SC SCH (21:38)
[2020-02-09] MEDS: Clotrimazole 1% Cream 15 GM TUBE TOP SCH (21:42)
[2020-02-09] MEDS: Docusate 100 MG CAP PO PRN (21:42)
[2020-02-10] MEDS: Levothyroxine Sodium 75 MCG TAB PO SCH (05:39)
[2020-02-10] MEDS: Furosemide 40 MG TAB PO SCH ×2 (08:11→14:46)
[2020-02-10] MEDS: Potassium Chloride 10 MEQ TAB PO SCH ×2 (08:11→16:54)
[2020-02-10] MEDS: Ubidecarenone 50 MG CAP PO SCH (08:11)
[2020-02-10] MEDS: Allopurinol 100 MG TAB PO SCH ×2 (08:11→20:56)
[2020-02-10] MEDS: Magnesium Oxide 400 MG TAB PO SCH ×2 (08:12→20:56)
[2020-02-10] MEDS: Sodium Chloride 0.65% Nasal 44 ML BOT EA NARE SCH ×3 (08:12→21:00)
[2020-02-10] MEDS: Cyanocobalamin (Vitamin B-12) 1,000 MCG TAB PO SCH (08:12)
[2020-02-10] MEDS: Aspirin Chewable 81 MG TAB PO SCH (08:12)
[2020-02-10] MEDS: Clotrimazole 1% Cream 15 GM TUBE TOP SCH ×2 (08:12→20:58)
[2020-02-10] MEDS: Lantus 1000 UNITS/10 ML VIAL SC SCH (20:57)
[2020-02-10] MEDS: ALPRAZolam 0.25 MG TAB PO PRN (22:57)
[2020-02-10] MEDS: Docusate 100 MG CAP PO PRN (22:59)
[2020-02-11] MEDS: Levothyroxine Sodium 75 MCG TAB PO SCH (05:24)
[2020-02-11] MEDS: Magnesium Oxide 400 MG TAB PO SCH ×2 (08:05→20:15)
[2020-02-11] MEDS: Cyanocobalamin (Vitamin B-12) 1,000 MCG TAB PO SCH (08:05)
[2020-02-11] MEDS: Aspirin Chewable 81 MG TAB PO SCH (08:05)
[2020-02-11] MEDS: Allopurinol 100 MG TAB PO SCH ×2 (08:05→20:15)
[2020-02-11] MEDS: Potassium Chloride 10 MEQ TAB PO SCH ×2 (08:05→17:08)
[2020-02-11] MEDS: Ubidecarenone 50 MG CAP PO SCH (08:06)
[2020-02-11] MEDS: Furosemide 40 MG TAB PO SCH ×2 (08:06→14:42)
[2020-02-11] MEDS: Sodium Chloride 0.65% Nasal 44 ML BOT EA NARE SCH ×3 (08:07→20:16)
[2020-02-11] MEDS: Clotrimazole 1% Cream 15 GM TUBE TOP SCH ×2 (08:07→20:14)
--- NOTE | 2020-02-11 08:45 | PRG ---
DATE OF SERVICE: 02/10/2020 SUBJECTIVE: The patient says she is doing good. She is not having any trouble with her breathing. She is doing very well with her physical therapy. The patient said she just does not care for the food at all up here. She just had a supplement and blood sugar afterwards was 236. OBJECTIVE: GENERAL: The patient is alert, appears in no distress. VITAL SIGNS: Her temperature 97.2, pulse 75, respirations 16, O2 saturation 97 % on 2 L by nasal cannula, and blood pressure 132/66. Her weight is 154. LUNGS: Clear. HEART: Regular rate. EXTREMITIES: Trace edema in the right ankle. LABORATORY DATA: FBS this morning 116. ASSESSMENT: 1. Generalized weakness and deconditioning. a. Secondary to multiple recent hospitalizations. b. Improving, now walking up to 150 feet several times a day with a rolling walker and transferring with supervision as of 02/09. 2. Hospitalized at [facility] from 01/15/2020 until 01/28/2020 for torsades-like arrhythmia secondary to acute QT prolongation from amiodarone and contributed to by hypokalemia and hypomagnesemia. 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 She required revision of a dual-chamber PPM right atrial lead on 01/23/2020. 3. Hospitalized at [facility] from 10/25/2019 until 10/30/2019 for acute on chronic hypoxic respiratory failure, acute on chronic diastolic heart failure, and restrictive lung disease. 4. Restrictive lung disease. a. Complicated by chronic hypoxic respiratory failure, requiring continuous supplemental O2. 5. Chronic right heart failure. a. Presently, no evidence of acute failure. 6. Chronic diastolic heart failure. a. Presently, no evidence of acute failure as of 02/09. 7. Torsades-like arrhythmia. a. Required resuscitation and temporary use of IV lidocaine. b. Etiology secondary to amiodarone-induced QT prolongation along with hypokalemia and hypomagnesemia. c. No recurrence as of 02/09. 8. Coronary artery disease. 9. Valvular heart disease. 10. Diabetes type 2, controlled. 11. History of recurrent atrial fibrillation. a. Status post pacemaker insertion. Required right atrial lead revision of the dual-chamber PPM on 01/23/2020. b. Not a candidate for anticoagulation due to history of gastrointestinal bleeds. 12. Sick sinus syndrome. 13. Hypokalemia, controlled. 14. Chronic kidney disease. a. Recent GFR of 52. 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 16. Code status, DNR. PLAN: The patient's condition is stable. She has done very well with her physical therapy, we will continue this. She lives alone and her [id number] typically helps her, but presently is assisting her , which is limiting her time that she can help. She has no one to stay with her at night, but she is beginning to feel comfortable enough that she might be able to manage this without help in the night. For now, the Physical Therapy continues to help her and we will continue this. Job ID: [id number] [facility]
[2020-02-11] MEDS: Lantus 1000 UNITS/10 ML VIAL SC SCH (20:13)
[2020-02-11] MEDS: Docusate 100 MG CAP PO PRN (20:14)
[2020-02-11] MEDS: ALPRAZolam 0.25 MG TAB PO PRN (23:00)
[2020-02-12] MEDS: Levothyroxine Sodium 75 MCG TAB PO SCH (05:11)
[2020-02-12 06:10] LABS: Anion Gap 15 mmol/L (10-20); BUN (Urea Nitrogen) 27 mg/dL (9.8-20.1); Calc. Creatinine Clearance 43 mL/min (70-130); Calcium 9.1 mg/dL (7.8-10.44); Carbon Dioxide 30 mmol/L (23-31); Chloride 101 mmol/L (98-107); Estimated GFR-MDRD 49; Glucose 120 mg/dL (83-110); Magnesium 2.2 mg/dL (1.6-2.6); Potassium 4.2 mmol/L (3.5-5.1); Sodium 142 mmol/L (136-145)
[2020-02-12] MEDS: Potassium Chloride 10 MEQ TAB PO SCH ×2 (08:47→17:17)
[2020-02-12] MEDS: Cyanocobalamin (Vitamin B-12) 1,000 MCG TAB PO SCH (08:47)
[2020-02-12] MEDS: Furosemide 40 MG TAB PO SCH ×2 (08:47→15:14)
[2020-02-12] MEDS: Allopurinol 100 MG TAB PO SCH ×2 (08:47→20:17)
[2020-02-12] MEDS: Ubidecarenone 50 MG CAP PO SCH (08:48)
[2020-02-12] MEDS: Magnesium Oxide 400 MG TAB PO SCH ×2 (08:48→20:17)
[2020-02-12] MEDS: Aspirin Chewable 81 MG TAB PO SCH (08:48)
[2020-02-12] MEDS: Sodium Chloride 0.65% Nasal 44 ML BOT EA NARE SCH ×3 (08:49→20:18)
[2020-02-12] MEDS: Clotrimazole 1% Cream 15 GM TUBE TOP SCH ×2 (08:49→20:17)
[2020-02-12] MEDS: Docusate 100 MG CAP PO PRN (20:16)
[2020-02-12] MEDS: Lantus 1000 UNITS/10 ML VIAL SC SCH (20:18)
[2020-02-12] MEDS: ALPRAZolam 0.25 MG TAB PO PRN (22:50)
[2020-02-13] MEDS: Levothyroxine Sodium 75 MCG TAB PO SCH (06:09)
[2020-02-13] MEDS: Magnesium Oxide 400 MG TAB PO SCH (08:34)
[2020-02-13] MEDS: Potassium Chloride 10 MEQ TAB PO SCH (08:34)
[2020-02-13] MEDS: Furosemide 40 MG TAB PO SCH (08:34)
[2020-02-13] MEDS: Allopurinol 100 MG TAB PO SCH (08:34)
[2020-02-13] MEDS: Aspirin Chewable 81 MG TAB PO SCH (08:34)
[2020-02-13] MEDS: Cyanocobalamin (Vitamin B-12) 1,000 MCG TAB PO SCH (08:34)
[2020-02-13] MEDS: Ubidecarenone 50 MG CAP PO SCH (08:34)
[2020-02-13] MEDS: Sodium Chloride 0.65% Nasal 44 ML BOT EA NARE SCH (08:35)
[2020-02-13] MEDS: Clotrimazole 1% Cream 15 GM TUBE TOP SCH (08:35)
[2020-02-13 08:40] VITALS: BP 135/75; TEMP 98.1
--- NOTE | 2020-02-13 11:25 | DIS ---
DATE OF ADMISSION: 01/28/2020 DATE OF DISCHARGE: 02/13/2020 FINAL DIAGNOSES: 1. Generalized weakness and deconditioning. a. Secondary to multiple recent hospitalizations. b. Improving, now walking up to 150 feet several times a day with a rolling walker and transferring independently as of 02/11. 2. Hospitalized at [facility] from 01/15/2020 until 01/28/2020 for torsades like arrhythmia secondary to acute QT prolongation from amiodarone and contributed to by hypokalemia and hypomagnesemia. 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 She required revision of a dual chamber PPM right atrial lead on 01/23/2020. 3. Hospitalized at [facility] from 10/25/2019 until 10/30/2019 for acute on chronic hypoxic respiratory failure, acute on chronic diastolic heart failure, and restrictive lung disease. 4. Restrictive lung disease. a. Complicated by chronic hypoxic respiratory failure that requires continuous supplemental O2. 5. Chronic right heart failure. a. Presently no evidence of acute failure. 6. Chronic diastolic heart failure. a. Presently no evidence of acute failure as of 02/11. 7. Torsades like arrhythmia. a. Required resuscitation and temporary use of IV lidocaine. b. Etiology secondary to amiodarone-induced QT prolongation along with hypokalemia and hypomagnesemia. c. No recurrence as of 02/11. 8. Coronary artery disease. a. Status post coronary artery bypass in 2000, status post redo coronary artery bypass x1 in October 2001, heart catheterization in December 2019 showed no change. 9. Valvular heart disease. a. Status post mitral valve replacement with bioprosthetic valve in January 2002. b. 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 10. Diabetes type 2, controlled. 11. History of recurrent atrial arrhythmias and atrial fibrillation. a. Status post pacemaker placement that required right atrial lead revision of the dual-chamber PPM on 01/23/2020. b. Not a candidate for anticoagulation due to history of gastrointestinal bleeding. 12. Sick sinus syndrome. 13. Hypothyroidism. 14. Chronic kidney disease. 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 Resolving. 16. Code status, DNR. SUMMARY: The patient has a history of coronary artery disease, atrial fibrillation, atrial arrhythmias, valvular heart disease, diastolic heart dysfunction, right heart failure, who has undergone mitral valve replacement x2, initially with bioprosthetic valve and then later due to severe stenosis, replacement. She has chronic hypoxic respiratory failure secondary to severe restrictive lung disease. The patient had been hospitalized at [facility] from until 10/30/2019 for acute on chronic hypoxic respiratory failure, acute on chronic diastolic heart failure, and restrictive lung disease. She was hospitalized again at [facility] from 01/14 until 01/28/2020 for torsades like arrhythmia secondary to acute QT prolongation from amiodarone and contributed to by hypokalemia and hypomagnesemia. Also hospitalization complicated by Mary syndrome that resolved. She also required a revision of a dual-chamber PPM right atrial lead on 01/23/2020. She was left extremely weak and deconditioned and was just resolving the Mary syndrome. She was transferred to [facility] on the late evening of 01/28/2020. During her hospitalization, the Mary syndrome gradually resolved. She was left on a laxative. She was having excellent bowel movements and the abdominal distention had completely resolved, and she was tolerating her consistent carbohydrate diet without any abdominal distress. During her hospitalization, her blood pressure remained under good control, her weight stayed stable with an admission weight of 157 and discharge weight of 153. The patient's lungs remain clear with no evidence of either diastolic heart failure or right heart failure. She had no problems with any arrhythmias. She was left on potassium supplement and also magnesium supplement. Her last basic metabolic panel was on 02/11 that showed a sodium of 142, potassium of 4.2, BUN 27, creatinine 1.07, GFR 49, FBS 120, and magnesium 2.2. Her blood sugar was well controlled on the Lantus 10 units daily. Her FBS on the morning of 02/11 was 106 and on 02/10, 96. The patient made excellent progress with her physical therapy. She was walking up to 150 feet several times a day, usually just pushing a wheelchair. She was able to transfer independently. The patient was seen on 02/11. Her lungs remained clear. Vital signs are stable. It is felt like that she was doing well, she said she was ready to go home and made arrangements to go home early in the morning. Arrangements have been made for her to leave then, this will give her an opportunity to continue the physical therapy this afternoon. Home Health will be set up to see her and continue the in-home PT. DISPOSITION: Diet, consistent low carbohydrate diet. No added salt. Restrict fluids to less than 2 L in 24 hours. ACTIVITIES: Ambulate about in her house or for any longer distance with a walker. Home Health will see her and arrange for in-home physical therapy. Check glucometers daily and keep a record. Weigh daily. MEDICATIONS: 1. Acetaminophen 500 mg two every 6 hours p.r.n. 2. Allopurinol 100 mg b.i.d. 3. Alprazolam 0.25 mg b.i.d. p.r.n. 4. Aspirin 81 mg daily. 5. Clotrimazole cream applied to the vaginal area and vulva area twice a day until irritation resolves. 6. Coenzyme Q10 of 200 mg daily. 7. Cyanocobalamin 1000 mcg daily. 8. Docusate sodium 100 mg daily as needed. 9. Furosemide 40 mg b.i.d. 10. Lantus 10 units subcu daily at bedtime. 11. Levothyroxine 75 mcg daily. 12. Magnesium oxide 400 mg b.i.d. 13. At home, she is on Prevacid 15 mg b.i.d. 14. Potassium chloride 10 mEq two b.i.d. 15. Nasal saline spray two sprays both nostrils every 4 hours as needed. 16. Tramadol 50 mg every 4 hours as needed. FOLLOWUP: The patient should follow up with her nurse practitioner per diem and unit trust manager. The patient also will follow up with Dr. Hernandez, her insurance account assistant. Her last hemoglobin was 10.4 and 34.5 on 02/04 with platelet count of 137,000. The patient should follow up with me in 2 weeks by telemedicine visit. Prior to the visit, she will need a CBC and basic metabolic panel. Code status, DNR. Job ID: [id number] [facility]
== END 2020-02-13 08:55 | disposition home or self-care (01) | DRG 389 ==
LOC: MADMS 20:10
PROVIDERS: ADMIT Family Medicine; ATTEND Family Medicine
DX: K56.699 Other intestinal obstruction unspecified as to partial versus complete obstruction (principal); I50.32 Chronic diastolic (congestive) heart failure; I13.0 Hypertensive heart and chronic kidney disease with heart failure and stage 1 through stage 4 chronic kidney disease, or unspecified chronic kidney disease; Z66 Do not resuscitate; J96.11 Chronic respiratory failure with hypoxia; R53.81 Other malaise; R53.1 Weakness; J98.4 Other disorders of lung; I50.812 Chronic right heart failure; I25.10 Atherosclerotic heart disease of native coronary artery without angina pectoris; E11.9 Type 2 diabetes mellitus without complications; I49.5 Sick sinus syndrome; K21.9 Gastro-esophageal reflux disease without esophagitis; N18.9 Chronic kidney disease, unspecified; F41.9 Anxiety disorder, unspecified; E03.9 Hypothyroidism, unspecified; E87.6 Hypokalemia; Z95.5 Presence of coronary angioplasty implant and graft; Z95.2 Presence of prosthetic heart valve; Z90.49 Acquired absence of other specified parts of digestive tract; Z90.710 Acquired absence of both cervix and uterus; Z95.0 Presence of cardiac pacemaker; Z79.82 Long term (current) use of aspirin; Z79.4 Long term (current) use of insulin; Z88.0 Allergy status to penicillin; Z88.1 Allergy status to other antibiotic agents; Z88.8 Allergy status to other drugs, medicaments and biological substances
CPT/HCPCS: 36415; 36416; 80048; 80053; 83735; 85025; J1815

== ENCOUNTER 2020-02-17 14:36 | Outpatient (CLI) | payer MEDICARE, OTHER ==
[2020-02-17 15:03] LABS: Anion Gap 17 mmol/L (10-20); BUN (Urea Nitrogen) 20 mg/dL (9.8-20.1); Calc. Creatinine Clearance 0 mL/min (70-130); Calcium 8.9 mg/dL (7.8-10.44); Carbon Dioxide 26 mmol/L (23-31); Chloride 103 mmol/L (98-107); Estimated GFR-MDRD 57; Glucose 130 mg/dL (83-110); Magnesium 2.2 mg/dL (1.6-2.6); Potassium 4.7 mmol/L (3.5-5.1); Sodium 141 mmol/L (136-145)
[2020-02-17 15:07] LABS: #Basophils 0.1 thou/uL (0.0-0.2); #Eosinphils 0.8 thou/uL (0.0-0.7); #Lymphocytes 0.8 thou/uL (1.20-3.40); #Monocytes 0.6 thou/uL (0.11-0.59); %Basophils 1.7 % (0.0-1.0); %Lymphocytes 12.6 % (21.0-51.0); %Neutrophils 63.6 % (42.0-75.0); Hemoglobin 11.3 g/dL (12.0-16.0); Mean Corpuscular HGB CONC 30.5 g/dL (32.0-36.0); Mean Corpuscular Hemoglobin 30.7 pg (27.0-31.0); Mean Corpuscular Volume 100.7 fL (78.0-98.0); Mean Platelet Volume 10.2 fL (7.4-10.4); Platelet Count 138 thou/uL (130-400); RBC Distribution Width 15.7 % (11.5-14.5); Red Blood Cell (RBC) Count 3.67 mill/uL (4.20-5.40); White Blood Cell (WBC) Count 6.3 thou/uL (4.8-10.8)
== END 2020-02-17 14:37 | disposition home or self-care (01) ==
LOC: MADLABSP 14:36
PROVIDERS: ATTEND Family Medicine
DX: I25.810 Atherosclerosis of coronary artery bypass graft(s) without angina pectoris (principal)
CPT/HCPCS: 80048; 83735; 85025

== ENCOUNTER 2020-03-09 15:26 | Outpatient (CLI) | payer MEDICARE, OTHER ==
[2020-03-09 15:39] LABS: #Basophils 0.1 thou/uL (0.0-0.2); #Eosinphils 1.6 thou/uL (0.0-0.7); #Lymphocytes 0.9 thou/uL (1.20-3.40); #Monocytes 0.5 thou/uL (0.11-0.59); #Neutrophils 3.8 thou/uL (1.40-6.50); %Basophils 1.4 % (0.0-1.0); %Eosinophils 23.7 % (0.0-10.0); %Lymphocytes 13.3 % (21.0-51.0); %Monocytes 6.7 % (0.0-10.0); %Neutrophils 54.9 % (42.0-75.0); Hemoglobin 11.9 g/dL (12.0-16.0); Mean Corpuscular HGB CONC 29.9 g/dL (32.0-36.0); Mean Corpuscular Volume 100.2 fL (78.0-98.0); Mean Platelet Volume 9.7 fL (7.4-10.4); Platelet Count 127 thou/uL (130-400); Red Blood Cell (RBC) Count 3.96 mill/uL (4.20-5.40); White Blood Cell (WBC) Count 6.9 thou/uL (4.8-10.8)
[2020-03-09 15:47] LABS: ALT (SGPT) 11 U/L (8-55); AST (SGOT) 23 U/L (5-34); Alkaline Phosphatase 143 U/L (40-110); Anion Gap 16 mmol/L (10-20); BUN (Urea Nitrogen) 22 mg/dL (9.8-20.1); Bilirubin, Total 0.5 mg/dL (0.2-1.2); Calc. Creatinine Clearance 0 mL/min (70-130); Calcium 9.1 mg/dL (7.8-10.44); Carbon Dioxide 28 mmol/L (23-31); Chloride 101 mmol/L (98-107); Estimated GFR-MDRD 45; Globulin 2.3 g/dL (2.4-3.5); Glucose 154 mg/dL (83-110); Potassium 4.4 mmol/L (3.5-5.1); Protein, Total 6.3 g/dL (6.0-8.3); Sodium 141 mmol/L (136-145)
[2020-03-09 21:57] LABS: Iron 53 ug/dL (50-170)
== END 2020-03-09 15:27 | disposition home or self-care (01) ==
LOC: MADLAB 15:26
PROVIDERS: ATTEND Internal Medicine Hematology & Oncology
DX: I45.81 Long QT syndrome (principal)
CPT/HCPCS: 80053; 82728; 83540; 85025

== ENCOUNTER 2020-06-01 14:10 | Outpatient (CLI) | payer MEDICARE, OTHER ==
[2020-06-01 14:48] LABS: #Basophils 0.1 thou/uL (0.0-0.2); #Eosinphils 1.1 thou/uL (0.0-0.7); #Lymphocytes 1.2 thou/uL (1.20-3.40); #Monocytes 0.4 thou/uL (0.11-0.59); #Neutrophils 3.6 thou/uL (1.40-6.50); %Basophils 1.1 % (0.0-1.0); %Eosinophils 17.6 % (0.0-10.0); %Monocytes 6.5 % (0.0-10.0); %Neutrophils 55.8 % (42.0-75.0); Hemoglobin 11.6 g/dL (12.0-16.0); Hypochromia SLIGHT = 6-15 cells (100X) (0-5/hpf); Large Platelets SLIGHT; MDiff Complete? YES; Mean Corpuscular HGB CONC 32.5 g/dL (32.0-36.0); Mean Corpuscular Hemoglobin 30.4 pg (27.0-31.0); Mean Corpuscular Volume 93.5 fL (78.0-98.0); Mean Platelet Volume 8.6 fL (7.4-10.4); Platelet Count 120 thou/uL (130-400); Platelet Morphology Comment Appears Decreased; RBC Distribution Width 14.1 % (11.5-14.5); White Blood Cell (WBC) Count 6.4 thou/uL (4.8-10.8)
== END 2020-06-01 14:11 | disposition home or self-care (01) ==
LOC: MADLABSP 14:10
PROVIDERS: ATTEND Internal Medicine
DX: I13.0 Hypertensive heart and chronic kidney disease with heart failure and stage 1 through stage 4 chronic kidney disease, or unspecified chronic kidney disease (principal); N18.9 Chronic kidney disease, unspecified; I50.9 Heart failure, unspecified
CPT/HCPCS: 85025

== ENCOUNTER 2020-06-08 12:23 | Emergency (ER) | payer MEDICARE, OTHER ==
[2020-06-08] MEDS ORDERED: Lidocaine 1% w/Epinephrine 1:100K 20 ML VIAL ONE (12:57)
[2020-06-08] MEDS ORDERED: Oxymetazoline HCl 0.05% (30 ML BOT) ONE (12:57)
== END 2020-06-08 13:40 | disposition home or self-care (01) ==
LOC: MADERS 12:23
DX: R04.0 Epistaxis (principal); E11.9 Type 2 diabetes mellitus without complications; D50.9 Iron deficiency anemia, unspecified; E03.9 Hypothyroidism, unspecified; I25.2 Old myocardial infarction; I11.0 Hypertensive heart disease with heart failure; I50.9 Heart failure, unspecified; J44.9 Chronic obstructive pulmonary disease, unspecified; M10.9 Gout, unspecified; I25.10 Atherosclerotic heart disease of native coronary artery without angina pectoris; Z87.891 Personal history of nicotine dependence; Z79.82 Long term (current) use of aspirin; Z79.899 Other long term (current) drug therapy

== ENCOUNTER 2020-06-15 20:42 | Emergency (ER) | payer MEDICARE, OTHER ==
[2020-06-15 21:57] LABS: #Basophils 0.1 thou/uL (0.0-0.2); #Eosinphils 0.7 thou/uL (0.0-0.7); #Lymphocytes 0.9 thou/uL (1.20-3.40); #Monocytes 0.4 thou/uL (0.11-0.59); #Neutrophils 3.3 thou/uL (1.40-6.50); %Basophils 1.2 % (0.0-1.0); %Eosinophils 13.3 % (0.0-10.0); %Lymphocytes 17.2 % (21.0-51.0); %Monocytes 7.1 % (0.0-10.0); %Neutrophils 61.2 % (42.0-75.0); Hemoglobin 10.9 g/dL (12.0-16.0); Mean Corpuscular HGB CONC 31.9 g/dL (32.0-36.0); Mean Corpuscular Hemoglobin 30.1 pg (27.0-31.0); Mean Corpuscular Volume 94.2 fL (78.0-98.0); Mean Platelet Volume 8.7 fL (7.4-10.4); Platelet Count 127 thou/uL (130-400); Red Blood Cell (RBC) Count 3.63 mill/uL (4.20-5.40); White Blood Cell (WBC) Count 5.4 thou/uL (4.8-10.8)
[2020-06-15 22:04] LABS: Prothrombin Time 13.7 sec (12.0-14.7)
[2020-06-15 22:15] LABS: ALT (SGPT) 13 U/L (8-55); AST (SGOT) 21 U/L (5-34); Albumin 4.1 g/dL (3.4-4.8); Alkaline Phosphatase 135 U/L (40-110); Anion Gap 17 mmol/L (10-20); BUN (Urea Nitrogen) 23 mg/dL (9.8-20.1); Bilirubin, Total 0.5 mg/dL (0.2-1.2); Calc. Creatinine Clearance 0 mL/min (70-130); Calcium 9.3 mg/dL (7.8-10.44); Carbon Dioxide 29 mmol/L (23-31); Chloride 100 mmol/L (98-107); Estimated GFR-MDRD 48; Globulin 2.7 g/dL (2.4-3.5); Glucose 177 mg/dL (83-110); Potassium 4.1 mmol/L (3.5-5.1); Protein, Total 6.8 g/dL (6.0-8.3); Sodium 142 mmol/L (136-145)
[2020-06-15] MEDS ORDERED: Cephalexin 500 MG CAP ONE (22:28)
== END 2020-06-15 22:43 | disposition home or self-care (01) ==
LOC: MADERS 20:42
DX: R04.0 Epistaxis (principal); I25.10 Atherosclerotic heart disease of native coronary artery without angina pectoris; I11.0 Hypertensive heart disease with heart failure; I50.9 Heart failure, unspecified; I25.2 Old myocardial infarction; I48.91 Unspecified atrial fibrillation; E03.9 Hypothyroidism, unspecified; J44.9 Chronic obstructive pulmonary disease, unspecified; Z86.711 Personal history of pulmonary embolism; E11.9 Type 2 diabetes mellitus without complications; M10.9 Gout, unspecified; Z87.891 Personal history of nicotine dependence; D64.9 Anemia, unspecified
CPT/HCPCS: 30903; 36415; 80053; 85025; 85610

== ENCOUNTER 2020-06-17 20:02 | Emergency (ER) | payer MEDICARE, OTHER ==
[2020-06-17 20:42] LABS: #Basophils 0.1 thou/uL (0.0-0.2); #Eosinphils 0.9 thou/uL (0.0-0.7); #Lymphocytes 1.1 thou/uL (1.20-3.40); #Monocytes 0.4 thou/uL (0.11-0.59); #Neutrophils 4.1 thou/uL (1.40-6.50); %Basophils 1.8 % (0.0-1.0); %Eosinophils 13.7 % (0.0-10.0); %Lymphocytes 16.6 % (21.0-51.0); %Monocytes 6.1 % (0.0-10.0); %Neutrophils 61.8 % (42.0-75.0); Anisocytosis SLIGHT = 6-15 cells (100X) (0-5/hpf); Hemoglobin 11.9 g/dL (12.0-16.0); Hypochromia SLIGHT = 6-15 cells (100X) (0-5/hpf); MDiff Complete? YES; Mean Corpuscular Hemoglobin 30.9 pg (27.0-31.0); Mean Corpuscular Volume 96.6 fL (78.0-98.0); Mean Platelet Volume 8.2 fL (7.4-10.4); Platelet Count 120 thou/uL (130-400); Platelet Morphology Comment Appears Decreased; RBC Distribution Width 13.8 % (11.5-14.5); Red Blood Cell (RBC) Count 3.85 mill/uL (4.20-5.40); White Blood Cell (WBC) Count 6.6 thou/uL (4.8-10.8)
--- NOTE | 2020-06-17 20:46 | RAD ---
SINGLE VIEW OF THE CHEST 06/17/20 COMPARISON: 01/23/20 HISTORY: Chest and back pain. FINDINGS: Single view of the chest shows an enlarged but stable cardiomediastinal silhouette. The patient is st atus post sternotomy. The pacemaker is unchanged in position. Diffuse increased interstitial lung mar kings are present. There is no evidence of consolidation, mass or pleural effusion. Degenerative ramírez ges are seen in the spine. IMPRESSION: No evidence of acute cardiopulmonary disease. POS: NATALIEA
[2020-06-17 20:47] LABS: ALT (SGPT) 10 U/L (8-55); AST (SGOT) 21 U/L (5-34); Albumin 4.4 g/dL (3.4-4.8); Alkaline Phosphatase 150 U/L (40-110); Anion Gap 19 mmol/L (10-20); BUN (Urea Nitrogen) 19 mg/dL (9.8-20.1); Bilirubin, Total 0.4 mg/dL (0.2-1.2); Calc. Creatinine Clearance 0 mL/min (70-130); Calcium 9.5 mg/dL (7.8-10.44); Carbon Dioxide 29 mmol/L (23-31); Chloride 99 mmol/L (98-107); Estimated GFR-MDRD 44; Globulin 2.8 g/dL (2.4-3.5); Glucose 170 mg/dL (83-110); Potassium 4.2 mmol/L (3.5-5.1); Protein, Total 7.2 g/dL (6.0-8.3); Sodium 143 mmol/L (136-145)
== END 2020-06-17 21:58 | disposition left against medical advice (07) ==
LOC: MADERS 20:02
DX: R07.9 Chest pain, unspecified (principal); I11.0 Hypertensive heart disease with heart failure; I50.9 Heart failure, unspecified; I25.2 Old myocardial infarction; E03.9 Hypothyroidism, unspecified; Z87.891 Personal history of nicotine dependence
CPT/HCPCS: 71045; 80053; 83880; 84484; 85025; 93005

== ENCOUNTER 2020-07-07 17:54 | Inpatient (IN) | payer MEDICARE, OTHER ==
--- NOTE | 2020-07-07 18:38 | RAD ---
CHEST ONE VIEW: 07/07/20 HISTORY: Fever and illness. COMPARISON: Radiograph 06/17/20. FINDINGS: The heart size is enlarged. Multiple fractured midline sternotomy wires. Cardiac device is similar. No confluent air space consolidation, pneumothorax or effusion. Right lower hemithorax with skin fold . IMPRESSION: No acute intrathoracic abnormality. POS: HOME
[2020-07-07] MEDS ORDERED: Acetaminophen 500 MG TAB ONE (19:06)
[2020-07-07] MEDS ORDERED: Meclizine HCl 25 MG TAB ONE (19:06)
[2020-07-07] MEDS ORDERED: Sodium Chloride 0.9% 100 ML ONE (19:06)
[2020-07-07] MEDS ORDERED: Sodium Chloride 0.9% 1,000 ML ONE (19:06)
[2020-07-07] MEDS ORDERED: Azithromycin 500 MG VIAL ONE (19:06)
[2020-07-07] MEDS ORDERED: cefTRIAXone\\ROCEPHIN 1 GM VIAL ONE (19:06)
[2020-07-07] MEDS ORDERED: Sodium Chloride 0.9% 250 ML 250 ML ONE (19:06)
[2020-07-07 19:08] LABS: #Lymphocytes 0.3 thou/uL (1.20-3.40); #Monocytes 0.2 thou/uL (0.11-0.59); #Neutrophils 2.5 thou/uL (1.40-6.50); %Eosinophils 0.6 % (0.0-10.0); %Lymphocytes 10.2 % (21.0-51.0); %Monocytes 5.7 % (0.0-10.0); %Neutrophils 82.6 % (42.0-75.0); Hemoglobin 12.4 g/dL (12.0-16.0); Mean Corpuscular HGB CONC 31.2 g/dL (32.0-36.0); Mean Corpuscular Hemoglobin 30.4 pg (27.0-31.0); Mean Corpuscular Volume 97.3 fL (78.0-98.0); Mean Platelet Volume 8.5 fL (7.4-10.4); Platelet Count 80 thou/uL (130-400); Platelet Morphology Comment Appears Decreased; RBC Distribution Width 14.1 % (11.5-14.5); Red Blood Cell (RBC) Count 4.09 mill/uL (4.20-5.40)
[2020-07-07 19:10] LABS: ALT (SGPT) 16 U/L (8-55); AST (SGOT) 35 U/L (5-34); Albumin 4.1 g/dL (3.4-4.8); Alkaline Phosphatase 120 U/L (40-110); Anion Gap 16 mmol/L (10-20); BUN (Urea Nitrogen) 17 mg/dL (9.8-20.1); Bilirubin, Total 0.7 mg/dL (0.2-1.2); CK (CPK) 18 U/L (29-168); Calc. Creatinine Clearance 0 mL/min (70-130); Calcium 9.2 mg/dL (7.8-10.44); Carbon Dioxide 28 mmol/L (23-31); Chloride 98 mmol/L (98-107); Estimated GFR-MDRD 40; Globulin 2.7 g/dL (2.4-3.5); Glucose 204 mg/dL (83-110); Potassium 4.2 mmol/L (3.5-5.1); Protein, Total 6.8 g/dL (6.0-8.3); Sodium 138 mmol/L (136-145)
[2020-07-07 21:10] LABS: Bilirubin Negative (Negative); Blood, Urine Trace (Negative); Clarity Clear (Clear); Glucose, Urine (Dipstick) Negative (Negative); Ketone, Urine Negative (Negative); Leukocyte Negative (Negative); Nitrite Negative (Negative); Protein, Urine (Dipstick) 30 mg/dL (Neg-Trace); Specific Gravity, Urine 1.025 (1.005-1.030); Urobilinogen 0.2 mg/dL (Less than 2); pH, Urine 5.5 (5.0-9.0)
[2020-07-07 21:53] LABS: WBC/HPF 0-3 HPF (0-3)
[2020-07-07 21:54] LABS: Bacteria/HPF Rare-Few HPF (None Seen); Squamous Epithelial 0-3 HPF (0-3)
[2020-07-08] MEDS ORDERED: Ondansetron PF 4 MG/2 ML Vial IVP PRN (01:30)
[2020-07-08] MEDS ORDERED: Ondansetron ODT 4 MG TAB SL PRN (01:30)
[2020-07-08] MEDS ORDERED: Potassium Chloride 10 MEQ TAB PO SCH (01:45)
[2020-07-08] MEDS ORDERED: Allopurinol 100 MG TAB PO SCH (02:00)
[2020-07-08] MEDS ORDERED: Magnesium Oxide 400 MG TAB PO SCH (02:00)
[2020-07-08] MEDS: Acetaminophen 500 MG TAB PO PRN ×3 (04:18→21:39)
[2020-07-08] MEDS: Levothyroxine Sodium 75 MCG TAB PO SCH (05:39)
[2020-07-08 07:26] LABS: ALT (SGPT) 18 U/L (8-55); AST (SGOT) 41 U/L (5-34); Albumin 3.4 g/dL (3.4-4.8); Alkaline Phosphatase 98 U/L (40-110); Anion Gap 14 mmol/L (10-20); BUN (Urea Nitrogen) 18 mg/dL (9.8-20.1); Bilirubin, Total 0.7 mg/dL (0.2-1.2); Calc. Creatinine Clearance 0 mL/min (70-130); Calcium 8.6 mg/dL (7.8-10.44); Carbon Dioxide 28 mmol/L (23-31); Chloride 102 mmol/L (98-107); Estimated GFR-MDRD 50; Globulin 2.3 g/dL (2.4-3.5); Glucose 141 mg/dL (83-110); Potassium 4.4 mmol/L (3.5-5.1); Protein, Total 5.7 g/dL (6.0-8.3); Sodium 140 mmol/L (136-145)
[2020-07-08] MEDS ORDERED: FLU VACC QS2020-21(65YR UP)/PF 240 MCG/0.7 ML SYRINGE IM ONE (07:45)
[2020-07-08 07:59] LABS: Hemoglobin 10.5 g/dL (12.0-16.0); Mean Corpuscular HGB CONC 31.7 g/dL (32.0-36.0); Mean Corpuscular Hemoglobin 30.1 pg (27.0-31.0); Mean Corpuscular Volume 95.1 fL (78.0-98.0); RBC Distribution Width 14.2 % (11.5-14.5); Red Blood Cell (RBC) Count 3.19 mill/uL (4.20-5.40); White Blood Cell (WBC) Count 2.3 thou/uL (4.8-10.8)
[2020-07-08 08:00] LABS: #Lymphocytes 0.3 thou/uL (1.20-3.40); #Monocytes 0.2 thou/uL (0.11-0.59); #Neutrophils 1.8 thou/uL (1.40-6.50); %Basophils 1.3 % (0.0-1.0); %Eosinophils 0.9 % (0.0-10.0); %Lymphocytes 11.8 % (21.0-51.0); %Monocytes 7.7 % (0.0-10.0); %Neutrophils 78.7 % (42.0-75.0); Mean Platelet Volume 8.7 fL (7.4-10.4); Platelet Count 53 thou/uL (130-400)
[2020-07-08 08:01] LABS: Anisocytosis SLIGHT = 6-15 cells (100X) (0-5/hpf); Platelet Morphology Comment Appears Decreased
[2020-07-08] MEDS: Ubidecarenone 50 MG CAP PO SCH (08:12)
[2020-07-08] MEDS: Aspirin 81 mg Enteric Coated Tablet PO SCH (08:12)
[2020-07-08] MEDS: Cyanocobalamin (Vitamin B-12) 1,000 MCG TAB PO SCH (08:12)
[2020-07-08] MEDS: Allopurinol 100 MG TAB PO SCH ×2 (08:12→21:38)
[2020-07-08] MEDS: Docusate 100 MG CAP PO SCH (08:12)
[2020-07-08] MEDS: Furosemide 40 MG TAB PO SCH ×2 (08:12→14:52)
[2020-07-08] MEDS: Magnesium Oxide 400 MG TAB PO SCH ×2 (08:12→21:38)
[2020-07-08] MEDS: Potassium Chloride 10 MEQ TAB PO SCH ×2 (08:13→17:17)
[2020-07-08] MEDS: cefTRIAXone\\ROCEPHIN 1 GM in Sodium Chloride 0.9% 100 ML IVPB SCH (08:13)
[2020-07-08] MEDS: Azithromycin 500 MG in Sodium Chloride 0.9% 250 ML 250 ML IVPB SCH (10:36)
--- NOTE | 2020-07-08 11:14 | HP ---
CHIEF COMPLAINT: Fever and feels bad. HISTORY OF PRESENT ILLNESS: The patient is an 85-year-old white female, who has a history of restrictive lung disease with chronic hypoxic respiratory failure requiring continuous supplemental O2. She has a history of some chronic right heart failure. She has valvular heart disease, for which she has undergone mitral valve replacement in 2001 with a bioprosthetic valve. This required a redo of the mitral valve for severe stenosis in 2010. She has had problems with atrial arrhythmias and required a pacemaker. She has chronic diastolic heart failure. She was last hospitalized at [facility] for torsades like arrhythmias secondary to acute QT prolongation from amiodarone and contributed to by hypokalemia and hypomagnesemia. She was then cared for at [facility] for weakness from 01/28/2020 to 02/13/2020. Since then, she has been able to remain out of the hospital living in her home independently. Her family and home health had assisted her some, but lately with the COVID pandemic, she has tried to maintain on her own. She has had problems with recurring anterior nose bleeds from ulcerations over the anterior septum. She sees Dr. Coello, Ear, Nose and Throat physician every two weeks for repeat cautery and this is helping. She has chronic problems with allergic rhinitis with clear nasal drainage that runs anterior outer nose and posteriorly down her throat and periodically gets a sinus infection. The patient is independent of her ADLs, but needs some assistance with her instrumental ADLs. On 07/07/2020, the patient said she just did not feel good. She said something just did not feel right. She was more tired than usual and began running a temperature of around 100. Eventually, because of the persistence of the fever and not feeling good, she thought she better go to the emergency room. She thought that some of this might just be an onset of a sinus infection, which she periodically gets, but the fever with this was unusual. In the emergency room, she had a temperature of 100.3. Her blood pressure was 139/58, her O2 saturation on the 2 L was 97%. A chest x-ray was done and showed no evidence of any infiltrate. The heart was enlarged and she had evidence of multiple fractured midline sternotomy wires and the pacemaker. LABORATORY DATA: The patient's lab studies showed a sodium of 138, potassium 4.2, BUN 17, creatinine 1.28, GFR 40, glucose 204, alkaline phosphatase 120. CK 18, troponin I is 0.24. Her CBC showed an H and H of 12.4 and 39.7 with a white cell count of 3000 with 83% segs, 10% lymphocytes, and a platelet count of 80,000. The emergency room physician had called me and said that the patient looks very well and did not find much on examination, but was concerned with the fever, the fatigue, the low white cell count and the low platelet count that she may be septic. A lactic acid level was done, it was only 1.0. The patient had blood cultures drawn. Influenza test was performed, results are pending. Also a COVID-19 KAITLYNN was performed by oropharyngeal swabbing as the patient did not want this done in her nose due to her nosebleed tendency. The patient was admitted to the hospital and had received some fluids in the emergency room, which were stopped due to her diastolic heart failure and she was placed on ceftriaxone and azithromycin. The patient was seen early on the morning of 07/08 and she was able to relate to me the history as outlined above. She said she feels good this morning, but had just sweated. She had had a temperature a little earlier of 101.2, now it is dropped to 99.6. Her blood pressure has been fine. Her O2 saturation on the 2 L remained at 94%. She says she is feeling good this morning, just thought this may be a sinus infection. She said she has not had any exposure to the COVID that she knows of. Home health has come to see her, but the last visit was a week ago and she asked that they not come back, because of their potential exposure. She goes to Dr. Coello's office every 2 weeks, but it is just in and out with precaution and she has seen her district commercial superintendent, Dr. Clinton. PAST MEDICAL HISTORY: Last hospitalized at [facility] in December of 2019 for torsades like arrhythmias secondary to acute QT prolongation from amiodarone and contributed to by hypokalemia and hypomagnesemia. 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 She had a revision of a dual chamber PPM, right atrial lead on 01/23/2020. She was hospitalized in September of 2019 for [id number] hypoxic respiratory failure and [id number] diastolic heart failure and restrictive lung disease. The patient has restrictive lung disease complicated by chronic hypoxic respiratory failure that has required continuous supplemental O2. She has chronic right heart failure, chronic diastolic heart failure, coronary artery disease, coronary artery bypass in 2000. She had a redo coronary artery bypass x1 in October of 2001. She has valvular heart disease. She has undergone a mitral valve replacement with bioprosthetic valves in January of 2002. This developed a stenosis for which she required a mitral valve replacement for the stenosis in December of 2010. She has diabetes type 2 that is diet controlled. She has history of recurrent atrial arrhythmias and atrial fibrillation. She has had pacemaker replacement that required right atrial lead revision on 01/23/2020. She is not a candidate for anticoagulant due to history of GI bleeding. She has had a history of sick sinus syndrome, hypothyroidism, chronic kidney disease and gastroesophageal reflux disease. She has had bilateral cataract surgery, abdominal hysterectomy, cholecystectomy, tonsillectomy, bladder suspension, nasal septal repair, nondisplaced fracture of the proximal phalanx of the right great toe that is healed in July 2019. She had a heart catheterization in December 2019 that showed everything was stable, no change. She has gout and anxiety disorder. PRESENT MEDICATIONS: 1. Acetaminophen 500 mg two every 6 hours as needed. 2. Allopurinol 100 mg b.i.d. 3. Alprazolam 0.25 mg b.i.d. as needed. 4. Aspirin 81 mg daily. 5. Azithromycin 250 mg IV daily started in the emergency room on 07/07. 6. Ceftriaxone 1 g started in the emergency room on 07/07, 1 g IV. 7. Coenzyme Q10 200 mg daily. 8. Cyanocobalamin 1000 mcg daily. 9. Docusate sodium 100 mg daily. 10. Furosemide 40 mg b.i.d. at 9:00 a.m. and 2:00 p.m. 11. Levothyroxine 75 mcg daily. 12. Magnesium oxide 400 mg b.i.d. 13. Pantoprazole 40 mg b.i.d. 14. Potassium chloride 10 mEq b.i.d. ALLERGIES: NITROFURANTOIN, PENICILLIN, LISINOPRIL CAUSES A COUGH, ENABLEX, TALWIN, VICODIN, DARVOCET, NEURONTIN, PREDNISONE CAUSES MARKED SWELLING, LEVAQUIN NAUSEA, CRESTOR MYALGIAS. REVIEW OF SYSTEMS: GENERAL: The patient said for the last day or so she has felt much more tired and weaker than usual. She has had a little headache. EYES, EAR, NOSE, AND THROAT: The patient has chronic problems with clear nasal drainage that will run from her nose and also to the back of her nose. At times, she says she will get a secondary infection which what she thought she has now. She has recurring problems with anterior nosebleeds that are improving with cauterization every 2 weeks. HEAD AND NECK: The patient said her throat is not sore. She has had no loss of taste or smell. PULMONARY: The patient says she has had just a little cough that she says is from the posterior nasal drainage, this is nonproductive. She said she is not short of breath. CARDIOVASCULAR: No chest pain. GI: No nausea, vomiting, or diarrhea. DERMATOLOGIC: No rash. NEUROLOGIC: The patient denies any increased focal weakness. She says she has had a little headache. ADLs, patient is independent of her ADLs. She lives at her home by herself, but has some family that comes in and assist her as needed. HABITS: Alcohol, none. Tobacco, none. SOCIAL HISTORY: The patient is a . Lives alone, but her son and [id number] will assist her when needed. Home health has also assisted her, but has not been out in a week due to the COVID pandemic and patient's fear of infection being brought in. CODE STATUS: DNR. PHYSICAL EXAMINATION: GENERAL: Shows a very pleasant 85-year-old white female, who is sitting on the edge of her bed. She is alert and talkative, appears comfortable and in no distress. VITAL SIGNS: Her temp is 99.6, earlier it was 101.2, pulse 72, respirations 17, O2 saturation 94% on 2 L by nasal cannula, blood pressure 104/53. Her weight is 152. HEENT: Head is normocephalic. Eyes pupils are equal, round, and reactive. Ears normal. Nose normal. There is no drainage presently. Mouth and throat normal. NECK: Carotids are equal and strong. No bruits. Thyroid not enlarged. LUNGS: Clear. HEART: Regular rate. No murmurs. The patient has a pacemaker in the left upper anterior chest. There is no surrounding redness or tenderness. ABDOMEN: Soft, no organomegaly. No areas of tenderness. EXTREMITIES: No edema. NEUROLOGIC: The patient is alert and oriented x3. The patient has good muscle strength throughout with no focal weakness. Repeat CBC this morning pending. COVID antigen test pending. Influenza test pending. Blood cultures have been drawn. IMPRESSION: 1. Febrile illness. a. Accompanied by weakness and fatigue. b. Complicated by neutropenia and thrombocytopenia, possible sepsis, but no hypotension. c. Lactic acid level normal. d. Possible COVID infection. 2. Restrictive lung disease. a. Complicated by chronic hypoxic respiratory failure that requires continuous supplemental O2. 3. Chronic right heart failure. a. Presently no evidence of acute congestive heart failure as of 07/08. 4. Chronic diastolic heart failure. a. Presently no evidence of acute failure as of 07/08. 5. Torsade like arrhythmia. a. Required resuscitation, temporary use of IV lidocaine in January of 2020. b. Etiology secondary to an amiodarone-induced QT prolongation along with hypokalemia and hypomagnesemia. c. No recurrence as of 07/08. 6. Coronary artery disease. a. Status post coronary artery bypass in 2000 x1, status post redo coronary artery bypass x1 in October 2001. Heart catheterization in January 13, showed no change. 7. Valvular heart disease. a. Status post mitral valve replacement with bioprosthetic valve in January 2002. b. Status post redo mitral valve replacement for severe bioprosthetic mitral valve stenosis, December 2010. 8. Diabetes type 2, controlled on diet alone. 9. History of recurrent atrial arrhythmia and atrial fibrillation. a. Status post pacemaker placement and required right atrial lead revision of the dual chamber permanent pacemaker on 01/23/2020. b. Not a candidate for anticoagulation due to history of gastrointestinal bleeding. 10. Sick sinus syndrome. 11. Hypothyroidism. 12. Chronic kidney disease. 13. Recurrent anterior nosebleeds. a. Improving with repeated cauterizations. PLAN: The patient looks good this morning. She is normotensive and fever is down to 99.6. Her exam is unremarkable. Etiology of the fever at this point is not known. She is neutropenic and platelets are a little low. Blood cultures have been obtained. Her urinalysis is unremarkable. The patient may have a COVID infection. Right now, we will continue the ceftriaxone and the azithromycin, which will also cover her in the event that this fever is from a sinus infection, which she feels may be going on. We will continue her routine medication. The patient presently in isolation, which will be continued. See orders. Job ID: [id number] MTDD
[2020-07-08 11:35] VITALS: BMI 25.2
[2020-07-08 17:33] LABS: Hemoglobin A1c 6.3 % (4.0-6.0)
[2020-07-08] MEDS: Lantus 1000 UNITS/10 ML VIAL SC SCH (21:36)
[2020-07-08] MEDS: Sodium Chloride 0.65% Nasal 44 ML BOT EA NARE PRN (21:37)
[2020-07-08] MEDS: ALPRAZolam 0.25 MG TAB PO PRN (21:40)
[2020-07-08 22:55] LABS: SARS-CoV-2 MS2 Positive; SARS-CoV-2 N Gene Negative; SARS-CoV-2 S Gene Negative; SARS-CoV-2 by NAA Not Detected (NotDetected); SARS-CoV-2 orf1ab Negative
[2020-07-09] MEDS: Levothyroxine Sodium 75 MCG TAB PO SCH (04:35)
[2020-07-09] MEDS: Acetaminophen 500 MG TAB PO PRN (04:42)
[2020-07-09 05:54] LABS: Anion Gap 13 mmol/L (10-20); BUN (Urea Nitrogen) 22 mg/dL (9.8-20.1); Calc. Creatinine Clearance 36 mL/min (70-130); Calcium 8.6 mg/dL (7.8-10.44); Carbon Dioxide 29 mmol/L (23-31); Chloride 101 mmol/L (98-107); Estimated GFR-MDRD 41; Glucose 151 mg/dL (83-110); Potassium 4.2 mmol/L (3.5-5.1); Sodium 139 mmol/L (136-145)
[2020-07-09 07:01] LABS: Hemoglobin 10.2 g/dL (12.0-16.0); Manual Diff?? YES; Mean Corpuscular HGB CONC 31.5 g/dL (32.0-36.0); Mean Corpuscular Hemoglobin 30.3 pg (27.0-31.0); Mean Corpuscular Volume 96.2 fL (78.0-98.0); Mean Platelet Volume 10.3 fL (7.4-10.4); Platelet Count 53 thou/uL (130-400); RBC Distribution Width 13.7 % (11.5-14.5); Red Blood Cell (RBC) Count 3.35 mill/uL (4.20-5.40); White Blood Cell (WBC) Count 1.3 thou/uL (4.8-10.8)
[2020-07-09 07:02] LABS: Anisocytosis SLIGHT = 6-15 cells (100X) (0-5/hpf); Band 15 % (5-11); Eosinophils 3 % (0-10); Lymphocytes 33 % (21-51); MDiff Complete? YES; Monocytes 8 % (0-10); Neutrophil 41 % (42-75); Platelet Morphology Comment Appears Decreased
[2020-07-09] MEDS: cefTRIAXone\\ROCEPHIN 1 GM in Sodium Chloride 0.9% 100 ML IVPB SCH (08:46)
[2020-07-09] MEDS: Potassium Chloride 10 MEQ TAB PO SCH ×2 (08:47→17:29)
[2020-07-09] MEDS: Ubidecarenone 50 MG CAP PO SCH (08:47)
[2020-07-09] MEDS: Furosemide 40 MG TAB PO SCH ×2 (08:48→14:39)
[2020-07-09] MEDS: Docusate 100 MG CAP PO SCH (08:48)
[2020-07-09] MEDS: Allopurinol 100 MG TAB PO SCH ×2 (08:48→20:03)
[2020-07-09] MEDS: Magnesium Oxide 400 MG TAB PO SCH ×2 (08:48→20:03)
[2020-07-09] MEDS: Cyanocobalamin (Vitamin B-12) 1,000 MCG TAB PO SCH (08:48)
[2020-07-09] MEDS: Aspirin 81 mg Enteric Coated Tablet PO SCH (08:48)
[2020-07-09] MEDS: Sodium Chloride 0.65% Nasal 44 ML BOT EA NARE PRN (08:50)
[2020-07-09] MEDS ORDERED: Loratadine 10 MG TAB PO SCH (09:00)
[2020-07-09] MEDS: Azithromycin 500 MG in Sodium Chloride 0.9% 250 ML 250 ML IVPB SCH (09:36)
[2020-07-09] MEDS: ALPRAZolam 0.25 MG TAB PO PRN (12:40)
[2020-07-09 19:22] VITALS: BP 122/66; TEMP 97.5
[2020-07-09] MEDS: Lantus 1000 UNITS/10 ML VIAL SC SCH (20:03)
--- NOTE | 2020-07-12 09:35 | DIS ---
DATE OF ADMISSION: 07/07/2020 DATE OF DISCHARGE: 07/09/[address] [facility] on 07/09/2020. FINAL DIAGNOSES: 1. Febrile illness. a. Accompanied by weakness and fatigue. b. Complicated by neutropenia and thrombocytopenia with no hypotension and normal lactic acid. c. Blood cultures, no growth. d. COVID-19 antigen test by oropharyngeal negative, but has higher false- negative rate by this technique. 2. Elevated D-dimer. a. Value was 2.88. 3. Restrictive lung disease, complicated by chronic hypoxic respiratory failure that requires continuous supplemental O2. 4. Chronic right heart failure. a. Presently no evidence of acute congestive heart failure as of 07/09. 5. Chronic diastolic heart failure. a. Presently no evidence of acute congestive heart failure on 07/09. 6. History of torsades like arrhythmia. a. Required resuscitation, temporary use of IV lidocaine in January of 2020. b. Etiology secondary to an amiodarone-induced QT prolongation along with hypokalemia and hypomagnesemia. c. No recurrence. 7. Coronary artery disease. a. Status post coronary artery bypass in 2000 x1, status post redo coronary artery bypass x1 in October 2001. Heart catheterization in January 13 showed no changes. 8. Valvular heart disease. a. Status post mitral valve replacement with bioprosthetic valve, January 2002. b. Status post redo mitral valve replacement for severe bioprosthetic mitral valve stenosis, December 2010. 9. Diabetes type 2, controlled on diet alone. 10. History of recurrent arrhythmia and atrial fibrillation. a. Status post pacemaker placement and required right atrial lead revision of a dual-chamber permanent pacemaker on 01/23/2020. b. Had previously not been a candidate for anticoagulation due to GI bleeding. 11. Sick sinus syndrome. 12. Hypothyroidism. 13. Chronic kidney disease. 14. Recurrent anterior nosebleeds. a. Improving. Requires repeat nasal cauterization. SUMMARY: The patient is an 85-year-old white female, who has a history of restrictive lung disease with chronic hypoxic respiratory failure requiring continuous supplemental O2. She has a history of chronic right heart failure and diastolic heart failure. She has undergone mitral valve replacement for mitral stenosis in 2001 with a bioprosthetic valve and a redo of the mitral valve due to stenosis again in 2010. She has had problems with atrial fibrillation, required a pacemaker. Her anticoagulants were later stopped due to GI bleed. She was hospitalized in January of 2020 for torsades like arrhythmia secondary to acute QT prolongation from amiodarone and contributed to by hypokalemia and hypomagnesemia. She lives at home and is independent of her ADLs. She has family that comes in and assists her with her instrumental ADLs and home health who also assisted her. 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 The patient presented to the emergency room on the evening of 07/07/20 due to low-grade fever up to around 99.6 and just not feeling good. She was not short of breath and her O2 saturation with her supplemental O2 was the same. She denied any headache. She did complain of nasal congestion, which is chronic for her with clear drainage and just some stuffiness in the back of her nose, but again this is chronic. Her chest x-ray shows chronic cardiomegaly, but no definite infiltrates. Her H and H were 12.4 and 39.7 with a white cell count of 3000 with 83% segs, 10% lymphocytes, and a platelet count of 80,000. The patient had been started on IV fluids. She has had no episodes of hypotension. She had blood cultures drawn and her urine showed no evidence of infection. ER physician was concerned that this may be a sepsis with the fever, not feeling good, neutropenia, and the thrombocytopenia. Her lactic acid level was 1.0. The patient did not want to go to [facility]. She had asked to be admitted here. She looked very stable and I felt like that was reasonable. She was admitted and started on IV azithromycin and IV Rocephin. The patient was seen early the next morning. A COVID antigen test was collected that evening by oropharyngeal route because the patient did not want nasal swab, which she was afraid would induce the nosebleeds. The influenza A and B tests were negative. Patient was feeling good. She had no specific complaint. Her examination remained normal. During the night, she had a temperature of 101.2. Her repeat CBC showed her white cell count had dropped to 2.3 and platelets had dropped to 53,000. The patient really still had no new complaints. She was seen on the morning of 07/09. She has been afebrile now for 24 hours. She was in isolation for possible COVID infection. Her oropharyngeal COVID-19 test was negative, but this has a higher rate of false negatives. She was left in isolation. Her repeat CBC showed white cells have dropped to 1.3 with 41% segs and 50% bands. Platelet counts were stable at 53,000, hemoglobin 10,200. Her D-dimer was elevated to 2.88. We conferred with patient and recommended that she be transferred to [facility] due to the recent febrile illness complicated by the neutropenia that was progressing downward and the thrombocytopenia. Also she had the elevated D-dimer and that will need to be further explored for possibility of thrombosis. I spoke with Dr. Erickson, hospitalist at [facility], and reviewed with him her history. He was agreeable to accept the patient in transfer. The patient will be transferred there. The patient is stable for the transfer. We will continue her IV antibiotics and continue the isolation. CODE STATUS: DNR. Job ID: [id number] [facility]
== END 2020-07-09 21:05 | disposition short-term general hospital (02) | DRG 809 ==
LOC: MADERS 17:54 → MADMS 21:09
PROVIDERS: ADMIT Family Medicine; ATTEND Family Medicine
PROC: 8E0ZXY6 Isolation (ICD-10-PCS; principal; 2020-07-07)
DX: D70.9 Neutropenia, unspecified (principal); J96.11 Chronic respiratory failure with hypoxia; I50.32 Chronic diastolic (congestive) heart failure; R50.9 Fever, unspecified; I25.10 Atherosclerotic heart disease of native coronary artery without angina pectoris; E03.9 Hypothyroidism, unspecified; N18.9 Chronic kidney disease, unspecified; K21.9 Gastro-esophageal reflux disease without esophagitis; I50.812 Chronic right heart failure; Z20.828 Contact with and (suspected) exposure to other viral communicable diseases; I49.5 Sick sinus syndrome; I48.91 Unspecified atrial fibrillation; E11.22 Type 2 diabetes mellitus with diabetic chronic kidney disease; Z95.0 Presence of cardiac pacemaker; J44.9 Chronic obstructive pulmonary disease, unspecified; R53.1 Weakness; R79.1 Abnormal coagulation profile; R04.0 Epistaxis; D69.6 Thrombocytopenia, unspecified; Z95.2 Presence of prosthetic heart valve; Z95.1 Presence of aortocoronary bypass graft; Z90.710 Acquired absence of both cervix and uterus; Z90.49 Acquired absence of other specified parts of digestive tract; Z90.89 Acquired absence of other organs; Z79.82 Long term (current) use of aspirin; Z79.899 Other long term (current) drug therapy; Z88.0 Allergy status to penicillin; Z88.1 Allergy status to other antibiotic agents; Z88.8 Allergy status to other drugs, medicaments and biological substances; I25.2 Old myocardial infarction; Z86.711 Personal history of pulmonary embolism
CPT/HCPCS: 36416; 71045; 80048; 80053; 81003; 81015; 82550; 82728; 83036; 83605; 83615; 84484; 85025; 85379; 86140; 87040; 87086; 87635; 87804; 93005; 96365; 96367; J0456; J0696; J1815; J3490; J7050; U0003

== ENCOUNTER 2020-10-03 18:05 | Emergency (ER) | payer MEDICARE, OTHER ==
--- NOTE | 2020-10-03 19:06 | RAD ---
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 There is no evidence of consolidation, or pulmonary edema . The lateral costophrenic angles are not effaced. Nonspecific prominent interstitial markings. Sternal wires. Permanent pacemaker with left-sided generator. Patient's chin obscures bilateral lung apices. No large pneumothorax. IMPRESSION: 1) No consolidation. 2) ectasia of thoracic aorta. 3) permanent pacemaker 4) signs of previous coronary artery bypass graft surgery is evidence for coronary atherosclerotic di sease
[2020-10-03 19:12] LABS: #Basophils 0.1 thou/uL (0.0-0.2); #Lymphocytes 0.7 thou/uL (1.20-3.40); #Monocytes 0.4 thou/uL (0.11-0.59); #Neutrophils 3.6 thou/uL (1.40-6.50); %Basophils 1.2 % (0.0-1.0); %Eosinophils 16.6 % (0.0-10.0); %Lymphocytes 11.8 % (21.0-51.0); %Monocytes 7.5 % (0.0-10.0); %Neutrophils 62.9 % (42.0-75.0); Anisocytosis SLIGHT = 6-15 cells (100X) (0-5/hpf); Hemoglobin 12.6 g/dL (12.0-16.0); Hypochromia SLIGHT = 6-15 cells (100X) (0-5/hpf); MDiff Complete? YES; Mean Corpuscular HGB CONC 32.5 g/dL (32.0-36.0); Mean Corpuscular Volume 95.4 fL (78.0-98.0); Mean Platelet Volume 8.1 fL (7.4-10.4); Platelet Count 93 thou/uL (130-400); Platelet Morphology Comment Appears Decreased; RBC Distribution Width 13.9 % (11.5-14.5); Red Blood Cell (RBC) Count 4.07 mill/uL (4.20-5.40); White Blood Cell (WBC) Count 5.8 thou/uL (4.8-10.8)
[2020-10-03 19:15] LABS: Base Excess-Venous 4.8 mmol/L (-2.0 to 3.0); Bicarbonate (HCO3v) 31.6 mmol/L (22.0-28.0); CO2 Tension (PvCO2) 54.5 mmHg (40.0-50.0); Calcium, Ionized 1.12 mmol/L (1.15-1.33); Chloride 99 mmol/L (98-107); Hemoglobin - Calc 13.7 g/dL (12.0-16.0); Potassium 5.3 mmol/L (3.5-5.1); Sodium 138 mmol/L (138-145); T. Carbon Dioxide 33.2 mmol/L (22.0-28.0); vO2 Saturation-calc 86.1 % (60.0-85.0)
[2020-10-03 19:19] LABS: ALT (SGPT) 13 U/L (8-55); AST (SGOT) 23 U/L (5-34); Albumin 4.3 g/dL (3.4-4.8); Alkaline Phosphatase 147 U/L (40-110); Anion Gap 14 mmol/L (10-20); BUN (Urea Nitrogen) 24 mg/dL (9.8-20.1); Bilirubin, Total 0.5 mg/dL (0.2-1.2); Calc. Creatinine Clearance 0 mL/min (70-130); Calcium 9.2 mg/dL (7.8-10.44); Carbon Dioxide 31 mmol/L (23-31); Chloride 99 mmol/L (98-107); Globulin 2.2 g/dL (2.4-3.5); Glucose 220 mg/dL (83-110); Lipase 30 U/L (8-78); Magnesium 2.1 mg/dL (1.6-2.6); Potassium 4.2 mmol/L (3.5-5.1); Protein, Total 6.5 g/dL (5.8-8.1); Sodium 140 mmol/L (136-145)
[2020-10-03 19:28] LABS: Bilirubin Negative (Negative); Blood, Urine Trace (Negative); Glucose, Urine (Dipstick) Negative (Negative); Ketone, Urine Negative (Negative); Leukocyte Small (Negative); Nitrite Negative (Negative); Protein, Urine (Dipstick) Negative (Neg-Trace); Specific Gravity, Urine 1.015 (1.005-1.030); Urobilinogen 0.2 mg/dL (Less than 2)
[2020-10-03 19:32] LABS: Clarity Hazy (Clear)
[2020-10-03 19:36] LABS: RBC/HPF 0-3 HPF (0-3); Squamous Epithelial None Seen HPF (0-3)
[2020-10-03 19:37] LABS: Bacteria/HPF 1+ HPF (None Seen)
[2020-10-03] MEDS ORDERED: cefTRIAXone\\ROCEPHIN 1 GM VIAL ONE (20:19)
== END 2020-10-03 21:47 | disposition short-term general hospital (02) ==
LOC: MADERS 18:05
DX: R07.9 Chest pain, unspecified (principal); N39.0 Urinary tract infection, site not specified; E11.65 Type 2 diabetes mellitus with hyperglycemia; E03.9 Hypothyroidism, unspecified; I11.0 Hypertensive heart disease with heart failure; I50.9 Heart failure, unspecified; I48.91 Unspecified atrial fibrillation; I25.2 Old myocardial infarction; J44.9 Chronic obstructive pulmonary disease, unspecified; D50.9 Iron deficiency anemia, unspecified; M10.9 Gout, unspecified; Z87.891 Personal history of nicotine dependence; Z79.899 Other long term (current) drug therapy
CPT/HCPCS: 36416; 71045; 80053; 81001; 82330; 82803; 83690; 83735; 84484; 85025; 87077; 87086; 87186; 93005; 96374; J0696

== ENCOUNTER 2020-10-31 17:50 | Emergency (ER) | payer MEDICARE, OTHER ==
[2020-10-31] MEDS ORDERED: HYDROcodone/Acetaminophen 5/325 mg Tablet ONE (19:02)
== END 2020-10-31 19:13 | disposition home or self-care (01) ==
LOC: MADERS 17:50
DX: M54.6 Pain in thoracic spine (principal); I11.0 Hypertensive heart disease with heart failure; I50.9 Heart failure, unspecified; I48.91 Unspecified atrial fibrillation; E11.9 Type 2 diabetes mellitus without complications; E03.9 Hypothyroidism, unspecified; J44.9 Chronic obstructive pulmonary disease, unspecified; D64.9 Anemia, unspecified; Z79.899 Other long term (current) drug therapy
CPT/HCPCS: 71045

== ENCOUNTER 2020-11-01 14:33 | Emergency (ER) | payer MEDICARE, OTHER ==
[~2020-11-01 14:33] MED LIST changes: -Atropine Sulfate 1 mg/10 ml Syringe ONE; -Calcium Chloride 1 GM/10 ML Abboject SYRINGE ONE; +Iopamidol 370 76% 125 ML VIAL FS ONE; -Sodium Chloride 0.9% 1,000 ML BAG ONE
[2020-11-01 15:59] LABS: CRP (Inflammatory) 0.97 mg/dL (= or < 0.5)
[2020-11-01 16:01] LABS: ALT (SGPT) 17 U/L (8-55); AST (SGOT) 28 U/L (5-34); Albumin 4.3 g/dL (3.4-4.8); Alkaline Phosphatase 170 U/L (40-110); Anion Gap 16 mmol/L (10-20); BUN (Urea Nitrogen) 19 mg/dL (9.8-20.1); Bilirubin, Total 0.7 mg/dL (0.2-1.2); Calc. Creatinine Clearance 0 mL/min (70-130); Calcium 9.5 mg/dL (7.8-10.44); Carbon Dioxide 30 mmol/L (23-31); Chloride 101 mmol/L (98-107); Globulin 2.5 g/dL (2.4-3.5); Glucose 159 mg/dL (83-110); Potassium 4.3 mmol/L (3.5-5.1); Protein, Total 6.8 g/dL (5.8-8.1); Sodium 143 mmol/L (136-145)
[2020-11-01 16:03] LABS: #Basophils 0.1 thou/uL (0.0-0.2); #Eosinphils 0.8 thou/uL (0.0-0.7); #Lymphocytes 0.8 thou/uL (1.20-3.40); #Monocytes 0.5 thou/uL (0.11-0.59); #Neutrophils 4.6 thou/uL (1.40-6.50); %Basophils 1.4 % (0.0-1.0); %Eosinophils 12.3 % (0.0-10.0); %Lymphocytes 11.8 % (21.0-51.0); %Monocytes 7.6 % (0.0-10.0); Anisocytosis SLIGHT = 6-15 cells (100X) (0-5/hpf); Hemoglobin 12.9 g/dL (12.0-16.0); Hypochromia SLIGHT = 6-15 cells (100X) (0-5/hpf); MDiff Complete? YES; Mean Corpuscular HGB CONC 33.6 g/dL (32.0-36.0); Mean Corpuscular Hemoglobin 32.2 pg (27.0-31.0); Mean Corpuscular Volume 95.7 fL (78.0-98.0); Mean Platelet Volume 8.3 fL (7.4-10.4); Platelet Count 104 thou/uL (130-400); Platelet Morphology Comment Appears Decreased; RBC Distribution Width 13.3 % (11.5-14.5); Red Blood Cell (RBC) Count 4.02 mill/uL (4.20-5.40); Tear Drops SLIGHT = 2-5 cells (100X) (0-1/hpf); White Blood Cell (WBC) Count 6.9 thou/uL (4.8-10.8)
[2020-11-01 16:09] LABS: Bilirubin Negative (Negative); Blood, Urine Negative (Negative); Clarity Clear (Clear); Glucose, Urine (Dipstick) Negative (Negative); Ketone, Urine Negative (Negative); Leukocyte Negative (Negative); Nitrite Negative (Negative); Protein, Urine (Dipstick) Negative (Neg-Trace); Urobilinogen 0.2 mg/dL (Less than 2)
== END 2020-11-01 19:10 | disposition short-term general hospital (02) ==
LOC: MADERS 14:33
DX: M54.6 Pain in thoracic spine (principal); I25.10 Atherosclerotic heart disease of native coronary artery without angina pectoris; I11.0 Hypertensive heart disease with heart failure; I50.9 Heart failure, unspecified; I25.2 Old myocardial infarction; I48.91 Unspecified atrial fibrillation; E11.9 Type 2 diabetes mellitus without complications; E03.9 Hypothyroidism, unspecified; Z87.891 Personal history of nicotine dependence; Z79.899 Other long term (current) drug therapy
CPT/HCPCS: 36416; 51701; 71275; 80053; 81003; 82274; 83605; 83690; 84484; 85025; 85379; 85652; 86140; 93005; 94760; Q9967

== ENCOUNTER 2020-12-24 18:28 | Inpatient (IN) | payer MEDICARE, OTHER ==
[2020-12-24] MEDS ORDERED: ALPRAZolam 0.25 MG TAB PO PRN (22:07)
[2020-12-24] MEDS ORDERED: Bisacodyl 10 MG SUPP PR PRN (22:08)
[2020-12-24] MEDS: Docusate 100 MG CAP PO PRN (22:19)
[2020-12-24] MEDS: Acetaminophen 500 MG TAB PO PRN (22:19)
[2020-12-24] MEDS ORDERED: Sodium Chloride 0.65% Nasal 44 ML BOT EA NARE PRN (22:26)
[2020-12-24] MEDS ORDERED: traMADol HCl 50 MG TAB PO PRN (22:27)
[2020-12-25] MEDS: Levothyroxine Sodium 75 MCG TAB PO SCH (06:34)
[2020-12-25] MEDS ORDERED: EVOLOCUMAB 140 MG/ML SC SCH ×2 (09:00→15:00)
[2020-12-25] MEDS: Cyanocobalamin (Vitamin B-12) 1,000 MCG TAB PO SCH (09:24)
[2020-12-25] MEDS: Allopurinol 100 MG TAB PO SCH ×2 (09:24→20:06)
[2020-12-25] MEDS: Benzonatate 100 MG CAP PO SCH ×3 (09:24→20:05)
[2020-12-25] MEDS: Potassium Chloride 10 MEQ TAB PO SCH ×2 (09:24→20:05)
[2020-12-25] MEDS: Polyethylene Glycol 3350 17 GM Packet PO SCH (09:25)
[2020-12-25] MEDS: Lidocaine 5% Patch TD SCH (09:25)
[2020-12-25] MEDS: Furosemide 40 MG TAB PO SCH ×2 (09:25→13:54)
[2020-12-25] MEDS: Fluticasone Propionate Nasal Spray 16 gm Bottle NASAL SCH (09:31)
[2020-12-25] MEDS ORDERED: Artificial Tear Sol 15 ML BOT EA EYE PRN (11:16)
[2020-12-25] MEDS: Cyclobenzaprine 10 MG TAB PO PRN ×2 (14:00→20:08)
[2020-12-25] MEDS: Acetaminophen 500 MG TAB PO PRN ×2 (14:00→23:53)
[2020-12-25] MEDS: Lantus 1000 UNITS/10 ML VIAL SC SCH (20:06)
[2020-12-25] MEDS: Transdermal Patch Removal TOP SCH (20:08)
[2020-12-25] MEDS: traMADol HCl 50 MG TAB PO PRN (22:38)
[2020-12-26] MEDS: Levothyroxine Sodium 75 MCG TAB PO SCH (05:17)
[2020-12-26] MEDS: Polyethylene Glycol 3350 17 GM Packet PO SCH ×2 (09:20→20:07)
[2020-12-26] MEDS: Cyclobenzaprine 10 MG TAB PO PRN (09:21)
[2020-12-26] MEDS: Lidocaine 5% Patch TD SCH (09:21)
[2020-12-26] MEDS: Allopurinol 100 MG TAB PO SCH ×2 (09:23→20:11)
[2020-12-26] MEDS: Cyanocobalamin (Vitamin B-12) 1,000 MCG TAB PO SCH (09:23)
[2020-12-26] MEDS: Fluticasone Propionate Nasal Spray 16 gm Bottle NASAL SCH (09:23)
[2020-12-26] MEDS: Benzonatate 100 MG CAP PO SCH ×3 (09:23→20:06)
[2020-12-26] MEDS: Furosemide 40 MG TAB PO SCH ×2 (09:23→14:25)
[2020-12-26] MEDS: Potassium Chloride 10 MEQ TAB PO SCH ×2 (09:26→20:07)
[2020-12-26] MEDS: Acetaminophen 500 MG TAB PO PRN (13:28)
[2020-12-26] MEDS: Docusate 100 MG CAP PO PRN (13:33)
[2020-12-26] MEDS: Docusate 100 MG CAP PO SCH (20:06)
[2020-12-26] MEDS: Transdermal Patch Removal TOP SCH (20:11)
[2020-12-26] MEDS: Lantus 1000 UNITS/10 ML VIAL SC SCH (20:40)
[2020-12-27] MEDS: Acetaminophen 500 MG TAB PO PRN (01:40)
[2020-12-27] MEDS: Cyclobenzaprine 10 MG TAB PO PRN ×2 (01:41→10:40)
[2020-12-27] MEDS: Levothyroxine Sodium 75 MCG TAB PO SCH (05:07)
[2020-12-27] MEDS: Benzonatate 100 MG CAP PO SCH ×3 (08:16→20:14)
[2020-12-27] MEDS: Allopurinol 100 MG TAB PO SCH ×2 (08:16→20:14)
[2020-12-27] MEDS: Docusate 100 MG CAP PO SCH ×2 (08:17→20:14)
[2020-12-27] MEDS: Cyanocobalamin (Vitamin B-12) 1,000 MCG TAB PO SCH (08:17)
[2020-12-27] MEDS: Furosemide 40 MG TAB PO SCH ×2 (08:17→14:17)
[2020-12-27] MEDS: Fluticasone Propionate Nasal Spray 16 gm Bottle NASAL SCH (08:18)
[2020-12-27] MEDS: Polyethylene Glycol 3350 17 GM Packet PO SCH ×2 (08:18→20:14)
[2020-12-27] MEDS: Lidocaine 5% Patch TD SCH (08:18)
[2020-12-27] MEDS: Potassium Chloride 10 MEQ TAB PO SCH ×2 (08:27→20:14)
[2020-12-27] MEDS: Mag-Al Plus 1200 MG/1200 MG/120 MG/30 ML UDCUP PO PRN (10:40)
[2020-12-27] MEDS: traMADol HCl 50 MG TAB PO PRN (13:36)
[2020-12-27] MEDS: Loratadine 10 MG TAB PO PRN (14:41)
[2020-12-27] MEDS: Transdermal Patch Removal TOP SCH (20:16)
[2020-12-27] MEDS: Lantus 1000 UNITS/10 ML VIAL SC SCH (20:38)
[2020-12-28] MEDS: guaiFENesin ER 600 MG TAB PO PRN ×2 (02:45→16:52)
[2020-12-28] MEDS: Levothyroxine Sodium 75 MCG TAB PO SCH (05:03)
[2020-12-28] MEDS: Lidocaine 5% Patch TD SCH (09:00)
[2020-12-28] MEDS: Cyanocobalamin (Vitamin B-12) 1,000 MCG TAB PO SCH (09:00)
[2020-12-28] MEDS: Polyethylene Glycol 3350 17 GM Packet PO SCH ×2 (09:00→21:13)
[2020-12-28] MEDS: Furosemide 40 MG TAB PO SCH ×2 (09:01→14:20)
[2020-12-28] MEDS: Docusate 100 MG CAP PO SCH ×2 (09:01→21:11)
[2020-12-28] MEDS: Potassium Chloride 10 MEQ TAB PO SCH ×2 (09:01→21:10)
[2020-12-28] MEDS: Benzonatate 100 MG CAP PO SCH ×3 (09:01→21:11)
[2020-12-28] MEDS: Allopurinol 100 MG TAB PO SCH ×2 (09:01→21:10)
[2020-12-28] MEDS: Fluticasone Propionate Nasal Spray 16 gm Bottle NASAL SCH (09:02)
[2020-12-28 11:22] LABS: ALT (SGPT) 15 U/L (8-55); AST (SGOT) 22 U/L (5-34); Albumin 4.2 g/dL (3.4-4.8); Alkaline Phosphatase 161 U/L (40-110); Anion Gap 19 mmol/L (10-20); BUN (Urea Nitrogen) 19 mg/dL (9.8-20.1); Bilirubin, Total 0.6 mg/dL (0.2-1.2); Calc. Creatinine Clearance 48 mL/min (70-130); Calcium 9.7 mg/dL (7.8-10.44); Carbon Dioxide 26 mmol/L (23-31); Chloride 101 mmol/L (98-107); Globulin 2.7 g/dL (2.4-3.5); Glucose 171 mg/dL (83-110); Potassium 4.5 mmol/L (3.5-5.1); Protein, Total 6.9 g/dL (5.8-8.1); Sodium 141 mmol/L (136-145)
[2020-12-28] MEDS: Cyclobenzaprine 10 MG TAB PO PRN (14:19)
[2020-12-28] MEDS: Lantus 1000 UNITS/10 ML VIAL SC SCH (21:14)
[2020-12-28] MEDS: Acetaminophen 500 MG TAB PO PRN (21:17)
[2020-12-28] MEDS: Transdermal Patch Removal TOP SCH (21:19)
[2020-12-28] MEDS: traMADol HCl 50 MG TAB PO PRN (23:35)
[2020-12-29] MEDS: Levothyroxine Sodium 75 MCG TAB PO SCH (05:58)
[2020-12-29 06:12] LABS: #Basophils 0.1 thou/uL (0.0-0.2); #Eosinphils 0.7 thou/uL (0.0-0.7); #Lymphocytes 1.2 thou/uL (1.20-3.40); #Monocytes 0.6 thou/uL (0.11-0.59); #Neutrophils 3.1 thou/uL (1.40-6.50); %Basophils 1.3 % (0.0-1.0); %Lymphocytes 21.6 % (21.0-51.0); %Monocytes 10.4 % (0.0-10.0); %Neutrophils 53.7 % (42.0-75.0); Hemoglobin 11.7 g/dL (12.0-16.0); Large Platelets SLIGHT; MDiff Complete? YES; Mean Corpuscular HGB CONC 31.1 g/dL (32.0-36.0); Mean Corpuscular Hemoglobin 31.7 pg (27.0-31.0); Mean Corpuscular Volume 101.9 fL (78.0-98.0); Platelet Count 114 thou/uL (130-400); Platelet Morphology Comment Appears Adequate; RBC Distribution Width 13.7 % (11.5-14.5); RBC Morphology Normal; White Blood Cell (WBC) Count 5.7 thou/uL (4.8-10.8)
[2020-12-29] MEDS: Polyethylene Glycol 3350 17 GM Packet PO SCH ×2 (08:51→21:13)
[2020-12-29] MEDS: Potassium Chloride 10 MEQ TAB PO SCH ×2 (08:51→21:12)
[2020-12-29] MEDS: Fluticasone Propionate Nasal Spray 16 gm Bottle NASAL SCH (08:51)
[2020-12-29] MEDS: Allopurinol 100 MG TAB PO SCH ×2 (08:51→21:13)
[2020-12-29] MEDS: Docusate 100 MG CAP PO SCH ×2 (08:51→21:12)
[2020-12-29] MEDS: Benzonatate 100 MG CAP PO SCH ×3 (08:51→21:13)
[2020-12-29] MEDS: Furosemide 40 MG TAB PO SCH ×2 (08:51→15:26)
[2020-12-29] MEDS: Cyanocobalamin (Vitamin B-12) 1,000 MCG TAB PO SCH (08:51)
[2020-12-29] MEDS: Lidocaine 5% Patch TD SCH (08:52)
[2020-12-29] MEDS: Acetaminophen 500 MG TAB PO PRN ×2 (09:03→19:15)
[2020-12-29] MEDS: Cyclobenzaprine 10 MG TAB PO PRN ×2 (09:04→19:17)
[2020-12-29] MEDS: Lantus 1000 UNITS/10 ML VIAL SC SCH (21:12)
[2020-12-29] MEDS: Transdermal Patch Removal TOP SCH (21:14)
[2020-12-30] MEDS: Levothyroxine Sodium 75 MCG TAB PO SCH (05:33)
[2020-12-30] MEDS: Polyethylene Glycol 3350 17 GM Packet PO SCH ×3 (08:46→21:22)
[2020-12-30] MEDS: Mag-Al Plus 1200 MG/1200 MG/120 MG/30 ML UDCUP PO PRN (08:46)
[2020-12-30] MEDS: Furosemide 40 MG TAB PO SCH ×2 (08:47→14:46)
[2020-12-30] MEDS: Potassium Chloride 10 MEQ TAB PO SCH ×2 (08:47→21:22)
[2020-12-30] MEDS: Benzonatate 100 MG CAP PO SCH ×3 (08:47→21:22)
[2020-12-30] MEDS: Docusate 100 MG CAP PO SCH ×2 (08:47→21:22)
[2020-12-30] MEDS: Cyanocobalamin (Vitamin B-12) 1,000 MCG TAB PO SCH (08:47)
[2020-12-30] MEDS: Allopurinol 100 MG TAB PO SCH ×2 (08:48→21:21)
[2020-12-30] MEDS: Loratadine 10 MG TAB PO PRN (08:49)
[2020-12-30] MEDS: Acetaminophen 500 MG TAB PO PRN ×2 (08:49→21:23)
[2020-12-30] MEDS: Cyclobenzaprine 10 MG TAB PO PRN ×2 (08:49→21:25)
[2020-12-30] MEDS: Fluticasone Propionate Nasal Spray 16 gm Bottle NASAL SCH (08:55)
[2020-12-30] MEDS: Lidocaine 5% Patch TD SCH (10:28)
[2020-12-30] MEDS: Transdermal Patch Removal TOP SCH (21:23)
[2020-12-30] MEDS: Lantus 1000 UNITS/10 ML VIAL SC SCH (21:28)
[2020-12-30] MEDS: guaiFENesin ER 600 MG TAB PO PRN (23:08)
[2020-12-31] MEDS: Levothyroxine Sodium 75 MCG TAB PO SCH (05:32)
[2020-12-31] MEDS: Lidocaine 5% Patch TD SCH (08:31)
[2020-12-31] MEDS: Cyclobenzaprine 10 MG TAB PO PRN ×2 (08:31→20:59)
[2020-12-31] MEDS: Polyethylene Glycol 3350 17 GM Packet PO SCH ×2 (08:31→20:57)
[2020-12-31] MEDS: Allopurinol 100 MG TAB PO SCH ×2 (08:32→20:56)
[2020-12-31] MEDS: Docusate 100 MG CAP PO SCH ×2 (08:32→20:57)
[2020-12-31] MEDS: Benzonatate 100 MG CAP PO SCH ×3 (08:32→20:57)
[2020-12-31] MEDS: Acetaminophen 500 MG TAB PO PRN ×2 (08:32→20:58)
[2020-12-31] MEDS: Furosemide 40 MG TAB PO SCH ×2 (08:32→14:32)
[2020-12-31] MEDS: Potassium Chloride 10 MEQ TAB PO SCH ×2 (08:32→20:57)
[2020-12-31] MEDS: Fluticasone Propionate Nasal Spray 16 gm Bottle NASAL SCH (08:34)
[2020-12-31] MEDS: Cyanocobalamin (Vitamin B-12) 1,000 MCG TAB PO SCH (08:36)
[2020-12-31] MEDS: Transdermal Patch Removal TOP SCH (20:58)
[2020-12-31] MEDS: Lantus 1000 UNITS/10 ML VIAL SC SCH (21:01)
[2020-12-31] MEDS: guaiFENesin ER 600 MG TAB PO PRN (21:54)
[2021-01-01] MEDS: Levothyroxine Sodium 75 MCG TAB PO SCH (06:10)
[2021-01-01] MEDS: Benzonatate 100 MG CAP PO SCH ×3 (08:31→21:46)
[2021-01-01] MEDS: Furosemide 40 MG TAB PO SCH ×2 (08:32→15:24)
[2021-01-01] MEDS: Polyethylene Glycol 3350 17 GM Packet PO SCH ×2 (08:32→21:47)
[2021-01-01] MEDS: Lidocaine 5% Patch TD SCH (08:32)
[2021-01-01] MEDS: Cyanocobalamin (Vitamin B-12) 1,000 MCG TAB PO SCH (08:32)
[2021-01-01] MEDS: Potassium Chloride 10 MEQ TAB PO SCH ×2 (08:32→21:50)
[2021-01-01] MEDS: Allopurinol 100 MG TAB PO SCH ×2 (08:32→21:46)
[2021-01-01] MEDS: Docusate 100 MG CAP PO SCH ×2 (08:32→21:47)
[2021-01-01] MEDS: Fluticasone Propionate Nasal Spray 16 gm Bottle NASAL SCH (08:33)
[2021-01-01] MEDS: Acetaminophen 500 MG TAB PO PRN ×2 (08:35→21:51)
[2021-01-01] MEDS: Cyclobenzaprine 10 MG TAB PO PRN ×2 (08:35→21:50)
[2021-01-01] MEDS: Mag-Al Plus 1200 MG/1200 MG/120 MG/30 ML UDCUP PO PRN (12:49)
[2021-01-01] MEDS: Lantus 1000 UNITS/10 ML VIAL SC SCH (21:46)
[2021-01-01] MEDS: Transdermal Patch Removal TOP SCH (21:50)
[2021-01-02] MEDS: Levothyroxine Sodium 75 MCG TAB PO SCH (05:56)
[2021-01-02] MEDS: Polyethylene Glycol 3350 17 GM Packet PO SCH ×2 (08:21→21:40)
[2021-01-02] MEDS: Lidocaine 5% Patch TD SCH (08:21)
[2021-01-02] MEDS: Potassium Chloride 10 MEQ TAB PO SCH ×2 (08:21→21:42)
[2021-01-02] MEDS: Docusate 100 MG CAP PO SCH ×2 (08:21→21:38)
[2021-01-02] MEDS: Furosemide 40 MG TAB PO SCH ×2 (08:21→14:12)
[2021-01-02] MEDS: Benzonatate 100 MG CAP PO SCH ×3 (08:21→21:38)
[2021-01-02] MEDS: Cyanocobalamin (Vitamin B-12) 1,000 MCG TAB PO SCH (08:22)
[2021-01-02] MEDS: Allopurinol 100 MG TAB PO SCH ×2 (08:22→21:38)
[2021-01-02] MEDS: Cyclobenzaprine 10 MG TAB PO PRN ×2 (08:26→21:43)
[2021-01-02] MEDS: Acetaminophen 500 MG TAB PO PRN ×2 (08:27→21:44)
[2021-01-02] MEDS: Fluticasone Propionate Nasal Spray 16 gm Bottle NASAL SCH (08:29)
[2021-01-02] MEDS: Loratadine 10 MG TAB PO PRN (14:13)
[2021-01-02] MEDS: Mag-Al Plus 1200 MG/1200 MG/120 MG/30 ML UDCUP PO PRN (16:49)
[2021-01-02] MEDS: Lantus 1000 UNITS/10 ML VIAL SC SCH (21:39)
[2021-01-02] MEDS: Transdermal Patch Removal TOP SCH (21:42)
[2021-01-03] MEDS: Levothyroxine Sodium 75 MCG TAB PO SCH (05:16)
[2021-01-03] MEDS: Docusate 100 MG CAP PO SCH ×2 (08:31→21:33)
[2021-01-03] MEDS: Benzonatate 100 MG CAP PO SCH ×3 (08:31→21:33)
[2021-01-03] MEDS: Allopurinol 100 MG TAB PO SCH ×2 (08:31→21:33)
[2021-01-03] MEDS: Cyanocobalamin (Vitamin B-12) 1,000 MCG TAB PO SCH (08:32)
[2021-01-03] MEDS: Potassium Chloride 10 MEQ TAB PO SCH ×2 (08:32→21:36)
[2021-01-03] MEDS: Furosemide 40 MG TAB PO SCH ×2 (08:32→14:39)
[2021-01-03] MEDS: Polyethylene Glycol 3350 17 GM Packet PO SCH ×2 (08:32→21:34)
[2021-01-03] MEDS: Lidocaine 5% Patch TD SCH (08:32)
[2021-01-03] MEDS: Acetaminophen 500 MG TAB PO PRN ×2 (08:35→21:37)
[2021-01-03] MEDS: Cyclobenzaprine 10 MG TAB PO PRN ×2 (08:36→21:38)
[2021-01-03] MEDS: Fluticasone Propionate Nasal Spray 16 gm Bottle NASAL SCH (08:42)
[2021-01-03] MEDS: Mag-Al Plus 1200 MG/1200 MG/120 MG/30 ML UDCUP PO PRN ×2 (17:05→21:50)
[2021-01-03] MEDS: Lantus 1000 UNITS/10 ML VIAL SC SCH (21:34)
[2021-01-03] MEDS: Transdermal Patch Removal TOP SCH (21:36)
[2021-01-04] MEDS: Levothyroxine Sodium 75 MCG TAB PO SCH (05:43)
[2021-01-04] MEDS: Cyclobenzaprine 10 MG TAB PO PRN ×2 (09:01→21:29)
[2021-01-04] MEDS: Polyethylene Glycol 3350 17 GM Packet PO SCH ×2 (09:01→21:27)
[2021-01-04] MEDS: Cyanocobalamin (Vitamin B-12) 1,000 MCG TAB PO SCH (09:02)
[2021-01-04] MEDS: Allopurinol 100 MG TAB PO SCH ×2 (09:02→21:28)
[2021-01-04] MEDS: Fluticasone Propionate Nasal Spray 16 gm Bottle NASAL SCH (09:02)
[2021-01-04] MEDS: Furosemide 40 MG TAB PO SCH ×2 (09:02→14:50)
[2021-01-04] MEDS: Lidocaine 5% Patch TD SCH (09:02)
[2021-01-04] MEDS: Benzonatate 100 MG CAP PO SCH ×3 (09:02→21:28)
[2021-01-04] MEDS: Potassium Chloride 10 MEQ TAB PO SCH ×2 (09:02→21:30)
[2021-01-04] MEDS: Acetaminophen 500 MG TAB PO PRN ×2 (09:03→21:28)
[2021-01-04] MEDS: Docusate 100 MG CAP PO SCH ×2 (09:06→21:27)
[2021-01-04] MEDS: Lantus 1000 UNITS/10 ML VIAL SC SCH (21:26)
[2021-01-04] MEDS: Transdermal Patch Removal TOP SCH (21:30)
[2021-01-05] MEDS: Levothyroxine Sodium 75 MCG TAB PO SCH (05:28)
[2021-01-05] MEDS: Acetaminophen 500 MG TAB PO PRN ×2 (08:04→20:41)
[2021-01-05] MEDS: Cyclobenzaprine 10 MG TAB PO PRN ×2 (08:05→20:42)
[2021-01-05] MEDS: Lidocaine 5% Patch TD SCH (08:05)
[2021-01-05] MEDS: Polyethylene Glycol 3350 17 GM Packet PO SCH ×2 (08:06→20:41)
[2021-01-05] MEDS: Cyanocobalamin (Vitamin B-12) 1,000 MCG TAB PO SCH (08:06)
[2021-01-05] MEDS: Benzonatate 100 MG CAP PO SCH ×3 (08:06→20:44)
[2021-01-05] MEDS: Furosemide 40 MG TAB PO SCH ×2 (08:06→14:15)
[2021-01-05] MEDS: Potassium Chloride 10 MEQ TAB PO SCH ×2 (08:06→20:46)
[2021-01-05] MEDS: Docusate 100 MG CAP PO SCH ×2 (08:06→20:44)
[2021-01-05] MEDS: Allopurinol 100 MG TAB PO SCH ×2 (08:06→20:44)
[2021-01-05] MEDS: Fluticasone Propionate Nasal Spray 16 gm Bottle NASAL SCH (08:07)
[2021-01-05] MEDS: Lantus 1000 UNITS/10 ML VIAL SC SCH (20:44)
[2021-01-05] MEDS: Transdermal Patch Removal TOP SCH (20:46)
[2021-01-06] MEDS: Levothyroxine Sodium 75 MCG TAB PO SCH (05:31)
[2021-01-06] MEDS: Fluticasone Propionate Nasal Spray 16 gm Bottle NASAL SCH (08:57)
[2021-01-06] MEDS: Polyethylene Glycol 3350 17 GM Packet PO SCH ×2 (08:57→20:21)
[2021-01-06] MEDS: Lidocaine 5% Patch TD SCH (08:57)
[2021-01-06] MEDS: Benzonatate 100 MG CAP PO SCH ×3 (08:58→20:20)
[2021-01-06] MEDS: Furosemide 40 MG TAB PO SCH ×2 (08:58→15:00)
[2021-01-06] MEDS: Cyanocobalamin (Vitamin B-12) 1,000 MCG TAB PO SCH (08:58)
[2021-01-06] MEDS: Allopurinol 100 MG TAB PO SCH ×2 (08:58→20:20)
[2021-01-06] MEDS: Docusate 100 MG CAP PO SCH ×2 (08:58→20:20)
[2021-01-06] MEDS: Potassium Chloride 10 MEQ TAB PO SCH ×2 (08:58→20:21)
[2021-01-06] MEDS: Acetaminophen 500 MG TAB PO PRN ×2 (09:14→20:19)
[2021-01-06] MEDS: Cyclobenzaprine 10 MG TAB PO PRN ×2 (09:15→20:19)
[2021-01-06] MEDS: Lantus 1000 UNITS/10 ML VIAL SC SCH (21:20)
[2021-01-06] MEDS: Transdermal Patch Removal TOP SCH (23:33)
[2021-01-07] MEDS: Levothyroxine Sodium 75 MCG TAB PO SCH (05:47)
[2021-01-07] MEDS: Lidocaine 5% Patch TD SCH (09:13)
[2021-01-07] MEDS: Polyethylene Glycol 3350 17 GM Packet PO SCH ×2 (09:13→20:27)
[2021-01-07] MEDS: Docusate 100 MG CAP PO SCH ×2 (09:13→20:27)
[2021-01-07] MEDS: Cyclobenzaprine 10 MG TAB PO PRN ×2 (09:13→20:26)
[2021-01-07] MEDS: Benzonatate 100 MG CAP PO SCH ×3 (09:15→20:27)
[2021-01-07] MEDS: Acetaminophen 500 MG TAB PO PRN ×2 (09:17→20:26)
[2021-01-07] MEDS: Cyanocobalamin (Vitamin B-12) 1,000 MCG TAB PO SCH (09:17)
[2021-01-07] MEDS: Allopurinol 100 MG TAB PO SCH ×2 (09:17→20:27)
[2021-01-07] MEDS: Furosemide 40 MG TAB PO SCH ×2 (09:18→13:45)
[2021-01-07] MEDS: Potassium Chloride 10 MEQ TAB PO SCH ×2 (09:18→20:26)
[2021-01-07] MEDS: Fluticasone Propionate Nasal Spray 16 gm Bottle NASAL SCH (09:19)
[2021-01-07] MEDS: Mag-Al Plus 1200 MG/1200 MG/120 MG/30 ML UDCUP PO PRN (17:06)
[2021-01-07] MEDS: Transdermal Patch Removal TOP SCH (20:32)
[2021-01-07] MEDS: Lantus 1000 UNITS/10 ML VIAL SC SCH (20:46)
[2021-01-08] MEDS: Levothyroxine Sodium 75 MCG TAB PO SCH (05:29)
[2021-01-08] MEDS ORDERED: EVOLOCUMAB 140 MG/ML SC SCH (07:00)
[2021-01-08] MEDS: Polyethylene Glycol 3350 17 GM Packet PO SCH ×2 (09:29→20:41)
[2021-01-08] MEDS: Benzonatate 100 MG CAP PO SCH ×3 (09:29→20:39)
[2021-01-08] MEDS: Allopurinol 100 MG TAB PO SCH ×2 (09:29→20:39)
[2021-01-08] MEDS: Lidocaine 5% Patch TD SCH (09:29)
[2021-01-08] MEDS: Cyclobenzaprine 10 MG TAB PO PRN ×2 (09:30→20:45)
[2021-01-08] MEDS: Cyanocobalamin (Vitamin B-12) 1,000 MCG TAB PO SCH (09:30)
[2021-01-08] MEDS: Acetaminophen 500 MG TAB PO PRN ×2 (09:30→20:41)
[2021-01-08] MEDS: Docusate 100 MG CAP PO SCH ×2 (09:30→20:40)
[2021-01-08] MEDS: Potassium Chloride 10 MEQ TAB PO SCH ×2 (09:30→20:40)
[2021-01-08] MEDS: Furosemide 40 MG TAB PO SCH ×2 (09:30→15:08)
[2021-01-08] MEDS: Fluticasone Propionate Nasal Spray 16 gm Bottle NASAL SCH (09:31)
[2021-01-08] MEDS: Transdermal Patch Removal TOP SCH (20:46)
[2021-01-08] MEDS: Lantus 1000 UNITS/10 ML VIAL SC SCH (20:54)
[2021-01-09] MEDS: Levothyroxine Sodium 75 MCG TAB PO SCH (05:44)
[2021-01-09] MEDS: Cyclobenzaprine 10 MG TAB PO PRN ×2 (08:35→20:33)
[2021-01-09] MEDS: Polyethylene Glycol 3350 17 GM Packet PO SCH ×2 (08:35→20:32)
[2021-01-09] MEDS: Lidocaine 5% Patch TD SCH (08:35)
[2021-01-09] MEDS: Cyanocobalamin (Vitamin B-12) 1,000 MCG TAB PO SCH (08:37)
[2021-01-09] MEDS: Furosemide 40 MG TAB PO SCH ×2 (08:37→14:04)
[2021-01-09] MEDS: Potassium Chloride 10 MEQ TAB PO SCH ×2 (08:37→20:32)
[2021-01-09] MEDS: Benzonatate 100 MG CAP PO SCH ×3 (08:38→20:31)
[2021-01-09] MEDS: Fluticasone Propionate Nasal Spray 16 gm Bottle NASAL SCH (08:38)
[2021-01-09] MEDS: Docusate 100 MG CAP PO SCH ×2 (08:38→20:31)
[2021-01-09] MEDS: Allopurinol 100 MG TAB PO SCH ×2 (08:38→20:30)
[2021-01-09] MEDS: Acetaminophen 500 MG TAB PO PRN ×2 (08:39→20:33)
[2021-01-09] MEDS: Transdermal Patch Removal TOP SCH (20:32)
[2021-01-09] MEDS: Lantus 1000 UNITS/10 ML VIAL SC SCH (20:52)
[2021-01-10] MEDS: Levothyroxine Sodium 75 MCG TAB PO SCH (05:24)
[2021-01-10] MEDS: Polyethylene Glycol 3350 17 GM Packet PO SCH ×2 (08:09→20:55)
[2021-01-10] MEDS: Lidocaine 5% Patch TD SCH (08:09)
[2021-01-10] MEDS: Potassium Chloride 10 MEQ TAB PO SCH ×2 (08:09→20:54)
[2021-01-10] MEDS: Furosemide 40 MG TAB PO SCH ×2 (08:10→15:28)
[2021-01-10] MEDS: Cyanocobalamin (Vitamin B-12) 1,000 MCG TAB PO SCH (08:10)
[2021-01-10] MEDS: Benzonatate 100 MG CAP PO SCH ×3 (08:10→20:55)
[2021-01-10] MEDS: Docusate 100 MG CAP PO SCH ×2 (08:10→20:55)
[2021-01-10] MEDS: Allopurinol 100 MG TAB PO SCH ×2 (08:10→20:55)
[2021-01-10] MEDS: Acetaminophen 500 MG TAB PO PRN ×2 (08:13→20:54)
[2021-01-10] MEDS: Cyclobenzaprine 10 MG TAB PO PRN ×2 (08:14→20:54)
[2021-01-10] MEDS: Fluticasone Propionate Nasal Spray 16 gm Bottle NASAL SCH (08:22)
[2021-01-10] MEDS: Lantus 1000 UNITS/10 ML VIAL SC SCH (20:53)
[2021-01-10] MEDS: Transdermal Patch Removal TOP SCH (20:55)
[2021-01-11] MEDS: Levothyroxine Sodium 75 MCG TAB PO SCH (05:26)
[2021-01-11] MEDS: Cyclobenzaprine 10 MG TAB PO PRN ×2 (08:53→20:52)
[2021-01-11] MEDS: Lidocaine 5% Patch TD SCH (08:53)
[2021-01-11] MEDS: Acetaminophen 500 MG TAB PO PRN ×3 (08:54→20:52)
[2021-01-11] MEDS: Benzonatate 100 MG CAP PO SCH ×3 (08:54→20:53)
[2021-01-11] MEDS: Cyanocobalamin (Vitamin B-12) 1,000 MCG TAB PO SCH (08:54)
[2021-01-11] MEDS: Docusate 100 MG CAP PO SCH ×2 (08:54→20:52)
[2021-01-11] MEDS: Allopurinol 100 MG TAB PO SCH ×2 (08:54→20:53)
[2021-01-11] MEDS: Furosemide 40 MG TAB PO SCH ×2 (08:54→14:24)
[2021-01-11] MEDS: Potassium Chloride 10 MEQ TAB PO SCH ×2 (08:54→20:53)
[2021-01-11] MEDS: Fluticasone Propionate Nasal Spray 16 gm Bottle NASAL SCH (08:56)
[2021-01-11] MEDS: Polyethylene Glycol 3350 17 GM Packet PO SCH ×2 (08:56→20:53)
[2021-01-11] MEDS ORDERED: EVOLOCUMAB 140 MG/ML SC SCH (15:15)
[2021-01-11] MEDS: Lantus 1000 UNITS/10 ML VIAL SC SCH (20:50)
[2021-01-11] MEDS: Transdermal Patch Removal TOP SCH (20:54)
[2021-01-12] MEDS: Levothyroxine Sodium 75 MCG TAB PO SCH (05:14)
[2021-01-12] MEDS: Polyethylene Glycol 3350 17 GM Packet PO SCH ×2 (09:32→20:18)
[2021-01-12] MEDS: Cyclobenzaprine 10 MG TAB PO PRN ×2 (09:33→20:20)
[2021-01-12] MEDS: Potassium Chloride 10 MEQ TAB PO SCH ×2 (09:34→20:19)
[2021-01-12] MEDS: Cyanocobalamin (Vitamin B-12) 1,000 MCG TAB PO SCH (09:34)
[2021-01-12] MEDS: Docusate 100 MG CAP PO SCH ×2 (09:34→20:18)
[2021-01-12] MEDS: Benzonatate 100 MG CAP PO SCH ×3 (09:34→20:21)
[2021-01-12] MEDS: Furosemide 40 MG TAB PO SCH ×2 (09:34→14:08)
[2021-01-12] MEDS: Acetaminophen 500 MG TAB PO PRN ×2 (09:35→20:20)
[2021-01-12] MEDS: Allopurinol 100 MG TAB PO SCH ×2 (09:35→20:20)
[2021-01-12] MEDS: Lidocaine 5% Patch TD SCH (09:37)
[2021-01-12] MEDS: Fluticasone Propionate Nasal Spray 16 gm Bottle NASAL SCH (09:38)
[2021-01-12] MEDS: Ondansetron ODT 4 MG TAB PO PRN (17:09)
[2021-01-12] MEDS: Transdermal Patch Removal TOP SCH (20:24)
[2021-01-12] MEDS: Lantus 1000 UNITS/10 ML VIAL SC SCH (20:44)
[2021-01-13] MEDS: Levothyroxine Sodium 75 MCG TAB PO SCH (05:24)
[2021-01-13] MEDS: Allopurinol 100 MG TAB PO SCH ×2 (09:48→20:32)
[2021-01-13] MEDS: Polyethylene Glycol 3350 17 GM Packet PO SCH ×2 (09:48→20:33)
[2021-01-13] MEDS: Furosemide 40 MG TAB PO SCH ×2 (09:48→15:10)
[2021-01-13] MEDS: Lidocaine 5% Patch TD SCH (09:48)
[2021-01-13] MEDS: Potassium Chloride 10 MEQ TAB PO SCH ×2 (09:48→20:33)
[2021-01-13] MEDS: Cyanocobalamin (Vitamin B-12) 1,000 MCG TAB PO SCH (09:48)
[2021-01-13] MEDS: Benzonatate 100 MG CAP PO SCH ×3 (09:48→20:32)
[2021-01-13] MEDS: Fluticasone Propionate Nasal Spray 16 gm Bottle NASAL SCH (09:49)
[2021-01-13] MEDS: Docusate 100 MG CAP PO SCH ×2 (09:49→20:33)
[2021-01-13] MEDS: Cyclobenzaprine 10 MG TAB PO PRN ×2 (09:51→20:44)
[2021-01-13] MEDS: Acetaminophen 500 MG TAB PO PRN ×2 (09:55→20:40)
[2021-01-13] MEDS: Ondansetron ODT 4 MG TAB PO PRN (17:25)
[2021-01-13] MEDS: Transdermal Patch Removal TOP SCH (20:34)
[2021-01-13] MEDS: Lantus 1000 UNITS/10 ML VIAL SC SCH (20:45)
[2021-01-14] MEDS: Levothyroxine Sodium 75 MCG TAB PO SCH (05:42)
[2021-01-14] MEDS: Polyethylene Glycol 3350 17 GM Packet PO SCH ×2 (08:00→21:45)
[2021-01-14] MEDS: Lidocaine 5% Patch TD SCH (08:00)
[2021-01-14] MEDS: Benzonatate 100 MG CAP PO SCH ×3 (08:01→21:47)
[2021-01-14] MEDS: Acetaminophen 500 MG TAB PO PRN ×2 (08:01→21:44)
[2021-01-14] MEDS: Potassium Chloride 10 MEQ TAB PO SCH ×2 (08:01→21:47)
[2021-01-14] MEDS: Cyanocobalamin (Vitamin B-12) 1,000 MCG TAB PO SCH (08:01)
[2021-01-14] MEDS: Furosemide 40 MG TAB PO SCH ×2 (08:01→14:53)
[2021-01-14] MEDS: Allopurinol 100 MG TAB PO SCH ×2 (08:01→21:47)
[2021-01-14] MEDS: Docusate 100 MG CAP PO SCH ×2 (08:01→21:47)
[2021-01-14] MEDS: Cyclobenzaprine 10 MG TAB PO PRN ×2 (08:01→21:43)
[2021-01-14] MEDS: Fluticasone Propionate Nasal Spray 16 gm Bottle NASAL SCH (08:02)
[2021-01-14] MEDS: Ondansetron ODT 4 MG TAB PO PRN (17:06)
[2021-01-14] MEDS: Lantus 1000 UNITS/10 ML VIAL SC SCH (21:47)
[2021-01-14] MEDS: Transdermal Patch Removal TOP SCH (22:25)
[2021-01-15] MEDS: Levothyroxine Sodium 75 MCG TAB PO SCH (05:34)
[2021-01-15] MEDS: Potassium Chloride 10 MEQ TAB PO SCH ×2 (08:53→21:56)
[2021-01-15] MEDS: Allopurinol 100 MG TAB PO SCH ×2 (08:53→21:55)
[2021-01-15] MEDS: Benzonatate 100 MG CAP PO SCH ×3 (08:53→21:55)
[2021-01-15] MEDS: Docusate 100 MG CAP PO SCH ×2 (08:53→21:54)
[2021-01-15] MEDS: Cyanocobalamin (Vitamin B-12) 1,000 MCG TAB PO SCH (08:53)
[2021-01-15] MEDS: Cyclobenzaprine 10 MG TAB PO PRN ×2 (08:53→21:55)
[2021-01-15] MEDS: Fluticasone Propionate Nasal Spray 16 gm Bottle NASAL SCH (08:53)
[2021-01-15] MEDS: Furosemide 40 MG TAB PO SCH ×2 (08:53→15:22)
[2021-01-15] MEDS: Acetaminophen 500 MG TAB PO PRN ×2 (08:54→21:56)
[2021-01-15] MEDS: Polyethylene Glycol 3350 17 GM Packet PO SCH ×2 (08:55→21:53)
[2021-01-15] MEDS: Lidocaine 5% Patch TD SCH (09:00)
[2021-01-15] MEDS: Mag-Al Plus 1200 MG/1200 MG/120 MG/30 ML UDCUP PO PRN (16:41)
[2021-01-15] MEDS: Transdermal Patch Removal TOP SCH (21:56)
[2021-01-15] MEDS: Lantus 1000 UNITS/10 ML VIAL SC SCH (21:56)
[2021-01-16] MEDS: Levothyroxine Sodium 75 MCG TAB PO SCH (05:52)
[2021-01-16] MEDS: Furosemide 40 MG TAB PO SCH ×2 (08:03→14:49)
[2021-01-16] MEDS: Docusate 100 MG CAP PO SCH ×2 (08:03→21:32)
[2021-01-16] MEDS: Cyanocobalamin (Vitamin B-12) 1,000 MCG TAB PO SCH (08:03)
[2021-01-16] MEDS: Lidocaine 5% Patch TD SCH (08:03)
[2021-01-16] MEDS: Benzonatate 100 MG CAP PO SCH ×3 (08:03→21:32)
[2021-01-16] MEDS: Potassium Chloride 10 MEQ TAB PO SCH ×2 (08:03→21:34)
[2021-01-16] MEDS: Polyethylene Glycol 3350 17 GM Packet PO SCH ×2 (08:03→21:33)
[2021-01-16] MEDS: Allopurinol 100 MG TAB PO SCH ×2 (08:03→21:32)
[2021-01-16] MEDS: Fluticasone Propionate Nasal Spray 16 gm Bottle NASAL SCH (08:03)
[2021-01-16] MEDS: Acetaminophen 500 MG TAB PO PRN ×3 (08:04→21:35)
[2021-01-16] MEDS: Cyclobenzaprine 10 MG TAB PO PRN ×2 (08:05→21:34)
[2021-01-16] MEDS: Lantus 1000 UNITS/10 ML VIAL SC SCH (21:32)
[2021-01-16] MEDS: Transdermal Patch Removal TOP SCH (21:34)
[2021-01-17] MEDS: Levothyroxine Sodium 75 MCG TAB PO SCH (05:22)
[2021-01-17] MEDS: Benzonatate 100 MG CAP PO SCH ×3 (09:30→21:58)
[2021-01-17] MEDS: Polyethylene Glycol 3350 17 GM Packet PO SCH ×2 (09:30→21:59)
[2021-01-17] MEDS: Cyanocobalamin (Vitamin B-12) 1,000 MCG TAB PO SCH (09:30)
[2021-01-17] MEDS: Potassium Chloride 10 MEQ TAB PO SCH ×2 (09:30→21:59)
[2021-01-17] MEDS: Docusate 100 MG CAP PO SCH ×2 (09:30→21:58)
[2021-01-17] MEDS: Furosemide 40 MG TAB PO SCH ×2 (09:30→14:26)
[2021-01-17] MEDS: Cyclobenzaprine 10 MG TAB PO PRN ×2 (09:31→22:03)
[2021-01-17] MEDS: Allopurinol 100 MG TAB PO SCH ×2 (09:32→21:58)
[2021-01-17] MEDS: Acetaminophen 500 MG TAB PO PRN ×2 (09:32→22:04)
[2021-01-17] MEDS: Lidocaine 5% Patch TD SCH (09:33)
[2021-01-17] MEDS: Fluticasone Propionate Nasal Spray 16 gm Bottle NASAL SCH (09:33)
[2021-01-17 13:37] VITALS: BMI 22.4
[2021-01-17] MEDS: Lantus 1000 UNITS/10 ML VIAL SC SCH (21:58)
[2021-01-17] MEDS: Transdermal Patch Removal TOP SCH (21:59)
[2021-01-18] MEDS: Levothyroxine Sodium 75 MCG TAB PO SCH (05:46)
[2021-01-18] MEDS: Allopurinol 100 MG TAB PO SCH ×2 (09:02→21:00)
[2021-01-18] MEDS: Benzonatate 100 MG CAP PO SCH ×3 (09:02→21:00)
[2021-01-18] MEDS: Lidocaine 5% Patch TD SCH (09:02)
[2021-01-18] MEDS: Docusate 100 MG CAP PO SCH ×2 (09:03→21:00)
[2021-01-18] MEDS: Furosemide 40 MG TAB PO SCH ×2 (09:03→14:17)
[2021-01-18] MEDS: Potassium Chloride 10 MEQ TAB PO SCH ×2 (09:03→21:01)
[2021-01-18] MEDS: Cyanocobalamin (Vitamin B-12) 1,000 MCG TAB PO SCH (09:03)
[2021-01-18] MEDS: Acetaminophen 500 MG TAB PO PRN ×2 (09:04→21:01)
[2021-01-18] MEDS: Cyclobenzaprine 10 MG TAB PO PRN (09:05)
[2021-01-18] MEDS: Fluticasone Propionate Nasal Spray 16 gm Bottle NASAL SCH (09:06)
[2021-01-18] MEDS: Polyethylene Glycol 3350 17 GM Packet PO SCH ×2 (09:06→21:03)
[2021-01-18] MEDS: Mag-Al Plus 1200 MG/1200 MG/120 MG/30 ML UDCUP PO PRN (18:06)
[2021-01-18] MEDS: Ondansetron ODT 4 MG TAB PO PRN (20:16)
[2021-01-18] MEDS: Lantus 1000 UNITS/10 ML VIAL SC SCH (21:00)
[2021-01-18] MEDS: Transdermal Patch Removal TOP SCH (21:04)
[2021-01-19] MEDS: Levothyroxine Sodium 75 MCG TAB PO SCH (05:20)
[2021-01-19] MEDS: Potassium Chloride 10 MEQ TAB PO SCH ×2 (09:15→20:38)
[2021-01-19] MEDS: Benzonatate 100 MG CAP PO SCH ×3 (09:15→20:37)
[2021-01-19] MEDS: Allopurinol 100 MG TAB PO SCH ×2 (09:15→20:37)
[2021-01-19] MEDS: Docusate 100 MG CAP PO SCH ×2 (09:16→20:37)
[2021-01-19] MEDS: Cyanocobalamin (Vitamin B-12) 1,000 MCG TAB PO SCH (09:16)
[2021-01-19] MEDS: Polyethylene Glycol 3350 17 GM Packet PO SCH ×2 (09:16→20:37)
[2021-01-19] MEDS: Cyclobenzaprine 10 MG TAB PO PRN ×2 (09:16→20:39)
[2021-01-19] MEDS: Furosemide 40 MG TAB PO SCH ×2 (09:16→14:07)
[2021-01-19] MEDS: Lidocaine 5% Patch TD SCH (09:16)
[2021-01-19] MEDS: Acetaminophen 500 MG TAB PO PRN ×2 (09:17→20:40)
[2021-01-19] MEDS: Fluticasone Propionate Nasal Spray 16 gm Bottle NASAL SCH (09:18)
[2021-01-19] MEDS: Lantus 1000 UNITS/10 ML VIAL SC SCH (20:41)
[2021-01-19] MEDS: Transdermal Patch Removal TOP SCH (21:49)
[2021-01-20] MEDS: Levothyroxine Sodium 75 MCG TAB PO SCH (05:24)
[2021-01-20] MEDS: Acetaminophen 500 MG TAB PO PRN ×2 (09:05→20:51)
[2021-01-20] MEDS: Cyclobenzaprine 10 MG TAB PO PRN ×2 (09:05→20:52)
[2021-01-20] MEDS: Allopurinol 100 MG TAB PO SCH ×2 (09:06→20:54)
[2021-01-20] MEDS: Benzonatate 100 MG CAP PO SCH ×3 (09:06→20:54)
[2021-01-20] MEDS: Furosemide 40 MG TAB PO SCH ×2 (09:06→14:29)
[2021-01-20] MEDS: Cyanocobalamin (Vitamin B-12) 1,000 MCG TAB PO SCH (09:06)
[2021-01-20] MEDS: Polyethylene Glycol 3350 17 GM Packet PO SCH ×2 (09:06→20:53)
[2021-01-20] MEDS: Potassium Chloride 10 MEQ TAB PO SCH ×2 (09:06→20:54)
[2021-01-20] MEDS: Lidocaine 5% Patch TD SCH (09:07)
[2021-01-20] MEDS: Fluticasone Propionate Nasal Spray 16 gm Bottle NASAL SCH (09:07)
[2021-01-20] MEDS: Docusate 100 MG CAP PO SCH ×2 (09:12→20:54)
[2021-01-20] MEDS: Lantus 1000 UNITS/10 ML VIAL SC SCH (20:52)
[2021-01-20] MEDS: Transdermal Patch Removal TOP SCH (20:54)
[2021-01-21] MEDS: Levothyroxine Sodium 75 MCG TAB PO SCH (05:33)
[2021-01-21] MEDS: Lidocaine 5% Patch TD SCH (08:34)
[2021-01-21] MEDS: Cyanocobalamin (Vitamin B-12) 1,000 MCG TAB PO SCH (08:34)
[2021-01-21] MEDS: Benzonatate 100 MG CAP PO SCH ×3 (08:34→20:37)
[2021-01-21] MEDS: Allopurinol 100 MG TAB PO SCH ×2 (08:34→20:37)
[2021-01-21] MEDS: Furosemide 40 MG TAB PO SCH ×2 (08:34→14:14)
[2021-01-21] MEDS: Potassium Chloride 10 MEQ TAB PO SCH ×2 (08:34→20:39)
[2021-01-21] MEDS: Acetaminophen 500 MG TAB PO PRN ×2 (08:34→20:37)
[2021-01-21] MEDS: Cyclobenzaprine 10 MG TAB PO PRN ×2 (08:34→20:49)
[2021-01-21] MEDS: Polyethylene Glycol 3350 17 GM Packet PO SCH ×2 (08:34→20:36)
[2021-01-21] MEDS: Fluticasone Propionate Nasal Spray 16 gm Bottle NASAL SCH (08:35)
[2021-01-21] MEDS: Docusate 100 MG CAP PO SCH ×2 (08:39→20:37)
[2021-01-21] MEDS: Lantus 1000 UNITS/10 ML VIAL SC SCH (20:50)
[2021-01-21] MEDS: Transdermal Patch Removal TOP SCH (21:38)
[2021-01-22] MEDS: Levothyroxine Sodium 75 MCG TAB PO SCH (05:27)
[2021-01-22] MEDS: Polyethylene Glycol 3350 17 GM Packet PO SCH ×2 (09:25→20:21)
[2021-01-22] MEDS: Lidocaine 5% Patch TD SCH (09:25)
[2021-01-22] MEDS: Cyclobenzaprine 10 MG TAB PO PRN ×2 (09:27→20:21)
[2021-01-22] MEDS: Benzonatate 100 MG CAP PO SCH ×3 (09:27→20:23)
[2021-01-22] MEDS: Allopurinol 100 MG TAB PO SCH ×2 (09:28→20:23)
[2021-01-22] MEDS: Potassium Chloride 10 MEQ TAB PO SCH ×2 (09:28→20:27)
[2021-01-22] MEDS: Cyanocobalamin (Vitamin B-12) 1,000 MCG TAB PO SCH (09:28)
[2021-01-22] MEDS: Furosemide 40 MG TAB PO SCH ×2 (09:28→14:28)
[2021-01-22] MEDS: Acetaminophen 500 MG TAB PO PRN ×2 (09:28→20:22)
[2021-01-22] MEDS: Docusate 100 MG CAP PO SCH ×2 (09:28→20:23)
[2021-01-22] MEDS: Fluticasone Propionate Nasal Spray 16 gm Bottle NASAL SCH (09:30)
[2021-01-22] MEDS: guaiFENesin ER 600 MG TAB PO PRN (12:35)
[2021-01-22] MEDS: Loratadine 10 MG TAB PO PRN (12:35)
[2021-01-22] MEDS: Transdermal Patch Removal TOP SCH (20:32)
[2021-01-22] MEDS: Lantus 1000 UNITS/10 ML VIAL SC SCH (21:26)
[2021-01-23] MEDS: Levothyroxine Sodium 75 MCG TAB PO SCH (05:27)
[2021-01-23] MEDS: Lidocaine 5% Patch TD SCH (09:12)
[2021-01-23] MEDS: Potassium Chloride 10 MEQ TAB PO SCH ×2 (09:14→20:40)
[2021-01-23] MEDS: Polyethylene Glycol 3350 17 GM Packet PO SCH ×2 (09:14→20:41)
[2021-01-23] MEDS: Docusate 100 MG CAP PO SCH ×2 (09:14→20:41)
[2021-01-23] MEDS: Benzonatate 100 MG CAP PO SCH ×3 (09:14→20:41)
[2021-01-23] MEDS: Allopurinol 100 MG TAB PO SCH ×2 (09:14→20:41)
[2021-01-23] MEDS: Cyclobenzaprine 10 MG TAB PO PRN ×2 (09:15→20:41)
[2021-01-23] MEDS: Cyanocobalamin (Vitamin B-12) 1,000 MCG TAB PO SCH (09:15)
[2021-01-23] MEDS: Furosemide 40 MG TAB PO SCH ×2 (09:15→14:12)
[2021-01-23] MEDS: Acetaminophen 500 MG TAB PO PRN ×2 (09:16→20:40)
[2021-01-23] MEDS: Fluticasone Propionate Nasal Spray 16 gm Bottle NASAL SCH (09:19)
[2021-01-23] MEDS ORDERED: Metolazone 5 MG TAB PO SCH (16:30)
[2021-01-23] MEDS: Lantus 1000 UNITS/10 ML VIAL SC SCH (20:41)
[2021-01-23] MEDS: Transdermal Patch Removal TOP SCH (20:42)
[2021-01-24] MEDS: Levothyroxine Sodium 75 MCG TAB PO SCH (05:14)
[2021-01-24 05:53] LABS: Anion Gap 12 mmol/L (10-20); BUN (Urea Nitrogen) 26 mg/dL (9.8-20.1); Calc. Creatinine Clearance 46 mL/min (70-130); Calcium 9.5 mg/dL (7.8-10.44); Carbon Dioxide 33 mmol/L (23-31); Chloride 101 mmol/L (98-107); Glucose 161 mg/dL (83-110); Potassium 4.1 mmol/L (3.5-5.1); Sodium 142 mmol/L (136-145)
[2021-01-24] MEDS: Fluticasone Propionate Nasal Spray 16 gm Bottle NASAL SCH (08:45)
[2021-01-24] MEDS: Lidocaine 5% Patch TD SCH (08:46)
[2021-01-24] MEDS: Polyethylene Glycol 3350 17 GM Packet PO SCH ×2 (08:46→20:58)
[2021-01-24] MEDS: Allopurinol 100 MG TAB PO SCH ×2 (08:47→20:56)
[2021-01-24] MEDS: Furosemide 40 MG TAB PO SCH ×2 (08:47→14:41)
[2021-01-24] MEDS: Potassium Chloride 10 MEQ TAB PO SCH ×2 (08:47→20:56)
[2021-01-24] MEDS: Cyanocobalamin (Vitamin B-12) 1,000 MCG TAB PO SCH (08:47)
[2021-01-24] MEDS: Docusate 100 MG CAP PO SCH ×2 (08:48→20:56)
[2021-01-24] MEDS: Benzonatate 100 MG CAP PO SCH ×3 (08:48→20:57)
[2021-01-24] MEDS: Cyclobenzaprine 10 MG TAB PO PRN ×2 (08:57→20:56)
[2021-01-24] MEDS: Acetaminophen 500 MG TAB PO PRN ×2 (09:00→20:56)
[2021-01-24] MEDS: Lantus 1000 UNITS/10 ML VIAL SC SCH (20:55)
[2021-01-24] MEDS: Transdermal Patch Removal TOP SCH (20:57)
[2021-01-25] MEDS: Levothyroxine Sodium 75 MCG TAB PO SCH (05:30)
[2021-01-25] MEDS ORDERED: EVOLOCUMAB 140 MG/ML SC SCH (07:00)
[2021-01-25 08:28] VITALS: BP 116/51; TEMP 97.7
[2021-01-25] MEDS: Fluticasone Propionate Nasal Spray 16 gm Bottle NASAL SCH (08:39)
[2021-01-25] MEDS: Lidocaine 5% Patch TD SCH (08:39)
[2021-01-25] MEDS: Cyclobenzaprine 10 MG TAB PO PRN (08:39)
[2021-01-25] MEDS: Polyethylene Glycol 3350 17 GM Packet PO SCH (08:39)
[2021-01-25] MEDS: Allopurinol 100 MG TAB PO SCH (08:40)
[2021-01-25] MEDS: Potassium Chloride 10 MEQ TAB PO SCH (08:40)
[2021-01-25] MEDS: Acetaminophen 500 MG TAB PO PRN (08:40)
[2021-01-25] MEDS: Cyanocobalamin (Vitamin B-12) 1,000 MCG TAB PO SCH (08:40)
[2021-01-25] MEDS: Furosemide 40 MG TAB PO SCH (08:40)
[2021-01-25] MEDS: Benzonatate 100 MG CAP PO SCH (08:45)
[2021-01-25] MEDS: Docusate 100 MG CAP PO SCH (08:45)
== END 2021-01-25 09:20 | disposition home or self-care (01) | DRG 560 ==
LOC: MADMS 19:15
PROVIDERS: ADMIT Family Medicine; ATTEND Family Medicine
DX: M48.54XD Collapsed vertebra, not elsewhere classified, thoracic region, subsequent encounter for fracture with routine healing (principal); J96.11 Chronic respiratory failure with hypoxia; I50.32 Chronic diastolic (congestive) heart failure; I13.0 Hypertensive heart and chronic kidney disease with heart failure and stage 1 through stage 4 chronic kidney disease, or unspecified chronic kidney disease; I25.10 Atherosclerotic heart disease of native coronary artery without angina pectoris; E11.9 Type 2 diabetes mellitus without complications; K59.00 Constipation, unspecified; R05 Cough; M40.204 Unspecified kyphosis, thoracic region; E03.9 Hypothyroidism, unspecified; I49.5 Sick sinus syndrome; R04.0 Epistaxis; N18.9 Chronic kidney disease, unspecified; R53.1 Weakness; Z95.1 Presence of aortocoronary bypass graft; Z95.3 Presence of xenogenic heart valve; Z95.0 Presence of cardiac pacemaker; Z98.41 Cataract extraction status, right eye; Z98.42 Cataract extraction status, left eye; Z90.710 Acquired absence of both cervix and uterus; Z90.49 Acquired absence of other specified parts of digestive tract; Z98.890 Other specified postprocedural states; Z88.0 Allergy status to penicillin; Z88.1 Allergy status to other antibiotic agents; Z88.8 Allergy status to other drugs, medicaments and biological substances; Z88.5 Allergy status to narcotic agent
CPT/HCPCS: 36415; 36416; 72070; 80048; 80053; 85025; J1815; Q0162

== ENCOUNTER 2021-02-03 11:25 | Emergency (ER) | payer MEDICARE, OTHER ==
[2021-02-03 12:29] LABS: #Basophils 0.1 thou/uL (0.0-0.2); #Eosinphils 0.9 thou/uL (0.0-0.7); #Lymphocytes 0.8 thou/uL (1.20-3.40); #Monocytes 0.5 thou/uL (0.11-0.59); #Neutrophils 5.2 thou/uL (1.40-6.50); %Basophils 1.1 % (0.0-1.0); %Eosinophils 12.3 % (0.0-10.0); %Lymphocytes 10.3 % (21.0-51.0); %Monocytes 6.1 % (0.0-10.0); %Neutrophils 70.1 % (42.0-75.0); Mean Corpuscular HGB CONC 31.2 g/dL (32.0-36.0); Mean Corpuscular Hemoglobin 32.1 pg (27.0-31.0); Mean Corpuscular Volume 102.7 fL (78.0-98.0); Mean Platelet Volume 9.1 fL (7.4-10.4); Platelet Count 127 thou/uL (130-400); RBC Distribution Width 13.3 % (11.5-14.5); Red Blood Cell (RBC) Count 4.07 mill/uL (4.20-5.40); White Blood Cell (WBC) Count 7.5 thou/uL (4.8-10.8)
[2021-02-03] MEDS ORDERED: Sodium Chloride 0.9% 500 ML ONE (12:29)
[2021-02-03] MEDS ORDERED: HYDROcodone/Acetaminophen 5/325 mg Tablet ONE (12:29)
[2021-02-03 12:48] LABS: ALT (SGPT) 13 U/L (8-55); AST (SGOT) 20 U/L (5-34); Albumin 4.2 g/dL (3.4-4.8); Alkaline Phosphatase 163 U/L (40-110); Anion Gap 16 mmol/L (10-20); BUN (Urea Nitrogen) 20 mg/dL (9.8-20.1); Bilirubin, Total 0.5 mg/dL (0.2-1.2); Calc. Creatinine Clearance 0 mL/min (70-130); Calcium 9.8 mg/dL (7.8-10.44); Carbon Dioxide 30 mmol/L (23-31); Chloride 102 mmol/L (98-107); Globulin 2.7 g/dL (2.4-3.5); Glucose 189 mg/dL (83-110); Magnesium 1.9 mg/dL (1.6-2.6); Potassium 4.2 mmol/L (3.5-5.1); Protein, Total 6.9 g/dL (5.8-8.1); Sodium 144 mmol/L (136-145)
[2021-02-03 13:06] LABS: CKMB 0.9 ng/mL (0-6.6)
[2021-02-03] MEDS ORDERED: Furosemide 40 MG/4 ML VIAL ONE (13:14)
== END 2021-02-03 13:50 | disposition home or self-care (01) ==
LOC: MADERS 11:25
DX: I11.0 Hypertensive heart disease with heart failure (principal); I50.9 Heart failure, unspecified; E11.9 Type 2 diabetes mellitus without complications; J44.9 Chronic obstructive pulmonary disease, unspecified; D64.9 Anemia, unspecified; M10.9 Gout, unspecified; Z87.891 Personal history of nicotine dependence; Z79.899 Other long term (current) drug therapy
CPT/HCPCS: 71045; 82553; 83735; 83880; 84484; 93005; 94760; 96374; J1940; J7030

== ENCOUNTER 2021-02-03 11:53 | Outpatient (CLI) | payer MEDICARE, OTHER ==
[2021-02-03 12:05] LABS: #Basophils 0.1 thou/uL (0.0-0.2); #Eosinphils 0.9 thou/uL (0.0-0.7); #Lymphocytes 0.8 thou/uL (1.20-3.40); #Monocytes 0.5 thou/uL (0.11-0.59); #Neutrophils 4.9 thou/uL (1.40-6.50); %Basophils 0.8 % (0.0-1.0); %Eosinophils 12.6 % (0.0-10.0); %Monocytes 6.4 % (0.0-10.0); %Neutrophils 69.1 % (42.0-75.0); Mean Corpuscular HGB CONC 31.1 g/dL (32.0-36.0); Mean Corpuscular Hemoglobin 32.2 pg (27.0-31.0); Mean Corpuscular Volume 103.5 fL (78.0-98.0); Mean Platelet Volume 9.6 fL (7.4-10.4); Platelet Count 130 thou/uL (130-400); RBC Distribution Width 13.2 % (11.5-14.5); Red Blood Cell (RBC) Count 4.04 mill/uL (4.20-5.40)
[2021-02-03 12:15] LABS: ALT (SGPT) 12 U/L (8-55); AST (SGOT) 19 U/L (5-34); Albumin 4.3 g/dL (3.4-4.8); Alkaline Phosphatase 173 U/L (40-110); Anion Gap 16 mmol/L (10-20); BUN (Urea Nitrogen) 20 mg/dL (9.8-20.1); Bilirubin, Total 0.6 mg/dL (0.2-1.2); Calc. Creatinine Clearance 0 mL/min (70-130); Calcium 9.6 mg/dL (7.8-10.44); Carbon Dioxide 31 mmol/L (23-31); Chloride 101 mmol/L (98-107); Globulin 2.4 g/dL (2.4-3.5); Glucose 225 mg/dL (83-110); Potassium 3.9 mmol/L (3.5-5.1); Protein, Total 6.7 g/dL (5.8-8.1); Sodium 144 mmol/L (136-145)
== END 2021-02-03 11:54 | disposition home or self-care (01) ==
LOC: MADLAB 11:53
PROVIDERS: ATTEND Family Medicine
DX: I10 Essential (primary) hypertension (principal)
CPT/HCPCS: 85025

== ENCOUNTER 2021-03-26 19:37 | Emergency (ER) | payer MEDICARE, OTHER ==
[2021-03-26] MEDS ORDERED: Sodium Chloride 0.9% 500 ML ONE (20:04)
[2021-03-26 20:08] LABS: #Basophils 0.1 thou/uL (0.0-0.2); #Eosinphils 0.8 thou/uL (0.0-0.7); #Lymphocytes 0.8 thou/uL (1.20-3.40); #Monocytes 0.7 thou/uL (0.11-0.59); #Neutrophils 5.2 thou/uL (1.40-6.50); %Basophils 0.9 % (0.0-1.0); %Eosinophils 10.7 % (0.0-10.0); %Lymphocytes 10.3 % (21.0-51.0); %Monocytes 9.5 % (0.0-10.0); %Neutrophils 68.5 % (42.0-75.0); Hemoglobin 12.4 g/dL (12.0-16.0); Mean Corpuscular HGB CONC 31.9 g/dL (32.0-36.0); Mean Corpuscular Hemoglobin 31.4 pg (27.0-31.0); Mean Corpuscular Volume 98.6 fL (78.0-98.0); Mean Platelet Volume 8.7 fL (7.4-10.4); Platelet Count 194 thou/uL (130-400); RBC Distribution Width 12.5 % (11.5-14.5); Red Blood Cell (RBC) Count 3.95 mill/uL (4.20-5.40); White Blood Cell (WBC) Count 7.6 thou/uL (4.8-10.8)
[2021-03-26 20:22] LABS: ALT (SGPT) 11 U/L (8-55); AST (SGOT) 17 U/L (5-34); Albumin 4.1 g/dL (3.4-4.8); Alkaline Phosphatase 166 U/L (40-110); Anion Gap 15 mmol/L (10-20); BUN (Urea Nitrogen) 18 mg/dL (9.8-20.1); Bilirubin, Total 0.6 mg/dL (0.2-1.2); CK (CPK) 12 U/L (29-168); Calc. Creatinine Clearance 0 mL/min (70-130); Carbon Dioxide 35 mmol/L (23-31); Chloride 94 mmol/L (98-107); Globulin 3.2 g/dL (2.4-3.5); Glucose 155 mg/dL (83-110); Potassium 3.9 mmol/L (3.5-5.1); Protein, Total 7.3 g/dL (5.8-8.1); Sodium 140 mmol/L (136-145)
== END 2021-03-26 21:31 | disposition home or self-care (01) ==
LOC: MADERS 19:37
DX: E86.0 Dehydration (principal); I11.0 Hypertensive heart disease with heart failure; I50.9 Heart failure, unspecified; R53.81 Other malaise; I27.20 Pulmonary hypertension, unspecified; D64.9 Anemia, unspecified; I42.9 Cardiomyopathy, unspecified; I25.2 Old myocardial infarction; I48.91 Unspecified atrial fibrillation; M10.9 Gout, unspecified; E03.9 Hypothyroidism, unspecified; J44.9 Chronic obstructive pulmonary disease, unspecified; E11.9 Type 2 diabetes mellitus without complications; Z87.891 Personal history of nicotine dependence
CPT/HCPCS: 71045; 80053; 82550; 85025; J7030

== ENCOUNTER 2021-04-07 12:36 | Emergency (ER) | payer MEDICARE, OTHER ==
[2021-04-07 13:14] LABS: #Basophils 0.1 thou/uL (0.0-0.2); #Eosinphils 0.7 thou/uL (0.0-0.7); #Lymphocytes 0.9 thou/uL (1.20-3.40); #Monocytes 0.6 thou/uL (0.11-0.59); #Neutrophils 5.4 thou/uL (1.40-6.50); %Basophils 0.7 % (0.0-1.0); %Eosinophils 8.8 % (0.0-10.0); %Lymphocytes 12.2 % (21.0-51.0); %Monocytes 7.2 % (0.0-10.0); %Neutrophils 71.1 % (42.0-75.0); Hemoglobin 11.4 g/dL (12.0-16.0); Mean Corpuscular HGB CONC 30.2 g/dL (32.0-36.0); Mean Corpuscular Hemoglobin 30.7 pg (27.0-31.0); Mean Corpuscular Volume 101.7 fL (78.0-98.0); Mean Platelet Volume 9.2 fL (7.4-10.4); Platelet Count 169 thou/uL (130-400); RBC Distribution Width 13.4 % (11.5-14.5); Red Blood Cell (RBC) Count 3.72 mill/uL (4.20-5.40); White Blood Cell (WBC) Count 7.6 thou/uL (4.8-10.8)
[2021-04-07 13:25] LABS: INR-International Normal Ratio 1.1; Prothrombin Time 14.4 sec (12.0-14.7)
[2021-04-07 13:26] LABS: PTT 29.3 sec (22.9-36.1)
[2021-04-07 13:33] LABS: ALT (SGPT) 14 U/L (8-55); AST (SGOT) 24 U/L (5-34); Albumin 3.8 g/dL (3.4-4.8); Alkaline Phosphatase 150 U/L (40-110); Anion Gap 15 mmol/L (10-20); BUN (Urea Nitrogen) 16 mg/dL (9.8-20.1); Bilirubin, Total 0.7 mg/dL (0.2-1.2); Calc. Creatinine Clearance 0 mL/min (70-130); Carbon Dioxide 34 mmol/L (23-31); Chloride 96 mmol/L (98-107); Glucose 144 mg/dL (83-110); Magnesium 2.2 mg/dL (1.6-2.6); Potassium 4.5 mmol/L (3.5-5.1); Protein, Total 6.8 g/dL (5.8-8.1); Sodium 140 mmol/L (136-145)
[2021-04-07 13:54] LABS: CKMB 0.5 ng/mL (0-6.6)
[2021-04-07 14:05] LABS: Bilirubin Negative (Negative); Blood, Urine Negative (Negative); Clarity Clear (Clear); Glucose, Urine (Dipstick) Negative (Negative); Ketone, Urine Negative (Negative); Leukocyte Negative (Negative); Nitrite Negative (Negative); Protein, Urine (Dipstick) Negative (Neg-Trace); Specific Gravity, Urine 1.015 (1.005-1.030); Urobilinogen 0.2 mg/dL (Less than 2); pH, Urine 7.5 (5.0-9.0)
[2021-04-07] MEDS ORDERED: Aspirin Chewable 81 MG TAB ONE (14:27)
[2021-04-07] MEDS ORDERED: ALPRAZolam 0.5 MG TAB ONE ×2 (14:27→20:30)
[2021-04-07] MEDS ORDERED: Furosemide 20 MG/2 ML VIAL ONE (15:45)
[2021-04-07 18:07] LABS: SARS-CoV-2 NAA Rapid Test Not Detected (NotDetected)
[2021-04-07] MEDS ORDERED: Albuterol 200 PUFF (6.7GM INHALER) ONE (21:46)
[2021-04-08] MEDS ORDERED: Furosemide 20 MG/2 ML VIAL ONE (06:38)
== END 2021-04-08 09:24 | disposition home or self-care (01) ==
LOC: MADERS 12:36
DX: R77.8 Other specified abnormalities of plasma proteins (principal); E87.70 Fluid overload, unspecified; R53.1 Weakness; Z20.822 Contact with and (suspected) exposure to COVID-19; I11.0 Hypertensive heart disease with heart failure; I50.9 Heart failure, unspecified; I42.9 Cardiomyopathy, unspecified; I25.2 Old myocardial infarction; I48.91 Unspecified atrial fibrillation; E03.9 Hypothyroidism, unspecified; I25.10 Atherosclerotic heart disease of native coronary artery without angina pectoris; J44.9 Chronic obstructive pulmonary disease, unspecified; E11.9 Type 2 diabetes mellitus without complications; M10.9 Gout, unspecified; Z86.711 Personal history of pulmonary embolism; Z87.891 Personal history of nicotine dependence; Z79.899 Other long term (current) drug therapy
CPT/HCPCS: 71045; 81003; 82553; 82962; 83735; 83880; 84484 ×2; 85610; 85730; 86850; 86900; 86901; 93005; U0002; 36415; 36416; 80053; 84443; 85025; 96374; 96376; J1940

== ENCOUNTER 2021-05-18 14:39 | Outpatient (CLI) | payer MEDICARE, OTHER ==
[2021-05-18 15:03] LABS: #Basophils 0.1 thou/uL (0.0-0.2); #Eosinphils 0.9 thou/uL (0.0-0.7); #Lymphocytes 0.7 thou/uL (1.20-3.40); #Monocytes 0.4 thou/uL (0.11-0.59); #Neutrophils 4.5 thou/uL (1.40-6.50); %Basophils 0.9 % (0.0-1.0); %Eosinophils 13.2 % (0.0-10.0); %Lymphocytes 10.6 % (21.0-51.0); %Monocytes 6.4 % (0.0-10.0); %Neutrophils 68.8 % (42.0-75.0); Hemoglobin 12.5 g/dL (12.0-16.0); Mean Corpuscular HGB CONC 30.4 g/dL (32.0-36.0); Mean Corpuscular Volume 102.1 fL (78.0-98.0); Platelet Count 94 thou/uL (130-400); Platelet Morphology Comment Appears Decreased; RBC Distribution Width 14.3 % (11.5-14.5); Red Blood Cell (RBC) Count 4.03 mill/uL (4.20-5.40); White Blood Cell (WBC) Count 6.6 thou/uL (4.8-10.8)
[2021-05-18 15:04] LABS: Anion Gap 13 mmol/L (10-20); BUN (Urea Nitrogen) 22 mg/dL (9.8-20.1); Calc. Creatinine Clearance 0 mL/min (70-130); Calcium 9.9 mg/dL (7.8-10.44); Carbon Dioxide 30 mmol/L (23-31); Chloride 103 mmol/L (98-107); Glucose 184 mg/dL (83-110); Potassium 5.1 mmol/L (3.5-5.1); Sodium 141 mmol/L (136-145)
[2021-05-18 15:05] LABS: MDiff Complete? YES; Manual Diff?? NO
== END 2021-05-18 14:40 | disposition home or self-care (01) ==
LOC: MADLAB 14:39
PROVIDERS: ATTEND Family Medicine
DX: I13.0 Hypertensive heart and chronic kidney disease with heart failure and stage 1 through stage 4 chronic kidney disease, or unspecified chronic kidney disease (principal); I50.9 Heart failure, unspecified; N18.9 Chronic kidney disease, unspecified
CPT/HCPCS: 80048; 85025

== ENCOUNTER 2021-06-05 18:39 | Emergency (ER) | payer MEDICARE, OTHER ==
[2021-06-05 19:34] LABS: #Basophils 0.1 thou/uL (0.0-0.2); #Eosinphils 0.9 thou/uL (0.0-0.7); #Lymphocytes 0.9 thou/uL (1.20-3.40); #Monocytes 0.5 thou/uL (0.11-0.59); #Neutrophils 4.3 thou/uL (1.40-6.50); %Basophils 1.1 % (0.0-1.0); %Eosinophils 13.7 % (0.0-10.0); %Lymphocytes 13.7 % (21.0-51.0); %Monocytes 7.2 % (0.0-10.0); %Neutrophils 64.4 % (42.0-75.0); Hemoglobin 12.6 g/dL (12.0-16.0); Mean Corpuscular HGB CONC 30.7 g/dL (32.0-36.0); Mean Corpuscular Hemoglobin 31.3 pg (27.0-31.0); Mean Platelet Volume 9.9 fL (7.4-10.4); Platelet Count 108 thou/uL (130-400); Platelet Morphology Comment Appears Decreased; RBC Distribution Width 14.4 % (11.5-14.5); Red Blood Cell (RBC) Count 4.01 mill/uL (4.20-5.40); White Blood Cell (WBC) Count 6.7 thou/uL (4.8-10.8)
[2021-06-05 19:38] LABS: ALT (SGPT) 9 U/L (8-55); AST (SGOT) 16 U/L (5-34); Albumin 4.1 g/dL (3.4-4.8); Alkaline Phosphatase 162 U/L (40-110); Anion Gap 15 mmol/L (10-20); BUN (Urea Nitrogen) 19 mg/dL (9.8-20.1); Bilirubin, Total 0.7 mg/dL (0.2-1.2); Calc. Creatinine Clearance 0 mL/min (70-130); Calcium 9.7 mg/dL (7.8-10.44); Carbon Dioxide 30 mmol/L (23-31); Chloride 101 mmol/L (98-107); Globulin 2.3 g/dL (2.4-3.5); Glucose 225 mg/dL (83-110); Lipase 27 U/L (8-78); Magnesium 1.9 mg/dL (1.6-2.6); Potassium 4.2 mmol/L (3.5-5.1); Protein, Total 6.4 g/dL (5.8-8.1); Sodium 142 mmol/L (136-145)
[2021-06-05] MEDS ORDERED: Furosemide 40 MG/4 ML VIAL ONE (19:48)
[2021-06-05 19:56] LABS: Base Excess-Venous 4.9 mmol/L (-2.0 to 3.0); Bicarbonate (HCO3v) 31.9 mmol/L (22.0-28.0); CO2 Tension (PvCO2) 56.8 mmHg (42.0-51.0); Chloride 102 mmol/L (98-107); Hemoglobin - Calc 13.3 g/dL (12.0-16.0); Sodium 143 mmol/L (138-145); T. Carbon Dioxide 33.6 mmol/L (22.0-28.0); vO2 Saturation-calc 98.3 % (60.0-85.0)
[2021-06-05 22:04] LABS: Troponin I 0.019 ng/mL (< 0.028)
[2021-06-05] MEDS ORDERED: Furosemide 20 MG/2 ML VIAL ONE (22:51)
== END 2021-06-05 23:30 | disposition home or self-care (01) ==
LOC: MADERS 18:39
DX: I11.0 Hypertensive heart disease with heart failure (principal); I50.9 Heart failure, unspecified; I25.2 Old myocardial infarction; I48.91 Unspecified atrial fibrillation; E03.9 Hypothyroidism, unspecified; I42.9 Cardiomyopathy, unspecified; J44.9 Chronic obstructive pulmonary disease, unspecified; I25.10 Atherosclerotic heart disease of native coronary artery without angina pectoris; E11.9 Type 2 diabetes mellitus without complications; D64.9 Anemia, unspecified; Z87.891 Personal history of nicotine dependence; Z86.711 Personal history of pulmonary embolism; Z79.899 Other long term (current) drug therapy
CPT/HCPCS: 36415; 71045; 80053; 82330; 82803; 83690; 83735; 83880; 84484; 85025; 93005; 96374; 96376; J1940

== ENCOUNTER 2021-06-17 23:28 | Emergency (ER) | payer MEDICARE, OTHER ==
[2021-06-18] MEDS ORDERED: Furosemide 20 MG/2 ML VIAL ONE ×2 (00:08→02:08)
[2021-06-18 00:37] LABS: #Basophils 0.1 thou/uL (0.0-0.2); #Eosinphils 0.9 thou/uL (0.0-0.7); #Monocytes 0.4 thou/uL (0.11-0.59); #Neutrophils 3.2 thou/uL (1.40-6.50); %Basophils 1.3 % (0.0-1.0); %Eosinophils 15.5 % (0.0-10.0); %Lymphocytes 18.1 % (21.0-51.0); %Monocytes 7.2 % (0.0-10.0); %Neutrophils 57.9 % (42.0-75.0); Hemoglobin 12.3 g/dL (12.0-16.0); Mean Corpuscular HGB CONC 30.4 g/dL (32.0-36.0); Mean Corpuscular Hemoglobin 30.6 pg (27.0-31.0); Mean Corpuscular Volume 100.8 fL (78.0-98.0); Mean Platelet Volume 8.7 fL (7.4-10.4); Platelet Count 97 thou/uL (130-400); Red Blood Cell (RBC) Count 4.01 mill/uL (4.20-5.40); White Blood Cell (WBC) Count 5.6 thou/uL (4.8-10.8)
[2021-06-18 00:38] LABS: Platelet Morphology Comment Appears Decreased; RBC Morphology Normal
[2021-06-18 00:43] LABS: ALT (SGPT) 11 U/L (8-55); AST (SGOT) 20 U/L (5-34); Albumin 4.2 g/dL (3.4-4.8); Alkaline Phosphatase 151 U/L (40-110); Anion Gap 16 mmol/L (10-20); BUN (Urea Nitrogen) 22 mg/dL (9.8-20.1); Bilirubin, Total 0.7 mg/dL (0.2-1.2); CK (CPK) 17 U/L (29-168); Calc. Creatinine Clearance 0 mL/min (70-130); Calcium 10.1 mg/dL (7.8-10.44); Carbon Dioxide 31 mmol/L (23-31); Chloride 100 mmol/L (98-107); Globulin 2.7 g/dL (2.4-3.5); Glucose 138 mg/dL (83-110); Potassium 4.1 mmol/L (3.5-5.1); Protein, Total 6.9 g/dL (5.8-8.1); Sodium 143 mmol/L (136-145)
[2021-06-18 02:57] LABS: Troponin I 0.016 ng/mL (< 0.028)
== END 2021-06-18 03:43 | disposition home or self-care (01) ==
LOC: MADERS 23:28
DX: R07.9 Chest pain, unspecified (principal); R60.0 Localized edema; I11.0 Hypertensive heart disease with heart failure; I50.9 Heart failure, unspecified; I48.91 Unspecified atrial fibrillation; E03.9 Hypothyroidism, unspecified; J44.9 Chronic obstructive pulmonary disease, unspecified; I25.10 Atherosclerotic heart disease of native coronary artery without angina pectoris; E11.9 Type 2 diabetes mellitus without complications; D64.9 Anemia, unspecified; Z87.891 Personal history of nicotine dependence; Z79.899 Other long term (current) drug therapy
CPT/HCPCS: 71045; 80053; 82550; 83880; 84484; 85025; 93005; J1940; J7620

== ENCOUNTER 2021-07-03 20:36 | Emergency (ER) | payer MEDICARE, OTHER ==
[2021-07-03] MEDS ORDERED: Furosemide 40 MG/4 ML VIAL ONE (21:19)
[2021-07-03 21:28] LABS: Band 3 % (5-11); Eosinophils 4 % (0-10); Hemoglobin 12.2 g/dL (12.0-16.0); Lymphocytes 10 % (21-51); MDiff Complete? YES; Mean Corpuscular HGB CONC 30.6 g/dL (32.0-36.0); Mean Corpuscular Hemoglobin 30.4 pg (27.0-31.0); Mean Corpuscular Volume 99.4 fL (78.0-98.0); Mean Platelet Volume 9.5 fL (7.4-10.4); Monocytes 12 % (0-10); Neutrophil 70 % (42-75); Platelet Count 97 thou/uL (130-400); Platelet Morphology Comment Appears Decreased; RBC Distribution Width 13.9 % (11.5-14.5); RBC Morphology Normal; Reactive Lymphocytes 1 % (0-10); Red Blood Cell (RBC) Count 4.01 mill/uL (4.20-5.40); White Blood Cell (WBC) Count 5.1 thou/uL (4.8-10.8)
[2021-07-03 21:36] LABS: ALT (SGPT) 14 U/L (8-55); AST (SGOT) 24 U/L (5-34); Albumin 4.3 g/dL (3.4-4.8); Alkaline Phosphatase 163 U/L (40-110); Anion Gap 13 mmol/L (10-20); BUN (Urea Nitrogen) 17 mg/dL (9.8-20.1); Bilirubin, Total 0.8 mg/dL (0.2-1.2); CK (CPK) 30 U/L (29-168); CRP (Inflammatory) Less than 0.50 mg/dL (= or < 0.5); Calc. Creatinine Clearance 0 mL/min (70-130); Calcium 9.4 mg/dL (7.8-10.44); Carbon Dioxide 33 mmol/L (23-31); Chloride 100 mmol/L (98-107); Globulin 2.2 g/dL (2.4-3.5); Glucose 164 mg/dL (83-110); Potassium 4.3 mmol/L (3.5-5.1); Protein, Total 6.5 g/dL (5.8-8.1); Sodium 142 mmol/L (136-145)
[2021-07-03 21:53] LABS: CKMB 0.9 ng/mL (0-6.6)
[2021-07-03 22:04] LABS: Bilirubin Negative (Negative); Blood, Urine Negative (Negative); Clarity Clear (Clear); Glucose, Urine (Dipstick) Negative (Negative); Ketone, Urine Negative (Negative); Leukocyte Negative (Negative); Nitrite Negative (Negative); Protein, Urine (Dipstick) Negative (Neg-Trace); Specific Gravity, Urine 1.015 (1.005-1.030); Urobilinogen 0.2 mg/dL (Less than 2); pH, Urine 7.5 (5.0-9.0)
== END 2021-07-03 23:30 | disposition home or self-care (01) ==
LOC: MADERS 20:36
DX: I11.0 Hypertensive heart disease with heart failure (principal); I50.21 Acute systolic (congestive) heart failure; J44.9 Chronic obstructive pulmonary disease, unspecified; R06.03 Acute respiratory distress; I25.2 Old myocardial infarction; I48.91 Unspecified atrial fibrillation; E03.9 Hypothyroidism, unspecified; I25.10 Atherosclerotic heart disease of native coronary artery without angina pectoris; D64.9 Anemia, unspecified; E11.9 Type 2 diabetes mellitus without complications; Z87.891 Personal history of nicotine dependence
CPT/HCPCS: 71045; 80053; 81003; 82550; 82553; 83880; 84484; 85025; 86140; 93005; 94760; 96374; J1940; J7620

== ENCOUNTER 2021-07-13 17:49 | Emergency (ER) | payer MEDICARE, OTHER ==
[2021-07-13] MEDS ORDERED: Furosemide 40 MG/4 ML VIAL ONE (18:23)
[2021-07-13 18:37] LABS: Magnesium 2.2 mg/dL (1.6-2.6)
[2021-07-13 18:47] LABS: #Basophils 0.1 thou/uL (0.0-0.2); #Eosinphils 0.7 thou/uL (0.0-0.7); #Lymphocytes 0.7 thou/uL (1.20-3.40); #Monocytes 0.5 thou/uL (0.11-0.59); #Neutrophils 4.1 thou/uL (1.40-6.50); %Basophils 0.9 % (0.0-1.0); %Eosinophils 11.1 % (0.0-10.0); %Monocytes 7.8 % (0.0-10.0); %Neutrophils 69.1 % (42.0-75.0); Hemoglobin 12.8 g/dL (12.0-16.0); Mean Corpuscular HGB CONC 30.8 g/dL (32.0-36.0); Mean Corpuscular Hemoglobin 30.6 pg (27.0-31.0); Mean Corpuscular Volume 99.3 fL (78.0-98.0); Mean Platelet Volume 10.1 fL (7.4-10.4); Platelet Count 103 thou/uL (130-400); Platelet Morphology Comment Appears Decreased; RBC Distribution Width 14.1 % (11.5-14.5); RBC Morphology Normal; Red Blood Cell (RBC) Count 4.18 mill/uL (4.20-5.40); White Blood Cell (WBC) Count 5.9 thou/uL (4.8-10.8)
[2021-07-13 18:53] LABS: CO2 Tension (PvCO2) 51.3 mmHg (42.0-51.0)
[2021-07-13 18:54] LABS: Base Excess-Venous 6.8 mmol/L (-2.0 to 3.0); Bicarbonate (HCO3v) 32.9 mmol/L (22.0-28.0); Calcium, Ionized 1.14 mmol/L (1.15-1.33); Chloride 99 mmol/L (98-107); Hemoglobin - Calc 13.9 g/dL (12.0-16.0); Potassium 3.9 mmol/L (3.5-5.1); Sodium 141 mmol/L (138-145); T. Carbon Dioxide 34.5 mmol/L (22.0-28.0); vO2 Saturation-calc 74.3 % (60.0-85.0)
[2021-07-13 18:57] LABS: CKMB 1.4 ng/mL (0-6.6)
[2021-07-13] MEDS ORDERED: Benzonatate 100 MG CAP ONE (21:39)
== END 2021-07-13 21:50 | disposition home or self-care (01) ==
LOC: MADERS 17:49
DX: I11.0 Hypertensive heart disease with heart failure (principal); I50.9 Heart failure, unspecified; I25.2 Old myocardial infarction; E03.9 Hypothyroidism, unspecified; J44.9 Chronic obstructive pulmonary disease, unspecified; E11.9 Type 2 diabetes mellitus without complications; Z87.891 Personal history of nicotine dependence
CPT/HCPCS: 71045; 82330; 82435; 82553; 82803; 83735; 83880; 84132; 84295; 84484; 85025; 93005; 96374; J1940

== ENCOUNTER 2021-07-20 18:02 | Emergency (ER) | payer MEDICARE, OTHER ==
[2021-07-20] MEDS ORDERED: Furosemide 40 MG/4 ML VIAL ONE (19:00)
[2021-07-20] MEDS ORDERED: Nitroglycerin 2% Ointment 1 INCH/1 GM Packet ONE ×2 (19:00→19:02)
[2021-07-20 19:29] LABS: #Basophils 0.1 thou/uL (0.0-0.2); #Eosinphils 0.5 thou/uL (0.0-0.7); #Lymphocytes 0.5 thou/uL (1.20-3.40); #Monocytes 0.4 thou/uL (0.11-0.59); #Neutrophils 3.6 thou/uL (1.40-6.50); %Basophils 1.9 % (0.0-1.0); %Eosinophils 10.8 % (0.0-10.0); %Lymphocytes 8.9 % (21.0-51.0); %Monocytes 8.5 % (0.0-10.0); Hemoglobin 11.3 g/dL (12.0-16.0); Mean Corpuscular HGB CONC 30.3 g/dL (32.0-36.0); Mean Corpuscular Hemoglobin 30.3 pg (27.0-31.0); Mean Corpuscular Volume 99.9 fL (78.0-98.0); Mean Platelet Volume 10.6 fL (7.4-10.4); Platelet Count 89 thou/uL (130-400); Platelet Morphology Comment Appears Decreased; RBC Distribution Width 13.6 % (11.5-14.5); Red Blood Cell (RBC) Count 3.72 mill/uL (4.20-5.40); White Blood Cell (WBC) Count 5.1 thou/uL (4.8-10.8)
[2021-07-20 19:31] LABS: MDiff Complete? YES; Manual Diff?? NO
[2021-07-20 19:43] LABS: ALT (SGPT) 13 U/L (8-55); AST (SGOT) 20 U/L (5-34); Albumin 4.1 g/dL (3.4-4.8); Alkaline Phosphatase 128 U/L (40-110); Anion Gap 16 mmol/L (10-20); BUN (Urea Nitrogen) 15 mg/dL (9.8-20.1); Bilirubin, Total 0.8 mg/dL (0.2-1.2); Calc. Creatinine Clearance 0 mL/min (70-130); Calcium 9.3 mg/dL (7.8-10.44); Carbon Dioxide 29 mmol/L (23-31); Chloride 99 mmol/L (98-107); Globulin 2.1 g/dL (2.4-3.5); Glucose 154 mg/dL (83-110); Potassium 3.9 mmol/L (3.5-5.1); Protein, Total 6.2 g/dL (5.8-8.1); Sodium 140 mmol/L (136-145)
== END 2021-07-20 20:44 | disposition home or self-care (01) ==
LOC: MADERS 18:02
DX: J44.1 Chronic obstructive pulmonary disease with (acute) exacerbation (principal); I11.0 Hypertensive heart disease with heart failure; I50.9 Heart failure, unspecified; D64.9 Anemia, unspecified; D69.6 Thrombocytopenia, unspecified; I48.91 Unspecified atrial fibrillation; I25.10 Atherosclerotic heart disease of native coronary artery without angina pectoris; E03.9 Hypothyroidism, unspecified; Z87.891 Personal history of nicotine dependence
CPT/HCPCS: 36415; 71046; 80053; 83880; 84484; 85025; 93005; 94640; 96374; J1940; J7620

== ENCOUNTER 2021-07-25 13:50 | Outpatient (CLI) | payer MEDICARE, OTHER ==
[2021-07-25 14:09] LABS: ALT (SGPT) 11 U/L (8-55); AST (SGOT) 19 U/L (5-34); Albumin 4.3 g/dL (3.4-4.8); Alkaline Phosphatase 133 U/L (40-110); Anion Gap 15 mmol/L (10-20); BUN (Urea Nitrogen) 18 mg/dL (9.8-20.1); Bilirubin, Total 0.8 mg/dL (0.2-1.2); Calc. Creatinine Clearance 0 mL/min (70-130); Calcium 9.7 mg/dL (7.8-10.44); Carbon Dioxide 33 mmol/L (23-31); Cardiac Risk 1.9 (Less than 4.5); Chloride 100 mmol/L (98-107); Cholesterol 111 mg/dl (< 200 Desired); Globulin 1.9 g/dL (2.4-3.5); Glucose 123 mg/dL (83-110); HDL Cholesterol 59 mg/dL (>60 Neg Risk); LDL Cholesterol, Calculated 37 mg/dL; Potassium 4.9 mmol/L (3.5-5.1); Protein, Total 6.2 g/dL (5.8-8.1); Sodium 143 mmol/L (136-145); Triglycerides 77 mg/dL (Less than 150)
== END 2021-07-25 13:51 | disposition home or self-care (01) ==
LOC: MADLAB 13:50
PROVIDERS: ATTEND Internal Medicine Cardiovascular Disease
DX: E78.5 Hyperlipidemia, unspecified (principal); I48.0 Paroxysmal atrial fibrillation; I13.0 Hypertensive heart and chronic kidney disease with heart failure and stage 1 through stage 4 chronic kidney disease, or unspecified chronic kidney disease; I50.33 Acute on chronic diastolic (congestive) heart failure; N18.9 Chronic kidney disease, unspecified
CPT/HCPCS: 80053; 80061

== ENCOUNTER 2021-07-29 13:40 | Emergency (ER) | payer MEDICARE, OTHER ==
[2021-07-29 14:50] LABS: #Basophils 0.1 thou/uL (0.0-0.2); #Eosinphils 0.7 thou/uL (0.0-0.7); #Lymphocytes 0.6 thou/uL (1.20-3.40); #Monocytes 0.4 thou/uL (0.11-0.59); #Neutrophils 3.7 thou/uL (1.40-6.50); %Basophils 1.2 % (0.0-1.0); %Eosinophils 12.2 % (0.0-10.0); %Lymphocytes 10.9 % (21.0-51.0); %Monocytes 7.6 % (0.0-10.0); %Neutrophils 68.2 % (42.0-75.0); Hemoglobin 11.7 g/dL (12.0-16.0); Mean Corpuscular HGB CONC 31.1 g/dL (32.0-36.0); Mean Corpuscular Hemoglobin 30.7 pg (27.0-31.0); Mean Corpuscular Volume 98.8 fL (78.0-98.0); Mean Platelet Volume 8.8 fL (7.4-10.4); Platelet Count 91 thou/uL (130-400); White Blood Cell (WBC) Count 5.4 thou/uL (4.8-10.8)
[2021-07-29 14:57] LABS: Platelet Morphology Comment Appears Decreased
[2021-07-29 15:02] LABS: ALT (SGPT) 10 U/L (8-55); AST (SGOT) 19 U/L (5-34); Albumin 4.1 g/dL (3.4-4.8); Alkaline Phosphatase 118 U/L (40-110); Anion Gap 13 mmol/L (10-20); BUN (Urea Nitrogen) 23 mg/dL (9.8-20.1); Bilirubin, Total 0.9 mg/dL (0.2-1.2); CK (CPK) 24 U/L (29-168); Calc. Creatinine Clearance 0 mL/min (70-130); Calcium 9.4 mg/dL (7.8-10.44); Carbon Dioxide 35 mmol/L (23-31); Chloride 99 mmol/L (98-107); Globulin 2.2 g/dL (2.4-3.5); Glucose 167 mg/dL (83-110); Potassium 4.4 mmol/L (3.5-5.1); Protein, Total 6.3 g/dL (5.8-8.1); Sodium 143 mmol/L (136-145)
== END 2021-07-29 15:45 | disposition home or self-care (01) ==
LOC: MADERS 13:40
DX: I11.0 Hypertensive heart disease with heart failure (principal); I50.9 Heart failure, unspecified; E86.0 Dehydration; J44.9 Chronic obstructive pulmonary disease, unspecified; I25.10 Atherosclerotic heart disease of native coronary artery without angina pectoris; I25.2 Old myocardial infarction; E11.9 Type 2 diabetes mellitus without complications; I48.91 Unspecified atrial fibrillation; E03.9 Hypothyroidism, unspecified; D64.9 Anemia, unspecified; Z87.891 Personal history of nicotine dependence
CPT/HCPCS: 36415; 71045; 80053; 82550; 83880; 84484; 85025

== ENCOUNTER 2021-08-13 13:19 | Emergency (ER) | payer MEDICARE, OTHER | END 2021-08-13 16:34 | disposition home or self-care (01) | LOC: MADERS 13:19 | DX: J90 Pleural effusion, not elsewhere classified (principal); I11.0 Hypertensive heart disease with heart failure; I50.9 Heart failure, unspecified; I48.91 Unspecified atrial fibrillation; M10.9 Gout, unspecified; I25.10 Atherosclerotic heart disease of native coronary artery without angina pectoris; E11.9 Type 2 diabetes mellitus without complications; E03.9 Hypothyroidism, unspecified; D64.9 Anemia, unspecified; J44.9 Chronic obstructive pulmonary disease, unspecified; Z87.891 Personal history of nicotine dependence | CPT/HCPCS: 71045 ==

== ENCOUNTER 2021-09-03 14:53 | Inpatient (IN) | payer MEDICARE, OTHER ==
[2021-09-03] MEDS ORDERED: Bisacodyl 10 MG SUPP PR PRN (18:22)
[2021-09-03] MEDS ORDERED: Non-Formulary Item 1 EACH (Albuterol Sulfate [Proair Digihaler] 90 MCG Aer.Pw.Bas) INH PRN (18:22)
[2021-09-03] MEDS ORDERED: Artificial Tear Sol 15 ML BOT EA EYE PRN (18:22)
[2021-09-03] MEDS: ALPRAZolam 0.25 MG TAB PO PRN (20:43)
[2021-09-03] MEDS: Furosemide 40 MG TAB PO SCH (20:44)
[2021-09-03] MEDS: Polyethylene Glycol 3350 17 GM Packet PO PRN (20:44)
[2021-09-03] MEDS: Budesonide 0.5 MG/2 ML NEB NEB SCH (20:49)
[2021-09-04 05:43] LABS: #Lymphocytes 0.5 thou/uL (1.20-3.40); #Monocytes 0.3 thou/uL (0.11-0.59); #Neutrophils 3.4 thou/uL (1.40-6.50); %Basophils 0.7 % (0.0-1.0); %Eosinophils 0.8 % (0.0-10.0); %Lymphocytes 11.3 % (21.0-51.0); %Neutrophils 79.3 % (42.0-75.0); Hemoglobin 11.7 g/dL (12.0-16.0); Mean Corpuscular HGB CONC 31.3 g/dL (32.0-36.0); Mean Corpuscular Hemoglobin 30.6 pg (27.0-31.0); Mean Corpuscular Volume 97.7 fL (78.0-98.0); Mean Platelet Volume 9.8 fL (7.4-10.4); Platelet Count 91 thou/uL (130-400); RBC Distribution Width 13.8 % (11.5-14.5); Red Blood Cell (RBC) Count 3.83 mill/uL (4.20-5.40); White Blood Cell (WBC) Count 4.3 thou/uL (4.8-10.8)
[2021-09-04 05:50] LABS: ALT (SGPT) 14 U/L (8-55); AST (SGOT) 17 U/L (5-34); Albumin 3.8 g/dL (3.4-4.8); Alkaline Phosphatase 106 U/L (40-110); Anion Gap 12 mmol/L (10-20); BUN (Urea Nitrogen) 27 mg/dL (9.8-20.1); Bilirubin, Total 0.7 mg/dL (0.2-1.2); Calc. Creatinine Clearance 41 mL/min (70-130); Calcium 9.7 mg/dL (7.8-10.44); Carbon Dioxide 36 mmol/L (23-31); Chloride 99 mmol/L (98-107); Globulin 2.1 g/dL (2.4-3.5); Glucose 124 mg/dL (83-110); Potassium 4.4 mmol/L (3.5-5.1); Protein, Total 5.9 g/dL (5.8-8.1); Sodium 143 mmol/L (136-145)
[2021-09-04] MEDS: Levothyroxine Sodium 75 MCG TAB PO SCH (05:55)
[2021-09-04] MEDS: Allopurinol 100 MG TAB PO SCH (08:53)
[2021-09-04] MEDS: Azithromycin 250 MG TAB PO SCH (08:53)
[2021-09-04] MEDS: Budesonide 0.5 MG/2 ML NEB NEB SCH ×2 (08:53→21:02)
[2021-09-04] MEDS: Cyanocobalamin (Vitamin B-12) 1,000 MCG TAB PO SCH (08:56)
[2021-09-04] MEDS: Cholecalciferol 1,000 UNITS (25 MCG) TAB PO SCH (08:56)
[2021-09-04] MEDS: Zinc Sulfate 220 MG CAP PO SCH (08:56)
[2021-09-04] MEDS: Furosemide 40 MG TAB PO SCH ×2 (08:56→21:03)
[2021-09-04] MEDS: Potassium Chloride 10 MEQ TAB PO SCH (09:01)
[2021-09-04] MEDS ORDERED: Acetaminophen 325 MG TAB PO PRN (15:05)
[2021-09-04] MEDS: Albuterol 200 PUFF (6.7GM INHALER) INH SCH (19:50)
[2021-09-04] MEDS: Docusate 100 MG CAP PO PRN (21:10)
[2021-09-04] MEDS: Polyethylene Glycol 3350 17 GM Packet PO PRN (21:10)
[2021-09-04] MEDS: ALPRAZolam 0.25 MG TAB PO PRN (21:10)
[2021-09-05] MEDS: Levothyroxine Sodium 75 MCG TAB PO SCH (05:09)
[2021-09-05] MEDS: Albuterol 200 PUFF (6.7GM INHALER) INH SCH ×2 (07:57→19:34)
[2021-09-05] MEDS: Allopurinol 100 MG TAB PO SCH (08:59)
[2021-09-05] MEDS: Azithromycin 250 MG TAB PO SCH (08:59)
[2021-09-05] MEDS: Cyanocobalamin (Vitamin B-12) 1,000 MCG TAB PO SCH (09:00)
[2021-09-05] MEDS: Potassium Chloride 10 MEQ TAB PO SCH (09:00)
[2021-09-05] MEDS: Furosemide 40 MG TAB PO SCH ×2 (09:00→20:20)
[2021-09-05] MEDS: Zinc Sulfate 220 MG CAP PO SCH (09:00)
[2021-09-05] MEDS: Cholecalciferol 1,000 UNITS (25 MCG) TAB PO SCH (09:01)
[2021-09-05] MEDS: Budesonide 0.5 MG/2 ML NEB NEB SCH ×2 (09:01→20:18)
[2021-09-05] MEDS: Mag-Al Plus 1200 MG/1200 MG/120 MG/30 ML UDCUP PO PRN (14:06)
[2021-09-05] MEDS: Docusate 100 MG CAP PO PRN (20:28)
[2021-09-05] MEDS: Polyethylene Glycol 3350 17 GM Packet PO PRN (20:29)
[2021-09-05] MEDS: ALPRAZolam 0.25 MG TAB PO PRN (21:41)
[2021-09-06] MEDS: Levothyroxine Sodium 75 MCG TAB PO SCH (05:09)
[2021-09-06] MEDS: Albuterol 200 PUFF (6.7GM INHALER) INH SCH (08:17)
[2021-09-06] MEDS: Budesonide 0.5 MG/2 ML NEB NEB SCH ×2 (08:18→20:56)
[2021-09-06] MEDS: Cyanocobalamin (Vitamin B-12) 1,000 MCG TAB PO SCH (08:18)
[2021-09-06] MEDS: Cholecalciferol 1,000 UNITS (25 MCG) TAB PO SCH (08:18)
[2021-09-06] MEDS: Allopurinol 100 MG TAB PO SCH (08:18)
[2021-09-06] MEDS: Furosemide 40 MG TAB PO SCH ×4 (08:19→20:53)
[2021-09-06] MEDS: Zinc Sulfate 220 MG CAP PO SCH (08:20)
[2021-09-06] MEDS: Potassium Chloride 10 MEQ TAB PO SCH (08:20)
[2021-09-06] MEDS: Mag-Al Plus 1200 MG/1200 MG/120 MG/30 ML UDCUP PO PRN ×3 (08:38→17:20)
[2021-09-06] MEDS: Albuterol 200 PUFF (6.7GM INHALER) INH PRN (17:23)
[2021-09-06] MEDS: Polyethylene Glycol 3350 17 GM Packet PO SCH (20:52)
[2021-09-06] MEDS: Docusate 100 MG CAP PO PRN (20:52)
[2021-09-06] MEDS: ALPRAZolam 0.25 MG TAB PO PRN (20:54)
[2021-09-07] MEDS: Albuterol 200 PUFF (6.7GM INHALER) INH PRN ×2 (00:10→13:30)
[2021-09-07] MEDS: Levothyroxine Sodium 75 MCG TAB PO SCH (05:36)
[2021-09-07] MEDS: Budesonide 0.5 MG/2 ML NEB NEB SCH (09:01)
[2021-09-07] MEDS: Allopurinol 100 MG TAB PO SCH (09:01)
[2021-09-07] MEDS: Furosemide 40 MG TAB PO SCH ×2 (09:02→20:08)
[2021-09-07] MEDS: Cholecalciferol 1,000 UNITS (25 MCG) TAB PO SCH (09:02)
[2021-09-07] MEDS: Cyanocobalamin (Vitamin B-12) 1,000 MCG TAB PO SCH (09:02)
[2021-09-07] MEDS: Mag-Al Plus 1200 MG/1200 MG/120 MG/30 ML UDCUP PO PRN ×3 (09:03→23:09)
[2021-09-07] MEDS: Zinc Sulfate 220 MG CAP PO SCH (09:03)
[2021-09-07] MEDS: Potassium Chloride 10 MEQ TAB PO SCH (09:03)
[2021-09-07] MEDS: ALPRAZolam 0.25 MG TAB PO PRN ×2 (13:42→23:19)
[2021-09-07] MEDS: Polyethylene Glycol 3350 17 GM Packet PO SCH (20:08)
[2021-09-07] MEDS: Docusate 100 MG CAP PO PRN (20:08)
[2021-09-07 21:30] LABS: SARS-CoV-2 PCR by NAA Not Detected (NotDetected)
[2021-09-08] MEDS: Levothyroxine Sodium 75 MCG TAB PO SCH (05:48)
[2021-09-08] MEDS: Cyanocobalamin (Vitamin B-12) 1,000 MCG TAB PO SCH (08:30)
[2021-09-08] MEDS: Furosemide 40 MG TAB PO SCH ×2 (08:30→14:10)
[2021-09-08] MEDS: Cholecalciferol 1,000 UNITS (25 MCG) TAB PO SCH (08:30)
[2021-09-08] MEDS: Allopurinol 100 MG TAB PO SCH (08:30)
[2021-09-08] MEDS: Zinc Sulfate 220 MG CAP PO SCH (08:31)
[2021-09-08] MEDS: Potassium Chloride 10 MEQ TAB PO SCH (08:31)
[2021-09-08] MEDS: Mag-Al Plus 1200 MG/1200 MG/120 MG/30 ML UDCUP PO PRN (16:23)
[2021-09-08] MEDS: Docusate 100 MG CAP PO PRN (21:07)
[2021-09-08] MEDS: Polyethylene Glycol 3350 17 GM Packet PO SCH (21:07)
[2021-09-08] MEDS: ALPRAZolam 0.25 MG TAB PO PRN (21:07)
[2021-09-09] MEDS: Albuterol 200 PUFF (6.7GM INHALER) INH PRN ×2 (00:36→20:26)
[2021-09-09] MEDS: Levothyroxine Sodium 75 MCG TAB PO SCH (05:32)
[2021-09-09] MEDS: Zinc Sulfate 220 MG CAP PO SCH (08:34)
[2021-09-09] MEDS: Cyanocobalamin (Vitamin B-12) 1,000 MCG TAB PO SCH (08:34)
[2021-09-09] MEDS: Furosemide 40 MG TAB PO SCH ×2 (08:34→14:55)
[2021-09-09] MEDS: Potassium Chloride 10 MEQ TAB PO SCH (08:35)
[2021-09-09] MEDS: Cholecalciferol 1,000 UNITS (25 MCG) TAB PO SCH (08:35)
[2021-09-09] MEDS: Allopurinol 100 MG TAB PO SCH (08:35)
[2021-09-09] MEDS: Mag-Al Plus 1200 MG/1200 MG/120 MG/30 ML UDCUP PO PRN (08:35)
[2021-09-09] MEDS ORDERED: Polyethylene Glycol 3350 17 GM Packet PO PRN (10:28)
[2021-09-09] MEDS: Polyethylene Glycol 3350 17 GM Packet PO SCH (20:25)
[2021-09-09] MEDS: Docusate 100 MG CAP PO PRN (20:25)
[2021-09-09] MEDS: ALPRAZolam 0.25 MG TAB PO PRN (20:26)
[2021-09-10] MEDS: Albuterol 200 PUFF (6.7GM INHALER) INH PRN ×2 (03:39→14:42)
[2021-09-10] MEDS: Levothyroxine Sodium 75 MCG TAB PO SCH (05:54)
[2021-09-10] MEDS: Mag-Al Plus 1200 MG/1200 MG/120 MG/30 ML UDCUP PO PRN (08:43)
[2021-09-10] MEDS: Furosemide 40 MG TAB PO SCH ×2 (08:44→13:45)
[2021-09-10] MEDS: Zinc Sulfate 220 MG CAP PO SCH (08:44)
[2021-09-10] MEDS: Potassium Chloride 10 MEQ TAB PO SCH (08:44)
[2021-09-10] MEDS: Cholecalciferol 1,000 UNITS (25 MCG) TAB PO SCH (08:44)
[2021-09-10] MEDS: Cyanocobalamin (Vitamin B-12) 1,000 MCG TAB PO SCH (08:45)
[2021-09-10] MEDS: Allopurinol 100 MG TAB PO SCH (08:45)
[2021-09-10] MEDS ORDERED: Evolocumab [Repatha Sureclick] 140 MG/ML Pen.Injctr SC SCH (09:00)
[2021-09-10] MEDS: Sodium Chloride 0.65% Nasal 44 ML BOT EA NARE PRN (16:00)
[2021-09-10] MEDS: Docusate 100 MG CAP PO PRN (20:36)
[2021-09-10] MEDS: ALPRAZolam 0.25 MG TAB PO PRN (20:37)
[2021-09-10] MEDS: Polyethylene Glycol 3350 17 GM Packet PO SCH (20:37)
[2021-09-11] MEDS: Albuterol 200 PUFF (6.7GM INHALER) INH PRN ×3 (03:00→16:47)
[2021-09-11] MEDS: Levothyroxine Sodium 75 MCG TAB PO SCH (05:59)
[2021-09-11] MEDS: Cyanocobalamin (Vitamin B-12) 1,000 MCG TAB PO SCH (08:34)
[2021-09-11] MEDS: Zinc Sulfate 220 MG CAP PO SCH (08:34)
[2021-09-11] MEDS: Cholecalciferol 1,000 UNITS (25 MCG) TAB PO SCH (08:34)
[2021-09-11] MEDS: Potassium Chloride 10 MEQ TAB PO SCH (08:34)
[2021-09-11] MEDS: Mag-Al Plus 1200 MG/1200 MG/120 MG/30 ML UDCUP PO PRN (08:35)
[2021-09-11] MEDS: Allopurinol 100 MG TAB PO SCH (08:35)
[2021-09-11] MEDS: Furosemide 40 MG TAB PO SCH ×2 (08:35→13:43)
[2021-09-11] MEDS: Polyethylene Glycol 3350 17 GM Packet PO SCH (20:53)
[2021-09-11] MEDS: Docusate 100 MG CAP PO PRN (20:54)
[2021-09-11] MEDS: ALPRAZolam 0.25 MG TAB PO PRN (20:54)
[2021-09-12] MEDS: Albuterol 200 PUFF (6.7GM INHALER) INH PRN ×3 (03:47→12:54)
[2021-09-12 05:38] LABS: #Basophils 0.1 thou/uL (0.0-0.2); #Eosinphils 0.9 thou/uL (0.0-0.7); #Lymphocytes 0.9 thou/uL (1.20-3.40); #Monocytes 0.5 thou/uL (0.11-0.59); #Neutrophils 3.4 thou/uL (1.40-6.50); %Basophils 1.3 % (0.0-1.0); %Eosinophils 15.3 % (0.0-10.0); %Lymphocytes 14.9 % (21.0-51.0); %Monocytes 9.5 % (0.0-10.0); Hemoglobin 11.8 g/dL (12.0-16.0); Mean Corpuscular HGB CONC 30.5 g/dL (32.0-36.0); Mean Corpuscular Hemoglobin 30.3 pg (27.0-31.0); Mean Corpuscular Volume 99.1 fL (78.0-98.0); Mean Platelet Volume 9.3 fL (7.4-10.4); Platelet Count 94 thou/uL (130-400); Platelet Morphology Comment Appears Decreased; RBC Distribution Width 13.6 % (11.5-14.5); White Blood Cell (WBC) Count 5.7 thou/uL (4.8-10.8)
[2021-09-12] MEDS: Levothyroxine Sodium 75 MCG TAB PO SCH (05:47)
[2021-09-12 05:49] LABS: Anion Gap 11 mmol/L (10-20); BUN (Urea Nitrogen) 22 mg/dL (9.8-20.1); Calc. Creatinine Clearance 39 mL/min (70-130); Calcium 9.9 mg/dL (7.8-10.44); Carbon Dioxide 35 mmol/L (23-31); Chloride 99 mmol/L (98-107); Glucose 131 mg/dL (83-110); Potassium 4.2 mmol/L (3.5-5.1); Sodium 141 mmol/L (136-145)
[2021-09-12] MEDS: Mag-Al Plus 1200 MG/1200 MG/120 MG/30 ML UDCUP PO PRN ×2 (08:48→18:01)
[2021-09-12] MEDS: Cyanocobalamin (Vitamin B-12) 1,000 MCG TAB PO SCH (08:49)
[2021-09-12] MEDS: Potassium Chloride 10 MEQ TAB PO SCH (08:49)
[2021-09-12] MEDS: Furosemide 40 MG TAB PO SCH ×2 (08:49→13:33)
[2021-09-12] MEDS: Zinc Sulfate 220 MG CAP PO SCH (08:49)
[2021-09-12] MEDS: Cholecalciferol 1,000 UNITS (25 MCG) TAB PO SCH (08:49)
[2021-09-12] MEDS: Allopurinol 100 MG TAB PO SCH (08:52)
[2021-09-12] MEDS: ALPRAZolam 0.25 MG TAB PO PRN (20:04)
[2021-09-12] MEDS: Docusate 100 MG CAP PO PRN (20:04)
[2021-09-12] MEDS: Polyethylene Glycol 3350 17 GM Packet PO SCH (20:05)
[2021-09-13] MEDS: Albuterol 200 PUFF (6.7GM INHALER) INH PRN ×3 (02:10→15:25)
[2021-09-13] MEDS: Levothyroxine Sodium 75 MCG TAB PO SCH (05:40)
[2021-09-13] MEDS: Cyanocobalamin (Vitamin B-12) 1,000 MCG TAB PO SCH (09:01)
[2021-09-13] MEDS: Allopurinol 100 MG TAB PO SCH (09:01)
[2021-09-13] MEDS: Cholecalciferol 1,000 UNITS (25 MCG) TAB PO SCH (09:01)
[2021-09-13] MEDS: Potassium Chloride 10 MEQ TAB PO SCH (09:02)
[2021-09-13] MEDS: Furosemide 40 MG TAB PO SCH ×2 (09:02→14:13)
[2021-09-13] MEDS: Zinc Sulfate 220 MG CAP PO SCH (09:03)
[2021-09-13] MEDS: Mag-Al Plus 1200 MG/1200 MG/120 MG/30 ML UDCUP PO PRN ×2 (09:03→17:19)
[2021-09-13] MEDS: ALPRAZolam 0.25 MG TAB PO PRN (18:13)
[2021-09-13] MEDS: Polyethylene Glycol 3350 17 GM Packet PO SCH (21:42)
[2021-09-13] MEDS: Docusate 100 MG CAP PO PRN (21:42)
[2021-09-14] MEDS: Albuterol 200 PUFF (6.7GM INHALER) INH PRN ×2 (01:35→09:34)
[2021-09-14] MEDS: Levothyroxine Sodium 75 MCG TAB PO SCH (06:32)
[2021-09-14] MEDS ORDERED: Lantiseptic Ointment 130 GM JAR TOP PRN (08:14)
[2021-09-14] MEDS: Potassium Chloride 10 MEQ TAB PO SCH (08:28)
[2021-09-14] MEDS: Cholecalciferol 1,000 UNITS (25 MCG) TAB PO SCH (08:28)
[2021-09-14] MEDS: Furosemide 40 MG TAB PO SCH ×2 (08:28→14:41)
[2021-09-14] MEDS: Cyanocobalamin (Vitamin B-12) 1,000 MCG TAB PO SCH (08:28)
[2021-09-14] MEDS: Allopurinol 100 MG TAB PO SCH (08:28)
[2021-09-14] MEDS: Zinc Sulfate 220 MG CAP PO SCH (08:29)
[2021-09-14] MEDS: Mag-Al Plus 1200 MG/1200 MG/120 MG/30 ML UDCUP PO PRN (09:34)
[2021-09-14] MEDS: ALPRAZolam 0.25 MG TAB PO PRN (11:34)
[2021-09-14 16:05] LABS: SARS-CoV-2 PCR by NAA Not Detected (NotDetected)
[2021-09-14] MEDS: Loratadine 10 MG TAB PO PRN (17:22)
[2021-09-14] MEDS: Polyethylene Glycol 3350 17 GM Packet PO SCH (20:40)
[2021-09-14] MEDS: Docusate 100 MG CAP PO PRN (20:40)
[2021-09-15] MEDS: Albuterol 200 PUFF (6.7GM INHALER) INH PRN ×3 (01:27→23:50)
[2021-09-15] MEDS: Levothyroxine Sodium 75 MCG TAB PO SCH (05:43)
[2021-09-15] MEDS: Cholecalciferol 1,000 UNITS (25 MCG) TAB PO SCH (08:27)
[2021-09-15] MEDS: Furosemide 40 MG TAB PO SCH ×2 (08:27→14:16)
[2021-09-15] MEDS: Mag-Al Plus 1200 MG/1200 MG/120 MG/30 ML UDCUP PO PRN ×2 (08:27→17:38)
[2021-09-15] MEDS: Allopurinol 100 MG TAB PO SCH (08:27)
[2021-09-15] MEDS: Potassium Chloride 10 MEQ TAB PO SCH (08:28)
[2021-09-15] MEDS: Cyanocobalamin (Vitamin B-12) 1,000 MCG TAB PO SCH (08:28)
[2021-09-15] MEDS: Zinc Sulfate 220 MG CAP PO SCH (08:29)
[2021-09-15] MEDS: ALPRAZolam 0.25 MG TAB PO PRN (10:50)
[2021-09-15] MEDS ORDERED: Keri Lotion 15 oz BOT TOP SCH (11:45)
[2021-09-15] MEDS: Triamcinolone Acetonide 200 MG, Emollient 15 oz bottle 450 ML TOP PRN (14:16)
[2021-09-15] MEDS: Docusate 100 MG CAP PO PRN (21:21)
[2021-09-15] MEDS: ALPRAZolam 0.25 MG TAB PO SCH (21:21)
[2021-09-15] MEDS: Polyethylene Glycol 3350 17 GM Packet PO SCH (21:22)
[2021-09-16] MEDS: Albuterol 200 PUFF (6.7GM INHALER) INH PRN ×4 (04:36→22:22)
[2021-09-16] MEDS: Triamcinolone Acetonide 200 MG, Emollient 15 oz bottle 450 ML TOP PRN (04:42)
[2021-09-16] MEDS: Levothyroxine Sodium 75 MCG TAB PO SCH (05:08)
[2021-09-16] MEDS: Cholecalciferol 1,000 UNITS (25 MCG) TAB PO SCH (08:45)
[2021-09-16] MEDS: Furosemide 40 MG TAB PO SCH ×2 (08:45→13:02)
[2021-09-16] MEDS: Zinc Sulfate 220 MG CAP PO SCH (08:45)
[2021-09-16] MEDS: Allopurinol 100 MG TAB PO SCH (08:45)
[2021-09-16] MEDS: Cyanocobalamin (Vitamin B-12) 1,000 MCG TAB PO SCH (08:45)
[2021-09-16] MEDS: Mag-Al Plus 1200 MG/1200 MG/120 MG/30 ML UDCUP PO PRN ×3 (08:46→19:13)
[2021-09-16] MEDS: Potassium Chloride 10 MEQ TAB PO SCH (08:47)
[2021-09-16] MEDS: Keri Lotion 15 oz BOT TOP SCH (08:51)
[2021-09-16] MEDS: ALPRAZolam 0.25 MG TAB PO SCH (20:12)
[2021-09-16] MEDS: Docusate 100 MG CAP PO PRN (20:13)
[2021-09-16] MEDS: Polyethylene Glycol 3350 17 GM Packet PO SCH (20:14)
[2021-09-16] MEDS: Sodium Chloride 0.65% Nasal 44 ML BOT EA NARE PRN (22:22)
[2021-09-17] MEDS: Levothyroxine Sodium 75 MCG TAB PO SCH (05:19)
[2021-09-17] MEDS: Zinc Sulfate 220 MG CAP PO SCH (08:51)
[2021-09-17] MEDS: Mag-Al Plus 1200 MG/1200 MG/120 MG/30 ML UDCUP PO PRN ×3 (08:51→18:32)
[2021-09-17] MEDS: Cyanocobalamin (Vitamin B-12) 1,000 MCG TAB PO SCH (08:51)
[2021-09-17] MEDS: Cholecalciferol 1,000 UNITS (25 MCG) TAB PO SCH (08:51)
[2021-09-17] MEDS: Furosemide 40 MG TAB PO SCH ×2 (08:51→14:02)
[2021-09-17] MEDS: Potassium Chloride 10 MEQ TAB PO SCH (08:51)
[2021-09-17] MEDS: Allopurinol 100 MG TAB PO SCH (08:51)
[2021-09-17] MEDS: Loratadine 10 MG TAB PO PRN (08:51)
[2021-09-17] MEDS: Keri Lotion 15 oz BOT TOP SCH (08:52)
[2021-09-17] MEDS: Albuterol 200 PUFF (6.7GM INHALER) INH PRN ×2 (12:18→22:48)
[2021-09-17] MEDS: ALPRAZolam 0.25 MG TAB PO PRN (12:26)
[2021-09-17] MEDS: ALPRAZolam 0.25 MG TAB PO SCH (22:43)
[2021-09-17] MEDS: Polyethylene Glycol 3350 17 GM Packet PO SCH (22:43)
[2021-09-17] MEDS: Docusate 100 MG CAP PO PRN (22:44)
[2021-09-17] MEDS: Triamcinolone Acetonide 200 MG, Emollient 15 oz bottle 450 ML TOP PRN (22:47)
[2021-09-18] MEDS: Albuterol 200 PUFF (6.7GM INHALER) INH PRN ×3 (04:00→13:25)
[2021-09-18] MEDS: Levothyroxine Sodium 75 MCG TAB PO SCH (05:21)
[2021-09-18] MEDS: Mag-Al Plus 1200 MG/1200 MG/120 MG/30 ML UDCUP PO PRN ×3 (09:07→18:14)
[2021-09-18] MEDS: Cholecalciferol 1,000 UNITS (25 MCG) TAB PO SCH (09:08)
[2021-09-18] MEDS: Furosemide 40 MG TAB PO SCH ×2 (09:08→13:26)
[2021-09-18] MEDS: Zinc Sulfate 220 MG CAP PO SCH (09:08)
[2021-09-18] MEDS: Potassium Chloride 10 MEQ TAB PO SCH (09:08)
[2021-09-18] MEDS: Cyanocobalamin (Vitamin B-12) 1,000 MCG TAB PO SCH (09:08)
[2021-09-18] MEDS: Allopurinol 100 MG TAB PO SCH (09:08)
[2021-09-18] MEDS: Keri Lotion 15 oz BOT TOP SCH (09:09)
[2021-09-18] MEDS: ALPRAZolam 0.25 MG TAB PO SCH (20:12)
[2021-09-18] MEDS: Docusate 100 MG CAP PO PRN (20:12)
[2021-09-18] MEDS: Polyethylene Glycol 3350 17 GM Packet PO SCH (20:12)
[2021-09-19] MEDS: Albuterol 200 PUFF (6.7GM INHALER) INH PRN ×4 (00:33→21:15)
[2021-09-19] MEDS: Levothyroxine Sodium 75 MCG TAB PO SCH (05:04)
[2021-09-19] MEDS: Cyanocobalamin (Vitamin B-12) 1,000 MCG TAB PO SCH (08:13)
[2021-09-19] MEDS: Cholecalciferol 1,000 UNITS (25 MCG) TAB PO SCH (08:13)
[2021-09-19] MEDS: Allopurinol 100 MG TAB PO SCH (08:13)
[2021-09-19] MEDS: Keri Lotion 15 oz BOT TOP SCH (08:14)
[2021-09-19] MEDS: Furosemide 40 MG TAB PO SCH ×2 (08:14→14:28)
[2021-09-19] MEDS: Potassium Chloride 10 MEQ TAB PO SCH (08:15)
[2021-09-19] MEDS: Zinc Sulfate 220 MG CAP PO SCH (08:15)
[2021-09-19] MEDS: Mag-Al Plus 1200 MG/1200 MG/120 MG/30 ML UDCUP PO PRN ×3 (08:16→20:06)
[2021-09-19] MEDS: ALPRAZolam 0.25 MG TAB PO PRN (09:10)
[2021-09-19] MEDS ORDERED: Bisacodyl 10 MG SUPP PR PRN (12:13)
[2021-09-19] MEDS: Polyethylene Glycol 3350 17 GM Packet PO SCH (20:05)
[2021-09-19] MEDS: Docusate 100 MG CAP PO PRN (20:05)
[2021-09-19] MEDS: ALPRAZolam 0.25 MG TAB PO SCH (21:21)
[2021-09-20] MEDS: Albuterol 200 PUFF (6.7GM INHALER) INH PRN ×3 (01:45→21:33)
[2021-09-20] MEDS: Levothyroxine Sodium 75 MCG TAB PO SCH (06:22)
[2021-09-20] MEDS: Allopurinol 100 MG TAB PO SCH (09:03)
[2021-09-20] MEDS: Furosemide 40 MG TAB PO SCH ×2 (09:05→15:07)
[2021-09-20] MEDS: Potassium Chloride 10 MEQ TAB PO SCH (09:05)
[2021-09-20] MEDS: Cyanocobalamin (Vitamin B-12) 1,000 MCG TAB PO SCH (09:05)
[2021-09-20] MEDS: Cholecalciferol 1,000 UNITS (25 MCG) TAB PO SCH (09:05)
[2021-09-20] MEDS: Zinc Sulfate 220 MG CAP PO SCH (09:07)
[2021-09-20] MEDS: Keri Lotion 15 oz BOT TOP SCH (09:08)
[2021-09-20] MEDS: Mag-Al Plus 1200 MG/1200 MG/120 MG/30 ML UDCUP PO PRN ×3 (09:10→17:24)
[2021-09-20] MEDS: ALPRAZolam 0.25 MG TAB PO PRN (12:55)
[2021-09-20] MEDS: Docusate 100 MG CAP PO PRN (20:08)
[2021-09-20] MEDS: Polyethylene Glycol 3350 17 GM Packet PO SCH (20:08)
[2021-09-20] MEDS: ALPRAZolam 0.25 MG TAB PO SCH (21:32)
[2021-09-21] MEDS: Albuterol 200 PUFF (6.7GM INHALER) INH PRN ×3 (04:26→21:17)
[2021-09-21] MEDS: Levothyroxine Sodium 75 MCG TAB PO SCH (05:08)
[2021-09-21] MEDS ORDERED: Furosemide 40 MG TAB PO SCH (08:00)
[2021-09-21] MEDS: Zinc Sulfate 220 MG CAP PO SCH (08:32)
[2021-09-21] MEDS: Allopurinol 100 MG TAB PO SCH (08:32)
[2021-09-21] MEDS: Cholecalciferol 1,000 UNITS (25 MCG) TAB PO SCH (08:32)
[2021-09-21] MEDS: Potassium Chloride 10 MEQ TAB PO SCH (08:32)
[2021-09-21] MEDS: Furosemide 40 MG TAB PO SCH ×2 (08:32→14:03)
[2021-09-21] MEDS: Cyanocobalamin (Vitamin B-12) 1,000 MCG TAB PO SCH (08:32)
[2021-09-21] MEDS: Keri Lotion 15 oz BOT TOP SCH (08:36)
[2021-09-21] MEDS: ALPRAZolam 0.25 MG TAB PO PRN (14:04)
[2021-09-21 18:57] LABS: SARS-CoV-2 PCR by NAA DETECTED (NotDetected)
[2021-09-21] MEDS ORDERED: QUERCETIN PO SCH (21:00)
[2021-09-21] MEDS: ALPRAZolam 0.25 MG TAB PO SCH (21:18)
[2021-09-21] MEDS: Docusate 100 MG CAP PO PRN (21:19)
[2021-09-21] MEDS: Ascorbic Acid 500 mg Chewable Tablet PO SCH (21:19)
[2021-09-21] MEDS: Polyethylene Glycol 3350 17 GM Packet PO SCH (21:29)
[2021-09-22] MEDS: Levothyroxine Sodium 75 MCG TAB PO SCH (05:41)
[2021-09-22] MEDS: Albuterol 200 PUFF (6.7GM INHALER) INH PRN ×3 (08:20→21:24)
[2021-09-22] MEDS ORDERED: Zinc Sulfate 220 MG CAP PO SCH (09:00)
[2021-09-22] MEDS ORDERED: Cholecalciferol 1,000 UNITS (25 MCG) TAB PO SCH (09:00)
[2021-09-22] MEDS ORDERED: Furosemide 40 MG TAB PO SCH (09:15)
[2021-09-22] MEDS: Potassium Chloride 10 MEQ TAB PO SCH ×2 (09:24→21:20)
[2021-09-22] MEDS: Ascorbic Acid 500 mg Chewable Tablet PO SCH ×2 (09:25→21:20)
[2021-09-22] MEDS: Allopurinol 100 MG TAB PO SCH ×2 (09:25→21:20)
[2021-09-22] MEDS: Furosemide 40 MG TAB PO SCH ×2 (09:26→14:52)
[2021-09-22] MEDS: Cyanocobalamin (Vitamin B-12) 1,000 MCG TAB PO SCH ×2 (09:26→21:19)
[2021-09-22] MEDS: ALPRAZolam 0.25 MG TAB PO PRN (09:27)
[2021-09-22] MEDS: Mag-Al Plus 1200 MG/1200 MG/120 MG/30 ML UDCUP PO PRN ×3 (09:28→21:21)
[2021-09-22] MEDS: Docusate 100 MG CAP PO PRN (09:28)
[2021-09-22] MEDS: Keri Lotion 15 oz BOT TOP SCH (09:32)
[2021-09-22] MEDS: Ondansetron ODT 4 MG TAB PO PRN (11:10)
[2021-09-22] MEDS: Polyethylene Glycol 3350 17 GM Packet PO SCH (21:17)
[2021-09-22] MEDS: Cholecalciferol 1,000 UNITS (25 MCG) TAB PO SCH (21:18)
[2021-09-22] MEDS: ALPRAZolam 0.25 MG TAB PO SCH (21:18)
[2021-09-22] MEDS: Zinc Sulfate 220 MG CAP PO SCH (21:19)
[2021-09-22] MEDS: GUAIFENESIN SF SOLN 200 MG/10 ML UDCUP PO PRN (21:53)
[2021-09-23] MEDS: Acetaminophen 325 MG TAB PO PRN ×2 (05:13→17:58)
[2021-09-23] MEDS: Levothyroxine Sodium 75 MCG TAB PO SCH (05:13)
[2021-09-23 05:48] LABS: #Basophils 0.1 thou/uL (0.0-0.2); #Eosinphils 0.3 thou/uL (0.0-0.7); #Lymphocytes 0.5 thou/uL (1.20-3.40); #Monocytes 0.4 thou/uL (0.11-0.59); %Basophils 2.4 % (0.0-1.0); %Eosinophils 9.9 % (0.0-10.0); %Lymphocytes 15.9 % (21.0-51.0); %Monocytes 11.5 % (0.0-10.0); %Neutrophils 60.4 % (42.0-75.0); Mean Corpuscular Hemoglobin 30.6 pg (27.0-31.0); Mean Corpuscular Volume 98.7 fL (78.0-98.0); Platelet Count 74 thou/uL (130-400); Platelet Morphology Comment Appears Decreased; RBC Distribution Width 13.7 % (11.5-14.5); RBC Morphology Normal; White Blood Cell (WBC) Count 3.3 thou/uL (4.8-10.8)
[2021-09-23 05:52] LABS: Anion Gap 15 mmol/L (10-20); BUN (Urea Nitrogen) 28 mg/dL (9.8-20.1); Calc. Creatinine Clearance 43 mL/min (70-130); Calcium 8.7 mg/dL (7.8-10.44); Carbon Dioxide 33 mmol/L (23-31); Chloride 97 mmol/L (98-107); Glucose 132 mg/dL (83-110); Potassium 4.5 mmol/L (3.5-5.1); Sodium 140 mmol/L (136-145)
[2021-09-23] MEDS: Albuterol 200 PUFF (6.7GM INHALER) INH PRN ×3 (09:00→19:00)
[2021-09-23] MEDS: ALPRAZolam 0.25 MG TAB PO PRN (09:48)
[2021-09-23] MEDS: Mag-Al Plus 1200 MG/1200 MG/120 MG/30 ML UDCUP PO PRN ×3 (09:48→21:29)
[2021-09-23] MEDS: Docusate 100 MG CAP PO PRN (09:48)
[2021-09-23] MEDS: Furosemide 40 MG TAB PO SCH ×2 (09:48→14:51)
[2021-09-23] MEDS: Ascorbic Acid 500 mg Chewable Tablet PO SCH ×2 (09:48→21:24)
[2021-09-23] MEDS: Keri Lotion 15 oz BOT TOP SCH (09:49)
[2021-09-23] MEDS: Polyethylene Glycol 3350 17 GM Packet PO PRN (09:49)
[2021-09-23] MEDS ORDERED: MOLNUPIRAVIR 200 MG CAPSULE PO SCH (11:00)
[2021-09-23] MEDS ORDERED: QUERCETIN PO SCH (11:30)
[2021-09-23] MEDS: Sodium Chloride 0.65% Nasal 44 ML BOT EA NARE PRN (15:58)
[2021-09-23] MEDS: QUERCETIN PO SCH (21:21)
[2021-09-23] MEDS: MOLNUPIRAVIR 200 MG CAPSULE PO SCH (21:23)
[2021-09-23] MEDS: Zinc Sulfate 220 MG CAP PO SCH (21:23)
[2021-09-23] MEDS: ALPRAZolam 0.25 MG TAB PO SCH (21:24)
[2021-09-23] MEDS: Cholecalciferol 1,000 UNITS (25 MCG) TAB PO SCH (21:26)
[2021-09-23] MEDS: Potassium Chloride 10 MEQ TAB PO SCH (21:26)
[2021-09-23] MEDS: Allopurinol 100 MG TAB PO SCH (21:27)
[2021-09-23] MEDS: Polyethylene Glycol 3350 17 GM Packet PO SCH (21:28)
[2021-09-23] MEDS: Cyanocobalamin (Vitamin B-12) 1,000 MCG TAB PO SCH (21:28)
[2021-09-23] MEDS: Ondansetron ODT 4 MG TAB PO PRN (22:43)
[2021-09-24] MEDS: Albuterol 200 PUFF (6.7GM INHALER) INH PRN ×4 (01:45→21:10)
[2021-09-24] MEDS: Levothyroxine Sodium 75 MCG TAB PO SCH (05:10)
[2021-09-24] MEDS: Keri Lotion 15 oz BOT TOP SCH (08:33)
[2021-09-24] MEDS: Ascorbic Acid 500 mg Chewable Tablet PO SCH ×2 (08:35→21:11)
[2021-09-24] MEDS: ALPRAZolam 0.25 MG TAB PO PRN (08:36)
[2021-09-24] MEDS: Docusate 100 MG CAP PO PRN (08:36)
[2021-09-24] MEDS: Furosemide 40 MG TAB PO SCH ×2 (08:36→15:29)
[2021-09-24] MEDS: MOLNUPIRAVIR 200 MG CAPSULE PO SCH ×2 (08:37→21:11)
[2021-09-24] MEDS: Mag-Al Plus 1200 MG/1200 MG/120 MG/30 ML UDCUP PO PRN ×3 (08:46→21:11)
[2021-09-24] MEDS: QUERCETIN PO SCH ×2 (08:46→21:11)
[2021-09-24] MEDS ORDERED: Furosemide 40 MG TAB PO SCH (14:00)
[2021-09-24] MEDS: Acetaminophen 325 MG TAB PO PRN (18:12)
[2021-09-24] MEDS: Potassium Chloride 10 MEQ TAB PO SCH (21:11)
[2021-09-24] MEDS: Cholecalciferol 1,000 UNITS (25 MCG) TAB PO SCH (21:11)
[2021-09-24] MEDS: ALPRAZolam 0.25 MG TAB PO SCH (21:12)
[2021-09-24] MEDS: Zinc Sulfate 220 MG CAP PO SCH (21:12)
[2021-09-24] MEDS: Allopurinol 100 MG TAB PO SCH (21:12)
[2021-09-24] MEDS: Cyanocobalamin (Vitamin B-12) 1,000 MCG TAB PO SCH (21:12)
[2021-09-24] MEDS: Polyethylene Glycol 3350 17 GM Packet PO SCH (21:13)
[2021-09-25] MEDS: Ondansetron ODT 4 MG TAB PO PRN ×2 (03:08→22:06)
[2021-09-25] MEDS: Acetaminophen 325 MG TAB PO PRN ×4 (03:08→22:05)
[2021-09-25] MEDS: Albuterol 200 PUFF (6.7GM INHALER) INH PRN ×5 (04:29→19:49)
[2021-09-25] MEDS: Levothyroxine Sodium 75 MCG TAB PO SCH (05:11)
[2021-09-25] MEDS: Ascorbic Acid 500 mg Chewable Tablet PO SCH ×2 (08:02→22:00)
[2021-09-25] MEDS: Mag-Al Plus 1200 MG/1200 MG/120 MG/30 ML UDCUP PO PRN ×2 (08:02→14:50)
[2021-09-25] MEDS: ALPRAZolam 0.25 MG TAB PO PRN (08:02)
[2021-09-25] MEDS: QUERCETIN PO SCH ×2 (08:02→22:05)
[2021-09-25] MEDS: MOLNUPIRAVIR 200 MG CAPSULE PO SCH ×2 (08:02→22:00)
[2021-09-25] MEDS: Furosemide 40 MG TAB PO SCH ×2 (08:03→14:47)
[2021-09-25] MEDS: Keri Lotion 15 oz BOT TOP SCH (08:03)
[2021-09-25] MEDS: Benzonatate 100 MG CAP PO PRN (19:49)
[2021-09-25] MEDS: ALPRAZolam 0.25 MG TAB PO SCH (22:00)
[2021-09-25] MEDS: Zinc Sulfate 220 MG CAP PO SCH (22:00)
[2021-09-25] MEDS: Allopurinol 100 MG TAB PO SCH (22:01)
[2021-09-25] MEDS: Cholecalciferol 1,000 UNITS (25 MCG) TAB PO SCH (22:02)
[2021-09-25] MEDS: Potassium Chloride 10 MEQ TAB PO SCH (22:04)
[2021-09-25] MEDS: Cyanocobalamin (Vitamin B-12) 1,000 MCG TAB PO SCH (22:04)
[2021-09-25] MEDS: Polyethylene Glycol 3350 17 GM Packet PO SCH (22:05)
[2021-09-26] MEDS: Mag-Al Plus 1200 MG/1200 MG/120 MG/30 ML UDCUP PO PRN ×3 (02:59→14:48)
[2021-09-26] MEDS: Levothyroxine Sodium 75 MCG TAB PO SCH (05:53)
[2021-09-26] MEDS: ALPRAZolam 0.25 MG TAB PO PRN (09:18)
[2021-09-26] MEDS: Furosemide 40 MG TAB PO SCH ×2 (09:19→14:45)
[2021-09-26] MEDS: Ascorbic Acid 500 mg Chewable Tablet PO SCH ×2 (09:20→20:32)
[2021-09-26] MEDS: Keri Lotion 15 oz BOT TOP SCH (09:20)
[2021-09-26] MEDS: Albuterol 200 PUFF (6.7GM INHALER) INH PRN ×3 (09:20→20:00)
[2021-09-26] MEDS: Acetaminophen 325 MG TAB PO PRN ×3 (09:20→20:33)
[2021-09-26] MEDS: MOLNUPIRAVIR 200 MG CAPSULE PO SCH ×2 (09:21→20:39)
[2021-09-26] MEDS: QUERCETIN PO SCH ×2 (09:22→20:40)
[2021-09-26] MEDS: Zinc Sulfate 220 MG CAP PO SCH (20:31)
[2021-09-26] MEDS: Cyanocobalamin (Vitamin B-12) 1,000 MCG TAB PO SCH (20:32)
[2021-09-26] MEDS: Docusate 100 MG CAP PO PRN (20:33)
[2021-09-26] MEDS: Allopurinol 100 MG TAB PO SCH (20:34)
[2021-09-26] MEDS: Potassium Chloride 10 MEQ TAB PO SCH (20:34)
[2021-09-26] MEDS: Cholecalciferol 1,000 UNITS (25 MCG) TAB PO SCH (20:35)
[2021-09-26] MEDS: ALPRAZolam 0.25 MG TAB PO SCH (20:38)
[2021-09-26] MEDS: Polyethylene Glycol 3350 17 GM Packet PO SCH (20:40)
[2021-09-27] MEDS: Benzonatate 100 MG CAP PO PRN (00:06)
[2021-09-27] MEDS: Levothyroxine Sodium 75 MCG TAB PO SCH (05:29)
[2021-09-27] MEDS: Albuterol 200 PUFF (6.7GM INHALER) INH PRN ×3 (05:30→21:30)
[2021-09-27] MEDS: Furosemide 40 MG TAB PO SCH ×2 (08:19→13:24)
[2021-09-27] MEDS: Ascorbic Acid 500 mg Chewable Tablet PO SCH ×2 (08:19→21:52)
[2021-09-27] MEDS: MOLNUPIRAVIR 200 MG CAPSULE PO SCH ×2 (08:20→21:50)
[2021-09-27] MEDS: QUERCETIN PO SCH ×2 (08:21→21:50)
[2021-09-27] MEDS: Keri Lotion 15 oz BOT TOP SCH (08:22)
[2021-09-27] MEDS: Mag-Al Plus 1200 MG/1200 MG/120 MG/30 ML UDCUP PO PRN ×3 (08:24→21:57)
[2021-09-27] MEDS ORDERED: Furosemide 40 MG TAB PO SCH (09:00)
[2021-09-27] MEDS: ALPRAZolam 0.25 MG TAB PO PRN (10:17)
[2021-09-27] MEDS: Acetaminophen 325 MG TAB PO PRN ×2 (15:02→21:57)
[2021-09-27] MEDS: ALPRAZolam 0.25 MG TAB PO SCH (21:51)
[2021-09-27] MEDS: Zinc Sulfate 220 MG CAP PO SCH (21:52)
[2021-09-27] MEDS: Polyethylene Glycol 3350 17 GM Packet PO SCH (21:52)
[2021-09-27] MEDS: Potassium Chloride 10 MEQ TAB PO SCH (21:53)
[2021-09-27] MEDS: Allopurinol 100 MG TAB PO SCH (21:54)
[2021-09-27] MEDS: Cyanocobalamin (Vitamin B-12) 1,000 MCG TAB PO SCH (21:54)
[2021-09-27] MEDS: Docusate 100 MG CAP PO PRN (21:54)
[2021-09-27] MEDS: Cholecalciferol 1,000 UNITS (25 MCG) TAB PO SCH (21:55)
[2021-09-28] MEDS: Albuterol 200 PUFF (6.7GM INHALER) INH PRN ×5 (02:06→19:00)
[2021-09-28] MEDS: Levothyroxine Sodium 75 MCG TAB PO SCH (05:17)
[2021-09-28] MEDS: Keri Lotion 15 oz BOT TOP SCH (08:46)
[2021-09-28] MEDS: Ascorbic Acid 500 mg Chewable Tablet PO SCH ×2 (08:46→20:11)
[2021-09-28] MEDS: ALPRAZolam 0.25 MG TAB PO PRN (08:46)
[2021-09-28] MEDS: Furosemide 40 MG TAB PO SCH ×2 (08:46→14:31)
[2021-09-28] MEDS: Mag-Al Plus 1200 MG/1200 MG/120 MG/30 ML UDCUP PO PRN ×2 (08:47→17:29)
[2021-09-28] MEDS: QUERCETIN PO SCH ×2 (08:48→20:11)
[2021-09-28] MEDS: Sodium Chloride 0.65% Nasal 44 ML BOT EA NARE PRN (08:49)
[2021-09-28] MEDS: Ondansetron ODT 4 MG TAB PO PRN (15:17)
[2021-09-28] MEDS: Acetaminophen 325 MG TAB PO PRN (15:17)
[2021-09-28] MEDS: Allopurinol 100 MG TAB PO SCH (20:10)
[2021-09-28] MEDS: Cyanocobalamin (Vitamin B-12) 1,000 MCG TAB PO SCH (20:10)
[2021-09-28] MEDS: Zinc Sulfate 220 MG CAP PO SCH (20:10)
[2021-09-28] MEDS: ALPRAZolam 0.25 MG TAB PO SCH (20:10)
[2021-09-28] MEDS: Polyethylene Glycol 3350 17 GM Packet PO SCH (20:11)
[2021-09-28] MEDS: Cholecalciferol 1,000 UNITS (25 MCG) TAB PO SCH (20:11)
[2021-09-28] MEDS: Potassium Chloride 10 MEQ TAB PO SCH (20:11)
[2021-09-29] MEDS: Albuterol 200 PUFF (6.7GM INHALER) INH PRN ×6 (00:30→23:14)
[2021-09-29] MEDS: Mag-Al Plus 1200 MG/1200 MG/120 MG/30 ML UDCUP PO PRN ×4 (01:03→18:10)
[2021-09-29] MEDS: Acetaminophen 325 MG TAB PO PRN ×2 (01:04→15:49)
[2021-09-29] MEDS: Levothyroxine Sodium 75 MCG TAB PO SCH (05:24)
[2021-09-29] MEDS ORDERED: Furosemide 40 MG TAB PO SCH (08:45)
[2021-09-29] MEDS: Furosemide 40 MG TAB PO SCH ×2 (08:59→13:44)
[2021-09-29] MEDS: Keri Lotion 15 oz BOT TOP SCH (08:59)
[2021-09-29] MEDS: Ascorbic Acid 500 mg Chewable Tablet PO SCH ×2 (08:59→20:03)
[2021-09-29] MEDS: ALPRAZolam 0.25 MG TAB PO PRN (09:00)
[2021-09-29] MEDS: Benzonatate 100 MG CAP PO PRN ×2 (09:00→22:28)
[2021-09-29] MEDS: Ondansetron ODT 4 MG TAB PO PRN ×2 (09:01→17:10)
[2021-09-29] MEDS: QUERCETIN PO SCH ×2 (09:03→20:04)
[2021-09-29] MEDS: Sodium Chloride 0.65% Nasal 44 ML BOT EA NARE PRN (18:10)
[2021-09-29] MEDS: ALPRAZolam 0.25 MG TAB PO SCH (20:02)
[2021-09-29] MEDS: Potassium Chloride 10 MEQ TAB PO SCH (20:02)
[2021-09-29] MEDS: Cyanocobalamin (Vitamin B-12) 1,000 MCG TAB PO SCH (20:02)
[2021-09-29] MEDS: Zinc Sulfate 220 MG CAP PO SCH (20:03)
[2021-09-29] MEDS: Cholecalciferol 1,000 UNITS (25 MCG) TAB PO SCH (20:03)
[2021-09-29] MEDS: Polyethylene Glycol 3350 17 GM Packet PO SCH (20:03)
[2021-09-29] MEDS: Allopurinol 100 MG TAB PO SCH (20:05)
[2021-09-30] MEDS: Acetaminophen 325 MG TAB PO PRN ×4 (00:37→21:58)
[2021-09-30] MEDS: Levothyroxine Sodium 75 MCG TAB PO SCH (05:18)
[2021-09-30] MEDS: Albuterol 200 PUFF (6.7GM INHALER) INH PRN ×3 (06:45→14:45)
[2021-09-30] MEDS: Mag-Al Plus 1200 MG/1200 MG/120 MG/30 ML UDCUP PO PRN ×2 (08:26→22:00)
[2021-09-30] MEDS: Ondansetron ODT 4 MG TAB PO PRN ×3 (08:27→21:56)
[2021-09-30] MEDS: ALPRAZolam 0.25 MG TAB PO PRN (08:28)
[2021-09-30] MEDS: Ascorbic Acid 500 mg Chewable Tablet PO SCH ×2 (08:28→21:57)
[2021-09-30] MEDS: Furosemide 40 MG TAB PO SCH ×2 (08:28→13:11)
[2021-09-30] MEDS: QUERCETIN PO SCH ×2 (08:28→22:10)
[2021-09-30] MEDS: Keri Lotion 15 oz BOT TOP SCH (08:29)
[2021-09-30] MEDS: Sodium Chloride 0.65% Nasal 44 ML BOT EA NARE PRN (13:11)
[2021-09-30] MEDS: Polyethylene Glycol 3350 17 GM Packet PO SCH (21:57)
[2021-09-30] MEDS: ALPRAZolam 0.25 MG TAB PO SCH (21:58)
[2021-09-30] MEDS: Potassium Chloride 10 MEQ TAB PO SCH (21:58)
[2021-09-30] MEDS: Zinc Sulfate 220 MG CAP PO SCH (21:58)
[2021-09-30] MEDS: Cyanocobalamin (Vitamin B-12) 1,000 MCG TAB PO SCH (21:59)
[2021-09-30] MEDS: Allopurinol 100 MG TAB PO SCH (21:59)
[2021-09-30] MEDS: Cholecalciferol 1,000 UNITS (25 MCG) TAB PO SCH (21:59)
[2021-10-01] MEDS: Mag-Al Plus 1200 MG/1200 MG/120 MG/30 ML UDCUP PO PRN ×2 (03:31→09:41)
[2021-10-01] MEDS: Levothyroxine Sodium 75 MCG TAB PO SCH (05:36)
[2021-10-01] MEDS: Albuterol 200 PUFF (6.7GM INHALER) INH PRN ×3 (07:20→20:35)
[2021-10-01] MEDS: Ascorbic Acid 500 mg Chewable Tablet PO SCH ×2 (08:10→21:53)
[2021-10-01] MEDS: Acetaminophen 325 MG TAB PO PRN ×2 (08:11→21:52)
[2021-10-01] MEDS: Furosemide 40 MG TAB PO SCH ×2 (08:11→14:50)
[2021-10-01] MEDS: Keri Lotion 15 oz BOT TOP SCH (08:17)
[2021-10-01] MEDS: QUERCETIN PO SCH ×2 (08:17→21:56)
[2021-10-01] MEDS: Ondansetron ODT 4 MG TAB PO PRN ×2 (09:41→16:06)
[2021-10-01] MEDS ORDERED: Furosemide 40 MG TAB PO SCH (14:45)
[2021-10-01] MEDS: Docusate 100 MG CAP PO PRN (14:50)
[2021-10-01] MEDS: Zinc Sulfate 220 MG CAP PO SCH (21:50)
[2021-10-01] MEDS: Cholecalciferol 1,000 UNITS (25 MCG) TAB PO SCH (21:51)
[2021-10-01] MEDS: ALPRAZolam 0.25 MG TAB PO SCH (21:51)
[2021-10-01] MEDS: Cyanocobalamin (Vitamin B-12) 1,000 MCG TAB PO SCH (21:52)
[2021-10-01] MEDS: Potassium Chloride 10 MEQ TAB PO SCH (21:52)
[2021-10-01] MEDS: Allopurinol 100 MG TAB PO SCH (21:52)
[2021-10-01] MEDS: Polyethylene Glycol 3350 17 GM Packet PO SCH (21:53)
[2021-10-02] MEDS: Albuterol 200 PUFF (6.7GM INHALER) INH PRN
[2021-10-02] MEDS: Levothyroxine Sodium 75 MCG TAB PO SCH (06:04)
[2021-10-02] MEDS: Ondansetron ODT 4 MG TAB PO PRN ×3 (06:33→17:52)
[2021-10-02] MEDS ORDERED: Furosemide 40 MG TAB PO SCH ×2 (09:00)
[2021-10-02] MEDS: Keri Lotion 15 oz BOT TOP SCH (09:50)
[2021-10-02] MEDS: QUERCETIN PO SCH ×2 (09:50→19:59)
[2021-10-02] MEDS: Ascorbic Acid 500 mg Chewable Tablet PO SCH ×2 (09:50→19:56)
[2021-10-02] MEDS: GUAIFENESIN SF SOLN 200 MG/10 ML UDCUP PO PRN (11:34)
[2021-10-02] MEDS: ALPRAZolam 0.25 MG TAB PO PRN (11:35)
[2021-10-02] MEDS: Mag-Al Plus 1200 MG/1200 MG/120 MG/30 ML UDCUP PO PRN ×2 (13:07→17:21)
[2021-10-02] MEDS: Furosemide 40 MG TAB PO SCH (13:08)
[2021-10-02] MEDS: Acetaminophen 325 MG TAB PO PRN (18:24)
[2021-10-02] MEDS: Cyanocobalamin (Vitamin B-12) 1,000 MCG TAB PO SCH (19:56)
[2021-10-02] MEDS: Allopurinol 100 MG TAB PO SCH (19:57)
[2021-10-02] MEDS: Potassium Chloride 10 MEQ TAB PO SCH (19:57)
[2021-10-02] MEDS: Cholecalciferol 1,000 UNITS (25 MCG) TAB PO SCH (19:57)
[2021-10-02] MEDS: Zinc Sulfate 220 MG CAP PO SCH (19:57)
[2021-10-02] MEDS: ALPRAZolam 0.25 MG TAB PO SCH (19:58)
[2021-10-02] MEDS: Polyethylene Glycol 3350 17 GM Packet PO SCH (20:04)
[2021-10-03] MEDS: Levothyroxine Sodium 75 MCG TAB PO SCH (05:05)
[2021-10-03] MEDS: Mag-Al Plus 1200 MG/1200 MG/120 MG/30 ML UDCUP PO PRN (05:05)
[2021-10-03 05:50] LABS: Anion Gap 15 mmol/L (10-20); BUN (Urea Nitrogen) 25 mg/dL (9.8-20.1); Calc. Creatinine Clearance 32 mL/min (70-130); Calcium 8.6 mg/dL (7.8-10.44); Carbon Dioxide 34 mmol/L (23-31); Chloride 91 mmol/L (98-107); Glucose 113 mg/dL (83-110); Potassium 4.4 mmol/L (3.5-5.1); Sodium 136 mmol/L (136-145)
[2021-10-03] MEDS: ALPRAZolam 0.25 MG TAB PO SCH ×2 (07:52→20:14)
[2021-10-03] MEDS: Acetaminophen 325 MG TAB PO PRN ×2 (07:52→22:03)
[2021-10-03] MEDS: ALPRAZolam 0.25 MG TAB PO PRN (07:52)
[2021-10-03] MEDS: Furosemide 40 MG TAB PO SCH ×2 (07:57→13:51)
[2021-10-03] MEDS: Ascorbic Acid 500 mg Chewable Tablet PO SCH ×2 (07:57→20:10)
[2021-10-03] MEDS: Keri Lotion 15 oz BOT TOP SCH (07:58)
[2021-10-03] MEDS: QUERCETIN PO SCH ×2 (08:45→20:14)
[2021-10-03] MEDS ORDERED: Furosemide 20 MG TAB PO SCH ×3 (09:00→14:00)
[2021-10-03] MEDS ORDERED: ALPRAZolam 0.25 MG TAB PO SCH (10:15)
[2021-10-03] MEDS: Zinc Sulfate 220 MG CAP PO SCH (20:08)
[2021-10-03] MEDS: Potassium Chloride 10 MEQ TAB PO SCH (20:10)
[2021-10-03] MEDS: Cholecalciferol 1,000 UNITS (25 MCG) TAB PO SCH (20:11)
[2021-10-03] MEDS: Cyanocobalamin (Vitamin B-12) 1,000 MCG TAB PO SCH (20:12)
[2021-10-03] MEDS: Allopurinol 100 MG TAB PO SCH (20:12)
[2021-10-03] MEDS: Polyethylene Glycol 3350 17 GM Packet PO SCH (20:13)
[2021-10-03] MEDS: Albuterol 200 PUFF (6.7GM INHALER) INH PRN (20:21)
[2021-10-03] MEDS ORDERED: Furosemide 40 MG TAB PO SCH (20:45)
[2021-10-04] MEDS: Acetaminophen 325 MG TAB PO PRN ×2 (04:32→14:10)
[2021-10-04] MEDS: Albuterol 200 PUFF (6.7GM INHALER) INH PRN ×2 (04:32→16:00)
[2021-10-04] MEDS: Levothyroxine Sodium 75 MCG TAB PO SCH (05:02)
[2021-10-04 05:52] LABS: #Eosinphils 0.1 thou/uL (0.0-0.7); #Lymphocytes 0.5 thou/uL (1.20-3.40); #Monocytes 0.4 thou/uL (0.11-0.59); #Neutrophils 2.3 thou/uL (1.40-6.50); %Basophils 0.7 % (0.0-1.0); %Eosinophils 2.2 % (0.0-10.0); %Lymphocytes 14.6 % (21.0-51.0); %Monocytes 12.4 % (0.0-10.0); %Neutrophils 70.1 % (42.0-75.0); Hemoglobin 10.1 g/dL (12.0-16.0); Mean Corpuscular HGB CONC 30.9 g/dL (32.0-36.0); Mean Corpuscular Hemoglobin 29.7 pg (27.0-31.0); Platelet Count 112 thou/uL (130-400); RBC Distribution Width 13.5 % (11.5-14.5); White Blood Cell (WBC) Count 3.3 thou/uL (4.8-10.8)
[2021-10-04 06:01] LABS: Anion Gap 14 mmol/L (10-20); BUN (Urea Nitrogen) 28 mg/dL (9.8-20.1); Calc. Creatinine Clearance 35 mL/min (70-130); Calcium 8.7 mg/dL (7.8-10.44); Carbon Dioxide 36 mmol/L (23-31); Chloride 92 mmol/L (98-107); Glucose 113 mg/dL (83-110); Potassium 4.4 mmol/L (3.5-5.1); Sodium 138 mmol/L (136-145)
[2021-10-04] MEDS: Keri Lotion 15 oz BOT TOP SCH (08:31)
[2021-10-04] MEDS: ALPRAZolam 0.25 MG TAB PO SCH ×2 (08:31→20:06)
[2021-10-04] MEDS: Furosemide 40 MG TAB PO SCH ×2 (08:32→14:11)
[2021-10-04] MEDS: Mag-Al Plus 1200 MG/1200 MG/120 MG/30 ML UDCUP PO PRN ×2 (08:38→17:16)
[2021-10-04] MEDS ORDERED: Furosemide 20 MG TAB PO SCH (09:00)
[2021-10-04] MEDS: ALPRAZolam 0.25 MG TAB PO PRN (17:46)
[2021-10-04] MEDS: Benzonatate 100 MG CAP PO PRN (20:06)
[2021-10-04] MEDS: Zinc Sulfate 220 MG CAP PO SCH (20:06)
[2021-10-04] MEDS: Allopurinol 100 MG TAB PO SCH (20:07)
[2021-10-04] MEDS: Cholecalciferol 1,000 UNITS (25 MCG) TAB PO SCH (20:08)
[2021-10-04] MEDS: Polyethylene Glycol 3350 17 GM Packet PO SCH (20:08)
[2021-10-04] MEDS: Potassium Chloride 10 MEQ TAB PO SCH (20:08)
[2021-10-04] MEDS: Docusate 100 MG CAP PO PRN (20:13)
[2021-10-05] MEDS: Levothyroxine Sodium 75 MCG TAB PO SCH (07:27)
[2021-10-05] MEDS: ALPRAZolam 0.25 MG TAB PO PRN (08:18)
[2021-10-05] MEDS: Furosemide 40 MG TAB PO SCH ×2 (08:18→13:28)
[2021-10-05] MEDS: Keri Lotion 15 oz BOT TOP SCH (08:19)
[2021-10-05] MEDS: Loratadine 10 MG TAB PO PRN (08:19)
[2021-10-05] MEDS: Mag-Al Plus 1200 MG/1200 MG/120 MG/30 ML UDCUP PO PRN (08:19)
[2021-10-05] MEDS: Acetaminophen 325 MG TAB PO PRN (15:27)
[2021-10-05] MEDS: Albuterol 200 PUFF (6.7GM INHALER) INH PRN (15:28)
[2021-10-05] MEDS: Zinc Sulfate 220 MG CAP PO SCH (20:07)
[2021-10-05] MEDS: ALPRAZolam 0.25 MG TAB PO SCH (20:07)
[2021-10-05] MEDS: Potassium Chloride 10 MEQ TAB PO SCH (20:08)
[2021-10-05] MEDS: Allopurinol 100 MG TAB PO SCH (20:09)
[2021-10-05] MEDS: Cholecalciferol 1,000 UNITS (25 MCG) TAB PO SCH (20:09)
[2021-10-05] MEDS: Polyethylene Glycol 3350 17 GM Packet PO SCH (20:09)
[2021-10-06] MEDS: Levothyroxine Sodium 75 MCG TAB PO SCH (05:22)
[2021-10-06] MEDS: Keri Lotion 15 oz BOT TOP SCH (08:26)
[2021-10-06] MEDS: Acetaminophen 325 MG TAB PO PRN ×2 (08:27→21:06)
[2021-10-06] MEDS: Mag-Al Plus 1200 MG/1200 MG/120 MG/30 ML UDCUP PO PRN ×3 (08:27→16:53)
[2021-10-06] MEDS: Benzonatate 100 MG CAP PO PRN ×2 (08:27→21:10)
[2021-10-06] MEDS: Furosemide 40 MG TAB PO SCH ×2 (08:28→14:26)
[2021-10-06] MEDS: ALPRAZolam 0.25 MG TAB PO PRN (08:29)
[2021-10-06] MEDS: Sodium Chloride 0.65% Nasal 44 ML BOT EA NARE PRN (08:34)
[2021-10-06] MEDS: Albuterol 200 PUFF (6.7GM INHALER) INH PRN (14:27)
[2021-10-06] MEDS: Docusate 100 MG CAP PO PRN (21:04)
[2021-10-06] MEDS: ALPRAZolam 0.25 MG TAB PO SCH (21:04)
[2021-10-06] MEDS: Zinc Sulfate 220 MG CAP PO SCH (21:04)
[2021-10-06] MEDS: Cholecalciferol 1,000 UNITS (25 MCG) TAB PO SCH (21:05)
[2021-10-06] MEDS: Polyethylene Glycol 3350 17 GM Packet PO SCH (21:05)
[2021-10-06] MEDS: Potassium Chloride 10 MEQ TAB PO SCH (21:05)
[2021-10-06] MEDS: Allopurinol 100 MG TAB PO SCH (21:05)
[2021-10-07] MEDS: Levothyroxine Sodium 75 MCG TAB PO SCH (05:39)
[2021-10-07 05:54] LABS: Anion Gap 16 mmol/L (10-20); BUN (Urea Nitrogen) 23 mg/dL (9.8-20.1); Calc. Creatinine Clearance 43 mL/min (70-130); Carbon Dioxide 35 mmol/L (23-31); Chloride 96 mmol/L (98-107); Glucose 132 mg/dL (83-110); Sodium 142 mmol/L (136-145)
[2021-10-07] MEDS: Furosemide 40 MG TAB PO SCH (08:01)
[2021-10-07] MEDS: Mag-Al Plus 1200 MG/1200 MG/120 MG/30 ML UDCUP PO PRN ×4 (08:01→21:36)
[2021-10-07] MEDS: Keri Lotion 15 oz BOT TOP SCH (08:01)
[2021-10-07] MEDS: Benzonatate 100 MG CAP PO PRN (10:25)
[2021-10-07] MEDS: Furosemide 20 MG TAB PO SCH (13:42)
[2021-10-07] MEDS: Albuterol 200 PUFF (6.7GM INHALER) INH PRN (15:00)
[2021-10-07] MEDS: Cholecalciferol 1,000 UNITS (25 MCG) TAB PO SCH (21:23)
[2021-10-07] MEDS: Allopurinol 100 MG TAB PO SCH (21:23)
[2021-10-07] MEDS: Zinc Sulfate 220 MG CAP PO SCH (21:23)
[2021-10-07] MEDS: Potassium Chloride 10 MEQ TAB PO SCH (21:23)
[2021-10-07] MEDS: ALPRAZolam 0.25 MG TAB PO SCH (21:24)
[2021-10-07] MEDS: Polyethylene Glycol 3350 17 GM Packet PO SCH ×2 (21:26→23:43)
[2021-10-07] MEDS: Docusate 100 MG CAP PO PRN (23:52)
[2021-10-08] MEDS: Mag-Al Plus 1200 MG/1200 MG/120 MG/30 ML UDCUP PO PRN ×4 (00:22→17:01)
[2021-10-08] MEDS: Albuterol 200 PUFF (6.7GM INHALER) INH PRN (03:15)
[2021-10-08] MEDS: Levothyroxine Sodium 75 MCG TAB PO SCH (05:07)
[2021-10-08] MEDS: Doxycycline 100 MG CAP PO SCH ×2 (07:59→20:46)
[2021-10-08] MEDS: Furosemide 20 MG TAB PO SCH ×2 (07:59→13:19)
[2021-10-08] MEDS: Keri Lotion 15 oz BOT TOP SCH (07:59)
[2021-10-08] MEDS: Benzonatate 100 MG CAP PO PRN ×2 (13:19→22:58)
[2021-10-08] MEDS: ALPRAZolam 0.25 MG TAB PO SCH (19:53)
[2021-10-08] MEDS: Zinc Sulfate 220 MG CAP PO SCH (20:43)
[2021-10-08] MEDS: Potassium Chloride 10 MEQ TAB PO SCH (20:45)
[2021-10-08] MEDS: Cholecalciferol 1,000 UNITS (25 MCG) TAB PO SCH (20:45)
[2021-10-08] MEDS: Allopurinol 100 MG TAB PO SCH (20:45)
[2021-10-08] MEDS: Polyethylene Glycol 3350 17 GM Packet PO SCH (20:51)
[2021-10-09] MEDS: Levothyroxine Sodium 75 MCG TAB PO SCH (05:13)
[2021-10-09 05:44] LABS: Anion Gap 15 mmol/L (10-20); BUN (Urea Nitrogen) 18 mg/dL (9.8-20.1); Calc. Creatinine Clearance 39 mL/min (70-130); Calcium 9.3 mg/dL (7.8-10.44); Carbon Dioxide 35 mmol/L (23-31); Chloride 93 mmol/L (98-107); Glucose 140 mg/dL (83-110); Potassium 4.4 mmol/L (3.5-5.1); Sodium 139 mmol/L (136-145)
[2021-10-09] MEDS: Doxycycline 100 MG CAP PO SCH ×2 (08:15→20:31)
[2021-10-09] MEDS: Furosemide 20 MG TAB PO SCH (08:15)
[2021-10-09] MEDS: Keri Lotion 15 oz BOT TOP SCH (08:15)
[2021-10-09] MEDS: Mag-Al Plus 1200 MG/1200 MG/120 MG/30 ML UDCUP PO PRN ×3 (08:27→16:48)
[2021-10-09] MEDS: Albuterol 200 PUFF (6.7GM INHALER) INH PRN ×2 (08:27→20:31)
[2021-10-09] MEDS: Furosemide 40 MG TAB PO SCH ×2 (09:35→13:29)
[2021-10-09] MEDS: Benzonatate 100 MG CAP PO PRN ×2 (10:52→23:42)
[2021-10-09] MEDS: ALPRAZolam 0.25 MG TAB PO PRN (12:29)
[2021-10-09] MEDS: Sodium Chloride 0.65% Nasal 44 ML BOT EA NARE PRN (13:32)
[2021-10-09] MEDS: ALPRAZolam 0.25 MG TAB PO SCH (20:30)
[2021-10-09] MEDS: Acetaminophen 325 MG TAB PO PRN (21:52)
[2021-10-09] MEDS: Allopurinol 100 MG TAB PO SCH (21:54)
[2021-10-09] MEDS: Cholecalciferol 1,000 UNITS (25 MCG) TAB PO SCH (21:55)
[2021-10-09] MEDS: Zinc Sulfate 220 MG CAP PO SCH (21:55)
[2021-10-09] MEDS: Potassium Chloride 10 MEQ TAB PO SCH (21:55)
[2021-10-09] MEDS: Polyethylene Glycol 3350 17 GM Packet PO SCH (21:55)
[2021-10-10] MEDS: Albuterol 200 PUFF (6.7GM INHALER) INH PRN (02:27)
[2021-10-10] MEDS: Levothyroxine Sodium 75 MCG TAB PO SCH (04:59)
[2021-10-10] MEDS ORDERED: Furosemide 20 MG TAB PO SCH (09:00)
[2021-10-10] MEDS: Doxycycline 100 MG CAP PO SCH ×2 (09:05→20:22)
[2021-10-10] MEDS: Furosemide 40 MG TAB PO SCH ×2 (09:05→14:06)
[2021-10-10] MEDS: Keri Lotion 15 oz BOT TOP SCH (09:06)
[2021-10-10] MEDS: cefTRIAXone\\ROCEPHIN 1 GM in Sodium Chloride 0.9% 100 ML IVPB SCH (10:00)
[2021-10-10] MEDS: ALPRAZolam 0.25 MG TAB PO PRN (14:06)
[2021-10-10] MEDS: Mag-Al Plus 1200 MG/1200 MG/120 MG/30 ML UDCUP PO PRN (17:10)
[2021-10-10] MEDS: ALPRAZolam 0.25 MG TAB PO SCH (20:20)
[2021-10-10] MEDS: Zinc Sulfate 220 MG CAP PO SCH (20:20)
[2021-10-10] MEDS: Potassium Chloride 10 MEQ TAB PO SCH (20:21)
[2021-10-10] MEDS: Cholecalciferol 1,000 UNITS (25 MCG) TAB PO SCH (20:21)
[2021-10-10] MEDS: Polyethylene Glycol 3350 17 GM Packet PO SCH (20:21)
[2021-10-10] MEDS: Allopurinol 100 MG TAB PO SCH (20:21)
[2021-10-10] MEDS: Ondansetron ODT 4 MG TAB PO PRN (20:47)
[2021-10-11 05:35] LABS: #Basophils 0.1 thou/uL (0.0-0.2); #Eosinphils 0.3 thou/uL (0.0-0.7); #Lymphocytes 0.5 thou/uL (1.20-3.40); #Monocytes 0.7 thou/uL (0.11-0.59); #Neutrophils 4.3 thou/uL (1.40-6.50); %Basophils 1.6 % (0.0-1.0); %Eosinophils 5.3 % (0.0-10.0); %Lymphocytes 9.1 % (21.0-51.0); %Monocytes 11.3 % (0.0-10.0); %Neutrophils 72.7 % (42.0-75.0); Hemoglobin 10.2 g/dL (12.0-16.0); Mean Corpuscular HGB CONC 31.1 g/dL (32.0-36.0); Mean Corpuscular Hemoglobin 29.9 pg (27.0-31.0); Mean Corpuscular Volume 96.2 fL (78.0-98.0); Mean Platelet Volume 6.8 fL (7.4-10.4); Platelet Count 235 thou/uL (130-400); RBC Distribution Width 14.3 % (11.5-14.5); White Blood Cell (WBC) Count 5.9 thou/uL (4.8-10.8)
[2021-10-11 05:45] LABS: Anion Gap 18 mmol/L (10-20); BUN (Urea Nitrogen) 20 mg/dL (9.8-20.1); Calc. Creatinine Clearance 37 mL/min (70-130); Carbon Dioxide 32 mmol/L (23-31); Chloride 94 mmol/L (98-107); Glucose 119 mg/dL (83-110); Potassium 4.1 mmol/L (3.5-5.1); Sodium 140 mmol/L (136-145)
[2021-10-11] MEDS: Levothyroxine Sodium 75 MCG TAB PO SCH (06:05)
[2021-10-11] MEDS: Benzonatate 100 MG CAP PO PRN (06:08)
[2021-10-11] MEDS: Mag-Al Plus 1200 MG/1200 MG/120 MG/30 ML UDCUP PO PRN ×3 (08:09→16:34)
[2021-10-11] MEDS: Loratadine 10 MG TAB PO PRN (08:10)
[2021-10-11] MEDS: Doxycycline 100 MG CAP PO SCH ×2 (08:10→20:38)
[2021-10-11] MEDS: Furosemide 40 MG TAB PO SCH ×2 (08:10→14:08)
[2021-10-11] MEDS: cefTRIAXone\\ROCEPHIN 1 GM in Sodium Chloride 0.9% 100 ML IVPB SCH (08:11)
[2021-10-11] MEDS: Keri Lotion 15 oz BOT TOP SCH (08:11)
[2021-10-11] MEDS ORDERED: Evolocumab [Repatha Sureclick] 140 MG/ML Pen.Injctr SC SCH (09:00)
[2021-10-11] MEDS: ALPRAZolam 0.25 MG TAB PO PRN (14:47)
[2021-10-11] MEDS: Docusate 100 MG CAP PO PRN (17:50)
[2021-10-11] MEDS: Polyethylene Glycol 3350 17 GM Packet PO PRN (17:50)
[2021-10-11] MEDS: Allopurinol 100 MG TAB PO SCH (20:37)
[2021-10-11] MEDS: Potassium Chloride 10 MEQ TAB PO SCH (20:37)
[2021-10-11] MEDS: Zinc Sulfate 220 MG CAP PO SCH (20:37)
[2021-10-11] MEDS: ALPRAZolam 0.25 MG TAB PO SCH (20:37)
[2021-10-11] MEDS: Cholecalciferol 1,000 UNITS (25 MCG) TAB PO SCH (20:38)
[2021-10-11] MEDS: Polyethylene Glycol 3350 17 GM Packet PO SCH (20:38)
[2021-10-12] MEDS: Levothyroxine Sodium 75 MCG TAB PO SCH (05:17)
[2021-10-12] MEDS: Mag-Al Plus 1200 MG/1200 MG/120 MG/30 ML UDCUP PO PRN ×3 (08:41→16:37)
[2021-10-12] MEDS: Keri Lotion 15 oz BOT TOP SCH (08:42)
[2021-10-12] MEDS: cefTRIAXone\\ROCEPHIN 1 GM in Sodium Chloride 0.9% 100 ML IVPB SCH (08:42)
[2021-10-12] MEDS: Doxycycline 100 MG CAP PO SCH ×2 (08:42→20:42)
[2021-10-12] MEDS: Furosemide 40 MG TAB PO SCH ×2 (08:42→14:10)
[2021-10-12] MEDS: ALPRAZolam 0.25 MG TAB PO PRN (10:05)
[2021-10-12] MEDS: Potassium Chloride 10 MEQ TAB PO SCH (20:42)
[2021-10-12] MEDS: Cholecalciferol 1,000 UNITS (25 MCG) TAB PO SCH (20:42)
[2021-10-12] MEDS: ALPRAZolam 0.25 MG TAB PO SCH (20:42)
[2021-10-12] MEDS: Allopurinol 100 MG TAB PO SCH (20:42)
[2021-10-12] MEDS: Zinc Sulfate 220 MG CAP PO SCH (20:42)
[2021-10-12] MEDS: Polyethylene Glycol 3350 17 GM Packet PO SCH (20:47)
[2021-10-13] MEDS: Levothyroxine Sodium 75 MCG TAB PO SCH (05:21)
[2021-10-13] MEDS: Mag-Al Plus 1200 MG/1200 MG/120 MG/30 ML UDCUP PO PRN ×4 (07:58→21:05)
[2021-10-13] MEDS: cefTRIAXone\\ROCEPHIN 1 GM in Sodium Chloride 0.9% 100 ML IVPB SCH (07:58)
[2021-10-13] MEDS: Doxycycline 100 MG CAP PO SCH ×2 (07:59→21:03)
[2021-10-13] MEDS: Keri Lotion 15 oz BOT TOP SCH (07:59)
[2021-10-13] MEDS: Furosemide 40 MG TAB PO SCH ×2 (07:59→14:18)
[2021-10-13] MEDS: ALPRAZolam 0.25 MG TAB PO SCH (21:01)
[2021-10-13] MEDS: Allopurinol 100 MG TAB PO SCH (21:02)
[2021-10-13] MEDS: Potassium Chloride 10 MEQ TAB PO SCH (21:03)
[2021-10-13] MEDS: Cholecalciferol 1,000 UNITS (25 MCG) TAB PO SCH (21:03)
[2021-10-13] MEDS: Zinc Sulfate 220 MG CAP PO SCH (21:03)
[2021-10-13] MEDS: Polyethylene Glycol 3350 17 GM Packet PO SCH (21:04)
[2021-10-14] MEDS: Ondansetron ODT 4 MG TAB PO PRN (03:17)
[2021-10-14] MEDS: Levothyroxine Sodium 75 MCG TAB PO SCH (06:00)
[2021-10-14] MEDS: Doxycycline 100 MG CAP PO SCH ×2 (08:30→20:30)
[2021-10-14] MEDS: Furosemide 40 MG TAB PO SCH ×2 (08:31→13:12)
[2021-10-14] MEDS: Mag-Al Plus 1200 MG/1200 MG/120 MG/30 ML UDCUP PO PRN ×3 (08:32→17:43)
[2021-10-14] MEDS ORDERED: cefTRIAXone\\ROCEPHIN 1 GM in Sodium Chloride 0.9% 100 ML IVPB SCH (09:00)
[2021-10-14] MEDS: Keri Lotion 15 oz BOT TOP SCH (09:01)
[2021-10-14] MEDS: ALPRAZolam 0.25 MG TAB PO PRN (15:23)
[2021-10-14] MEDS: Docusate 100 MG CAP PO PRN (20:28)
[2021-10-14] MEDS: Zinc Sulfate 220 MG CAP PO SCH (20:28)
[2021-10-14] MEDS: Allopurinol 100 MG TAB PO SCH (20:30)
[2021-10-14] MEDS: Cefdinir 300 MG CAP PO SCH (20:30)
[2021-10-14] MEDS: Potassium Chloride 10 MEQ TAB PO SCH (20:30)
[2021-10-14] MEDS: Cholecalciferol 1,000 UNITS (25 MCG) TAB PO SCH (20:30)
[2021-10-14] MEDS: Polyethylene Glycol 3350 17 GM Packet PO SCH (20:31)
[2021-10-14] MEDS: ALPRAZolam 0.25 MG TAB PO SCH (21:29)
[2021-10-15] MEDS: Levothyroxine Sodium 75 MCG TAB PO SCH (05:09)
[2021-10-15] MEDS: Cefdinir 300 MG CAP PO SCH ×2 (08:36→21:01)
[2021-10-15] MEDS: Doxycycline 100 MG CAP PO SCH ×2 (08:36→21:01)
[2021-10-15] MEDS: Furosemide 40 MG TAB PO SCH ×2 (08:37→13:16)
[2021-10-15] MEDS: Mag-Al Plus 1200 MG/1200 MG/120 MG/30 ML UDCUP PO PRN ×3 (08:37→16:56)
[2021-10-15] MEDS: Keri Lotion 15 oz BOT TOP SCH (08:40)
[2021-10-15] MEDS: ALPRAZolam 0.25 MG TAB PO PRN (10:49)
[2021-10-15] MEDS: Cholecalciferol 1,000 UNITS (25 MCG) TAB PO SCH (21:01)
[2021-10-15] MEDS: Zinc Sulfate 220 MG CAP PO SCH (21:01)
[2021-10-15] MEDS: Potassium Chloride 10 MEQ TAB PO SCH (21:01)
[2021-10-15] MEDS: Polyethylene Glycol 3350 17 GM Packet PO SCH (21:01)
[2021-10-15] MEDS: Allopurinol 100 MG TAB PO SCH (21:01)
[2021-10-15] MEDS: ALPRAZolam 0.25 MG TAB PO SCH (21:04)
[2021-10-15] MEDS: Acetaminophen 325 MG TAB PO PRN (22:35)
[2021-10-16] MEDS: Levothyroxine Sodium 75 MCG TAB PO SCH (05:19)
[2021-10-16] MEDS: Mag-Al Plus 1200 MG/1200 MG/120 MG/30 ML UDCUP PO PRN ×3 (07:45→16:45)
[2021-10-16] MEDS: Keri Lotion 15 oz BOT TOP SCH (08:27)
[2021-10-16] MEDS: Doxycycline 100 MG CAP PO SCH ×2 (08:27→20:01)
[2021-10-16] MEDS: Cefdinir 300 MG CAP PO SCH ×2 (08:27→20:01)
[2021-10-16] MEDS: Furosemide 40 MG TAB PO SCH ×2 (08:27→13:09)
[2021-10-16] MEDS: Acetaminophen 325 MG TAB PO PRN (13:09)
[2021-10-16] MEDS: ALPRAZolam 0.25 MG TAB PO PRN (17:59)
[2021-10-16] MEDS: ALPRAZolam 0.25 MG TAB PO SCH (19:59)
[2021-10-16] MEDS: Zinc Sulfate 220 MG CAP PO SCH (20:00)
[2021-10-16] MEDS: Cholecalciferol 1,000 UNITS (25 MCG) TAB PO SCH (20:01)
[2021-10-16] MEDS: Allopurinol 100 MG TAB PO SCH (20:01)
[2021-10-16] MEDS: Potassium Chloride 10 MEQ TAB PO SCH (20:01)
[2021-10-16] MEDS: Polyethylene Glycol 3350 17 GM Packet PO SCH (20:02)
[2021-10-17] MEDS: Levothyroxine Sodium 75 MCG TAB PO SCH (05:00)
[2021-10-17] MEDS: Mag-Al Plus 1200 MG/1200 MG/120 MG/30 ML UDCUP PO PRN ×3 (07:49→16:52)
[2021-10-17] MEDS: Doxycycline 100 MG CAP PO SCH ×2 (08:15→20:54)
[2021-10-17] MEDS: Furosemide 40 MG TAB PO SCH ×2 (08:15→13:39)
[2021-10-17] MEDS: Cefdinir 300 MG CAP PO SCH ×2 (08:15→20:53)
[2021-10-17] MEDS: Keri Lotion 15 oz BOT TOP SCH (08:17)
[2021-10-17] MEDS: Acetaminophen 325 MG TAB PO PRN ×2 (10:15→21:40)
[2021-10-17] MEDS: Zinc Sulfate 220 MG CAP PO SCH (20:53)
[2021-10-17] MEDS: Potassium Chloride 10 MEQ TAB PO SCH (20:53)
[2021-10-17] MEDS: ALPRAZolam 0.25 MG TAB PO SCH (20:54)
[2021-10-17] MEDS: Cholecalciferol 1,000 UNITS (25 MCG) TAB PO SCH (20:55)
[2021-10-17] MEDS: Polyethylene Glycol 3350 17 GM Packet PO SCH (20:55)
[2021-10-17] MEDS: Allopurinol 100 MG TAB PO SCH (20:55)
[2021-10-17] MEDS: Ondansetron ODT 4 MG TAB PO PRN (21:40)
[2021-10-18 05:04] LABS: #Basophils 0.1 thou/uL (0.0-0.2); #Eosinphils 0.3 thou/uL (0.0-0.7); #Lymphocytes 0.7 thou/uL (1.20-3.40); #Monocytes 0.3 thou/uL (0.11-0.59); #Neutrophils 2.9 thou/uL (1.40-6.50); %Basophils 1.2 % (0.0-1.0); %Eosinophils 6.2 % (0.0-10.0); %Lymphocytes 16.3 % (21.0-51.0); %Monocytes 7.8 % (0.0-10.0); %Neutrophils 68.5 % (42.0-75.0); Mean Corpuscular HGB CONC 31.7 g/dL (32.0-36.0); Mean Corpuscular Hemoglobin 29.8 pg (27.0-31.0); Mean Corpuscular Volume 94.1 fL (78.0-98.0); Mean Platelet Volume 7.2 fL (7.4-10.4); Platelet Count 107 thou/uL (130-400); RBC Distribution Width 14.2 % (11.5-14.5); Red Blood Cell (RBC) Count 3.03 mill/uL (4.20-5.40); White Blood Cell (WBC) Count 4.3 thou/uL (4.8-10.8)
[2021-10-18 05:22] LABS: Anion Gap 14 mmol/L (10-20); BUN (Urea Nitrogen) 19 mg/dL (9.8-20.1); Calc. Creatinine Clearance 37 mL/min (70-130); Calcium 9.4 mg/dL (7.8-10.44); Carbon Dioxide 37 mmol/L (23-31); Chloride 95 mmol/L (98-107); Glucose 132 mg/dL (83-110); Potassium 4.6 mmol/L (3.5-5.1); Sodium 141 mmol/L (136-145)
[2021-10-18] MEDS: Levothyroxine Sodium 75 MCG TAB PO SCH (05:58)
[2021-10-18] MEDS: Mag-Al Plus 1200 MG/1200 MG/120 MG/30 ML UDCUP PO PRN ×3 (08:00→16:37)
[2021-10-18] MEDS: Furosemide 40 MG TAB PO SCH ×2 (08:38→13:47)
[2021-10-18] MEDS: Keri Lotion 15 oz BOT TOP SCH (08:38)
[2021-10-18] MEDS: Cefdinir 300 MG CAP PO SCH ×2 (08:38→20:00)
[2021-10-18] MEDS: Acetaminophen 325 MG TAB PO PRN (10:20)
[2021-10-18] MEDS: ALPRAZolam 0.25 MG TAB PO PRN (15:59)
[2021-10-18] MEDS: ALPRAZolam 0.25 MG TAB PO SCH (19:59)
[2021-10-18] MEDS: Zinc Sulfate 220 MG CAP PO SCH (19:59)
[2021-10-18] MEDS: Potassium Chloride 10 MEQ TAB PO SCH (20:00)
[2021-10-18] MEDS: Allopurinol 100 MG TAB PO SCH (20:00)
[2021-10-18] MEDS: Cholecalciferol 1,000 UNITS (25 MCG) TAB PO SCH (20:00)
[2021-10-18] MEDS: Polyethylene Glycol 3350 17 GM Packet PO SCH (20:01)
[2021-10-19] MEDS: Levothyroxine Sodium 75 MCG TAB PO SCH (05:22)
[2021-10-19] MEDS: Mag-Al Plus 1200 MG/1200 MG/120 MG/30 ML UDCUP PO PRN ×3 (07:30→17:09)
[2021-10-19] MEDS: Keri Lotion 15 oz BOT TOP SCH (09:05)
[2021-10-19] MEDS: Cefdinir 300 MG CAP PO SCH ×2 (09:05→20:03)
[2021-10-19] MEDS: Furosemide 40 MG TAB PO SCH ×2 (09:05→13:37)
[2021-10-19] MEDS: Oxymetazoline HCl 0.05% (30 ML BOT) NS PRN ×2 (09:06→17:10)
[2021-10-19] MEDS: Polyethylene Glycol 3350 17 GM Packet PO SCH (20:02)
[2021-10-19] MEDS: Docusate 100 MG CAP PO PRN (20:02)
[2021-10-19] MEDS: ALPRAZolam 0.25 MG TAB PO SCH (20:02)
[2021-10-19] MEDS: Potassium Chloride 10 MEQ TAB PO SCH (20:03)
[2021-10-19] MEDS: Cholecalciferol 1,000 UNITS (25 MCG) TAB PO SCH (20:03)
[2021-10-19] MEDS: Zinc Sulfate 220 MG CAP PO SCH (20:03)
[2021-10-19] MEDS: Allopurinol 100 MG TAB PO SCH (20:04)
[2021-10-19] MEDS: Acetaminophen 325 MG TAB PO PRN (21:13)
[2021-10-20] MEDS: Levothyroxine Sodium 75 MCG TAB PO SCH (05:57)
[2021-10-20] MEDS: Mag-Al Plus 1200 MG/1200 MG/120 MG/30 ML UDCUP PO PRN ×3 (08:02→17:48)
[2021-10-20] MEDS: Cefdinir 300 MG CAP PO SCH ×2 (08:04→20:29)
[2021-10-20] MEDS: Furosemide 40 MG TAB PO SCH ×2 (08:04→13:42)
[2021-10-20] MEDS: Keri Lotion 15 oz BOT TOP SCH (08:06)
[2021-10-20] MEDS: Acetaminophen 325 MG TAB PO PRN ×2 (10:36→20:30)
[2021-10-20] MEDS: ALPRAZolam 0.25 MG TAB PO PRN (11:14)
[2021-10-20] MEDS: Oxymetazoline HCl 0.05% (30 ML BOT) NS PRN ×3 (15:30→23:45)
[2021-10-20] MEDS: Polyethylene Glycol 3350 17 GM Packet PO SCH (20:26)
[2021-10-20] MEDS: Cholecalciferol 1,000 UNITS (25 MCG) TAB PO SCH (20:29)
[2021-10-20] MEDS: ALPRAZolam 0.25 MG TAB PO SCH (20:29)
[2021-10-20] MEDS: Potassium Chloride 10 MEQ TAB PO SCH (20:30)
[2021-10-20] MEDS: Benzonatate 100 MG CAP PO PRN (20:30)
[2021-10-20] MEDS: Allopurinol 100 MG TAB PO SCH (20:30)
[2021-10-20] MEDS: Zinc Sulfate 220 MG CAP PO SCH (20:30)
[2021-10-21] MEDS: Acetaminophen 325 MG TAB PO PRN ×3 (02:28→16:33)
[2021-10-21] MEDS: Levothyroxine Sodium 75 MCG TAB PO SCH (05:53)
[2021-10-21] MEDS: Mag-Al Plus 1200 MG/1200 MG/120 MG/30 ML UDCUP PO PRN ×3 (07:47→16:33)
[2021-10-21] MEDS: Cefdinir 300 MG CAP PO SCH ×2 (07:47→20:31)
[2021-10-21] MEDS: Furosemide 40 MG TAB PO SCH ×2 (07:48→13:27)
[2021-10-21] MEDS: Keri Lotion 15 oz BOT TOP SCH (07:48)
[2021-10-21] MEDS: ALPRAZolam 0.25 MG TAB PO PRN (09:01)
[2021-10-21] MEDS: Docusate 100 MG CAP PO PRN (20:31)
[2021-10-21] MEDS: Zinc Sulfate 220 MG CAP PO SCH (20:31)
[2021-10-21] MEDS: Potassium Chloride 10 MEQ TAB PO SCH (20:32)
[2021-10-21] MEDS: Cholecalciferol 1,000 UNITS (25 MCG) TAB PO SCH (20:32)
[2021-10-21] MEDS: ALPRAZolam 0.25 MG TAB PO SCH (20:33)
[2021-10-21] MEDS: Allopurinol 100 MG TAB PO SCH (20:33)
[2021-10-21] MEDS: Polyethylene Glycol 3350 17 GM Packet PO SCH (20:34)
[2021-10-22 05:15] LABS: #Basophils 0.1 thou/uL (0.0-0.2); #Eosinphils 0.4 thou/uL (0.0-0.7); #Lymphocytes 0.5 thou/uL (1.20-3.40); #Monocytes 0.4 thou/uL (0.11-0.59); #Neutrophils 2.8 thou/uL (1.40-6.50); %Basophils 1.3 % (0.0-1.0); %Eosinophils 8.8 % (0.0-10.0); %Lymphocytes 12.2 % (21.0-51.0); %Monocytes 9.3 % (0.0-10.0); %Neutrophils 68.4 % (42.0-75.0); Hemoglobin 9.2 g/dL (12.0-16.0); Mean Corpuscular HGB CONC 31.9 g/dL (32.0-36.0); Mean Corpuscular Volume 94.1 fL (78.0-98.0); Platelet Count 98 thou/uL (130-400); RBC Distribution Width 14.4 % (11.5-14.5); Red Blood Cell (RBC) Count 3.06 mill/uL (4.20-5.40); White Blood Cell (WBC) Count 4.1 thou/uL (4.8-10.8)
[2021-10-22 05:33] LABS: Anion Gap 15 mmol/L (10-20); BUN (Urea Nitrogen) 18 mg/dL (9.8-20.1); Calc. Creatinine Clearance 34 mL/min (70-130); Calcium 9.2 mg/dL (7.8-10.44); Carbon Dioxide 34 mmol/L (23-31); Chloride 97 mmol/L (98-107); Glucose 131 mg/dL (83-110); Potassium 4.6 mmol/L (3.5-5.1); Sodium 141 mmol/L (136-145)
[2021-10-22] MEDS: Levothyroxine Sodium 75 MCG TAB PO SCH (05:44)
[2021-10-22] MEDS: Mag-Al Plus 1200 MG/1200 MG/120 MG/30 ML UDCUP PO PRN ×4 (07:51→21:47)
[2021-10-22] MEDS: Keri Lotion 15 oz BOT TOP SCH (08:20)
[2021-10-22] MEDS: Furosemide 40 MG TAB PO SCH ×2 (08:21→13:24)
[2021-10-22] MEDS: ALPRAZolam 0.25 MG TAB PO PRN (10:07)
[2021-10-22] MEDS: Allopurinol 100 MG TAB PO SCH (21:38)
[2021-10-22] MEDS: ALPRAZolam 0.25 MG TAB PO SCH (21:39)
[2021-10-22] MEDS: Cholecalciferol 1,000 UNITS (25 MCG) TAB PO SCH (21:40)
[2021-10-22] MEDS: Zinc Sulfate 220 MG CAP PO SCH (21:40)
[2021-10-22] MEDS: Potassium Chloride 10 MEQ TAB PO SCH (21:40)
[2021-10-22] MEDS: Docusate 100 MG CAP PO PRN (21:40)
[2021-10-22] MEDS: Acetaminophen 325 MG TAB PO PRN (21:41)
[2021-10-22] MEDS: Polyethylene Glycol 3350 17 GM Packet PO SCH (21:42)
[2021-10-22] MEDS: Ondansetron ODT 4 MG TAB PO PRN (22:29)
[2021-10-23] MEDS: Levothyroxine Sodium 75 MCG TAB PO SCH (06:01)
[2021-10-23] MEDS: Mag-Al Plus 1200 MG/1200 MG/120 MG/30 ML UDCUP PO PRN ×3 (07:47→16:34)
[2021-10-23] MEDS: Furosemide 40 MG TAB PO SCH ×2 (08:08→13:09)
[2021-10-23] MEDS: Keri Lotion 15 oz BOT TOP SCH (08:08)
[2021-10-23] MEDS: Acetaminophen 325 MG TAB PO PRN ×2 (11:49→22:04)
[2021-10-23] MEDS: Zinc Sulfate 220 MG CAP PO SCH (20:56)
[2021-10-23] MEDS: Docusate 100 MG CAP PO PRN (20:56)
[2021-10-23] MEDS: Potassium Chloride 10 MEQ TAB PO SCH (20:56)
[2021-10-23] MEDS: Cholecalciferol 1,000 UNITS (25 MCG) TAB PO SCH (20:57)
[2021-10-23] MEDS: ALPRAZolam 0.25 MG TAB PO SCH (20:57)
[2021-10-23] MEDS: Allopurinol 100 MG TAB PO SCH (20:59)
[2021-10-23] MEDS: Polyethylene Glycol 3350 17 GM Packet PO SCH (21:01)
[2021-10-24] MEDS: Levothyroxine Sodium 75 MCG TAB PO SCH (05:32)
[2021-10-24] MEDS: Furosemide 40 MG TAB PO SCH ×2 (08:28→14:24)
[2021-10-24] MEDS: Keri Lotion 15 oz BOT TOP SCH (08:29)
[2021-10-24] MEDS: ALPRAZolam 0.25 MG TAB PO PRN (10:47)
[2021-10-24 11:20] VITALS: BMI 18.8
[2021-10-24] MEDS: Acetaminophen 325 MG TAB PO PRN ×2 (14:49→21:45)
[2021-10-24] MEDS: ALPRAZolam 0.25 MG TAB PO SCH (20:00)
[2021-10-24] MEDS: Polyethylene Glycol 3350 17 GM Packet PO SCH (20:01)
[2021-10-24] MEDS: Zinc Sulfate 220 MG CAP PO SCH (20:01)
[2021-10-24] MEDS: Allopurinol 100 MG TAB PO SCH (20:02)
[2021-10-24] MEDS: Potassium Chloride 10 MEQ TAB PO SCH (20:05)
[2021-10-24] MEDS: Cholecalciferol 1,000 UNITS (25 MCG) TAB PO SCH (20:05)
[2021-10-24] MEDS: Sodium Chloride 0.65% Nasal 44 ML BOT EA NARE PRN (21:45)
[2021-10-24] MEDS: Ondansetron ODT 4 MG TAB PO PRN (22:09)
[2021-10-25] MEDS: Levothyroxine Sodium 75 MCG TAB PO SCH (05:18)
[2021-10-25] MEDS: Keri Lotion 15 oz BOT TOP SCH (08:16)
[2021-10-25] MEDS: Furosemide 40 MG TAB PO SCH ×2 (08:54→13:21)
[2021-10-25] MEDS ORDERED: Evolocumab [Repatha Sureclick] 140 MG/ML Pen.Injctr SC SCH (09:00)
[2021-10-25] MEDS: ALPRAZolam 0.25 MG TAB PO PRN (11:00)
[2021-10-25] MEDS: Mag-Al Plus 1200 MG/1200 MG/120 MG/30 ML UDCUP PO PRN (12:04)
[2021-10-25 12:06] VITALS: BP 133/57; TEMP 98.3
== END 2021-10-25 14:15 | disposition home health service (06) | DRG 947 ==
LOC: MADMS 16:10
PROVIDERS: ADMIT Family Medicine; ATTEND Family Medicine
PROC: 8E0ZXY6 Isolation (ICD-10-PCS; principal; 2021-09-21)
DX: R53.81 Other malaise (principal); U07.1 COVID-19; I50.33 Acute on chronic diastolic (congestive) heart failure; J96.11 Chronic respiratory failure with hypoxia; J98.11 Atelectasis; J84.9 Interstitial pulmonary disease, unspecified; I50.812 Chronic right heart failure; J44.9 Chronic obstructive pulmonary disease, unspecified; F41.9 Anxiety disorder, unspecified; I27.20 Pulmonary hypertension, unspecified; I07.1 Rheumatic tricuspid insufficiency; D69.6 Thrombocytopenia, unspecified; K59.00 Constipation, unspecified; F41.0 Panic disorder [episodic paroxysmal anxiety]; E11.9 Type 2 diabetes mellitus without complications; I48.91 Unspecified atrial fibrillation; E03.9 Hypothyroidism, unspecified; I25.10 Atherosclerotic heart disease of native coronary artery without angina pectoris; R13.10 Dysphagia, unspecified; R09.81 Nasal congestion; R04.0 Epistaxis; J01.90 Acute sinusitis, unspecified; Z95.1 Presence of aortocoronary bypass graft; Z79.51 Long term (current) use of inhaled steroids; Z79.899 Other long term (current) drug therapy; Z95.2 Presence of prosthetic heart valve; Z95.0 Presence of cardiac pacemaker; Z90.710 Acquired absence of both cervix and uterus; Z90.49 Acquired absence of other specified parts of digestive tract; Z90.89 Acquired absence of other organs; Z88.0 Allergy status to penicillin; Z88.8 Allergy status to other drugs, medicaments and biological substances
CPT/HCPCS: 36415; 36416; 71045; 71046; 80048; 80053; 83880; 85025; J0696; J3490; J7620; J7626; Q0162; U0003; U0005